=== PATIENT | male | born 1970 | race Caucasian/White ===

== ENCOUNTER 2020-02-25 09:41 | Outpatient (REF) | payer OTHER, SELFPAY | END 2020-02-25 09:42 | disposition home or self-care (01) | LOC: HO.LAB 09:41 | PROVIDERS: Visit Provider Internal Medicine | DX: Z20.828 Contact with and (suspected) exposure to other viral communicable diseases (principal) | CPT/HCPCS: C9803; U0003 ==

== ENCOUNTER 2020-07-02 06:25 | Outpatient (REF) | payer OTHER, SELFPAY ==
[2020-07-02 07:06] LABS: MANUAL DIFF FLAG NO
[2020-07-02 07:09] LABS: Basophils Percent Auto 0.3 % (0-2); Eosinophils Absolute Auto 0.1 X10*3/uL (0.0-0.4); Eosinophils Percent Auto 1.7 % (0-4); Hematocrit 46.7 % (42-52); Hemoglobin 15.7 g/dl (14.0-18.0); Imm Gran Abs Auto 0.01 X10*3/uL (0.00-0.03); Imm Gran Pct Auto 0.2 % (0.0-0.4); Lymphocytes Absolute Auto 2.6 X10*3/uL (1.2-4.9); Mean Corpuscular HGB Conc 33.6 g/dl (31.0-36.0); Mean Corpuscular Hemoglobin 29.8 pg (27.0-33.0); Mean Corpuscular Volume 88.8 fL (80-98); Mean Platelet Volume 9.8 fL (9.4-12.4); Monocytes Absolute Auto 0.6 X10*3/uL (0.1-1.2); Monocytes Percent Auto 8.9 % (2-11); Neutrophils Absolute Auto 3.1 X10*3/uL (2.0-8.3); Neutrophils Percent Auto 48.9 % (45-73); Platelet Count 209 X10*3/uL (160-400); Red Blood Count 5.26 X10*6/uL (4.60-5.80); Red Cell Distribution Width 11.9 % (11.0-16.0); White Blood Count 6.4 X10*3/uL (4.8-10.8)
[2020-07-02 07:29] LABS: Glucose Urine UA NEG (NEG); Leukocyte Esterase Urine NEG (NEG); Nitrite Urine NEG (NEG); PH 6.5 (5.0-8.0); Specific Gravity - Urine <= 1.005 (1.005-1.025); Urine Blood NEG (NEG); Urine Ketones NEG (NEG); Urine Protein NEG (NEG-TRACE)
[2020-07-02 07:32] LABS: Alanine Aminotransferase 15 U/L (0-40); Albumin Level 4.7 g/dL (3.5-5.0); Alkaline Phosphatase 35 U/L (39-117); Anion Gap 11 (12-20); Aspartate Amino Transferase 14 U/L (5-37); Bilirubin Total 0.6 mg/dL (0.0-1.0); Blood Urea Nitrogen 22 mg/dL (9-16); Calcium 9.3 mg/dL (8.4-10.2); Carbon Dioxide 30 mmol/L (22-29); Chloride 101 mmol/L (96-108); Cholesterol 213 mg/dL; Estimated Glomerular Filt Rate > 60; Glucose Random 96 mg/dL (60-115); HDL Cholesterol 44 mg/dL; LDL Cholesterol Calculated 133 mg/dl; Potassium 4.3 mmol/L (3.3-5.1); Sodium 138 mmol/L (135-145); Total Protein 7.3 g/dL (6.5-8.0); Triglycerides 183 mg/dL
[2020-07-02 07:35] LABS: Appearance Urine CLEAR; Color Urine STRAW
[2020-07-02 07:55] LABS: Free T4 (Free Thyroxine) 0.84 ng/dL (0.71-1.85); Thyroid Stimulating Hormone 1.91 uIU/mL (0.32-4.0)
[2020-07-02 08:15] LABS: Prostate Specific Antigen Scr 0.95 ng/mL (<0.05-4.0)
[2020-07-02 08:52] LABS: RBC Urine 0 /HPF (0); WBC Urine 0 /HPF (0-4)
[2020-07-02 08:56] LABS: Folate 10.6 ng/mL (> or = 4.0); Vitamin B12 322 pg/mL (200-900)
[2020-07-03 12:01] LABS: Lyme Abs Screen <0.90 index
== END 2020-07-02 06:26 | disposition home or self-care (01) ==
LOC: HO.LAB 06:25
PROVIDERS: PCP Internal Medicine; Visit Provider Internal Medicine
DX: E78.00 Pure hypercholesterolemia, unspecified (principal); R35.0 Frequency of micturition; Z12.5 Encounter for screening for malignant neoplasm of prostate; T14.8XXA Other injury of unspecified body region, initial encounter; W57.XXXA Bitten or stung by nonvenomous insect and other nonvenomous arthropods, initial encounter; Y93.9 Activity, unspecified; Y92.9 Unspecified place or not applicable; Y99.9 Unspecified external cause status
CPT/HCPCS: 36415; 80053; 80061; 81001; 82607; 82746; 84153; 84439; 84443; 85025; 86618

== ENCOUNTER 2020-07-07 15:00 | Outpatient (REF) | payer OTHER, SELFPAY ==
--- NOTE | ~2020-07-07 | XR_ITS ---
EXAMINATION: XR CHEST CLINICAL INFORMATION: Shortness of breath. COMPARISON: None TECHNIQUE: 2 views of the chest were obtained. FINDINGS: No significant abnormality is noted involving the heart, lungs, mediastinum, bony thorax or soft tissues. XR/XR chest 2V IMPRESSION: Unremarkable chest examination.
== END 2020-07-07 15:01 | disposition home or self-care (01) ==
LOC: HO.HMGCX 15:00
PROVIDERS: PCP Internal Medicine; Visit Provider Hospitalist
DX: R06.02 Shortness of breath (principal)
CPT/HCPCS: 71046

== ENCOUNTER 2020-08-12 08:36 | Outpatient (REF) | payer OTHER, SELFPAY ==
[2020-08-12 08:54] LABS: COVID-19 Test Negative (Negative)
== END 2020-08-12 08:37 | disposition home or self-care (01) ==
LOC: HO.LAB 08:36
PROVIDERS: Visit Provider Internal Medicine
DX: Z20.822 Contact with and (suspected) exposure to COVID-19 (principal)
CPT/HCPCS: 36415; 87635; C9803

== ENCOUNTER 2021-01-01 09:42 | Outpatient (REF) | payer OTHER, SELFPAY ==
--- NOTE | 2021-01-01 09:46 | EMG_ITS ---
Bilateral median and ulnar motor and sensory studies were performed. Bilateral radial sensory studies were performed and paraspinal muscles were tested. IMPRESSION: Mild to moderate left, and mild right, median neuropathy across carpal tunnel. MD TAY Canales/CARLINE / [id number]
== END 2021-01-01 09:43 | disposition home or self-care (01) ==
LOC: HO.NEURO 09:42
PROVIDERS: Visit Provider Internal Medicine
DX: R20.0 Anesthesia of skin (principal)
CPT/HCPCS: 95885; 95886; 95911

== ENCOUNTER 2021-01-30 10:51 | Outpatient (REF) | payer OTHER, SELFPAY ==
--- NOTE | 2021-01-30 | PFT_ITS ---
Forced vital capacity, FEV1, XRI80-33, and MVV are normal. Post bronchodilator therapy, there is no significant change. Total lung capacity normal. Residual volume slightly increased. Diffusion capacity normal. CONCLUSION: Normal pulmonary function test. No obstructive or restrictive pulmonary disorder. Bolivar Blum MD MSB/MODL / [id number]
== END 2021-01-30 10:52 | disposition home or self-care (01) ==
LOC: HO.RESP 10:51
PROVIDERS: PCP Internal Medicine; Visit Provider Internal Medicine
DX: R06.02 Shortness of breath (principal)
CPT/HCPCS: 94060; 94727; 94729

== ENCOUNTER 2021-02-09 15:23 | Outpatient (REF) | payer OTHER, SELFPAY ==
--- NOTE | ~2021-02-09 | US_ITS ---
EXAMINATION: US SCROTUM CLINICAL INFORMATION: Scrotal varices. COMPARISON: Ultrasound scrotum 10/27/2015. TECHNIQUE: A sonogram of the scrotum was performed assessing lyles-scale appearance and color Doppler flow. Spectral Doppler analysis of the arterial and venous flow were performed in the testes bilaterally. FINDINGS: RIGHT: Right testicle measures 5.37 x 2.3 x 3.46 cm, volume 22.4 mL. There is a solitary 2 x 3 mm calcification in the inferior right testicle. Spectral Doppler analysis of the arterial and venous flow is normal in the right testis. There is a 1.7 x 1.7 x 2.2 cm right epididymal head cyst. Right epididymal Doppler flow is normal. There is a small right hydrocele. There is a small right varicocele. LEFT: Left testicle measures 4.69 x 2.12 x 4.39 cm, volume 22.9 mL. There is a solitary 1 x 4 mm calcification in the superior left testicle. Spectral Doppler analysis of the arterial and venous flow is normal in the left testis. Left epididymal head is normal in size. Left epididymal Doppler flow is normal. There is a small to moderate left hydrocele. There is a small left varicocele. US/US scrotum IMPRESSION: Small bilateral hydroceles, left greater than right. Small bilateral varicoceles. 1.7 x 1.7 x 2.2 cm right epididymal head cyst. Solitary small bilateral testicular calcifications.
== END 2021-02-09 15:24 | disposition home or self-care (01) ==
LOC: HO.HMGCX 15:23
PROVIDERS: PCP Internal Medicine; Visit Provider Internal Medicine
DX: I86.1 Scrotal varices (principal)
CPT/HCPCS: 76870

== ENCOUNTER 2021-04-02 09:40 | Outpatient (REF) | payer OTHER, SELFPAY ==
--- NOTE | ~2021-04-02 | XR_ITS ---
EXAMINATION: XR FOOT, RIGHT CLINICAL INFORMATION: Unspecified injury of the foot COMPARISON: None TECHNIQUE: AP, lateral, and oblique views of the right foot. FINDINGS: No fracture or dislocation. Normal mineralization and alignment. Enthesopathy of the distal Achilles tendon attachment. XR/XR foot RT min 3V IMPRESSION: No acute osseous abnormality.
== END 2021-04-02 09:41 | disposition home or self-care (01) ==
LOC: HO.HMGCX 09:40
PROVIDERS: PCP Internal Medicine; Visit Provider Physician Assistant
DX: S99.921A Unspecified injury of right foot, initial encounter (principal)
CPT/HCPCS: 73630

== ENCOUNTER 2021-04-20 14:06 | Outpatient (REF) | payer OTHER, SELFPAY ==
[2021-04-20 14:58] LABS: Influenza A PCR NEGATIVE (Negative); Influenza B PCR NEGATIVE (Negative); Resp Syncy Virus RNA Qual PCR NEGATIVE (Negative); SARS COV2 PCR INHOUSE NEGATIVE (Negative)
== END 2021-04-20 14:07 | disposition home or self-care (01) ==
LOC: HO.LNP 14:06
PROVIDERS: Visit Provider Hospitalist
DX: J06.9 Acute upper respiratory infection, unspecified (principal); Z20.822 Contact with and (suspected) exposure to COVID-19
CPT/HCPCS: 0241U

== ENCOUNTER 2021-08-24 07:13 | Day surgery (SDC) | payer OTHER, SELFPAY ==
[2021-08-17 14:42] VITALS: BMI 29.2
[2021-08-24 07:42] VITALS: BMI 28.3
[2021-08-24 07:51] VITALS: BP 130/83; PULSE 68; RESP 16; TEMP 36.7; O2SAT 97
[2021-08-24] MEDS: Lactated Ringers 1,000 ML 50 ML IVCONT (08:03)
--- NOTE | 2021-08-24 08:03 | P.CONAN_ITS ---
HPI - Anesthesia Eval Consult details Narrative: screening colonoscopy [facility] Active Problems Active Problems: All Active Problems (Updated 08/17/21 @ 14:37 by Nathalie Chavis, RN) COVID-19 virus infection (Acute) Annual physical exam (Acute) Frequency of micturition (Acute) Tick bite (Acute) Acute epididymitis (Acute) SOB (shortness of breath) (Acute) PTSD (post-traumatic stress disorder) (Acute) Bilateral hand numbness (Acute) Colon cancer screening (Acute) Varicocele (Acute) REJI (generalized anxiety disorder) (Acute) Traumatic injury of heel (Acute) Exposure to the flu (Acute) URI (upper respiratory infection) (Acute) Annual physical exam (Acute) Shoulder pain, right (Acute) Overweight (BMI 25.0-29.9) (Acute) Hypercholesterolemia (Acute) Anxiety and depression (Acute) Past Medical History Medical History (Updated 08/17/21 @ 14:37 by Nathalie Chavis RN) Anxiety and depression Cervical spinal stenosis COVID-19 vaccine series completed Degenerative disc disease, cervical History of COVID-19 Hypercholesterolemia Insomnia Overweight (BMI 25.0-29.9) Family History Family History Father CHF (congestive heart failure) Prostate cancer Mother No problems noted. Brother In good health Sister In good health Son In good health Daughter In good health Family history of problems with anesthesia: No Surgical History Surgical History History of surgery History of tonsillectomy History of tooth extraction History of Problems with Anesthesia: No Social History Social History (Updated 05/07/21 @ 15:21 by Rex Montesinos MD) Housing: House Alcohol intake: current Alcohol intake frequency: a few times a week Patient Tobacco Use Status: Former Tobacco user Tobacco use type: Cigarette Years Smoked: 2 Smoked in Last 30 Days: No e-Cigarette/Vaping Use: Never Used Second Hand Smoke Exposure: No Use of substances other than those prescribed or required for medical reasons: No Are you DNR?: No Advance Directives: No Advance Directives Information Provided: Yes service: No Current occupational status: employed Meds Allergies Allergy/AdvReac Type Severity Reaction Status Date / Time No Known Allergies Allergy Verified 05/07/21 14:52 Active Medications: Current Medications Lactated Ringer's (Lr) 1,000 mls @ 50 mls/hr IVCONT .Q20H ELIZABETH Sodium Biphosphate/Sodium Phosphate (Sodium Phosphate,[place]-Dibasic 133 Ml Enema) 133 ml IA ONCE PRN PRN Reason: Poor Colonoscopy Prep Results Home Medications Medication Instructions Recorded Confirmed Last Taken Type fluoxetine 20 mg capsule (Prozac) 20 mg PO DAILY 01/13/21 08/17/21 Unknown History Exam Exam Date and Time: August 24, 2021 0803 Height,Weight and Vital Signs: Height 6 ft 1 in Weight 97.522 kg Last Vital Signs Temp 98.1 F 08/24/21 07:51 Pulse 68 08/24/21 07:51 Resp 16 08/24/21 07:51 BP 130/83 08/24/21 07:51 Pulse Ox 97 08/24/21 07:51 Airway Mallampati Class: II TM Dist: >3cm Neck ROM: Full Loose/Missing/Broken Teeth: No Heart: rrr+[id number] Lungs: cta b/l Assessment and Plan Assessment Anesthesia Assessment: Anesthesia Plan Discussed and Chart Reviewed Final Anesthetic Review Family History of Problems with Anesthesia: No History of Problems with Anesthesia: No NPO: Yes ASA Class: II Final Preanesthetic Review: No Changes in Pt Med Stat, Meds/Allgs Chart Revie tue, Consent Obtained/Reviewed and Anes Risks/Benef Reviewed Patient Risk: Intermediate Procedure Risk: Low Assessment/Block/Sedation in SS: Assess/Block/Sedation-SS Anesthetic Plan Anesthetic Plan: MAC: and Agree w/ Assess. and Plan Disposition: Standard PACU
[2021-08-24 09:20] VITALS: BP 105/71; PULSE 61; RESP 16; TEMP 36.3; O2SAT 97
--- NOTE | 2021-08-24 09:21 | P.BOP_ITS ---
Brief Operative Note Date of Service: 08/24/21 Pre-op diagnosis: Screening Post-op diagnosis: other (Colon polyp) Procedure: Colonoscopy to the cecum with bx/removal of polyp Surgeon: Dejon Nowak Anesthesia: MAC Was an Dental Director used for this Procedure?: No Estimated blood loss (mL): 2.0 Pathology: other (A. Polyp at 50cm) Condition: stable Disposition: PACU
[2021-08-24 09:35] VITALS: BP 99/63; PULSE 69; RESP 18; O2SAT 98
[2021-08-24 09:50] VITALS: BP 106/69; PULSE 58; RESP 18; TEMP 36.6; O2SAT 97
--- NOTE | 2021-08-24 14:59 | OP_ITS ---
SURGEON: Dejon Nowak MD INDICATIONS: The patient presents for evaluation of colorectal cancer screening. Full consent was obtained from him for this, including risks of bleeding and perforation. PREOPERATIVE DIAGNOSIS: Colorectal cancer screening. POSTOPERATIVE DIAGNOSIS: PROCEDURE PERFORMED: Colonoscopy to the cecum with biopsy and removal of polyp. ESTIMATED BLOOD LOSS: COMPLICATIONS: ANESTHESIA: Monitored anesthesia care. ASSISTANTS: SPECIMENS: POSTOPERATIVE DIAGNOSES: Colorectal cancer screening, small colon polyp, sigmoid diverticulosis, and internal hemorrhoids. DESCRIPTION OF PROCEDURE: The patient was placed in the left lateral decubitus position. The digital rectal exam revealed no abnormalities. The Olympus video pediatric colonoscope was entered into the rectum and advanced easily to the cecum. Once in the cecum I did identify normal-appearing cecal pouch with appendiceal orifice and a normal-appearing ileocecal valve. The entire cecum and ileocecal valve appeared normal. The scope was slowly withdrawn assessing all mucosal surfaces carefully. Preparation was excellent. At 50 cm was a flat approximately 4 mm polyp, which was biopsied and completely removed with cold biopsy forceps. I did not visualize any other polyps, colitis, nor angiodysplasia. There was a mild amount of sigmoid diverticulosis. In the rectum, scope was retroflexed visualizing internal hemorrhoids, but no other pathology. The rectal mucosa appeared normal. The scope was straightened and withdrawn from the patient. He tolerated the procedure well and was returned to recovery area in stable condition. IMPRESSION: 1. Colon polyp, status post biopsy removal. 2. Diverticulosis. 3. Internal hemorrhoids. PLAN: The results of the biopsy will be checked. If this is a tubular adenoma, I would recommend a followup coloscopy in 5 years. If it is only hyperplastic, I would recommend a followup colonoscopy in 10 years. He will otherwise see me on a p.r.n. basis. MD ERIC Arcos/CARLINE / [id number]
== END 2021-08-24 10:18 | disposition home or self-care (01) ==
PROVIDERS: PCP Internal Medicine; Visit Provider Internal Medicine
PROC: 0DJD8ZZ Inspection of Lower Intestinal Tract, Via Natural or Artificial Opening Endoscopic (ICD-10-PCS; CPT 45378; principal; 2021-08-24 08:20)
DX: Z12.11 Encounter for screening for malignant neoplasm of colon (principal); K63.5 Polyp of colon; K57.30 Diverticulosis of large intestine without perforation or abscess without bleeding; K64.8 Other hemorrhoids; E78.00 Pure hypercholesterolemia, unspecified; F41.1 Generalized anxiety disorder; F43.10 Post-traumatic stress disorder, unspecified; Z91.09 Other allergy status, other than to drugs and biological substances; Z79.899 Other long term (current) drug therapy; Z86.16 Personal history of COVID-19; Z87.891 Personal history of nicotine dependence
CPT/HCPCS: 45380; 88305; J2250

== ENCOUNTER 2022-05-20 06:48 | Outpatient (REF) | payer OTHER, SELFPAY ==
[2022-05-20 06:57] LABS: MANUAL DIFF FLAG NO
[2022-05-20 07:46] LABS: Basophils Percent Auto 0.4 % (0-2); Eosinophils Absolute Auto 0.1 X10*3/uL (0.0-0.4); Eosinophils Percent Auto 1.8 % (0-4); Hematocrit 45.4 % (42.0-52.0); Hemoglobin 15.2 g/dl (14.0-18.0); Imm Gran Abs Auto 0.01 X10*3/uL (0.00-0.03); Imm Gran Pct Auto 0.2 % (0.0-0.4); Lymphocytes Absolute Auto 2.3 X10*3/uL (1.2-4.9); Lymphocytes Percent Auto 40.6 % (20-40); Mean Corpuscular HGB Conc 33.5 g/dl (31.0-36.0); Mean Corpuscular Hemoglobin 30.5 pg (27.0-33.0); Mean Corpuscular Volume 91.2 fL (80.0-98.0); Monocytes Absolute Auto 0.6 X10*3/uL (0.1-1.2); Monocytes Percent Auto 9.6 % (2-11); Neutrophils Absolute Auto 2.7 x10*3/uL (2.0-8.3); Neutrophils Percent Auto 47.4 % (45-73); Platelet Count 203 X10*3/uL (160-400); Red Blood Count 4.98 X10*6/uL (4.60-5.80); Red Cell Distribution Width 11.8 % (11.0-16.0); White Blood Count 5.7 X10*3/uL (4.8-10.8)
[2022-05-20 08:26] LABS: Alanine Aminotransferase 23 U/L (0-40); Albumin Level 4.4 g/dL (3.5-5.0); Alkaline Phosphatase 37 U/L (39-117); Anion Gap 11 (12-20); Aspartate Amino Transferase 13 U/L (5-37); Bilirubin Total 0.4 mg/dL (0.0-1.0); Blood Urea Nitrogen 22 mg/dL (9-16); Calcium 9.4 mg/dL (8.4-10.2); Carbon Dioxide 30 mmol/L (22-29); Chloride 104 mmol/L (96-108); Cholesterol 270 mg/dL; Estimated Glomerular Filt Rate > 60; Glucose Random 100 mg/dL (60-115); HDL Cholesterol 39 mg/dL; LDL Cholesterol Calculated 197 mg/dl; Potassium 4.8 mmol/L (3.3-5.1); Sodium 140 mmol/L (135-145); Total Protein 6.6 g/dL (6.5-8.0); Triglycerides 170 mg/dL
[2022-05-20 08:44] LABS: Folate 7.6 ng/mL (> or = 4.0); Free T4 (Free Thyroxine) 0.79 ng/dL (0.71-1.85); Prostate Specific Antigen Scr 1.27 ng/mL (<0.05-4.0); Thyroid Stimulating Hormone 1.83 uIU/mL (0.32-4.0); Vitamin B12 312 pg/mL (200-900)
== END 2022-05-20 06:49 | disposition home or self-care (01) ==
LOC: HO.LAB 06:48
PROVIDERS: PCP Internal Medicine; Visit Provider Internal Medicine
DX: Z12.5 Encounter for screening for malignant neoplasm of prostate (principal); E78.00 Pure hypercholesterolemia, unspecified
CPT/HCPCS: 36415; 80053; 80061; 82607; 82746; 84153; 84439; 84443; 85025

== ENCOUNTER 2022-10-13 10:25 | Outpatient (REF) | payer OTHER, SELFPAY ==
--- NOTE | ~2022-10-13 | FL_ITS ---
EXAMINATION: Upper GI and barium swallow CLINICAL INFORMATION: Pain with swallowing in the left neck radiating to the left ear. Dysphagia. COMPARISON: None. TECHNIQUE: Barium swallow and upper GI were performed using thin and thick barium and effervescent granules. Barium tablet was administered. Fluoroscopy time 0.9 minutes. DAP 9 lyles per centimeter squared. Total dose 37 mg. 63 saved fluoroscopic images. FINDINGS: The swallowing mechanism is normal. No aspiration or penetration is seen. There is mild mucosal irregularity of the mid and distal thoracic esophagus questionable for mild esophagitis. No mass or stricture is seen. Barium tablet passed freely into the stomach. No hernia or reflux is seen. Esophageal motility is normal. The stomach and duodenum are normal. No fold thickening, mass, ulcer or stricture is seen. FL/FL upper GI w air w Ba Swallow IMPRESSION: Question mild esophagitis of the mid and distal thoracic esophagus. Otherwise unremarkable exam.
== END 2022-10-13 10:26 | disposition home or self-care (01) ==
LOC: HO.XRAY 10:25
PROVIDERS: Visit Provider Internal Medicine
DX: R13.10 Dysphagia, unspecified (principal)
CPT/HCPCS: 74246

== ENCOUNTER 2022-11-24 07:00 | Outpatient (RCR) | payer OTHER, SELFPAY ==
--- NOTE | 2022-10-11 14:12 | MHC.PT.EP ---
[facility] [place] Office [place] Office [place] [facility] [address] Kay Escoto [address] [phone] F: [phone] F: [phone] F: [phone] F: [phone] Physical Therapy Plan of Care Date of Evaluation: Date of Surgery: Diagnosis: PT eval and treat, M54.9 Dorsalgia, unspecified Upper back pain on R side signed by Dr. 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 Montesinos for treatment of M54.9 Dorsalgia, unspecified, upper back pain on R side date of script 09/06/22. Pt expressing surge of R UE sx radiating down R UE to height of the wrist which are constant in nature when standing/sitting (does express sx relieve when lying down however work is upright and expresses decreased tolerance for hygiene/daily tasks due to severity. Pt expressing history of ongoing sx since June 2022, with prior history of similar sx in ~2017 with positive response to PT. [place] [facility] refer to [place] R shoulder and MRI C/S (+) R sided HNP C6/C7 level. 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 Pt exhibits (+) quadrant testing on the R, expressing near constant R UE parathesias R UE. He reports he has run out of muscle relaxant prescription which he was given and it currently has no refills (Pt encouraged to reach out to PCP office and place inquiry in portal for potential refill). Pt may benefit from a trial of steroid taper to address severity of his inflammation..? Patient states in 2018 he believes he was prescribed one which helped ease lee sx. Pt verbalizes his awareness of increased alcohol consumption due to the pain in his arm and verbalizes he is aware that this is a known concern/problem. Therapist feels it is important for Dr. Montesinos to be aware of the patient's intensity of sx description (patient also opened up regarding his history of current stressors in his personal life). Pt expresses a strong desire to speak with Dr. Montesinos directly. Pt verbalizes awareness of increased anxiety surrounding onset of another sx (L sided esophageal/anterior neck pain) which he reports has been going on for about six weeks. He expresses intolerance for swallowing food due to the pain. While in the office for his PT appt, pt was noted to take a call from Dr. Montesinos's office regarding scheduling some testing for this issue. He was noted to verbalize strong desire to speak with Dr. Montesinos directly. Pt was encouraged to sign up to the portal in order to send messages directly to his PCP. Pt verbalized frustration with the initial timing of obtaining this screening appt for this issue (states was originally set for December but after speaking to a medical superintendent he was given an appt for Tuesday10/13/22). He then received a second call indicating that he will be having a Barium swallow on 10/13/22. Pt was trialed with a pec minor stretch for his R UE sx post evaluation with a positive response. Pt to be seen in PT 2x-3x/week x 4-6 weeks to address impairment: R radicular sx, impaired postural strength, decreased flexibility of upper back, and impaired strength of periscap musculature. On another note, pt reports history of chronic R shoulder pain, states he is tentatively scheduled for a R shoulder surgery with Dr. Howard in late November 2022. When therapist inquired about what type of surgery (ie: RTC repair or other) pt was unsure what is he booked for. MRI of R shoulder was completed in 1999 (see [employer] above). Pt also expresses history of ongoing R radicular sx which radiates down the posterior thigh (expresses) this issue has also flared in recent months which a secondary concern for him. Pt would benefit from attending skilled PT services at a frequency of 2-3x/week x 4-6 weeks to address impairments of radiating R UE sx, implement HEP, and restore functional mobility tolerance for resume PLOF. Pt appears to be an excellent candidate for PT and is very motivated to participate. Thank you for this referral. Frequency and Duration: The patient will be seen 2-3x/week x 4 weeks Short Term Goals: 1. Centralize R UE sx to the height of the R C/S. 2. Initiate self care/HEP program for home. 3. Review ergonomic/set-up for home self care (lumbar roll, standing desk). 4. Implement flexibility program to decompensate R UT musculature. 5. Strength middle and lower trap 5/5. Intermediate Goals: 1. I HEP. 2. Resume ADLS/IADLS no pain R UE. 3. Proper body mechanics, I self care. 4. Shave, dress MOD I with use of R UE with no radiating R UE sx. 5. Strength R triceps 5/5. (IR: 4-/5 compared to L 5/5). Treatment Plan: Modalities to reduce pain, spasms and effusion. Manual therapy to restore motion and function. Therapeutic exercise to improve strength and flexibility. Neuromuscular re-education for posture and balance. Therapeutic activities to return to functional activities of daily living. Electronically signed by: Macey Mathews, PT, DPT Please sign and return to therapist. Thank you for your referral.
--- NOTE | 2022-11-04 12:36 | MHC.PT.OD ---
[facility] [place] Office [place] [facility] [place] Office [address] Kay Escoto [address] [phone] F: [phone] F: [phone] F: [phone] F: [phone] Physical Therapy Daily Note Diagnosis: PT eval and treat, M54.9 Dorsalgia, unspecified Upper back pain on R side signed by Dr. Montesinos date of script 09/06/22 Date of Surgery: Date of Evaluation: 10/08/22 Date of Treatment: 11/02/22 Treatments to Date: Cancellations to Date: No Shows to Date: Authorized Visits: 6 Insurance End Date: Precautions/ Contraindications:hx anxiety, hx R shoulder injury (scheduled for surgery with Dr. Howard in November). Pt unclear as to whether it is for RTC repair or not Subjective: Its the best I have felt in the past five days. Its still in the arm but its better. Pain Score and Location: 09/25 Objective Flowsheet: Tests & Measures 10/26/22:Phone call placed Dr. Montesinos's office, spoke with Holly regarding inquiry for Dr. Montesinos to consider prescribing a steroid taper due to surge of sx in R upper shoulder intensity Exercises Seated MHP to C/S and upper back x 10 minutes in effort to increase tissue extensibility, pec minor stretch over foam roller x 10 minutes, scapular retraction, kneeling stretch mecca child pose x 20 sec hold x 4R, education/review of log roll/ towel roll for lumbar, standing trunk flexion stretch x 4R x 20 sec hold, kneeling trunk flexion stretch with use of foam roller x 4R x 20 sec hold, Pec minor stretch completed. AAROM flexion with aide of L UE for support x 2 sets 5R x 10 sec hold. Scapular retraction and chin tucks reviewed with education to refrain from sx which trigger any radiating periscp/R UE parathesias. Discussed change in position trial of L SB to ease sx of R UE. Discussed pillow support for trial of off-loading the arm. Change in position, goals of therapy, findings of evaluation, indications for treatment. Scapular protraction/retraction over foam roller x 2 sets 10R, figure 4 stretch, open books in SL x 5R each side x 20 sec hold. IASTM HG #9 with erythema response to the R UT>L UT region in effort to increase tissue extensibility. Greater tissue flushing was observed with R upper> L upper trap region. Modalities Cervical quadrant testing. Vertebral artery testing (-). Pt trialed with mechanical cervical traction to ease/centralize R UE with positive response x 20 minutes, followed by five minutes of rest afterwards. with hardness released in supine Pt expressed ease of sx post traction treatment. Pt to monitor response post. Assessment: 11/02/22: Positive centralization with traction today, complete resolution of sx. Reviewed open books and SL stretches for home program. 10/28/22: Pt demonstrating positive early response to cervical traction treatment. Pt encouraged/educated in stretching often during the day with use of foam roller fwd/laterally. 10/26/22 Pt was increased to 15 minutes on cervical traction treatment with positive response/treatment expressed. A phone call was placed to Dr. Montesinos's office and a verbal message was left with front office; Holly to inquire about potential of him prescribing a steroid taper to ease severity of R upper shoulder radiating R UE sx. While patient was still in the office Dr. Montesinos called patient back and educated patient on risk/benefit and stated he would be calling in the a prescription to the pharmacy. Pt was encouraged to increase his stretching frequency at home and initiate pec minor stretch in AM prior to work shift. 10/22/22: Pt was trialed with cervical mechanical traction. Pt NS for appt at 9am, called and confirmed with patient who thought his appt was for 11am. Pt was accommodated to be seen at 11am. Pt positive response for cervical traction treatment. 10/13/22: Positive response to trial of resisted band activity exercises for R UT, challenged with isolating scapular retraction (+) chest dominant, tight R UT region with need for decompression (+) relief post post pec minor stretch. Reviewed chin tuck, body mechanics, ergonomics, desk support, use of lumbar roll, wrist/ R UE support with work tasks. Pt was shown cervical mechanical traction and was educated re: potential trial of use next session to ease sx. 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 Montesinos for treatment of M54.9 Dorsalgia, unspecified, upper back pain on R side date of script 09/06/22. Pt expressing surge of R UE sx radiating down R UE to height of the wrist which are constant in nature when standing/sitting (does express sx relieve when lying down however work is upright and expresses decreased tolerance for hygiene/daily tasks due to severity. Pt expressing history of ongoing sx since June 2022, with prior history of similar sx in ~2018 with positive response to PT. Per medical records in the [facility] system please refer to MRI R shoulder and MRI C/S (+) R sided HNP C6/C7 level. 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 Pt exhibits (+) quadrant testing on the R, expressing near constant R UE parathesias R UE. He reports he has run out of muscle relaxant prescription which he was given and it currently has no refills (Pt encouraged to reach out to PCP office and place inquiry in portal for potential refill). Pt may benefit from a trial of steroid taper to address severity of his inflammation..? Patient states in 2018 he believes he was prescribed one which helped ease lee sx. Pt verbalizes his awareness of increased alcohol consumption due to the pain in his arm and verbalizes he is aware that this is a known concern/problem. Therapist feels it is important for Dr. Montesinos to be aware of the patient's intensity of sx description (patient also opened up regarding his history of current stressors in his personal life). Pt expresses a strong desire to speak with Dr. Montesinos directly. Pt verbalizes awareness of increased anxiety surrounding onset of another sx (L sided esophageal/anterior neck pain) which he reports has been going on for about six weeks. He expresses intolerance for swallowing food due to the pain. While in the office for his PT appt, pt was noted to take a call from Dr. Montesinos's office regarding scheduling some testing for this issue. He was noted to verbalize strong desire to speak with Dr. Po directly. Pt was encouraged to sign up to the portal in order to send messages directly to his PCP. Pt verbalized frustration with the initial timing of obtaining this screening appt for this issue (states was originally set for December but after speaking to a medical dir he was given an appt for Tuesday10/13/22). He then received a second call indicating that he will be having a Barium swallow on 10/13/22. Pt was trialed with a pec minor stretch for his R UE sx post evaluation with a positive response. Pt to be seen in PT 2x-3x/week x 4-6 weeks to address impairment: R radicular sx, impaired postural strength, decreased flexibility of upper back, and impaired strength of periscap musculature. On another note, pt reports history of chronic R shoulder pain, states he is tentatively scheduled for a R shoulder surgery with Dr. Howard in late November 2022. When therapist inquired about what type of surgery (ie: RTC repair or other) pt was unsure what is he booked for. MRI of R shoulder was completed in 1999 (see [employer] above). Pt also expresses history of ongoing R radicular sx which radiates down the posterior thigh (expresses) this issue has also flared in recent months which a secondary concern for him. Pt would benefit from attending skilled PT services at a frequency of 2-3x/week x 4-6 weeks to address impairments of radiating R UE sx, implement HEP, and restore functional mobility tolerance for resume PLOF. Pt appears to be an excellent candidate for PT and is very motivated to participate. Thank you for this referral. PT Plan: postural strength, thoracic extension stretching, manual therapy R UE, potential C/S traction treatment, AAROM R Shoulder, icing TENS trial potential Short Term Goals: 1. Centralize R UE sx to the height of the R C/S. 2. Initiate self care/HEP program for home. 3. Review ergonomic/set-up for home self care (lumbar roll, standing desk). 4. Implement flexibility program to decompensate R UT musculature. 5. Strength middle and lower trap 5/5. Mcfp Goals: 1. I HEP. 2. Resume ADLS/IADLS no pain R UE. 3. Proper body mechanics, I self care. 4. Shave, dress MOD I with use of R UE with no radiating R UE sx. 5. Strength R triceps 5/5. (IR: 4-/5 compared to L 5/5). Electronically signed by: Macey Mathews, PT, DPT
--- NOTE | 2022-12-03 12:47 | MHC.PT.OD ---
[facility] [place] Office [place] Office [place] Office [address] Kay Escoto [address] [phone] F: [phone] F: [phone] F: [phone] F: [phone] Physical Therapy Daily Note Diagnosis: PT eval and treat, M54.9 Dorsalgia, unspecified Upper back pain on R side signed by Dr. Jc date of script 09/06/22 Date of Surgery: Date of Evaluation: 10/08/22 Date of Treatment: 11/24/22 Treatments to Date: Cancellations to Date: No Shows to Date: Authorized Visits: 14 Insurance End Date: Precautions/ Contraindications:hx anxiety, hx R shoulder injury (scheduled for surgery with Dr. Howard in November). Pt unclear as to whether it is for RTC repair or not Subjective: Pt REPORTS YESTERDAY HE FELT THE BEST HE HAS SINCE JUNE. Pt TO PT WITH SEEMINGLY IMPROVED POSTURE WITH GT. Pt REPORTS FORGET ABOUT BACK PAIN..THAT'S CHRONIC . WAS SUPPOSED TO HAVE SURGERY FOR R RC IN NOVEMBER BUT IS ON HOLD. TO SEE DR JC TOMORROW (TO DISCUSS CONTINUED SXS AND BACK PAIN FOR POSSIBLE MRI/NEURO REFERRAL) Pain Score and Location: 09/25 Objective Flowsheet: Tests & Measures 11/23/[address] Jc office to add lumbar to treatment. Pt was shown some gentle extension/prone lying on mat and over pball to reduce/ease lumbar sx in the meantime. Presents flexed and unable to stand erect, expressing, I do this every now and again but its been awhile. 10/26/22:Phone call placed Dr. Jc's office, spoke with Holly regarding inquiry for Dr. Jc to consider prescribing a steroid taper due to surge of sx in R upper shoulder intensity Exercises Pt presents to office severely flexed over, trialed MHP to lumbar and C/S sitting to ease lumbar (did not do prone intially due to pt request to sit vs supine), shown gentle prone lying TAC and prone over pball to ease lumbar sx, review of pec minor stretch x 5 minutes for gentle position with respect to R UE radiating sx. Was able to trial standing shoulder ext to modified range but since throwing back out last week has had limited tolerance for therex), Shown gentle standing lumbar extension x 5 sec hold x 5R with respect to avoiding any LE sx (reports occasional shooting sx to the R calf but today presence of sx only in his back) IASTM R UE held this date due to surge of lumbar sx, poor tolerance for position), Has benefitted from tape in the past but also held this date. LENGTHY DISCUSSION WITH Pt RE SXS, IMPROVEMENTS, SET BACKS, MD FU ETC. ED RE RETURN TO GENTLE STRETCHING AND STRENGTHENING WHEN SXS SUBSIDE TO DECREASE CHANCE OF RECURRENCE Modalities SEATED FOR MH B LB/CERV MMS X 15 MIN F/B Nurse[employer] portable cervical traction unit (MACHINE ANGLE 10 DEGREES) 18#pull force x 20 minutes (NEED FOR 1 REP OF REPUMP TO MAINTAIN 18# PULL) in effort centralize/reduce R UE sx Assessment: ATTEMPT MADE TO SIMULATE LAST PT SESSION SINCE Pt REPORTS FEELING THE BEST HE HAS FELT PT Plan: ASSESS DR JC VISIT, postural strength, thoracic extension stretching, manual therapy R UE, potential C/S traction treatment, AAROM R Shoulder, icing TENS trial potential Short Term Goals: 1. Centralize R UE sx to the height of the R C/S. 2. Initiate self care/HEP program for home. 3. Review ergonomic/set-up for home self care (lumbar roll, standing desk). 4. Implement flexibility program to decompensate R UT musculature. 5. Strength middle and lower trap 5/5. Direct Service Provider Goals: 1. I HEP. 2. Resume ADLS/IADLS no pain R UE. 3. Proper body mechanics, I self care. 4. Shave, dress MOD I with use of R UE with no radiating R UE sx. 5. Strength R triceps 5/5. (IR: 4-/5 compared to L 5/5). Electronically signed by: ZULEMA GRANT PT
== END 2023-05-17 13:00 | disposition home or self-care (01) ==
LOC: HO.PTWFD 07:00
PROVIDERS: PCP Internal Medicine; Visit Provider Internal Medicine
DX: M54.9 Dorsalgia, unspecified (principal)
CPT/HCPCS: 97012; 97014; 97110; 97140; 97150; 97162; 97535

== ENCOUNTER 2023-01-04 07:51 | Outpatient (REF) | payer OTHER, SELFPAY ==
[2023-01-04 08:13] LABS: MANUAL DIFF FLAG NO
[2023-01-04 08:34] LABS: Basophils Percent Auto 0.4 % (0-2); Eosinophils Absolute Auto 0.1 X10*3/uL (0.0-0.4); Eosinophils Percent Auto 1.1 % (0-4); Hemoglobin 14.9 g/dl (14.0-18.0); Imm Gran Abs Auto 0.02 X10*3/uL (0.00-0.03); Imm Gran Pct Auto 0.4 % (0.0-0.4); Lymphocytes Absolute Auto 1.8 X10*3/uL (1.2-4.9); Lymphocytes Percent Auto 33.3 % (20-40); Mean Corpuscular HGB Conc 33.9 g/dl (31.0-36.0); Mean Corpuscular Volume 88.5 fL (80.0-98.0); Mean Platelet Volume 9.6 fL (9.4-12.4); Monocytes Absolute Auto 0.6 X10*3/uL (0.1-1.2); Monocytes Percent Auto 10.1 % (2-11); Neutrophils Percent Auto 54.7 % (45-73); Platelet Count 208 X10*3/uL (160-400); Red Blood Count 4.97 X10*6/uL (4.60-5.80); Red Cell Distribution Width 11.9 % (11.0-16.0); White Blood Count 5.5 X10*3/uL (4.8-10.8)
[2023-01-04 08:56] LABS: Estimated Average Glucose 100 mg/dL; Hemoglobin A1c % 5.1 % (<6.0)
[2023-01-04 09:12] LABS: Alanine Aminotransferase 17 U/L (0-40); Albumin Level 4.2 g/dL (3.5-5.0); Alkaline Phosphatase 34 U/L (39-117); Anion Gap 12 (12-20); Aspartate Amino Transferase 14 U/L (5-37); Bilirubin Total 0.6 mg/dL (0.0-1.0); Blood Urea Nitrogen 16 mg/dL (9-16); Carbon Dioxide 26 mmol/L (22-29); Chloride 105 mmol/L (96-108); Cholesterol 252 mg/dL (<200); Estimated Glomerular Filt Rate > 60; Glucose Random 106 mg/dL (60-115); HDL Cholesterol 42 mg/dL (>40); LDL Cholesterol Calculated 164 mg/dL (<100); Potassium 3.9 mmol/L (3.3-5.1); Sodium 139 mmol/L (135-145); Total Protein 6.9 g/dL (6.5-8.0); Triglycerides 230 mg/dL (<150)
[2023-01-04 09:31] LABS: Free T4 (Free Thyroxine) 0.77 ng/dL (0.71-1.85); Thyroid Stimulating Hormone 1.75 uIU/mL (0.32-4.0)
[2023-01-04 09:35] LABS: Folate 11.6 ng/mL (> or = 4.0); Prostate Specific Antigen Scr 1.36 ng/mL (<0.05-4.0); Vitamin B12 373 pg/mL (200-900)
== END 2023-01-04 07:52 | disposition home or self-care (01) ==
LOC: HO.LAB 07:51
PROVIDERS: PCP Internal Medicine; Visit Provider Internal Medicine
DX: E78.00 Pure hypercholesterolemia, unspecified (principal); R73.02 Impaired glucose tolerance (oral); Z12.5 Encounter for screening for malignant neoplasm of prostate
CPT/HCPCS: 36415; 80053; 80061; 82607; 82746; 83036; 84153; 84439; 84443; 85025

== ENCOUNTER 2023-01-06 10:51 | Outpatient (AMB) | payer OTHER, SELFPAY ==
[2023-01-06 10:53] VITALS: BP 122/80; PULSE 80; O2SAT 96; BMI 29.2
--- NOTE | 2023-01-06 10:53 | A.OFFPC_ITS ---
Vital Signs 01/06/23 10:53 Height 6 ft 1 in Weight 221 lb BMI 29.2 BP 122/80 Blood Pressure Location Lt brachial Position Sitting Pulse 80 Pulse Source Pulse Oximeter Temp Source Skin Pulse Oximetry (%) 96 Oxygen Delivery Method Room Air Intake Visit Reasons: Post tolerance, hypercholesterolemia Intake Note: Patient is here to follow up [employer] Professional Required: No Allergies No Known Allergies Allergy (Verified 01/06/23 11:15) Medication List - Last Reconciled 01/06/23 by RHIANNA Bronson fluoxetine (Prozac) 20 mg PO DAILY off loading boot (Aircast off loading boot) As directed Tobacco use date assessed: 01/06/23 Dental Screening Dental Screen Date: 01/06/23 Did you have a dental visit in the last 12 months?: Yes Did you have a dental problem in the last 6 months where you did not have access to dental care?: No Was dental information given to patient?: Patient has dentist HPI Post tolerance, hypercholesterolemia HPI Details Patient is a 52-year-old male who presents today for a routine follow- up. Patient of Dr. Montesinos. Medical history significant for anxiety, depression, hypercholesterolemia, PTSD, impaired glucose tolerance, upper back pain on right side-worker's comp case-[facility]-reports he is going to be referred to [facility] - interested in neurosurgery consultation - will notify office if he needs referral. In addition, patient reports that he started with body aches and chills 3 days ago, also he started with diarrhea this morning, reports COVID test negative, encouraged bland diet and notify office if no improvement in couple days. Denies sick contacts. Recent blood work results reviewed with the patient. In addition, patient reports drinking alcohol 5-6 drinks daily for the past 1 year, he declined referral to comprehensive care clinic, reports does not need help with alcohol cessation. No shortness of breath or chest pain. [facility] Medical History Overweight (BMI 25.0-29.9) COVID-19 vaccine series completed History of COVID-19 Colon cancer screening Overweight (BMI 25.0-29.9) Degenerative disc disease, cervical Cervical spinal stenosis Hypercholesterolemia Insomnia Anxiety and depression COVID-19 virus infection Surgical History History of surgery History of tonsillectomy History of tooth extraction Family History Father CHF (congestive heart failure) Prostate cancer Alcohol abuse Mother No problems noted. Brother In good health Sister In good health Son In good health Daughter In good health Other Mental health disorder Substance use disorder Social History Housing: House Alcohol intake: current Alcohol intake frequency: a few times a week Patient Tobacco Use Status: Former Tobacco user Tobacco use type: Cigarette Years Smoked: 2 e-Cigarette/Vaping Use: Never Used Second Hand Smoke Exposure: No service: No Current occupational status: employed Cognitive needs: No Hearing needs: No Vision needs: No Questionnaire Thrive Questionnaire Date Thrive assessed: 05/07/22 AUDIT C Alcohol Use Questionnaire (AUDIT-C) 1. How often do you have a drink containing alcohol?: 2-4 times a month 2. How many drinks containing alcohol do you have on a typical day when you are drinking?: 1 or 2 3. How often do you have six or more drinks on one occasion?: Never Total Score: 2 Score Reviewed/Action Taken: No REJI-7 AMB Questionnaire REJI-7 Date REJI - 7 assessed: 05/07/22 Source: Developed by Drs. Dejon Lamas, Shaylee Haro, Shant Beard and colleagues, with an educational edwar from [employer]. Review of Systems Const Reports body aches, Reports chills, Denies fever(s) and Denies headache(s) ENT Denies dizziness, Denies otalgia, Denies headache(s), Denies nasal discharge, Denies sinus pain and Denies sore throat Card Denies chest pain, Denies edema, Denies lightheadedness and Denies dyspnea Resp Denies cough, Denies dyspnea and Denies wheezing GI Denies constipation, Reports diarrhea, Denies nausea and Denies vomiting Denies dysuria Musc Reports back pain and Denies myalgias Skin/Breast Denies rash Neuro Denies dizziness and Denies headache(s) Aller/Immun Denies wheezing Physical exam (Primary Care) Vital Signs: Last Vital Signs Pulse 80 01/06/23 10:53 BP 122/80 01/06/23 10:53 Pulse Ox 96 01/06/23 10:53 Oxygen Delivery Method Room Air 01/06/23 10:53 BMI result Body Mass Index 29.2 Tobacco/Smoking Status: Tobacco use Status Tobacco use date assessed 01/06/23 01/06/23 10:54 Patient Tobacco Use Status Former Tobacco user 01/06/23 10:54 Tobacco use type Cigarette 01/06/23 10:54 e-Cigarette/Vaping Use Never Used 01/06/23 10:54 Thrive Assessment: Date of Thrive Assessment Date Thrive assessed 05/07/22 01/06/23 10:54 Const General: cooperative and no acute distress Orientation/consciousness: patient oriented x3 HENMT Head: Yes normocephalic and Yes atraumatic Mouth: oropharynx normal and moist mucous membranes Throat: Yes posterior oropharynx normal Eyes General: appearance normal, both eyes and all related structures Neck Neck: Yes normal visual inspection and Yes full ROM Resp Effort & Inspection: normal respiratory effort and able to speak in complete sentences Auscultation: clear to auscultation bilaterally, no crackles, no rales, no rhonchi and no wheezes Cardio Rate: regular rate Rhythm: regular rhythm Heart sounds: S1 normal heart sound present and S2 normal heart sound present GI Auscultation: normal bowel sounds Skin General skin exam: no rashes or lesions noted Neuro General: patient oriented x3 Gait exam (Neuro): Normal gait present Extrem General: Yes full ROM and No edema Assessment and Plan Assessment & Plan (1) Obesity (BMI 30.0-34.9): Code(s): E66.9 - Obesity, unspecified Plan: Healthy food choices and exercise as tolerated Patient congratulated on 9 lb weight loss (2) Hypercholesterolemia: Code(s): E78.00 - Pure hypercholesterolemia, unspecified Plan: LDL 164, goal less than 130, previous LDL 197 Patient would like to hold off on cholesterol medication at this time, he will continue with low-cholesterol diet until next cholesterol recheck. (3) Impaired glucose tolerance: Code(s): R73.02 - Impaired glucose tolerance (oral) Plan: A1c 5.1 12/2022 (4) Anxiety and depression: Code(s): F41.9 - Anxiety disorder, unspecified; F32.9 - Major depressive disorder, single episode, unspecified Plan: Continue Prozac daily (5) Alcohol use: Code(s): Z78.9 - Other specified health status Plan: Encouraged alcohol cessation Plan Keep appointment with PCP as scheduled or follow-up sooner as needed Orders: Orders Lipid Panel Today E78.00 - Pure hypercholesterolemia, unspecified Comprehensive [place]. Panel Fast Today R73.02 - Impaired glucose tolerance (oral) Hemoglobin A1c Today R73.02 - Impaired glucose tolerance (oral) Coding Level of Care Code Est Pt Level 4 (43028) Diagnoses Obesity (BMI 30.0-34.9) E66.9 Hypercholesterolemia E78.00 Impaired glucose tolerance R73.02 Anxiety and depression F41.9; F32.9 Alcohol use Z78.9
== END 2023-01-06 11:32 | disposition home or self-care (01) ==
PROVIDERS: PCP Internal Medicine; Visit Provider Nurse Practitioner Family
DX: E78.00 Pure hypercholesterolemia, unspecified (principal); E66.9 Obesity, unspecified; Z68.29 Body mass index [BMI] 29.0-29.9, adult; F41.9 Anxiety disorder, unspecified; F32.9 Major depressive disorder, single episode, unspecified; R73.02 Impaired glucose tolerance (oral); Z78.9 Other specified health status
CPT/HCPCS: 99214

== ENCOUNTER 2023-05-11 08:45 | Outpatient (REF) | payer OTHER, SELFPAY ==
[2023-05-11 09:30] LABS: Estimated Average Glucose 103 mg/dL; Hemoglobin A1c % 5.2 % (<6.0)
[2023-05-11 10:11] LABS: Alanine Aminotransferase 54 U/L (0-40); Alkaline Phosphatase 46 U/L (39-117); Anion Gap 10 (12-20); Aspartate Amino Transferase 38 U/L (5-37); Bilirubin Total 0.5 mg/dL (0.0-1.0); Blood Urea Nitrogen 15 mg/dL (9-16); Calcium 9.1 mg/dL (8.4-10.2); Carbon Dioxide 27 mmol/L (22-29); Chloride 103 mmol/L (96-108); Cholesterol 207 mg/dL (<200); Estimated Glomerular Filt Rate > 60; Glucose Fasting 90 mg/dL (60-99); HDL Cholesterol 34 mg/dL (>40); LDL Cholesterol Calculated 130 mg/dL (<100); Sodium 136 mmol/L (135-145); Total Protein 6.9 g/dL (6.5-8.0); Triglycerides 216 mg/dL (<150)
== END 2023-05-11 08:46 | disposition home or self-care (01) ==
LOC: HO.LAB 08:45
PROVIDERS: Nurse Practitioner Family; PCP Internal Medicine; Visit Provider Internal Medicine
DX: E78.00 Pure hypercholesterolemia, unspecified (principal); R73.02 Impaired glucose tolerance (oral)
CPT/HCPCS: 36415; 80053; 80061; 83036

== ENCOUNTER 2023-05-12 13:49 | Outpatient (AMB) | payer OTHER, SELFPAY ==
[2023-05-12 13:49] VITALS: BP 122/84; PULSE 78; O2SAT 99; BMI 29.2
--- NOTE | 2023-05-12 13:49 | A.OFFPC_ITS ---
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: Patient has dentist HPI PE HPI Details 53-year-old overweight male with a histo ry of impaired glucose tolerance hypercholesterolemia generalized anxiety disorder bilateral rotator cuff dysfunction coming in for physical exam. Last seen in August 2022. Colonoscopy done August 2021. [facility] right paracentral disc extrusion extending both superiorly and inferiorly causing mild canal stenosis narrowing right neural foramen due to bone spurs concern about co mpression of the exiting right C7 nerve root thoracic spine showing T6-7 left paracentral protrusion causing mild left-sided canal stenosis and slight indentation of the ventral cord though no myelopathic signal abnormality noted advised to follow-up with [facility] patient was seen by the nurse practitioner upper back pain right side worker's comp case seen by [place] interested in seeing a neurosurgeon. Patient had an upper GI series in September showing mild esophagitis otherwise unremarkable. did see PSS- has had injection 01/2023 no relief- went back 03/2023- chronic referred to Dr. Han Martinez - surgery June 22, 2023 For the R shoulder DUYEN . sick last march. [facility] Medical History (Updated 05/12/23 @ 14:02 by Rex Montesinos MD) Dysphagia Upper back pain on right side Obesity (BMI 30.0-34.9) Overweight (BMI 25.0-29.9) COVID-19 vaccine series completed History of COVID-19 Colon cancer screening Overweight (BMI 25.0-29.9) Degenerative disc disease, cervical Cervical spinal stenosis Hypercholesterolemia Insomnia Anxiety and depression COVID-19 virus infection Surgical History History of surgery History of tonsillectomy History of tooth extraction Family History (Updated 05/12/23 @ 14:11 by Rex Montesinos MD) Father CHF (congestive heart failure) Prostate cancer Alcohol abuse Mother No problems noted. Brother In good health Coronary artery disease Sister In good health Son In good health Daughter In good health Other Mental health disorder Substance use disorder Social History (Updated 05/12/23 @ 14:12 by Rex Montesinos MD) Housing: House Alcohol intake: current Alcohol intake frequency: a few times a week Comment: 2 drinks a day Patient Tobacco Use Status: Former Tobacco user Tobacco use type: Cigarette Years Smoked: stopped 22 years old e-Cigarette/Vaping Use: Never Used Second Hand Smoke Exposure: No service: No Current occupational status: employed Cognitive needs: No Hearing needs: No Vision needs: No Questionnaire PHQ-9 Over the last 2 weeks, how often have you been bothered by any of the following problems? 1. Little interest or pleasure in doing things: several days 2. Feeling down, depressed, or hopeless: several days 3. Trouble falling or staying asleep, or sleeping too much: several days (staying asleep ) 4. Feeling tired or having little energy: not at all 5. Poor appetite or overeating: not at all 6. Feeling bad about yourself - or that you are a failure or have let yourself or your family down: not at all 7. Trouble concentrating on things, such as reading the newspaper or watching television: several days 8. Moving or speaking so slowly that other people could have noticed. Or the opposite - being so fidgety or restless that you have been moving around a lot more than usual: not at all 9. Thoughts that you would be better off or of hurting yourself in some way: not at all Total score: 4 Depression Screening Interpretation: Positive Depression Screening Follow-up: Existing condition and In treatment Depression Screening Done: Yes Source: Developed by Drs. Dejon Lamas, ShayleeShant Tanner and colleagues, with an educational edwar from [employer]. Thrive Questionnaire Date Thrive assessed: 05/12/23 I am a: Patient What is your living situation today?: I have a steady place to live Within the past 12 months, did the food you bought not last and you didn't have the money to get more?: Never true Within the past 12 months, did you worry whether your food would run out before you got money to buy more?: Never true Do you have trouble paying for medicines?: No Do you have trouble getting transportation to medical appointments?: No Do you have trouble paying your heating and electricity bill?: No Do you have trouble taking care of your child, family member or friend?: No Do you have trouble with day-to-day activities such as bathing, preparing meals, shopping, managing finances, etc.?: No Are you currently unemployed and looking for a job?: No Are you interested in more education?: No Please select the resources that you would like help with: None THRIVE Score: 0 AUDIT C Alcohol Use Questionnaire (AUDIT-C) 1. How often do you have a drink containing alcohol?: 2-4 times a month 2. How many drinks containing alcohol do you have on a typical day when you are drinking?: 1 or 2 3. How often do you have six or more drinks on one occasion?: Never Total Score: 2 Score Reviewed/Action Taken: No REJI-7 AMB Questionnaire REJI-7 Date REJI - 7 assessed: 05/12/23 Feeling nervous, anxious, or on edge: 3 = Nearly every day Not being able to stop or control worryin = Nearly every day Worrying too much about different things: 0 = Not at all Trouble relaxin = Not at all Being so restless that it is hard to sit still: 0 = Not at all Becoming easily annoyed or irritable: 0 = Not at all Feeling afraid as if something awful might happen: 0 = Not at all Total REJI-7 score (0-4 normal; 5-9 mild; 10-14 moderate; 15-21 severe): 6 Source: Developed by Shaylee Leblanc Kurt Kroenke and colleagues, with an educational edwar from [employer]. Review of Systems Const Denies poor appetite and Denies weakness Eyes Denies no additional complaints ENT Reports Normal hearing present, Denies dizziness, Denies nasal congestion, Denies tinnitus and Denies sore throat Card Denies chest pain, Denies syncope, Denies rapid heart rate and Denies dyspnea Resp Denies cough and Denies dyspnea GI Denies change in stool character, Reports constipation, Denies diarrhea, Denies nausea and Denies vomiting Denies dysuria and Denies urinary frequency Neuro Reports Normal hearing present, Denies confusion, Denies dizziness, Denies syncope and Denies weakness Psych Denies confusion Physical exam (Primary Care) Vital Signs: Last Vital Signs Pulse 78 05/12/23 13:49 BP 122/84 05/12/23 13:49 Pulse Ox 99 05/12/23 13:49 Oxygen Delivery Method Room Air 05/12/23 13:49 BMI result Body Mass Index 29.2 Tobacco/Smoking Status: Tobacco use Status Tobacco use date assessed 05/12/23 05/12/23 13:51 Patient Tobacco Use Status Former Tobacco user 05/12/23 13:51 Tobacco use type Cigarette 05/12/23 13:51 e-Cigarette/Vaping Use Never Used 05/12/23 13:51 PHQ-9: PHQ-9 Score PHQ-9: Total score 4 05/12/23 13:57 Depression Screening Interpretation: Positive Depression Screening Follow-up: Existing condition and In treatment Thrive Assessment: Date of Thrive Assessment Date Thrive assessed 05/12/23 05/12/23 13:51 Const General: No confusion Orientation/consciousness: No confusion HENMT Head: Yes normocephalic Ears: external ears normal and TM's normal bilaterally Face and sinus: Yes normal facial exam Mouth: moist mucous membranes Throat: Yes tonsils normal Eyes Conjunctivae: conjunctivae normal Pupils: Equal, round and reactive pupils present and Pupil accommodation reflex normal Direct Ophthalmoscopy: normal light reflex Neck Neck: No lymphadenopathy Thyroid: Thyroid normal Chest Chest palpation & inspection: normal inspection of the chest Resp Effort & Inspection: normal respiratory effort and no audible wheezes Auscultation: clear to auscultation bilaterally, no crackles, no wheezes and lung sounds not diminished Cardio Rate: regular rate Rhythm: regular rhythm Peripheral pulses: radial pulses present and dorsalis pedis present GI Palpation (GI): no masses Auscultation: normal bowel sounds and normoactive bowel sounds Rectal Exam - Male: Yes deferred Skin General skin exam: no rashes or lesions noted Rashes: no rashes Neuro General: No confusion Cranial nerves: Yes Equal, round and reactive pupils present and Yes Normal hearing present Cognition (Neuro): normal cognition Gait exam (Neuro): Normal gait present Motor exam (neuro): 5/5 motor strength present throughout Deep tendon reflexes (DTR's): Right brachioradialis reflex intensity grade: 2+, Left brachioradialis reflex intensity grade: 2+, Right patellar reflex intensity grade: 2+ and Left patellar reflex intensity grade: 2+ Extrem General: No edema Assessment and Plan Assessment & Plan (1) Annual physical exam: Code(s): Z00.00 - Encounter for general adult medical examination without abnormal findings (2) Hypercholesterolemia: Code(s): E78.00 - Pure hypercholesterolemia, unspecified Plan: Avoid fried foods, chicken skin, eggs, butter margarine, pastries and meat. Be it pork or beef they have a lot of cholesterol LDL goal of less than 130 and triglyceride of less than 150 (3) REJI (generalized anxiety disorder): Code(s): F41.1 - Generalized anxiety disorder Plan: Continue with counseling and therapy (4) Overweight (BMI 25.0-29.9): Code(s): E66.3 - Overweight Plan: Diet and exercise (5) Thoracic spinal stenosis: Code(s): M48.04 - Spinal stenosis, thoracic region Plan: Patient has been referred to [facility] (6) Cervical spinal stenosis: Code(s): M48.02 - Spinal stenosis, cervical region Plan: Patient has been referred to [facility] (7) LFT elevation: Code(s): R79.89 - Other specified abnormal findings of blood chemistry Plan: Advised to work this up. Orders: Orders Comprehensive Met. Panel Today R79.89 - Other specified abnormal findings of blood chemistry US abdomen complete Today R7.89 - Other specified abnormal findings of blood chemistry Hepatitis B,C Profile Today R7.89 - Other specified abnormal findings of blood chemistry Coding Level of Care Code Est Pt Prev Care 40-64y(01205) Diagnoses Annual physical exam Z00.00 Hypercholesterolemia E78.00 REJI (generalized anxiety disorder) F41.1 Overweight (BMI 25.0-29.9) E66.3 Thoracic spinal stenosis M48.04 Cervical spinal stenosis M48.02 LFT elevation R79.89
== END 2023-05-12 15:30 | disposition home or self-care (01) ==
PROVIDERS: Visit Provider Internal Medicine
DX: Z00.00 Encounter for general adult medical examination without abnormal findings (principal); E78.00 Pure hypercholesterolemia, unspecified; F41.1 Generalized anxiety disorder; E66.3 Overweight; M48.04 Spinal stenosis, thoracic region; M48.02 Spinal stenosis, cervical region; R79.89 Other specified abnormal findings of blood chemistry
CPT/HCPCS: 99396

== ENCOUNTER 2023-05-19 09:55 | Outpatient (REF) | payer OTHER, SELFPAY ==
--- NOTE | ~2023-05-19 | US_ITS ---
EXAMINATION: US ABDOMEN COMPLETE CLINICAL INFORMATION: Other specified abnormal findings of blood chemistry. Elevated LFTs. COMPARISON: None available. TECHNIQUE: Real-time imaging of the abdominal viscera. FINDINGS: PANCREAS: Normal. ABDOMINAL AORTA: The proximal, mid, and distal segments are normal in caliber. INFERIOR VENA CAVA: Visualized portions are normal. LIVER: Normal. The liver is normal in size. The liver contour is normal. Parenchymal echogenicity is normal. No focal hepatic lesion. There is no intrahepatic biliary duct dilatation seen. GALLBLADDER: Normal. The gallbladder is physiologically distended without evidence of stones, sludge, polyps, wall thickening or pericholecystic fluid. COMMON BILE DUCT: Normal in caliber measuring 0.4 cm in diameter. RIGHT KIDNEY: Normal. No hydronephrosis. No renal calculi or focal parenchymal lesions. The kidney measures 11.5 cm in maximum dimension. LEFT KIDNEY: Normal. No hydronephrosis. No renal calculi or focal parenchymal lesions. The kidney measures 12.3 cm in maximum dimension. SPLEEN: No focal finding. The spleen measures 14.1 cm in maximum dimension. FREE FLUID: None. US/US abdomen complete IMPRESSION: There is mild splenomegaly. The examination is otherwise unremarkable. In particular, hepatic echotexture is normal, and there is no focal hepatic finding or biliary ductal dilatation.
== END 2023-05-19 09:56 | disposition home or self-care (01) ==
LOC: HO.HMGCX 09:55
PROVIDERS: PCP Internal Medicine; Visit Provider Internal Medicine
DX: R79.89 Other specified abnormal findings of blood chemistry (principal)
CPT/HCPCS: 76700

== ENCOUNTER 2024-03-17 16:38 | Emergency (ER) | payer OTHER, SELFPAY ==
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
[2024-03-17 17:01] VITALS: BP 135/86; PULSE 57; RESP 16; TEMP 36.6; O2SAT 97; BMI 27.8
[2024-03-17 17:02] VITALS: BP 152/90; PULSE 55; O2SAT 94
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
[2024-03-17] MEDS: Cyclobenzaprine HCl 5 MG TABLET PO (18:11)
[2024-03-17] MEDS: Ketorolac Tromethamine 30 MG/ML VIAL IM (18:12)
[2024-03-17] MEDS: Lidocaine 4 % Patch ADH..PATCH 1 PATCH TRANSDERMA (18:12)
[2024-03-17 18:56] VITALS: BP 132/92; PULSE 68; RESP 16; TEMP 36.1; O2SAT 97
[2024-03-17 19:05] VITALS: BP 132/92; PULSE 68; RESP 16; TEMP 36.1; O2SAT 97
== END 2024-03-17 19:07 | disposition home or self-care (01) ==
PROVIDERS: Emergency Provider Emergency Medicine Emergency Medical Services
DX: Z04.1 Encounter for examination and observation following transport accident (principal); M54.2 Cervicalgia; M54.50 Low back pain, unspecified; M54.6 Pain in thoracic spine
CPT/HCPCS: 72072; 72100; 96372; 99283; 99284; J1885

== ENCOUNTER 2024-03-28 11:32 | Outpatient (AMB) | payer OTHER, SELFPAY ==
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
[2024-03-28 11:36] VITALS: BP 118/78; PULSE 86; O2SAT 93; BMI 29.7
--- OUTSIDE RECORDS SUMMARY | 2024-03-29 01:41 | XMS_ITS ---
Author Name [facility] [place] [facility] [place] Address [address] [place] [address] Care Team Providers Care Conservation Engineer Name Role Phone LENIN BENSON Primary Care Provider Unavailabl e Insurance Providers: All historical and current Section Date Range: From patient's date of to the date document was created. This section includes the names of all active insurance providers for the patient. Insurance Provider Type of Coverage Plan Name Start of Policy Coverage End of Policy Coverage Group Number Member ID Insurance Provider's Telephone Number Policy Batista's Name Patient's Relationship to Policy Batista [employer] PRESCRIPT ION SYSCO Apr 18, 2010 [id number] MITCHELL RAE PATIENT IAIN-ASA HANKINS PREFERRED PROVIDER ORGANIZAT ION (PPO) ADVAN LILLIAN DRAIN AGE Sep 17, 2002 [id number] MITCHELL RAE PATIENT Selected Encounter This section includes the information on record at [place] for the Encounter. Date/Time Encounter Type Encounter Description Reason Pro vider Source Mar 31, 2023 01:31 PM Outpatient Encounter ADMIN PAT ACTIVTIES (MASNONCT) I[facility] Encounter Template Text not used by [facility] Plan of Treatment: Future Appointments (+ 6 months) and Future Tests (+/- 45 days) The Plan of Treatment section includes future care activities for the patient from all [place] treatmentfacilities. This section includes future appointments and future orders which are active, pending or scheduled. Future Appointments This section includes appointments that were scheduled to occur 6 months from the date of the Encounter, up to a maximum of 20 appointments. The data comes from all [place] treatment facilities. Appointment Date/Time Appointment Type Appointme nt Facility Name Apr 14, 2023 02:00 PM AM[place]UL[place]ORY [place] [facility] [place] [facility] Jun 16, 2023 03:30 PM [place] [facility] [place] [facility] Jun 23, 2023 09:00 AM [place] [facility] [place] [facility] August 22, 2023 11:30 AM [place] [facility] [place] [facility] August 31, 2023 11:00 AM [place] [facility] [place] [facility] Sep 27, 2023 09:30 AM [place] [facility] Lab Results: +/- 30 days of the encounter This section includes the Chemistry and Hematology Lab Results on record with [place] for the patient. Radiology Reports and Pathology Reports are provided separately, in subsequent sections. Lab Results This section contains the Chemistry/Hematology Results that were resulted 30 days before or 30 daysafter the date of the Encounter. Date/Time Source Result Type Result - Unit Interpretation Reference Range Comment Mar 28, 2023 09:25 [facility] HEPATITIS B SURFACE ANTIBODY (HBsAb)-WH Specimen Type: SERUM Comment: A 'Reactive' result indicates HBsAb results >/= 12.0 mIU/mL and immunity to HBV infection. Ordering Provider: YUSRA RUDOLPH ED JAWMERYL Report Released Date/Time: Mar 22, 2023 11:09 AM Reporting Lab: [facility] [address] [facility] [phone] Performing Lab: [facility] [address] [address] HBsAb REACTIVE Non Reactive Mar 28, 2023 09:25 AM [facility] PSA Specimen Type: SERUM No comment entered. Ordering Provider: YUSRA RUDOLPH ED JAWMERYL Report Released Date/Time: Mar 22, 2023 11:09 AM Reporting Lab: [facility] [address] [facility] [address] Performing Lab: [facility]ITALRUNITED [facility]PITALTRN [facility] [address] [facility] [address] PSA 1.30 ng/mL 0.00-4.00 Mar 28, 2023 09:25 AM [facility] BASIC METABOLIC PANEL (fasting) Specimen Type: SERUM No comment entered. Ordering Provider: YUSRA RUDOLPH ED JAWED Report Released Date/Time: Mar 22, 2023 11:09 AM Reporting Lab: [facility] [address] [facility] [address] Performing Lab: [facility]ERN [facility]ITALUSE[facility] [address] [facility] [address] UREA NITROGEN 18 mg/dL 7-25 GLUCOSE 95 mg/dL 65-100 SODIUM 139 mmol/L 135-145 POTASSIUM 4.7 mmol/L 3.5-5.0 CHLORIDE 103 mmol/L 100-110 CO2 27 meq/L 20-30 CREATININE, Serum 0.92 mg/dL 0.50-1.40 eGFR(CKD-EPI 2020) >90 mL/min >60 Mar 28, 2023 09:25 AM [facility] LIPID PANEL FASTING Specimen Type: SERUM No comment entered. Ordering Provider: YUSRA RUDOLPH ED JAWED Report Released Date/Time: Mar 22, 2023 11:09 AM Reporting Lab: [facility]ERN [facility]ITALUS[facility] [address] [facility] [address] Performing Lab: [facility]ERN [facility]ITALUSETS [facility] [address] [facility] [address] CHOLESTEROL 258 mg/dL H TRIGLYCERIDE 158 mg/dL H 0-150 LDL calculated 175 mg/dL H 0-129 CHOL/HDL 5.1 HDL CHOLESTEROL 51 mg/dL 40-60 Mar 28, 2023 09:25 AM [facility] LIVER FUNCTION Specimen Type: SERUM No comment entered. Ordering Provider: YUSRA RUDOLPH ED JAWED Report Released Date/Time: Mar 22, 2023 11:09 AM Reporting Lab: [facility]N [facility] [address] [facility] [phone] Performing Lab: [facility]ITALR[facility]ERN [facility]ITALUSETS [facility] [address] [facility] [phone] PROTEIN,TOTAL 6.8 g/dL 6.0-8.3 ALBUMIN 4.1 g/dL 3.5-5.0 ALKALINE PHOSPHATASE 35 U/L L 40-150 AST 13 U/L 5-34 ALT 18 U/L BILIRUBIN, TOTAL 0.6 mg/dL 0.2-1.2 Mar 28, 2023 09:25 AM [facility] HEPATITIS C ANTIBODY (HCV)-ARC Specimen Type: SERUM Comment: Hep C Ab: No HCV antibody detected. If recent infection is suspected or other evidence suggests HCV infection, consider HCV nucleic acid testing Ordering Provider: YUSRA RUDOLPH ED Report Released Date/Time: Mar 22, 2023 11:09 AM Reporting Lab: [facility]ITALR[facility]ERN [facility]ITALUSETS [facility] [address] [facility] [address] Performing Lab: [facility]RWO[facility]ERN [facility]ITALUSETS [address] [address] HEPATITIS C ANTIBODY NON-REACTIVE NON-REACTIVE Mar 28, 2023 09:25 AM [facility]USE[facility] HIV 1&2 Ag/Ab SCREEN Specimen Type: SERUM No comment entered. Ordering Provider: YUSRA RUDOLPH ED Report Released Date/Time: Mar 22, 2023 11:09 AM Reporting Lab: [facility]RWO[facility]ERN [facility]ITALUSETS [facility] [address] [facility] [address] Performing Lab: [facility]ITALRWO[facility]ERN [facility]ITALUSETS [facility] [address] [facility] [address] HIV 1&2 Ag/Ab SCREEN NON-REACTIVE Nonreactive Mar 28, 2023 09:25 AM [facility] CBC AND DIFF (AUTO) Specimen Type: BLOOD No comment entered. Ordering Provider: YUSRA RUDOLPH ED Report Released Date/Time: Mar 22, 2023 11:09 AM Reporting Lab: [facility]RWO[facility]ERN [facility]ITALUSETS [facility] [address] [facility] [address] Performing Lab: [facility]ITALRWO[facility]ERN [facility]ITALUSETS [address] [address] WBC 4.75 10*3/uL 4.50-11.00 RBC 4.87 10*6/uL 4.23-5.66 HGB 14.9 g/dL 12.8-17 HCT 44.6 39.2-50.4 MCV 91.6 fL 82-99 MCHC 33.4 g/dL 30.8-35.1 PLT 202 10*3/uL 140-360 RDW-CV 11.6 L 12.0-16.0 Roosevelt, Abs 0.45 10*3/uL 0.30-1.10 MCH 30.6 pg 26.2-32.6 Neut % 48.5 43.7-75.8 Lymph % 38.7 14.0-42.3 Roosevelt % 9.5 5.1-13.7 Eos % 2.5 0.4-6.8 Baso % 0.6 0.1-2.0 Neut, Abs 2.30 10*3/uL 2.20-7.60 Lymph, Abs 1.84 10*3/uL 1.00-3.20 Eos, Abs 0.12 10*3/uL 0.03-0.44 Baso, Abs 0.03 10*3/uL 0.01-0.13 Immature Gran % 0.2 0.0-0.7 Immature Gran, Abs 0.01 10*3/uL 0.00-0.06 Mar 28, 2023 09:25 AM [facility] URINALYSIS Specimen Type: URINE Comment: If Glucose = >500 and Ketones are positive, please alert the Physician. Ordering Provider: YUSRA RUDOLPH ED Report Released Date/Time: Mar 22, 2023 11:09 AM Reporting Lab: [facility] [address] [facility] [phone] Performing Lab: [facility] [address] [facility] [phone] UA COLOR Colorless Yellow UA APPEARANCE Clear Clear UA GLUCOSE NEGATIVE mg/dL Negative UA KETONES NEGATIVE mg/dL Negative UA BLOOD NEGATIVE mg/dL Negative UA PROTEIN NEGATIVE mg/dL Negative UA NITRITE NEGATIVE mg/dL Negative UA BILIRUBIN NEGATIVE mg/dL Negative UA SPECIFIC GRAVITY 1.005 L 1.016-1.022 UA pH 7.0 5.0-9.0 UA UROBILINOGEN <2.0 mg/dL <2.0 UA LEUKOCYTE NEGATIVE Negative Social History: Smoking Status (Most current) and Tobacco Use (All prior to encounter date) This section includes the most current, and the historical, smoking and tobacco- related health factors from the [place] facility where the Encounter took place. Current Smoking Status This section includes the most current smoking, or tobacco-related health factor, from the [place] facility where the Encounter took place. Date/Time Current Smoking Status Comment Facil it Dec 01, 2022 03:30 PM VA-TOBACCO FORMER USER [place] [facility] [place] [facility] Tobacco Use History This section includes a history of the smoking, or tobacco-related health factors, that were collected on or before the date of the Encounter. The data comes from the [place] facility where the Encounter took place. Date/Time Smoking Status/Tobac co Use Comment Facility Dec 01, 2022 03:30 PM VA-TOBACCO QUIT 15 YRS OR MORE [place] [facility] [place] [facility] Nov 21, 2020 09:30 AM VA-TOBACCO FORMER USER [place] [facility] [place] [facility] Nov 21, 2020 09:30 AM VA-TOBACCO QUIT 15 YRS OR MORE [place] [facility] [place] [facility] Sep 21, 2019 10:24 AM VA-TOBACCO FORMER USER [place] [facility] [place] [facility] Sep 21, 2019 10:24 AM VA-TOBACCO QUIT 15 YRS OR MORE [place] [facility] [place] [facility] August 31, 2018 09:07 AM VA-TOBACCO NEVER USED [place] [facility] [place] [facility] Jul 21, 2017 09:00 AM QUIT TOBACCO USE > 7 YEARS AGO He quit 20 years ago [place] [facility] [place] [facility] Jun 17, 2016 02:37 PM LIFETIME NON-TOBACCO USER [place] [facility] [place] [facility] May 19, 2015 04:56 PM LIFETIME NON-TOBACCO USER [place] [facility] [place] [facility] August 24, 2012 03:06 PM LIFETIME NON-TOBACCO USER [place] [facility] [place] [facility] Encounter Notes: All associated encounter notes This section contains the clinical notes associated to the Encounter. Date/Time Encounter Note(s) Provider Source Mar 31, 2023 01:31 PM ADMINISTRATIVE NOTE: LOCAL TITLE: CCC: SCHEDULING ADMINISTRATION STANDARD TITLE: ADMINISTRATIVE NOTE DATE OF NOTE: MAR 31, 2023@13:31:07 ENTRY DATE: MAR 31, 2023@13:31:07 AUTHOR: ORLANDO MCWILLIAMS EXP COSIGNER: URGENCY: STATUS: COMPLETED CCC: SCHEDULING ADMINISTRATION Has ADDENDA Patient Demographics Patient Name: MITCHELL RAE Patient Primary Phone: [phone] Patient Primary Address: [address] [place] [id number] Patient : 1970 Patient Age: 53 Caller/Recipient Relation to Patient: Self Administrative Administrative Note Reason: Lab / Imaging Results Administrative Note Comments: [facility] called requesting to speak to pact team in regard to discussing recent lab results. [facility] would also like to discuss [facility] recommending nerve conduction test for . is scheduled for the nerve conduction appointment on 04/06/23 . [facility] is requesting a call back in regard to if a referral is needed. Please advise /toshia/ ORLANDO SEBASTIAN [facility] Signed: 03/31/2023 13:31 Receipt Acknowledged By: 04/01/2023 09:09 /toshia/ HUSSEIN AMAYA Registered Nurse 04/01/2023 09:07 /toshia/ ZULEMA DARNELL REGISTERED NURSE 04/01/2023 ADDENDUM STATUS: COMPLETED TELEPHONE CALL Called at PATIENT PHONE - PHONE NUMBER [CELLULAR] - Regarding call back request updated about CC Consult, upcoming appointment PCP appointment /toshia/ ZULEMA DARNELL REGISTERED NURSE Signed: 04/01/2023 09:22 [place] MC[facility]ILLIAMS [place] [facility]
--- OUTSIDE RECORDS SUMMARY | 2024-03-29 01:41 | XMS_ITS ---
Author Name [facility] [place] [facility] [place] [facility] [place] [facility] [place] Address [address] [place] [address] Care Team Providers Care Clinical Reviewer Name Role Phone LENIN BENSON Primary Care [...] Batista's Name Patient's Relationship to Policy [facility]ista [facility] PRESCRIPT ION [facility] Apr 18, 2010 [id number] [phone] MITCHELL RAE PATIENT IAIN-ASA HANKINS PREFERRED PROVIDER ORGANIZAT ION (PPO) ADVAN LILLIAN DRAIN AGE Sep 17, 2002 [id number] MITCHELL RAE PATIENT Selected Encounter This section includes the information on record at [place] for the Encounter. Date/Time Encounter Type Encounter Description Reason Pro vider Source May 25, 2023 02:07 PM Outpatient Encounter PRIMARY CARE/MEDICINE IHE Encounter Template Text not used by [facility] Plan of Treatment: Future Appointments (+ 6 months) and Future Tests (+/- 45 days) The Plan of Treatment section includes future care activities for the patient from all [facility] treatmentfacilities. This section includes future appointments and future orders which are active, pending or scheduled. Future Appointments This section includes appointments that were scheduled to occur 6 months from the date of the Encounter, up to a maximum of 20 appointments. The data comes from all [place] treatment facilities. Appointment Date/Time Appointment Type Appointme nt Facility Name Jun 16, 2023 03:30 PM AMBULATORY - MEDICINE [place] [facility] [place] [facility] Jun 23, 2023 09:00 AM AMBULATORY - MEDICINE PA [facility] [place] [facility] August 22, 2023 11:30 AM AMBULATORY - MEDICINE PA [facility] [place] [facility] August 31, 2023 11:00 AM AMBULATORY MEDICINE PA [facility] [place] [facility] Sep 27, 2023 09:30 AM AMBULATORY MEDICINE PA [facility] [place] [facility] Oct 03, 2023 10:00 AM AMBULATORY - MEDICINE PA [facility] [place] [facility] Oct 04, 2023 11:00 AM AMBULATORY MEDICINE PA [facility] [place] [facility] Oct 04, 2023 01:00 PM AMBULATORY - MEDICINE PA [facility] [place] [facility] Lab Results: +/- 30 days of the encounter This section includes the Chemistry and Hematology Lab Results on record with [place] for the patient. Radiology Reports and Pathology Reports are provided separately, in subsequent sections. Lab Results This section contains the Chemistry/Hematology Results that were resulted 30 days before or 30 daysafter the date of the Encounter. Date/Time Source Result Type Result - Unit Interpretation Reference Range Comment Jun 16, 2023 08:15 AM [facility] LIPID PANEL FASTING Specimen Type: SERUM No comment entered. Ordering Provider: SONA RUDOLPH Report Released Date/Time: Jun 16, 2023 08:14 AM Reporting Lab: [facility] [address] [id number] Performing Lab: [facility] [address] [address] CHOLESTEROL 231 mg/dL H TRIGLYCERIDE 164 mg/dL H 0-150 LDL calculated 157 mg/dL H 0-129 CHOL/HDL 5.6 HDL CHOLESTEROL 41 mg/dL 40-60 Jun 16, 2023 08:15 AM [facility] BASIC METABOLIC PANEL (fasting) Specimen Type: SERUM No comment entered. Ordering Provider: SONA RUDOLPH Report Released Date/Time: Jun 16, 2023 08:14 AM Reporting Lab: [facility] [address] [address] Performing Lab: [facility] [address] [address] UREA NITROGEN 22 mg/dL 7-25 GLUCOSE 96 mg/dL 65-100 SODIUM 137 mmol/L 135-145 POTASSIUM 4.3 mmol/L 3.5-5.0 CHLORIDE 104 mmol/L 100-110 CO2 24 meq/L 20-30 CREATININE, Serum 0.88 mg/dL 0.50-1.40 eGFR(CKD-EPI 2020) >90 mL/min >60 Social History: Smoking Status (Most current) and Tobacco Use (All prior to encounter date) This section includes the most current, and the historical, smoking and tobacco- related health factors from the [place] facility where the Encounter took place. Current Smoking Status This section includes the most current smoking, or tobacco-related health factor, from the [place] facility where the Encounter took place. Date/Time Current Smoking Status Comment [facility] Dec 01, 2022 03:30 PM PA-TOBACCO QUIT 15 YRS OR MORE [facility] Tobacco Use History This section includes a history of the smoking, or tobacco-related health factors, that were collected on or before the date of the Encounter. The data comes from the [place] facility where the Encounter took place. Date/Time Smoking Status/Tobac co Use Comment Facility Dec 01, 2022 03:30 PM VA-TOBACCO QUIT 15 YRS OR MORE [facility] [place] [facility] Nov 21, 2020 09:30 AM VA-TOBACCO FORMER USER [place] [facility] [place] [facility] Nov 21, 2020 09:30 AM VA-TOBACCO QUIT 15 YRS OR MORE [facility] [place] [facility] Sep 21, 2019 10:24 AM VA-TOBACCO FORMER USER [place] [facility] [place] [facility] Sep 21, 2019 10:24 AM VA-TOBACCO QUIT 15 YRS OR MORE [facility] [place] [facility] August 31, 2018 09:07 AM VA-TOBACCO NEVER USED PA [facility] [place] [facility] Jul 21, 2017 09:00 AM QUIT TOBACCO USE > 7 YEARS AGO He quit 20 years ago [facility] [place] [facility] Jun 17, 2016 02:37 PM LIFETIME NON-TOBACCO USER [place] [facility] [place] [facility] May 19, 2015 04:56 PM LIFETIME NON-TOBACCO USER [place] [facility] [place] [facility] August 24, 2012 03:06 PM LIFETIME NON-TOBACCO USER [place] [facility] [place] [facility] Encounter Notes: All associated encounter notes This section contains the clinical notes associated to the Encounter. Date/Time Encounter Note(s) Provider Source May 25, 2023 02:07 PM ADMINISTRATIVE NOT E: LOCAL TITLE: ADMINISTRATIVE NOTE STANDARD TITLE: ADMINISTRATIVE NOTE DATE OF NOTE: MAY 25, 2023@14:07 ENTRY DATE: MAY 25, 2023@14:07:26 AUTHOR: RYAN SEE EXP COSIGNER: URGENCY: STATUS: COMPLETED Reminder call for your upcoming Primary Care Appointment and the need for preparations prior to your upcoming appt. 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
--- OUTSIDE RECORDS SUMMARY | 2024-03-29 01:41 | XMS_ITS ---
Author Name [facility] [place] Organization [facility] [place] [place] Address [address] [place] [address] Care Team Providers Care Bpo Specialist Name Role Phone LENIN BENSON Primary Care [...] PHARMACY PRESCRIPT ION [facility] Apr 18, 2010 [id number] MITCHELL RAE PATIENT CIGBENIGNO-ASA HANKINS PREFERRED PROVIDER ORGANIZAT ION (PPO) ADVAN LILLIAN DRAIN AGE Sep 17, 2002 [id number] MITCHELL RAE PATIENT Selected Encounter This section includes the information on record at [place] for the Encounter. Date/Time Encounter Type Encounter Description Reason Pro vider Source Jun 07, 2023 08:52 AM Outpatient Encounter ADMIN PAT ACTIVTIES (MASNONCT) IHE Encounter Template Text not used by VA Plan of Treatment: Future Appointments (+ 6 months) and Future Tests (+/- 45 days) The Plan of Treatment section includes [facility] the [facility] [place] [facility] This section includes future appointments and future orders which are active, pending or scheduled. Future Appointments This section includes appointments that were scheduled to occur 6 months from the date of the Encounter, up to a maximum of 20 appointments. The data comes from all [place] treatment facilities. Appointment Date/Time Appointment Type Appointme nt Facility Name Jun 16, 2023 03:30 PM AMBULATORY - MEDICINE [place] [facility] [place] [facility] Jun 23, 2023 09:00 AM AMBULATORY - MEDICINE [place] [facility] [place] [facility] August 22, 2023 11:30 AM AMBULATORY MEDICINE [place] [facility] [place] [facility] August 31, 2023 11:00 AM AMBULATORY MEDICINE [place] [facility] [place] [facility] Sep 27, 2023 09:30 AM AMBULATORY MEDICINE [place] [facility] [place] [facility] Oct 03, 2023 10:00 AM AMBULATORY MEDICINE [place] [facility] [place] [facility] Oct 04, 2023 11:00 AM AMBULATORY MEDICINE [place] [facility] [place] [facility] Oct 04, 2023 01:00 PM AMBULATORY - MEDICINE [place] [facility] [place] [facility] Lab Results: +/- 30 days of the encounter This section includes the Chemistry and Hematology Lab Results on record with [place] for the patient. Radiology Reports and Pathology Reports are provided separately, in subsequent sections. Lab Results This section contains the Chemistry/Hematology Results that were resulted 30 days before or 30 daysafter the date of the Encounter. Date/Time Source Result Type Result - Unit Interpretation Reference Range Comment Jun 16, 2023 08:15 AM [facility] LIPID PANEL FASTING Specimen Type: SERUM No comment entered. Ordering Provider: SONA RUDOLPH Report Released Date/Time: Jun 16, 2023 08:14 AM Reporting Lab: [facility] [address] [address] Performing Lab: [address] [address] CHOLESTEROL 231 mg/dL H TRIGLYCERIDE 164 mg/dL H 0-150 LDL calculated 157 mg/dL H 0-129 CHOL/HDL 5.6 HDL CHOLESTEROL 41 mg/dL 40-60 Jun 16, 2023 08:15 AM [facility] BASIC METABOLIC PANEL (fasting) Specimen Type: SERUM No comment entered. Ordering Provider: SONA RUDOLPH Report Released Date/Time: Jun 16, 2023 08:14 AM Reporting Lab: [facility] [address] [facility] [address] Performing Lab: [facility] [address] [facility] [address] UREA NITROGEN 22 mg/dL 7-25 GLUCOSE 96 [...] and tobacco- related health factors from the [place] facility where the Encounter took place. Current Smoking Status This section includes the most current smoking, or tobacco-related health factor, from the [place] facility where the Encounter took place. Date/Time Current Smoking Status Comment [facility] Dec 01, 2022 03:30 PM VA-TOBACCO FORMER USER [facility] Tobacco Use History This section includes a history of the smoking, or tobacco-related health factors, that were collected on or before the date of the Encounter. The data comes from the [place] facility where the Encounter took place. Date/Time Smoking Status/Tobac co Use Comment Facility Dec 01, 2022 03:30 PM VA-TOBACCO QUIT 15 YRS OR MORE [place] [facility] [place] [facility] Nov 21, 2020 09:30 AM VA-TOBACCO FORMER USER [place] [facility] [place] [facility] Nov 21, 2020 09:30 AM VA-TOBACCO QUIT 15 YRS OR MORE [place] [facility] [place] [facility] Sep 21, 2019 10:24 AM [facility]ACCO [facility] Sep 21, 2019 10:24 AM VA-TOBACCO QUIT 15 YRS OR MORE [place] [facility] [place] [facility] August 31, 2018 09:07 AM VA-TOBACCO NEVER USED [place] [facility] [place] [facility] Jul 21, 2017 09:00 AM QUIT TOBACCO USE > 7 YEARS AGO He quit 20 years ago [place] [facility] [place] [facility] Jun 17, 2016 02:37 PM LIFETIME NON-TOBACCO USER [place] [facility] [place] [facility] May 19, 2015 04:56 PM LIFETIME NON-TOBACCO USER [place] [facility] [place] [facility] August 24, 2012 03:06 PM LIFETIME NON-TOBACCO USER [place] [facility] [place] [facility] Encounter Notes: All associated encounter notes This section contains the clinical notes associated to the Encounter. Date/Time Encounter Note(s) Provider Source Jun 07, 2023 08:52 AM ADMINISTRATIVE NOT E: LOCAL TITLE: CCC: SCHEDULING ADMINISTRATION STANDARD TITLE: ADMINISTRATIVE NOTE DATE OF NOTE: JUN 07, 2023@08:52:24 ENTRY DATE: JUN 07, 2023@08:52:24 AUTHOR: DENIS FELIZ EXP COSIGNER: URGENCY: STATUS: COMPLETED CCC: SCHEDULING ADMINISTRATION Has ADDENDA Patient Demographics Patient Name: MITCHELL RAE Patient Primary Phone: [phone] Patient Primary [address]: [address] [place] [id number] Patient : 1970 Patient Age: 53 Caller/Recipient Relation to Patient: Self Scheduling Cannot Complete Scheduling Action Reason: Restricted / Unavailable Clinic Requested Service(s): Primary Care Patient Expects Callback: Yes Scheduling Note Reason: Cannot Complete Appointment Request Open Request: RTC (Return to Clinic Order) Scheduling Note Comments: CX appt for today ( 06/07/23) at 3PM and would like to R/S . Unable to schedule due to restrictions. please call Pt to R/S /toshia/ DENIS SEBASTIAN 1 CARMEN AMSA Signed: 06/07/2023 08:52 Receipt Acknowledged By: 06/07/2023 14:25 /es/ HUSSEIN AMAYA Registered Nurse 06/07/2023 09:43 /es/ RYAN SEE ADVANCED PRINCIPAL NETWORK ENGINEER 06/07/2023 ADDENDUM STATUS: COMPLETED MANAGER DIGITAL AD OPERATIONS SPOKE TO MELISA APT JUN 16, 2023. /toshia/ RYAN SEE ADVANCED PRINCIPAL NETWORK ENGINEER Signed: 06/07/2023 09:44 DENIS FELIZ [facility]
--- OUTSIDE RECORDS SUMMARY | 2024-03-29 01:41 | XMS_ITS | Encounter Summary ---
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 Date/Time Encounter Type Encounter Description Reason Provider Source Apr 05, 2023 09:53 AM Outpatient Encounter TELEPHONE TRIAGE TERRA SERVIN Encounter Template Text not used by [place] Plan of Treatment: Future Appointments (+ 6 [...] 20 appointments. The data comes from all [place] treatment facilities. Appointment Date/Time Appointment Type Appointme nt Facility Name Apr 14, 2023 02:00 PM AMBULATORY - [place]ATRY [place] [facility] [place] [facility] Jun 16, 2023 03:30 PM AMBULATORY - MEDICINE [place] [facility] [place] [facility] Jun 23, 2023 09:00 AM AMBULATORY [place] MEDICINE [place] [facility] [place] [facility] August 22, 2023 11:30 AM AMBULATORY - MEDICINE [place] [facility] [place] [facility] August 31, 2023 11:00 AM AMBULATORY - MEDICINE [place] [facility] [place] [facility] Sep 27, 2023 09:30 AM AMBULATORY - MEDICINE [place] [facility] [place] [facility] Oct 03, 2023 10:00 AM AMBULATORY - MEDICINE [place] [facility] [place] [facility] Oct 04, 2023 11:00 AM AMBULATORY - MEDICINE [place] [facility] [place] [facility] Oct 04, 2023 01:00 PM AMBULATORY - MEDICINE [place] [facility] [place] [facility] Lab Results: +/- 30 days of the encounter This section includes the Chemistry and Hematology Lab Results on record with [place] for the patient. Radiology Reports and Pathology Reports are provided separately, in subsequent sections. Lab Results This section contains the Chemistry/Hematology Results that were resulted 30 days before or 30 daysafter the date of the Encounter. Date/Time Source Result Type Result - Unit Interpretation Reference Range Comment Mar 28, 2023 09:25 [facility] [place] [facility] HEPATITIS B SURFACE ANTIBODY (HBsAb)-WH Specimen Type: SERUM Comment: A 'Reactive' result indicates HBsAb results >/= 12.0 mIU/mL and immunity to HBV infection. Ordering Provider: YUSRA RUDOLPH ED Report Released Date/Time: Mar 22, 2023 11:09 AM Reporting [facility] [address] [address] Performing Lab: [facility] [address] [address] HBsAb REACTIVE Non Reactive Mar 28, 2023 09:25 AM [facility] PSA Specimen Type: SERUM No comment entered. Ordering Provider: YUSRA RUDOLPH ED Report Released Date/Time: Mar 22, 2023 11:09 AM Reporting [facility] [place] [facility] [address] [facility] [address] Performing [facility]: [facility] [address] [facility] [address] PSA 1.30 ng/mL 0.00-4.00 Mar 28, 2023 09:25 AM [facility] BASIC METABOLIC PANEL (fasting) Specimen Type: SERUM No comment entered. Ordering Provider: YUSRA RUDOLPH ED Report Released Date/Time: Mar 22, 2023 11:09 AM Reporting Lab: [facility] [address] [facility] [address] Performing Lab: [facility] [address] [facility] [address] UREA NITROGEN 18 mg/dL 7-25 GLUCOSE 95 mg/dL 65-100 SODIUM 139 mmol/L 135-145 POTASSIUM 4.7 mmol/L 3.5-5.0 CHLORIDE 103 mmol/L 100-110 CO2 27 meq/L 20-30 CREATININE, Serum 0.92 mg/dL 0.50-1.40 eGFR(CKD-EPI 2020) >90 mL/min >60 Mar 28, 2023 09:25 AM [facility] LIPID PANEL FASTING Specimen Type: SERUM No comment entered. Ordering Provider: YUSRA RUDOLPH ED Report Released Date/Time: Mar 22, 2023 11:09 AM Reporting Lab: [facility] [place] [facility] [address] [facility] [address] Performing Lab: [facility] [address] [address] CHOLESTEROL 258 mg/dL H TRIGLYCERIDE 158 mg/dL H 0-150 LDL calculated 175 mg/dL H 0-129 CHOL/HDL 5.1 HDL CHOLESTEROL 51 mg/dL 40-60 Mar 28, 2023 09:25 AM [facility] LIVER FUNCTION Specimen Type: SERUM No comment entered. Ordering Provider: YUSRA RUDOLPH ED Report Released Date/Time: Mar 22, 2023 11:09 AM Reporting Lab: [facility] [place] [facility] [address] [facility] [address] Performing Lab: [facility] [address] [facility] [address] PROTEIN,TOTAL 6.8 g/dL 6.0-8.3 ALBUMIN 4.1 g/dL 3.5-5.0 ALKALINE PHOSPHATASE 35 U/L L 40-150 AST 13 U/L 5-34 ALT 18 U/L BILIRUBIN, TOTAL 0.6 mg/dL 0.2-1.2 Mar 28, 2023 09:25 AM [facility] HEPATITIS C ANTIBODY (HCV)-ARC Specimen Type: SERUM Comment: Hep C Ab: No HCV antibody detected. If recent infection is suspected or other evidence suggests HCV infection, consider HCV nucleic acid testing Ordering Provider: YUSRA RUDOLPH ED Report Released Date/Time: Mar 22, 2023 11:09 AM Reporting Lab: [facility] [address] [facility] [address] Performing Lab: [facility] [address] [facility] [address] HEPATITIS C ANTIBODY NON-REACTIVE NON-REACTIVE Mar 28, 2023 09:25 AM [facility] HIV 1&2 Ag/Ab SCREEN Specimen Type: SERUM No comment entered. Ordering Provider: YUSRA RUDOLPH ED Report Released Date/Time: Mar 22, 2023 11:09 AM Reporting Lab: [facility] [address] [facility] [address] Performing Lab: [facility] [address] [facility] [address] HIV 1&2 Ag/Ab SCREEN NON-REACTIVE Nonreactive Mar 28, 2023 09:25 AM [facility] URINALYSIS Specimen Type: URINE Comment: If Glucose = >500 and Ketones are positive, please alert the Physician. Ordering Provider: YUSRA RUDOLPH ED JAWED Report Released Date/Time: Mar 22, 2023 11:09 AM Reporting Lab: [address] [address] Performing Lab: [address] [address] UA COLOR Colorless Yellow UA APPEARANCE Clear Clear UA GLUCOSE NEGATIVE mg/dL Negative UA KETONES NEGATIVE mg/dL Negative UA BLOOD NEGATIVE mg/dL Negative UA PROTEIN NEGATIVE mg/dL Negative UA NITRITE NEGATIVE mg/dL Negative UA BILIRUBIN NEGATIVE mg/dL Negative UA SPECIFIC GRAVITY 1.005 L 1.016-1.022 UA pH 7.0 5.0-9.0 UA UROBILINOGEN <2.0 mg/dL <2.0 UA LEUKOCYTE NEGATIVE Negative Mar 28, 2023 09:25 AM [facility] CBC AND DIFF (AUTO) Specimen Type: BLOOD No comment entered. Ordering Provider: YUSRA RUDOLPH ED JAWED Report Released Date/Time: Mar 22, 2023 11:09 AM Reporting Lab: [address] [address] Performing Lab: [address] [address] WBC 4.75 10*3/uL 4.50-11.00 RBC 4.87 10*6/uL 4.23-5.66 HGB 14.9 g/dL 12.8-17 HCT 44.6 39.2-50.4 MCV 91.6 fL 82-99 MCHC 33.4 g/dL 30.8-35.1 PLT 202 10*3/uL 140-360 RDW-CV 11.6 L 12.0-16.0 [place], Abs 0.45 10*3/uL 0.30-1.10 MCH 30.6 pg 26.2-32.6 Neut % 48.5 43.7-75.8 Lymph % 38.7 14.0-42.3 [place] % 9.5 5.1-13.7 Eos % 2.5 0.4-6.8 Baso % 0.6 0.1-2.0 Neut, Abs 2.30 10*3/uL 2.20-7.60 Lymph, Abs 1.84 10*3/uL 1.00-3.20 Eos, Abs 0.12 10*3/uL 0.03-0.44 Baso, Abs 0.03 10*3/uL 0.01-0.13 Immature Gran % 0.2 0.0-0.7 Immature Gran, Abs 0.01 10*3/uL 0.00-0.06 Social History: Smoking Status (Most current) and Tobacco Use (All prior to encounter date) This section includes the most current, and the historical, smoking and tobacco- related health factors from the [place] facility where the Encounter took place. Current Smoking Status This section includes the most current smoking, or tobacco-related health factor, from the [place] facility where the Encounter took place. Date/Time Current Smoking Status Comment [facility] Dec 01, 2022 03:30 PM VA-TOBACCO FORMER USER [place] [facility] [place] [facility] Tobacco Use History This section includes a history of the smoking, or tobacco-related health factors, that were collected on or before the date of the Encounter. The data comes from the [place] facility where the Encounter took place. Date/Time Smoking Status/Tobac co Use Comment Facility Dec 01, 2022 03:30 PM VA-TOBACCO QUIT 15 YRS OR MORE [place] [facility] [place] [facility] Nov 21, 2020 09:30 AM VA-TOBACCO FORMER USER [place] [facility] [place] [facility] Nov 21, 2020 09:30 AM VA-TOBACCO QUIT 15 YRS OR MORE [place] [facility] [place] [facility] Sep 21, 2019 10:24 AM VA-TOBACCO FORMER USER [place] [facility] [facility] Sep 21, 2019 10:24 AM VA-TOBACCO QUIT 15 YRS OR MORE [facility] [place] [facility] August 31, 2018 09:07 AM VA-TOBACCO NEVER USED [place] [facility] [place] [facility] Jul 21, 2017 09:00 AM QUIT TOBACCO USE > 7 YEARS AGO He quit 20 years ago [facility] [place] [facility] Jun 17, 2016 02:37 PM LIFETIME NON-TOBACCO USER [facility] [place] [facility] May 19, 2015 04:56 PM LIFETIME NON-TOBACCO USER [place] [facility] [place] [facility] August 24, 2012 03:06 PM LIFETIME NON-TOBACCO USER [place] [facility] Encounter Notes: All associated encounter notes This section contains the clinical notes associated to the Encounter. Date/Time Encounter Note(s) Provider Source Apr 05, 2023 09:53 AM RN PROGRESS NOTE: LOCAL TITLE: CCC: CLINICAL TRIAGE STANDARD TITLE: RN PROGRESS NOTE DATE OF NOTE: APR 05, 2023@09:53:13 ENTRY DATE: APR 05, 2023@09:53:13 AUTHOR: TERRA SERVIN COSIGNER: URGENCY: STATUS: COMPLETED Patient Demographics Patient Name: MITCHELL RAE Patient Primary Address: [address] [place] [id number] Patient Primary Phone: [phone] Patient : 1970 Patient Age: 53 Current Location: [place] Call Back Number: Caller/Recipient Relation to Patient: Self Emergency Contact: DENISRYANN VUONGE Triage Summary Chief Complaint: Dizziness System WHEN: Within 3 Days Nurse's Recommendation / WHEN: Within 3 Days System WHERE: Clinic Nurse's Recommendation / WHERE: Clinic/[facility] Nursing Plan and Disposition Referred patient to higher level of care Other course(s) of action Instructed to go to Emergency Room (ER) Advised of Financial Disclaimer: Patient advised that recommendation for care provided during the call does not constitute an approval or authorization for payment by the [place] or its staff. Patient advised to report a community ED visit to the [facility] Office of Community Care at within 72 hours. Generated msg to PACT/Provider Provided guidance for worsening symptoms: *Caller/Patient* advised to call facilities [place] Clinical Contact Center or seek immediate medical attention for new or worsening symptoms Nurse Summary Nurse Summary: . [facility] calls reporting chest pressure, vomiting at times, dizziness, and increased anxiety x 6 weeks. Advised ER NOW. Provided nearest ER option and ER notification #. verbalizes understanding and agrees to go to [facility]. . . Clinical Contact Center Codes Clinic/Location: V1 CWM PHONE CCC RN TXCC Triage Complete Triage Note: Phone Triage 05 Apr 2023 14:38:24 +0000 [facility] Demographics 53 y/o Male Results CC: Dizziness Software suggested: Within 3 Days Software suggested follow-up location: Clinic, consider virtual care Values and Measures Duration of CC: 6 Weeks Positive Responses HPI: lightheadedness, with anxiety, episodic HPI: lightheadedness, with hunger, episodic MEDS: taking prescription medications daily VS: BP not taken VS: pulse not taken Negative Responses Denies: HPI: abdominal pain Denies: HPI: arm or jaw pain with episode of lightheadedness Denies: HPI: chest pain Denies: HPI: diaphoresis with presyncope, duration longer than 10 minutes Denies: HPI: diarrhea Denies: HPI: hematochezia Denies: HPI: lightheadedness and nausea, duration longer than 10 minutes Denies: HPI: lightheadedness, onset after change in medication dose Denies: HPI: lightheadedness, with palpitations, episodic Denies: HPI: melena Denies: HPI: syncope Denies: HPI: vertigo Denies: HPI: vomiting Denies: HPI: weakness, with lightheadedness, duration longer than 10 minutes Denies: PMH: diabetes Denies: PMH: heart disease Denies: PMH: hypertension Denies: PMH: hypoglycemia Denies: PMH: stroke or TIA /toshia/ TERRA SERVIN VISN1 CCC 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
--- OUTSIDE RECORDS SUMMARY | 2024-03-29 01:41 | XMS_ITS ---
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 Date/Time Encounter Type Encounter Description Reason Pro vider Source May 19, 2023 02:17 PM Outpatient Encounter ADMIN PAT ACTIVTIES (MASNONCT) IHE Encounter Template Text not used by [place] Plan of Treatment: Future Appointments (+ 6 months) and Future Tests (+/- 45 days) The Plan of Treatment section includes future care activities for the [facility] [place] [facility] This section includes future appointments and future orders which are active, pending or scheduled. Future Appointments This section includes appointments that were scheduled to occur 6 months from the date of the Encounter, up to a maximum of 20 appointments. The data comes from all [place] treatment facilities. Appointment Date/Time Appointment Type Appointme nt Facility Name Jun 16, 2023 03:30 PM AMBULATORY - MEDICINE [place] [facility] [place] [facility] Jun 23, 2023 09:00 AM AMBULATORY - MEDICINE [place] [facility] [place] [facility] August 22, 2023 11:30 AM AMBULATORY MEDICINE [place] [facility] [place] [facility] August 31, 2023 11:00 AM AMBULATORY MEDICINE [place] [facility] [place] [facility] Sep 27, 2023 09:30 AM AMBULATORY MEDICINE [place] [facility] [place] [facility] Oct 03, 2023 10:00 AM AMBULATORY MEDICINE [place] [facility] [place] [facility] Oct 04, 2023 11:00 AM AMBULATORY MEDICINE [place] [facility] [place] [facility] Oct 04, 2023 01:00 PM AMBULATORY - MEDICINE [place] [facility] [place] [facility] Lab Results: +/- 30 days of the encounter This section includes the Chemistry and Hematology Lab Results on record with [place] for the patient. Radiology Reports and Pathology Reports are provided separately, in subsequent sections. Lab Results This section contains the Chemistry/Hematology Results that were resulted 30 days before or 30 daysafter the date of the Encounter. Date/Time Source Result Type Result - Unit Interpretation Reference Range Comment Jun 16, 2023 08:15 AM [facility] LIPID PANEL FASTING Specimen Type: SERUM No comment entered. Ordering Provider: SONA RUDOLPH Report Released Date/Time: Jun 16, 2023 08:14 AM Reporting Lab: [facility] [address] [address] Performing Lab: [address] [address] CHOLESTEROL 231 mg/dL H TRIGLYCERIDE 164 mg/dL H 0-150 LDL calculated 157 mg/dL H 0-129 CHOL/HDL 5.6 HDL CHOLESTEROL 41 mg/dL 40-60 Jun 16, 2023 08:15 AM [facility] BASIC METABOLIC PANEL (fasting) Specimen Type: SERUM No comment entered. Ordering Provider: SONA RUDOLPH Report Released Date/Time: Jun 16, 2023 08:14 AM Reporting Lab: [facility] [address] [facility] [address] Performing Lab: [facility] [address] [facility] [address] UREA NITROGEN 22 mg/dL 7-25 GLUCOSE 96 [...] and tobacco- related health factors from the [place] facility where the Encounter took place. Current Smoking Status This section includes the most current smoking, or tobacco-related health factor, from the [place] facility where the Encounter took place. Date/Time Current Smoking Status Comment [facility] Dec 01, 2022 03:30 PM VA-TOBACCO [facility]ER [facility] Tobacco Use History This section includes a history of the smoking, or tobacco-related health factors, that were collected on or before the date of the Encounter. The data comes from the [place] facility where the Encounter took place. Date/Time Smoking Status/Tobac co Use Comment Facility Dec 01, 2022 03:30 PM VA-TOBACCO QUIT 15 YRS OR MORE [place] [facility] [place] [facility] Nov 21, 2020 09:30 AM VA-TOBACCO FORMER USER [place] [facility] [place] [facility] Nov 21, 2020 09:30 AM VA-TOBACCO QUIT 15 YRS OR MORE [place] [facility] [place] [facility] Sep 21, 2019 10:24 AM [facility] Sep 21, 2019 10:24 AM VA-TOBACCO QUIT 15 YRS OR MORE [place] [facility] [place] [facility] August 31, 2018 09:07 AM VA-TOBACCO NEVER USED [place] [facility] [place] [facility] Jul 21, 2017 09:00 AM QUIT TOBACCO USE > 7 YEARS AGO He quit 20 years ago [place] [facility] [place] [facility] Jun 17, 2016 02:37 PM LIFETIME NON-TOBACCO USER [place] [facility] [place] [facility] May 19, 2015 04:56 PM LIFETIME NON-TOBACCO USER [place] [facility] [place] [facility] August 24, 2012 03:06 PM LIFETIME [facility]TOBACCO [facility] Encounter Notes: All associated encounter notes This section contains the clinical notes associated to the Encounter. Date/Time Encounter Note(s) Provider Source May 19, 2023 02:17 PM ADMINISTRATIVE NOTE: [facility] TITLE: CCC: SCHEDULING ADMINISTRATION STANDARD TITLE: ADMINISTRATIVE NOTE DATE OF NOTE: MAY 19, 2023@14:17:33 ENTRY DATE: MAY 19, 2023@14:17:33 AUTHOR: ARCHANA WILLS COSIGNER: URGENCY: STATUS: COMPLETED Patient Demographics Patient Name: MITCHELL RAE Patient Primary Phone: [phone] Patient Primary Address: [address] [place] [id number] Patient : 1970 Patient Age: 53 Caller/Recipient Relation to Patient: Self Administrative Administrative Note Reason: Medication Renewal Medications Refill/Renewal Request: Renew and mail FLUOXETINE HCL 20MG CAP /es/ ARCHANA WILLS VISN 1 [facility] A[facility] Signed: 05/19/2023 14:17 Receipt Acknowledged By: 05/19/2023 20:39 /es/ BERTHA RUDOLPH MD STAFF PHYSICIAN 05/19/2023 15:44 /es/ ZULEMA DARNELL REGISTERED NURSE [facility]CHANA WILLS [facility]
--- OUTSIDE RECORDS SUMMARY | 2024-03-29 01:41 | XMS_ITS | Continuity of Care Document ---
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 It does not include entries that were removed or entered in error. Problem Status Onset Date Problem Type Date of Resolution Comments Source visit for: administrative purpose Inactive 013 Condition visit for: administrative purpose: All concerns addressed in pt''s 4039. No immediate referrals necessary. - Pt to f/u with PCM [place] rede[place] home [place]. He verbalized understanding. [facility] Vision, Subnormal Active 013 Condition [facility] exposure to chemical fumes Inactive Condition exposed to chemical fumes: No adverse effects, pt returned to duty. [facility] Patient Education - Medication Inactive Condition Patient Education - Medication (MEDICATION EDUCATION) [facility] Anxiety Active Condition [facility] Carpal tunnel syndrome Active Condition [facility] Cervical radiculopathy Active Condition [facility] Irritability and anger Active Condition [facility] Low back pain Active Condition [facility] Posttraumatic stress disorder Active Condition [facility] Snoring Active Condition [facility] Tinnitus Active Condition [facility] Diagnosis: ICD-10-CM R07.9 Chest pain, unspecified Active Diagnosis [facility] Diagnosis: ICD-10-CM F43.12 Post-traumatic stress disorder, chronic Active Diagnosis [facility] Diagnosis: ICD-10-CM E78.5 Hyperlipidemia, unspecified Active Diagnosis [facility] Diagnosis: ICD-10-CM R45.4 Irritability and anger Active Diagnosis [facility] Diagnosis: ICD-10-CM F41.9 Anxiety disorder, unspecified Active Diagnosis [facility] Diagnosis: ICD-10-CM M54.12 Radiculopathy, cervical region Active Diagnosis [facility] Diagnosis: ICD-10-CM Z13.6 Encounter for screening for cardiovascular disorders Active Diagnosis [facility] Diagnosis: ICD-10-CM Z04.9 Encounter for examination and observation for unsp reason Active Diagnosis [facility] Diagnosis: ICD-10-CM M54.50 Low back pain, unspecified Active Diagnosis [facility] Diagnosis: ICD-10-CM R06.83 Snoring Active Diagnosis [facility] Diagnosis: ICD-10-CM G47.33 Obstructive sleep apnea (adult) (pediatric) Active Diagnosis [facility] Diagnosis: ICD-10-CM Z46.0 Encounter for fit/adjst of spectacles and contact lenses Active Diagnosis [facility] Diagnosis: ICD-10-CM H25.13 Age-related nuclear cataract, bilateral Active Diagnosis [facility] Diagnosis: ICD-10-CM G47.30 Sleep apnea, unspecified Active Diagnosis [facility] Diagnosis: ICD-10-CM G56.00 Carpal tunnel syndrome, unspecified upper limb Active Diagnosis [facility] Medications Combined list of outpatient medications from Department of Defense and Veterans Affairs facilities.Medications provided include 1) outpatient medications from the last 15 months, and 2) patient-reported medications. Medication Details Route Status Patient Instructions Prescription Expires Prescription Number Last Dispense Date Ordering Provider Order Date Order Qty Source ALBUTEROL SULFATE HFA (albuterol sulfate), 90 MCG, HFA AER AD, INHALATION, [facility], 8.5 g C ALBUTERO L SULFATE HFA (albuter ol sulfate) , 90 MCG, HFA AER AD, INHALATI ON, LUPIN PHARMACE U, 8.5 g C Start Date: 02/20/21 Status: Ordered Ordered No Facilit y Access ALBUTEROL SULFATE HFA (albuterol sulfate), 90 MCG, HFA AER AD, INHALATION, [place]A [place], 8.5 g CANISTER ALBUTERO L SULFATE HFA (albuter ol sulfate) , 90 MCG, HFA AER AD, INHALATI ON, TEVA [place], 8.5 g CANISTER Start Date: 07/09/20 Status: Ordered Ordered No Facilit y Access CYCLOBENZAP RINE HCL 10MG TAB TAKE ONE TABLET BY MOUTH TWICE DAILY FOR MUSCLE SPASM DO NOT DRIVE 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 WHILE TAKING THIS MEDICATI ON ORAL 11/03/2023 [id number] BENIGNO LIN 2023 20 [facility] FLUOXETINE HCL 10MG CAP TAKE THREE CAPSULES BY MOUTH ONCE DAILY FOR DEPRESSI ON AND ANXIETY DOSE INCREASE ORAL ACTIVE 12/23/2024 [id number] KELLEYT KWESI 2023 270 [facility] FLUOXETINE HCL 20MG CAP TAKE ONE CAPSULE BY MOUTH ONCE DAILY FOR DEPRESSI ON AND ANXIETY ORAL DISCONT INUED (EDIT) 05/19/2024 [id number] TRACEY RUDOLPH JAWED 2023 90 [facility] FLUOXETINE HCL 20MG CAP TAKE ONE CAPSULE BY MOUTH ONCE DAILY FOR DEPRESSI ON AND ANXIETY ORAL DISCONT INUED 08/12/2023 [id number] TRACEY RUDOLPH JAWED 2022 90 [facility] GABAPENTIN 300MG CAP TAKE ONE CAPSULE BY MOUTH AT BEDTIME FOR 5 DAYS, THEN TAKE ONE CAPSULE TWICE DAILY FOR 5 DAYS, THEN TAKE ONE CAPSULE THREE TIMES A DAY FOR NERVE PAIN ORAL 04/26/2023 [id number] TRACEY RUDOLPH JAWED 2022 255 [facility] HYDROXYZINE HCL 10MG TAB TAKE ONE TABLET BY MOUTH THREE TIMES DAILY NEEDED FOR ADDITION AL MEDICATI ON FOR CALMING ORAL ACTIVE 12/23/2024 [id number] 4 KELLEYT KWESI 2023 90 [facility] IBUPROFEN 800MG TAB TAKE ONE TABLET BY MOUTH THREE TIMES DAILY WITH MEALS FOR PAIN - TAKE WITH FOOD ORAL 11/03/2023 [id number] BENIGNO LIN M 2023 90 [facility] IPRATROPIUM BROMIDE (IPRATROPIU M BROMIDE), 42MCG, SPRAY, NASAL, CECY LABS., 15 ml CANISTER Active [id number] 04/07/20 2 3 2022 30 Pharmac y Data Transac tion Service Facilit y PARoxetine 10 mg oral tablet PARoxeti ne 10 mg oral tablet Start Date: 07/09/20 Status: Ordered Ordered No Facilit y Access PRAZOSIN HCL 1MG CAP TAKE ONE CAPSULE BY MOUTH AT BEDTIME FOR HIGH BLOOD PRESSURE ORAL ACTIVE 05/01/2024 [id number] Camille BENSON KWESI 2023 90 [facility] ROSUVASTATI N CA 10MG TAB TAKE ONE TABLET BY MOUTH ONCE DAILY FOR CHOLESTE ROL ORAL DISCONT INUED BY PROVIDE R 03/28/2024 [id number] TRACEY RUDOLPH AMMED JAWED 2022 90 [facility] Immunizations Combined list of available immunizations from the Department of Defense and Veterans Affairs facilities. Immunization Series Date Given Administered By Site Reaction Lot Number CVX Code Drug Security Rover Status Comments Source influenza virus vaccine, inactivated 2023 JOSÉ LUIS Ling kyara, left (delt oid) [id number] [employer] complet ed influenza virus vaccine, inactivat ed 02/14/24 Given [id number] MDG ZOSTER RECOMBINANT 1 2023 VAISHNAVI VELÁSQUEZ M LEFT DELTO ID [id number] complet ed [facility] [place] [facility] INFLUENZA, UNSPECIFIED FORMULATION 2022 88 complet ed [facility] [place] [facility] INFLUENZA, UNSPECIFIED FORMULATION 2021 88 complet ed [facility] [place] [facility] tetanus toxoid, reduced diphtheria toxoid, and acellular pertu is vaccine, adsorbed 2 2021 [id number] Sanofi Pasteur ([facility]) complet ed tetanus toxoid, reduced diphtheri a toxoid, and acellular pertussis vaccine, adsorbed DoD COVID Vaccine Pfizer 2020 [id number] PFIZER complet ed COVID Vaccine Pfizer 02/01/21 Given Ambulat ory Pharmac y SARS-COV-2 (COVID-19) vaccine, mRNA, spike protein, LNP, preservative free, 30 mcg/0.3mL dose 2 2020 [id number] 208 Pfizer, Inc (PFR) complet ed SARS-COV- 2 (COVID-19 ) vaccine, mRNA, spike protein, LNP, preservat monica free, 30 mcg/0.3mL dose DoD influenza, injectable, quadrivalent 2020 [id number] [facility] influenza , injectabl e, quadrival ent 01/31/21 Given Ambulat ory Pharmac y influenza, injectable, quadrivalent, contains preservative 10 2020 [id number] 158 [facility] ([facility]) complet ed influenza , injectabl e, quadrival ent, contains preservat monica DoD COVID Vaccine Pfizer 2020 [id number] 208 PFI[employer]ER complet ed COVID Vaccine Pfizer 12/31/20 Given Ambulat ory Pharmac y SARS-COV-2 (COVID-19) vaccine, mRNA, spike protein, LNP, preservative free, 30 mcg/0.3mL dose 1 2020 [id number] 208 Pfizer, Inc (PFR) complet ed SARS-COV- 2 (COVID-19 ) vaccine, mRNA, spike protein, LNP, preservat monica free, 30 mcg/0.3mL dose DoD influenza virus vaccine, unspecified 2019 [id number] 88 sanofi pasteur complet ed influenza virus vaccine, unspecifi ed 02/21/20 Given Ambulat ory Pharmac y influenza virus vaccine, unspecified formulation 1 2019 [id number] 88 Sanofi Pasteur ([facility]) complet ed influenza virus vaccine, unspecifi ed formulati on DoD INFLUENZA, UNSPECIFIED FORMULATION 2019 88 complet ed [facility] influenza, injectable, quadrivalent- pf 2018 [id number] 150 Seq[employer] complet ed influenza , injectabl e, quadrival ent-pf 01/20/19 Given Ambulat ory Pharmac y Influenza, injectable, quadrivalent, preservative free 15 2018 [id number] 150 Seq[employer] (SEQ) complet ed Influenza , injectabl e, quadrival ent, preservat monica free DoD influenza, injectable, quadrivalent 2017 [id number] 158 [employer] complet ed influenza , injectabl e, quadrival ent 02/16/18 Given Ambulat ory Pharmac y influenza, injectable, quadrivalent, contains preservative 14 2017 [id number] 158 Se[employer] (SEQ) comple t ed influenza , injectabl e, quadrival ent, contains preservat monica DoD INFLUENZA, SEASONAL, INJECTABLE 2017 141 complet ed [facility] Influenza, inj, MDCK, quadrivalent- pf 2016 [id number] 171 [employer] complet ed Influenza , inj, MDCK, quadrival ent-pf 02/19/17 Given Ambulat ory Pharmac y Influenza, injectable, Madin Jackie Canine Kidney, preservative free, quadrivalent 13 2016 [id number] 171 Se[employer]irus (SEQ) comple t ed Influenza , injectabl e, Madin [place] Canine Kidney, preservat monica free, quadrival ent DoD INFLUENZA, SEASONAL, INJECTABLE 2016 141 complet ed [facility] TDAP 2016 115 complet ed Site: Right Deltoid [facility] [place] [facility] FLU,3 YRS (HISTORICAL) 2015 88 complet ed [facility] [place] [facility] influenza, seasonal, injectable-pf 2015 [id number] 140 Se[employer] complet ed influenza , seasonal, injectabl e-pf 01/31/16 Given Ambulat ory Pharmac y Influenza, seasonal, injectable, preservative free 12 2015 [id number] 140 Se[employer]irus (SEQ) comple t ed Influenza , seasonal, injectabl e, preservat monica free DoD influenza, seasonal, injectable 2014 [id number] [id number] 141 CSL [employer]ring complet ed influenza , seasonal, injectabl e 01/19/15 Given Ambulat ory Pharmac y Influenza, seasonal, injectable 11 2014 [id number] 1A 141 [facility] [employer]otherap[employer] Inc. (CSL) complet ed Influenza , seasonal, injectabl e DoD FLU,3 YRS (HISTORICAL) 2014 88 complet ed [facility] Influenza, injectable, MDCK-pf 2013 [id number] 153 Novartis Pharmaceutica ls complet ed Influenza , injectabl e, MDCK-pf 01/19/14 Given Ambulat ory Pharmac y Influenza, injectable, Madin Jackie Canine Kidney, preservative free 10 2013 [id number] 153 Novartis Pharmaceutica l Roe. (NOV) complet ed Influenza , injectabl e, Madin [place] Canine Kidney, preservat monica free DoD tuberculin purified protein derivative 2012 [id number] 96 [facility] complet ed tuberculi n purified protein derivativ e 03/24/13 Given Ambulat ory Pharmac y influenza, seasonal, injectable 2012 [id number] 1A 141 CSL Behring complet ed influenza , seasonal, injectabl e 02/17/13 Given Ambulat ory Pharmac y Influenza, seasonal, injectable 9 2012 [id number] 1A 141 [facility] [employer] Inc. (CS) complet ed Influenza , seasonal, injectabl e DoD hepatitis B adult vaccine 2012 [id number] 4AA 43 GlaxoSmithKli ne complet ed hepatitis B adult vaccine 11/18/12 Given Ambulat ory Pharmac y hepatitis B vaccine, adult dosage 3 2012 [id number] 4AA 43 Smithine (SKB) complet ed hepatitis B vaccine, adult dosage DoD anthrax vaccine 2012 [id number] Emergent Biosolutions complet ed anthrax vaccine 05/18/12 Given Ambulat ory Pharmac y anthrax vaccine 3 2012 [id number] 24 [employer] [place] ([facility]) complet ed anthrax vaccine DoD hepatitis B adult vaccine 2011 [id number] 6AA 43 GlaxoSmithKli ne complet ed hepatitis B adult vaccine 01/31/12 Given Ambulat ory Pharmac y hepatitis B vaccine, adult dosage 2 2011 [id number] 6AA 43 Smithine (SKB) complet ed hepatitis B vaccine, adult dosage DoD influenza, seasonal, injectable 2011 [id number] 1A 141 C[employer]ring complet ed influenza , seasonal, injectabl e 01/27/12 Given Ambulat ory Pharmac y Influenza, seasonal, injectable 8 2011 [id number] 1A 141 [facility] BiotherapSensr.net, Inc. (CSL) complet ed Influenza , seasonal, injectabl e DoD FLU,3 YRS (HISTORICAL) 2011 88 complet ed [facility] vaccinia (smallpox) vaccine 2011 [id number] 75 [employer] complet ed vaccinia (smallpox ) vaccine 12/01/11 Given Ambulat ory Pharmac y vaccinia (smallpox) vaccine 1 2011 [id number] 75 [facility] ([facility]) complet ed vaccinia (smallpox ) vaccine DoD hepatitis B adult vaccine 2011 [id number] 43 Merck & Company Inc complet ed hepatitis B adult vaccine 11/30/11 Given Ambulat ory Pharmac y anthrax vaccine 2011 [id number] 24 [employer] complet ed anthrax vaccine 11/30/11 Given Ambulat ory Pharmac y tetanus, diphtheria, acellular pertu is 2011 [id number] 115 sanofi pasteur complet ed tetanus, diphtheri a, acellular pertussis 11/30/11 Given Ambulat ory Pharmac y typhoid Vi capsular polysaccharid e vac 2011 G1541 1 101 sanofi pasteur complet ed typhoid Vi capsular polysacch aride vac 11/30/11 Given Ambulat ory Pharmac y anthrax vaccine 2 2011 [id number] 24 [employer] [place] ([facility]) complet ed anthrax vaccine DoD hepatitis B vaccine, adult dosage 1 2011 [id number] 43 Merck (MSD) complet ed hepatitis B vaccine, adult dosage DoD typhoid Vi capsular polysaccharid e vaccine 2 2011 [id number] 1 101 Sanofi Pasteur ([facility]) complet ed typhoid Vi capsular polysacch aride vaccine DoD tetanus toxoid, reduced diphtheria toxoid, and acellular pertu is vaccine, adsorbed 1 2011 [id number] 115 Sanofi Pasteur ([facility]) complet ed tetanus toxoid, reduced diphtheri a toxoid, and acellular pertussis vaccine, adsorbed DoD anthrax vaccine 2011 [id number] 24 [employer] complet ed anthrax vaccine 09/18/11 Given Ambulat ory Pharmac y anthrax vaccine 1 2011 [id number] 24 [employer] [place] ([facility]) complet ed anthrax vaccine DoD influenza, seasonal, injectable-pf 2011 [id number] 1A 140 C[employer]ring complet ed influenza , seasonal, injectabl e-pf 05/09/11 Given Ambulat ory Pharmac y Influenza, seasonal, injectable, preservative free 7 2011 [id number] 1A 140 CS [employer] Inc. (CSL) complet ed Influenza , seasonal, injectabl e, preservat monica free DoD influenza virus vaccine,split 2009 [id number] 1A 15 C[employer]ring complet ed influenza virus vaccine,s plit 03/08/10 Given Ambulat ory Pharmac y influenza virus vaccine, split virus (incl. purified surface antigen)-reti red CODE 1 2009 [id number] 1A 15 CS Modernizing [employer] Inc. (CSL) complet ed influenza virus vaccine, split virus (incl. purified surface antigen)- retired CODE DoD Novel influenza-H1N 1-09, injectable 2009 [id number] 1 127 Novartis Pharmaceutica ls complet ed Novel influenza -[id number], injectabl e 05/10/09 Given Ambulat ory Pharmac y Novel influenza-H1N 1-09, injectable 1 2009 [id number] 1 127 Novartis Pharmaceutica l Roe. (NOV) complet ed Novel influenza -[id number], injectabl e DoD influenza virus vaccine, live 2008 [id number] 111 Innovus Pharma Inc comple t ed influenza virus vaccine, live 03/09/09 Given Ambulat ory Pharmac y influenza virus vaccine, live, attenuated, for intranasal use 1 2008 [id number] 111 Elixr, Inc. (MED) complet ed influenza virus vaccine, live, attenuate d, for intranasa l use DoD tuberculin purified protein derivative 2007 [id number] 96 sanofi pasteur complet ed tuberculi n purified protein derivativ e 03/23/08 Given Ambulat ory Pharmac y influenza virus vaccine,split 2007 [id number] 2AA 15 GlaxoSmithKli hi complet ed influenza virus vaccine,s plit 03/02/08 Given Ambulat ory Pharmac y influenza virus vaccine, split virus (incl. purified surface antigen)-reti red CODE 1 2007 [id number] 2AA 15 [employer] (SKB) complet ed influenza virus vaccine, split virus (incl. purified surface antigen)- retired CODE DoD influenza virus vaccine,split 2006 [id number] 3AA 15 GlaxoSmithKli ne complet ed influenza virus vaccine,s plit 03/04/07 Given Ambulat ory Pharmac y influenza virus vaccine, split virus (incl. purified surface antigen)-reti red CODE 1 2006 [id number] 3AA 15 Yodle (SKB) complet ed influenza virus vaccine, split virus (incl. purified surface antigen)- retired CODE DoD hepatitis A adult vaccine 2006 [id number] Merck & Company Inc complet ed hepatitis A adult vaccine 12/25/06 Given Ambulat ory Pharmac y tetanus-dipht h toxoids (Td) adult/adol 2006 [id number] 09 sanofi pasteur complet ed tetanus-d iphth toxoids (Td) adult/ado l 12/25/06 Given Ambulat ory Pharmac y measles/mumps /rubella virus vaccine 2006 03 complet ed measles/m umps/rube lla virus vaccine 12/25/06 Given Ambulat ory Pharmac y measles, mumps and rubella virus vaccine 0 2006 03 () complet ed measles, mumps and rubella virus vaccine DoD tetanus and diphtheria toxoids, adsorbed, preservative free, for adult use (2 Lf of tetanus toxoid and 2 Lf of diphtheria toxoid) 1 2006 [id number] 09 Sanofi Pasteur ([facility]) complet ed tetanus and diphtheri a toxoids, adsorbed, preservat monica free, for adult use (2 Lf of tetanus toxoid and 2 Lf of diphtheri a toxoid) DoD varicella virus vaccine 0 2006 21 () Not Given varicella virus vaccine DoD hepatitis A vaccine, adult dosage 2 2006 [id number] Merck (MSD) complet ed hepatitis A vaccine, adult dosage DoD influenza virus vaccine, whole virus [id number] 16 sanofi pasteur complet ed influenza virus vaccine, whole virus 01/18/98 Given Ambulat ory Pharmac y influenza virus vaccine, whole virus 0 [id number] 16 Sanofi Pasteur ([facility]) complet ed influenza virus vaccine, whole virus DoD influenza virus vaccine, whole virus 1996 16 complet ed influenza virus vaccine, whole virus 02/16/97 Given Ambulat ory Pharmac y influenza virus vaccine, whole virus 0 1996 16 () complet ed influenza virus vaccine, whole virus DoD typhoid, parenteral, AKD 1996 53 complet ed typhoid, parentera l, AKD 09/16/96 Given Ambulat ory Pharmac y typhoid vaccine, parenteral, acetone-kille d, dried (U.S. ) 2 1996 53 () complet ed typhoid vaccine, parentera l, acetone-k illed, dried ([place].S. ) DoD hepatitis A adult vaccine 1996 52 complet ed hepatitis A adult vaccine 08/19/96 Given Ambulat ory Pharmac y hepatitis A vaccine, adult dosage 1 1996 52 () complet ed hepatitis A vaccine, adult dosage DoD yellow fever vaccine 1993 37 complet ed yellow fever vaccine 07/17/93 Given Ambulat ory Pharmac y yellow fever vaccine 0 1993 37 () complet ed yellow fever vaccine DoD meningococcal polysaccharid e (MPSV4) 1992 32 complet ed meningoco ccal polysacch aride (MPSV4) 12/30/92 Given Ambulat ory Pharmac y meningococcal polysaccharid e vaccine (MPSV4) 1 1992 32 Transcribed (TRS) complet ed meningoco ccal polysacch aride vaccine (MPSV4) DoD tetanus-dipht h toxoids (Td) adult/adol 1992 09 complet ed tetanus-d iphth toxoids (Td) adult/ado l 12/17/92 Given Ambulat ory Pharmac y poliovirus vaccine, live, oral 1992 02 complet ed polioviru s vaccine, live, oral 12/17/92 Given Ambulat ory Pharmac y trivalent poliovirus vaccine, live, oral 0 1992 02 () complet ed trivalent polioviru s vaccine, live, oral [facility] tetanus and diphtheria toxoids, adsorbed, preservative free, for adult use (2 Lf of tetanus toxoid and 2 Lf of diphtheria toxoid) 0 1992 09 () complet ed tetanus and diphtheri a toxoids, adsorbed, preservat monica free, for adult use (2 Lf of tetanus toxoid and 2 Lf of diphtheri a toxoid) DoD Results Combined list of recent chemistry, hematology and other laboratory results from Department of Defense and Veterans Affairs, ranging from 15 months to all on record, depending upon the facility. Order Name Results Value Reference Range Date Interpretation Specimen Comments Source LIPID PANEL FASTING CHOLESTERO L [MASS/VOLU ME] IN SERUM OR PLASMA 224 mg/dL 09/26 H Specimen Type: SERUM No comment entered. Ordering Provider: NIA BENSON Report Released Date/Time: September 06, 2023 02:23 PM [facility] [address] [address] Performing Lab: [facility] [address] [facility] LIPID PANEL FASTING TRIGLYCERI DE [MASS/VOLU ME] IN SERUM OR PLASMA 150 mg/dL 0 - 150 09/26 Specimen Type: SERUM No comment entered. Ordering Provider: NIA BENSON Report Released Date/Time: September 06, 2023 02:23 PM Reporting Lab[facility] [address] Performing [facility]: [facility] [address] [facility] LIPID PANEL FASTING CHOLESTERO L IN LDL [MASS/VOLU ME] IN SERUM OR PLASMA BY STEFF N 151 mg/dL 0 - 129 09/26 H Specimen Type: SERUM No comment entered. Ordering Provider: NIA BENSON Report Released Date/Time: September 06, 2023 02:23 PM Reporting Lab[facility] [address] Performing Lab: [facility] [address] [facility] LIPID PANEL FASTING CHOLESTERO L.TOTAL/CH OLESTEROL IN HDL [MASS RATIO] IN SERUM OR PLASMA 5.2 09/26 Specimen Type: SERUM No comment entered. Ordering Provider: NIA BENSON Report Released Date/Time: September 06, 2023 02:23 PM Reporting Lab: [facility] [place] [facility] [address] [facility] [address] Performing Lab: [facility] [address] [facility] [address] [facility] [place] [facility] LIPID PANEL FASTING CHOLESTERO L IN HDL [MASS/VOLU ME] IN SERUM OR PLASMA 43 mg/dL 40 - 60 09/26 Specimen Type: SERUM No comment entered. Ordering Provider: NIA BENSON Report Released Date/Time: September 06, 2023 02:23 PM Reporting Lab: [facility] [address] [facility] [address] Performing Lab: [facility] [address] [facility] BASIC METABOLI C PANEL (fasting ) UREA NITROGEN [MASS/VOLU ME] IN SERUM OR PLASMA 22 mg/dL 7 - 25 Specimen Type: SERUM No comment entered. Ordering Provider: SCOTT RUDOLPH Report Released Date/Time: Jun 16, 2023 08:14 AM Reporting Lab: [facility] [address] [address] Performing Lab: [facility] [facility] [address] [facility] [address] [facility] BASIC METABOLI C PANEL (fasting ) GLUCOSE [MASS/VOLU ME] IN SERUM OR PLASMA 96 mg/dL 65 - 100 Specimen Type: SERUM No comment entered. Ordering Provider: SCOTT RUDOLPH Report Released Date/Time: Jun 16, 2023 08:14 AM Reporting Lab: [facility] [place] [facility] [address] [facility] [address] Performing Lab: [facility] [address] [address] [facility] [place] [facility] BASIC METABOLI C PANEL (fasting ) SODIUM [MOLES/VOL UME] IN SERUM OR PLASMA 137 mmol/L 135 - 145 Specimen Type: SERUM No comment entered. Ordering Provider: SCOTT RUDOLPH Report Released Date/Time: Jun 16, 2023 08:14 AM Reporting Lab: [facility] [place] [address] [address] Performing Lab: [facility] [place] [facility] [address] [facility] [address] [facility] [place] [facility] BASIC METABOLI C PANEL (fasting ) POTASSIUM [MOLES/VOL UME] IN SERUM OR PLASMA 4.3 mmol/L 3.5 - 5.0 Specimen Type: SERUM No comment entered. Ordering Provider: SCOTT RUDOLPH Report Released Date/Time: Jun 16, 2023 08:14 AM Reporting Lab: [facility] [place] [address] [address] Performing Lab: [facility] [place] [address] [address] [facility] [place] [facility] BASIC METABOLI C PANEL (fasting ) CHLORIDE [MOLES/VOL UME] IN SERUM OR PLASMA 104 mmol/L 100 - 110 Specimen Type: SERUM No comment entered. Ordering Provider: SCOTT RUDOLPH Report Released Date/Time: Jun 16, 2023 08:14 AM Reporting Lab: [facility] [place] [facility] [address] [facility] [address] Performing Lab: [facility] [place] [address] [address] [facility] [place] [facility] BASIC METABOLI C PANEL (fasting ) CARBON DIOXIDE, TOTAL [MOLES/VOL UME] IN SERUM OR PLASMA 24 meq/L 20 - 30 Specimen Type: SERUM No comment entered. Ordering Provider: SCOTT RUDOLPH Report Released Date/Time: Jun 16, 2023 08:14 AM Reporting Lab: [facility] [place] [facility] [address] [facility] [address] Performing Lab: [facility] [place] [facility] [address] [facility] [address] [facility] [place] [facility] BASIC METABOLI C PANEL (fasting ) CREATININE [MASS/VOLU ME] IN SERUM OR PLASMA 0.88 mg/dL 0.50 - 1.40 Specimen Type: SERUM No comment entered. Ordering Provider: SCOTT RUDOLPH Report Released Date/Time: Jun 16, 2023 08:14 AM Reporting Lab: [facility] [place] [facility] [address] [facility] [address] Performing Lab: [facility] [place] [facility] [address] [facility] [address] [facility] [place] [facility] BASIC METABOLI C PANEL (fasting ) GLOMERULAR FILTRATION RATE/1.73 SQ M.PREDICTE D [VOLUME RATE/AREA] IN SERUM, PLASMA OR BLOOD BY CREATININE -BASED FORMULA (CKD-EPI 2020) >90mL/mi n 60 Specimen Type: SERUM No comment entered. Ordering Provider: SCOTT RUDOLPH Report Released Date/Time: Jun 16, 2023 08:14 AM Reporting Lab: [facility] [place] [facility] [address] [facility] [address] Performing Lab: [facility] [place] [facility] [address] [facility] [address] [facility] [place] [facility] LIPID PANEL FASTING CHOLESTERO L [MASS/VOLU ME] IN SERUM OR PLASMA 231 mg/dL H Specimen Type: SERUM No comment entered. Ordering Provider: SCOTT RUDOLPH Report Released Date/Time: Jun 16, 2023 08:14 AM Reporting Lab: [facility] [place] [facility] [address] [facility] [address] Performing Lab: [facility] [place] [address] [address] [facility] [place] [facility] LIPID PANEL FASTING TRIGLYCERI DE [MASS/VOLU ME] IN SERUM OR PLASMA 164 mg/dL 0 - 150 H Specimen Type: SERUM No comment entered. Ordering Provider: SCOTT RUDOLPH Report Released Date/Time: Jun 16, 2023 08:14 AM Reporting Lab: [facility] [place] [facility] [address] [facility] [address] Performing Lab: [facility] [place] [facility] [address] [facility] [address] [facility] [place] [facility] LIPID PANEL FASTING CHOLESTERO L IN LDL [MASS/VOLU ME] IN SERUM OR PLASMA BY CALCULASHAHIDO N 157 mg/dL 0 - 129 H Specimen Type: SERUM No comment entered. Ordering Provider: SCOTT RUDOLPH Report Released Date/Time: Jun 16, 2023 08:14 AM Reporting Lab: [facility] [place] [address] [address] Performing Lab: [facility] [place] [address] [address] [facility] [place] [facility] [place] LIPID PANEL FASTING CHOLESTERO L.TOTAL/CH OLESTEROL IN HDL [MASS RATIO] IN SERUM OR PLASMA 5.6 Specimen Type: SERUM No comment entered. Ordering Provider: SCOTT RUDOLPH Report Released Date/Time: Jun 16, 2023 08:14 AM Reporting Lab: [facility] [place] [address] [address] Performing Lab: [facility] [place] [address] [address] [facility] [place] [facility] LIPID PANEL FASTING CHOLESTERO L IN HDL [MASS/VOLU ME] IN SERUM OR PLASMA 41 mg/dL 40 - 60 Specimen Type: SERUM No comment entered. Ordering Provider: SCOTT RUDOLPH Report Released Date/Time: Jun 16, 2023 08:14 AM Reporting Lab: [facility] [place] [address] [address] Performing Lab: [facility] [place] [facility] [address] [facility] [address] [facility] [place] [facility] BASIC METABOLI C PANEL (fasting ) UREA NITROGEN [MASS/VOLU ME] IN SERUM OR PLASMA 18 mg/dL 7 - 25 03/28 Specimen Type: SERUM No comment entered. Ordering Provider: SCOTT RUDOLPH Report Released Date/Time: Mar 22, 2023 11:09 AM Reporting Lab: [facility] [place] [facility] [address] [facility] [address] Performing Lab: [facility] [place] [facility] [address] [facility] [address] [facility] [place] [facility] BASIC METABOLI C PANEL (fasting ) GLUCOSE [MASS/VOLU ME] IN SERUM OR PLASMA 95 mg/dL 65 - 100 03/28 Specimen Type: SERUM No comment entered. Ordering Provider: SCOTT RUDOLPH Report Released Date/Time: Mar 22, 2023 11:09 AM Reporting Lab: [facility] [place] [facility] [address] [facility] [address] Performing Lab: [facility] [place] [facility] [address] [facility] [address] [facility] [place] [facility] BASIC METABOLI C PANEL (fasting ) SODIUM [MOLES/VOL UME] IN SERUM OR PLASMA 139 mmol/L 135 - 145 03/28 Specimen Type: SERUM No comment entered. Ordering Provider: SCOTT RUDOLPH Report Released Date/Time: Mar 22, 2023 11:09 AM Reporting Lab: [facility] [place] [facility] [address] [facility] [address] Performing Lab: [facility] [place] [facility] [address] [facility] [address] [facility] [place] [facility] BASIC METABOLI C PANEL (fasting ) POTASSIUM [MOLES/VOL UME] IN SERUM OR PLASMA 4.7 mmol/L 3.5 - 5.0 03/28 Specimen Type: SERUM No comment entered. Ordering Provider: SCOTT RUDOLPH Report Released Date/Time: Mar 22, 2023 11:09 AM Reporting Lab: [facility] [place] [facility] [address] [facility] [address] Performing Lab: [facility] [place] [facility] [address] [facility] [address] [facility] [place] [facility] BASIC METABOLI C PANEL (fasting ) CHLORIDE [MOLES/VOL UME] IN SERUM OR PLASMA 103 mmol/L 100 - 110 03/28 Specimen Type: SERUM No comment entered. Ordering Provider: SCOTT RUDOLPH Report Released Date/Time: Mar 22, 2023 11:09 AM Reporting Lab: [facility] [place] [facility] [address] [facility] [address] Performing Lab: [facility] [place] [facility] [address] [facility] [address] [facility] [place] [facility] BASIC METABOLI C PANEL (fasting ) CARBON DIOXIDE, TOTAL [MOLES/VOL UME] IN SERUM OR PLASMA 27 meq/L 20 - 30 03/28 Specimen Type: SERUM No comment entered. Ordering Provider: SCOTT RUDOLHP Report Released Date/Time: Mar 22, 2023 11:09 AM Reporting Lab: [facility] [place] [facility] [address] [facility] [address] Performing Lab: [facility] [place] [facility] [address] [facility] [address] [facility] [place] [facility] BASIC METABOLI C PANEL (fasting ) CREATININE [MASS/VOLU ME] IN SERUM OR PLASMA 0.92 mg/dL 0.50 - 1.40 03/28 Specimen Type: SERUM No comment entered. Ordering Provider: SCOTT RUDOLPH Report Released Date/Time: Mar 22, 2023 11:09 AM Reporting Lab: [facility] [place] [facility] [address] [facility] [address] Performing Lab: [facility] [place] [facility] [address] [facility] [address] [facility] [place] [facility] BASIC METABOLI C PANEL (fasting ) GLOMERULAR FILTRATION RATE/1.73 SQ M.PREDICTE D [VOLUME RATE/AREA] IN SERUM, PLASMA OR BLOOD BY CREATININE -BASED FORMULA (CKD-EPI 2020) >90mL/mi n 60 03/28 Specimen Type: SERUM No comment entered. Ordering Provider: SCOTT RUDOLPH Report Released Date/Time: Mar 22, 2023 11:09 AM Reporting Lab: [facility] [address] [facility] [address] Performing Lab: [facility] [address] [facility] [address] [facility] HEPATITI S B SURFACE ANTIBODY (HBsAb)- WH HEPATITIS B VIRUS SURFACE AB [PRESENCE] IN SERUM BY IMMUNOASSA Y REACTIVE 03/28 Specimen Type: SERUM Comment: A 'Reactive' result indicates HBsAb results >/= 12.0 mIU/mL and immunity to HBV infection. Ordering Provider: SCOTT RUDOLPH Report Released Date/Time: Mar 22, 2023 11:09 AM Reporting Lab: [facility] [address] [facility] [address] Performing Lab: [facility] [address] [address] [facility] HEPATITI S C ANTIBODY (HCV)-AR C HEPATITIS C VIRUS AB [PRESENCE] IN SERUM NON-REAC TIVE 03/28 Specimen Type: SERUM Comment: Hep C Ab: No HCV antibody detected. If recent infection is suspected or other evidence suggests HCV infection, consider HCV nucleic acid testing Ordering Provider: SCOTT RUDOLPH Report Released Date/Time: Mar 22, 2023 11:09 AM Reporting Lab: [facility] [address] [facility] [address] Performing Lab: [facility] [address] [facility] [address] [facility] HIV 1&2 Ag/Ab SCREEN HIV 1+2 AB+HIV1 P24 AG [PRESENCE] IN SERUM OR PLASMA BY IMMUNOASSA Y NON-REAC TIVE 03/28 Specimen Type: SERUM No comment entered. Ordering Provider: SCOTT RUDOLPH Report Released Date/Time: Mar 22, 2023 11:09 AM Reporting Lab: [facility] [place] [facility] [address] [facility] [address] Performing Lab: [facility] [place] [facility] [address] [facility] [address] [facility] [place] [facility] LIPID PANEL FASTING CHOLESTERO L [MASS/VOLU ME] IN SERUM OR PLASMA 258 mg/dL 03/28 H Specimen Type: SERUM No comment entered. Ordering Provider: SCOTT RUDOLPH Report Released Date/Time: Mar 22, 2023 11:09 AM Reporting Lab: [facility] [place] [facility] [address] [facility] [address] Performing Lab: [facility] [place] [facility] [address] [facility] [address] [facility] [place] [facility] LIPID PANEL FASTING TRIGLYCERI DE [MASS/VOLU ME] IN SERUM OR PLASMA 158 mg/dL 0 - 150 03/28 H Specimen Type: SERUM No comment entered. Ordering Provider: SCOTT RUDOLPH Report Released Date/Time: Mar 22, 2023 11:09 AM Reporting Lab: [facility] [place] [facility] [address] [facility] [address] Performing Lab: [facility] [place] [facility] [address] [facility] [address] [facility] [place] [facility] LIPID PANEL FASTING CHOLESTERO L IN LDL [MASS/VOLU ME] IN SERUM OR PLASMA BY CALCULATIO N 175 mg/dL 0 - 129 03/28 H Specimen Type: SERUM No comment entered. Ordering Provider: SCOTT RUDOLPH Report Released Date/Time: Mar 22, 2023 11:09 AM Reporting Lab: [facility] [place] [facility] [address] [facility] [address] Performing Lab: [facility] [place] [facility] [address] [facility] [address] [facility] [place] [facility] LIPID PANEL FASTING CHOLESTERO L.TOTAL/CH OLESTEROL IN HDL [MASS RATIO] IN SERUM OR PLASMA 5.1 03/28 Specimen Type: SERUM No comment entered. Ordering Provider: SCOTT RUDOLPH Report Released Date/Time: Mar 22, 2023 11:09 AM Reporting Lab: [facility] [place] [facility] [address] [facility] [address] Performing Lab: [facility] [address] [facility] [address] [facility] [place] LIPID PANEL FASTING CHOLESTERO L IN HDL [MASS/VOLU ME] IN SERUM OR PLASMA 51 mg/dL 40 - 60 03/28 Specimen Type: SERUM No comment entered. Ordering Provider: SCOTT RUDOLPH Report Released Date/Time: Mar 22, 2023 11:09 AM Reporting Lab: [facility] [address] [address] Performing Lab: [facility] [address] [facility] [address] [facility] [place] LIVER FUNCTION PROTEIN [MASS/VOLU ME] IN SERUM OR PLASMA 6.8 g/dL 6.0 - 8.3 03/28 Specimen Type: SERUM No comment entered. Ordering Provider: SCOTT RUDOLPH Report Released Date/Time: Mar 22, 2023 11:09 AM Reporting Lab: [facility] [place] [place] [facility] [address] [facility] [address] Performing Lab: [facility] [place] [facility] [address] [facility] [address] [facility] [place] [facility] [place] LIVER FUNCTION ALBUMIN [MASS/VOLU ME] IN SERUM OR PLASMA 4.1 g/dL 3.5 - 5.0 03/28 Specimen Type: SERUM No comment entered. Ordering Provider: SCOTT RUDOLPH Report Released Date/Time: Mar 22, 2023 11:09 AM Reporting Lab: [facility] [place] [facility] [address] [facility] [address] Performing Lab: [facility] [address] [address] [facility] [place] [facility] LIVER FUNCTION ALKALINE PHOSPHATAS E [ENZYMATIC ACTIVITY/V OLUME] IN SERUM OR PLASMA 35 U/L 40 - 150 03/28 L Specimen Type: SERUM No comment entered. Ordering Provider: SCOTT RUDOLPH Report Released Date/Time: Mar 22, 2023 11:09 AM Reporting Lab: [facility] [place] [facility] [address] [facility] [address] Performing Lab: [facility] [place] [facility] [address] [facility] [address] [facility] [place] [facility] LIVER FUNCTION ASPARTATE AMINOTRANS FERASE [ENZYMATIC ACTIVITY/V OLUME] IN SERUM OR PLASMA 13 U/L 5 - 34 03/28 Specimen Type: SERUM No comment entered. Ordering Provider: SCOTT RUDOLPH Report Released Date/Time: Mar 22, 2023 11:09 AM Reporting Lab: [facility] [place] [facility] [address] [facility] [address] Performing Lab: [facility] [place] [address] [address] [facility] [place] [facility] LIVER FUNCTION ALANINE AMINOTRANS FERASE [ENZYMATIC ACTIVITY/V OLUME] IN SERUM OR PLASMA 18 U/L 03/28 Specimen Type: SERUM No comment entered. Ordering Provider: SCOTT RUDOLPH Report Released Date/Time: Mar 22, 2023 11:09 AM Reporting Lab: [facility] [place] [facility] [address] [facility] [address] Performing Lab: [facility] [place] [facility] [address] [facility] [address] [facility] [place] [facility] LIVER FUNCTION BILIRUBIN. TOTAL [MASS/VOLU ME] IN SERUM OR PLASMA 0.6 mg/dL 0.2 - 1.2 03/28 Specimen Type: SERUM No comment entered. Ordering Provider: SCOTT RUDOLPH Report Released Date/Time: Mar 22, 2023 11:09 AM Reporting Lab: [facility] [place] [facility] [address] [facility] [address] Performing Lab[facility] [address] [facility] [address] [facility] PSA PROSTATE SPECIFIC AG [MASS/VOLU ME] IN SERUM OR PLASMA 1.30 ng/mL 0.00 - 4.00 03/28 Specimen Type: SERUM No comment entered. Ordering Provider: SCOTT RUDOLPH Report Released Date/Time: Mar 22, 2023 11:09 AM Reporting Lab: [facility] [address] [facility] [address] Performing Lab: [address] [address] [facility] Infectio us Disease HIV-1/O/2 Non-Reac tive 1 (11/03/22 2:32 PM) 11/03 N Interpretiv e Data: INTERPRETAT ION: This method is a screening procedure for the detection of HIV p24 Antigen and Antibodies to HIV-1, including Group O, and/or HIV-2. NON-REACTIV E: HIV-1 antigen and HIV-1 / HIV-2 antibodies were not detected. No laboratory evidence of HIV infection. A negative test result does not exclude the possibility of exposure to or infection with HIV. HIV antibodies and/or p24 antigen may be undetectabl e in some stages of the infection and in some clinical conditions. If acute HIV infection is suspected, consider submitting another specimen to a reference laboratory for HIV-1 RNA. SCREEN REACTIVE - CONFIRMATIO N TO FOLLOW: Possible presence of HIV-1antibo dies, HIV-2 antibodies and/or HIV-1 p24 antigen. Specimen will reflex to the confirmatio n testing that fulfills the Center for Disease Control and Prevention' s HIV diagnostic algorithm. Refer to [facility] Lab Guide for additional information : [email or web address] x Testing performed by Viky mills. [facility] Susana saunders [facility] Repository Sample Received (11/03/22 2:32 PM) 07/19 /2023 N [facility] Vital Signs Combined list of inpatient and outpatient Vital Signs from Department of Defense and Veterans Affairs, ranging from 12 months to all on record, depending upon the facility. Vital Sign Value Date Comments Source SYSTOLIC BLOOD PRESSURE 127 01/03/20 24 12:58:51 [facility] DIASTOLIC BLOOD PRESSURE 82 024 12:58:51 [facility] PULSE OXIMETRY 96 01/03/2024 12:58:51 [facility] WEIGHT 220 01/03/2024 12:58:51 [facility] BMI 29kg/m2 01/03/2024 12:58:51 [facility] PAIN 2 01/03/2024 12:58:51 [facility] HEIGHT 73 01/03/2024 12:58:51 [facility] TEMPERATURE 97.1 01/03/2024 12:58:51 [facility] PULSE 64 01/03/2024 12:58:51 [facility] RESPIRATION 20 01/03/2024 12:58:51 [facility] SYSTOLIC BLOOD PRESSURE 136 09/27/19 24 09:32:06 [facility] DIASTOLIC BLOOD PRESSURE 80 024 09:32:06 [facility] PULSE OXIMETRY 96 09/27/2023 09:32:06 [facility] WEIGHT 219 09/27/2023 09:32:06 [facility] BMI 29kg/m2 09/27/2023 09:32:06 [facility] PAIN 6 09/27/2023 09:32:06 [facility] TEMPERATURE 96.6 09/27/2023 09:32:06 [facility] PULSE 59 09/27/2023 09[facility]32:06 [facility] RESPIRATION 16 09/27/2023 09:32:06 [facility] PULSE OXIMETRY 96 06/16/2023 15:34:25 [facility] WEIGHT 220 06/16/2023 15:34:25 [facility] BMI 29kg/m2 06/16/2023 15:34:25 [facility] PAIN 4 06/16/2023 15:34:25 [facility] HEIGHT 73 06/16/2023 15:34:25 [facility] TEMPERATURE 97.3 06/16/2023 15:34:25 [facility] PULSE 70 06/16/2023 15:34:25 [facility] RESPIRATION 16 06/16/2023 15:34:25 [facility] No data available for this section Ambulatory Pharm acy Encounters Combined list of: 1) Encounters from [facility] facilities going back up to thelast 18 months. 2) Encounters from the Department of Defense facilities going back up to 280 months. Location Location Details Encounter Type Encounter Number Reason For Visit Attending Provider ADM Date DC Date Status Disposition Source [facility] Facility OUTPATIENT [id number] Theater Provider 02/18 Released w[facility] Limitations [facility] OUTPATIENT [id number] Theater Provider 03/09 Released w/o Limitations [facility] OUTPATIENT [id number] Theater Provider 05/25 Released w/o Limitations [facility] [place] [address](AFN G 104 Med Sq-FM) OUTPATIENT [id number] Notes Entered by: MELANIE METZGER 21 Dec 2017 1427 ------- ------- ------- ------- -- MELANIE FLORES 12/21 Released w/o Limitations [facility] [place] [address](A FNG 104 Med Sq-FM) [facility] [place] [address](AFN G 104 Med Sq-FM) OUTPATIENT [id number] Notes Entered by: VIKTORIA GODINEZ 28 May 2018 1506 ------- ------- ------- ------- -- VIKTORIA WALTON 05/28 [facility]ased w/[facility] Limitations [facility] [place] [address](A FNG 104 Med Sq-FM) [facility] [place] [address](AFN G 104 Med Sq-FM) OUTPATIENT [id number] Notes Entered by: MELANIE METZGER 23 May 2019 1410 ------- ------- ------- ------- -- MELANIE FLORES 05/23 [facility]ased w/[facility] Limitations [facility] [place] [address](A FNG 104 Med Sq-FM) [facility] [place] [address](AFN G 104 Med Sq-FM) OUTPATIENT [id number] Notes Entered by: HAYDEN LEWIS R 25 Oct 2019 1137 ------- ------- ------- ------- -- 469 SADE LEWIS 10/24 Released w/o Limitations [facility] [place] [address](A FNG 104 Med Sq-FM) [facility] [place] [address](AFN G 104 Med Sq-FM) OUTPATIENT [id number] 8 Notes Entered by: MORALES PALUMBO 01 Feb 2021 0930 ------- ------- ------- ------- -- New prescri ptPHILIP Hewitt 02/01 Released w/o Limitations [facility] [place] [facility] [address](A FNG 104 Med Sq-FM) [facility] [place] [facility] [place] [address](AFN G 104 Med Sq-FM) OUTPATIENT [id number] 6 Notes Entered by: MELANIE METZGER 01 Feb 2021 1635 ------- ------- ------- ------- -- MELANIE FLROES 02/01 Released w/o Limitations [facility] [place] [address](A FNG 104 Med Sq-FM) [place] [address](AFN G 104 Med Sq-FM) OUTPATIENT [id number] 5 Notes Entered by: MELANIE METZGER 25 Jun 2021 0701 ------- ------- ------- ------- -- MELANIE FLORES 06/25 Released w/o Limitations [facility] [place] [address](A FNG 104 Med Sq-FM) [place] [address](AFN G 104 Med Sq-FM) OUTPATIENT [id number] 6 Notes Entered by: CHARLOTTE SIMONS 27 Jun 2021 0832 ------- ------- ------- ------- -- MELANIE MAGAÑA 06/27 Released w/o Limitations [facility] [place] [address](A FNG 104 Med Sq-FM) [place] [address](AFN G 104 Med Sq-FM) OUTPATIENT [id number] 4 Notes Entered by: MELANIE METZGER 07 Jan 2022 0936 ------- ------- ------- ------- -- MARTY/MELANIE Trent 01/07 Released w/o Limitations [facility] [address](A FNG 104 Med Sq-FM) [facility] En[facility] [id number] 10/01 [facility] En[facility] [id number] 11/17 [facility] Encounter [id number] 11/29 [facility] OFFICE O/P NEW HI 60-74 MIN [id number] Diagnos is: ICD-10- CM G56.00 Carpal tunnel syndrom e, unspeci fied upper limb
PEG COLMENARES TULIO THI 11/29 [facility] En[facility] [id number] 11/30 [facility] Encounter [id number] 12/01 [facility] OFFICE O/P EST MOD 30-39 MIN [id number] Diagnos is: ICD-10- CM F43.12 Post-tr aumatic stress disorde r, chronic
RASHIDA RUDOLPH MMED JAWED 12/01 [facility] En[facility] [id number] 12/24 [facility] En[facility] [id number] 12/24 [facility] Encounter [id number] 12/27 [facility] Encounter [id number] 12/30 [facility] Encounter [id number] 01/04 [facility] Encounter [id number] KAVIN RIVAS SA, RN 01/10 [facility] Encounter [id number] 01/11 [facility] Encounter [id number] 01/14 [facility] Encounter [id number] 01/14 [facility] Encounter [id number] 01/19 [facility] Out[facility] Encounter [id number] 01/20 [facility] Encounter [id number] 01/25 [facility] Encounter [id number] 01/26 [facility] Out[facility] Encounter [id number] 01/31 [facility] Encounter [id number] 03/17 [facility] Out[facility] Encounter [id number] 03/22 [facility] Encounter [id number] 03/28 [facility] Encounter [id number] 03/31 [facility] Out[facility] Encounter [id number] LATHA SERVIN 04/05 [facility] Out[facility] Encounter [id number] 04/14 [facility] Encounter [id number] 05/19 [facility] Encounter [id number] 05/25 [facility] Out[facility] Encounter [id number] 06/07 [facility] OFFICE O/P EST MOD 30 MIN [id number] Diagnos is: ICD-10- CM F43.12 Post-tr aumatic stress disorde r, chronic
TRACEY RUDOLPHA MMED JAWED [facility] 8203R-104 MDG Care Not Rendered [id number] 06/16 Discharge Disposition: Home or Self Care 8203R-1 04 MDG [facility] Outpatient Encounter [id number] 06/21 [facility] Outpatient Encounter [id number] 06/22 [facility] 8203R-104 MDG Care Not Rendered [id number] 07/02 Discharge Disposition: Home or Self Care 8203R-1 04 MDG [facility] SELF-MGMT EDUC & TRAIN 1 [place] [id number] Diagnos is: ICD-10- CM G47.33 Obstruc tive sleep apnea (adult) ([facility] john)
ANNA,FRENY JOHN 08/21 [facility] HC PRO PHONE CALL 5-10 MIN [id number] Diagnos is: ICD-10- CM G47.30 Sleep apnea, unspeci fied
ANNA,FRENY JOHN 08/24 [facility] FIT SPECTACLES MONOFOCAL [id number] Diagnos is: ICD-10- CM Z46.0 Encount er for fit/adj st of spectac les and contact lenses< br/> SHAYY LE Y Donya 08/30 [facility] [id number] Diagnos is: ICD-10- CM H25.13 Age-rel ated nuclear catarac t, bilater al
SHAYY LE 08/30 [facility] SLEEP STUDY UNATT&RESP EFFT [id number] Diagnos is: ICD-10- CM G47.33 Obstruc tive sleep apnea (adult) ([facility] john)
ANNA,NATALY JOHN 09/06 [facility] SLEEP STUDY UNATT&RESP EFFT [id number] Diagnos is: ICD-10- CM R06.83 Snoring
KINGTYRELL 09/07 [facility] Outpatient Encounter [id number] 09/18 [facility] OFFICE O/P EST HI 40 MIN [id number] Diagnos is: ICD-10- CM M54.12 Radicul opathy, cervica l region< br/> FURCOLO,TI NA 09/26 [facility] Outpatient Encounter [id number] 10/02 [facility] Outpatient Encounter [id number] 10/03 [facility] Outpatient Encounter [id number] Diagnos is: ICD-10- CM M54.50 Low back pain, unspeci fied
DELIA,JUAN CARLOS SHAREE M 10/03 [facility] Outpatient Encounter [id number] 10[facility]03 [facility] OFF/OP EST MAY X REQ PHY/QHP [id number] Diagnos is: ICD-10- CM Z04.9 Encount er for examina tion and observa tion for unsp reason< br/> Art DARNELL H 10/03 [facility] ELECTROCAR DIOGRAM REPORT [id number] Diagnos is: ICD-10- CM Z13.6 Encount er for screeni ng for cardiov ascular disorde rs
ALMA VILLALPANDO 10/03 [place] [facility] En[facility] [id number] 10/17 [facility] Outpatient Encounter [id number] ALEJANDRA MONTEIRO V 11/17 [place] [facility] Out[facility] Encounter [id number] 12/07 [facility] Outpatient Encounter [id number] 12/22 [facility] Outpatient Encounter [id number] 12/24 [facility] Outpatient Encounter [id number] Diagnos is: ICD-10- CM F41.9 Anxiety disorde r, unspeci fied
LENIN FERRERA R 12/24 [facility] Out[facility] Encounter [id number] 01/01 [facility] OFFICE O/P EST MOD 30 MIN [id number] Diagnos is: ICD-10- CM M54.12 Radicul opathy, cervica l region< br/> FURCOLO,TI NA 01/02 [facility] HC PRO PHONE CALL 21-30 MIN [id number] Diagnos is: ICD-10- CM E78.5 Hyperli pidemia , unspeci fied
CORNELIA,JING BERNABE 01/03 [facility] Outpatient Encounter [id number] 01/23 [facility] [place] PRO PHONE CALL 21-30 MIN [id number] Diagnos is: ICD-10- CM F41.9 Anxiety disorde r, unspeci fied
MECHE PARRA MANUELA 01/23 [facility] PRO PHONE CALL 5-10 MIN [id number] Diagnos is: ICD-10- CM R45.4 Irritab ility and anger<b r/> MECHE PARRA MANUELA 01/31 [facility] 8203R-104 MDG Care Not Rendered [id number] 01/31 Discharge Disposition: Home or Self Care 8203R-1 04 MDG [facility] Outpatient Encounter [id number] Diagnos is: ICD-10- CM E78.5 Hyperli pidemia , unspeci fied
ALEJANDRA MONTEIRO V 02[facility]13 [facility] Vaccine [id number] 02/13 8203R-1 04 MDG 8203R-104 MDG Care Not Rendered [id number] 02/13 Discharge Disposition: Home or Self Care 8203R-1 04 MDG [facility] PRO PHONE CALL 5-10 MIN [id number] Diagnos is: ICD-10- CM F43.12 Post-tr aumatic stress disorde r, chronic
MECHE PARRA MANUELA 02/15 [facility] Outpatient Encounter [id number] ALEJANDRA MONTEIRO MANUELA V 02/20 [facility] [facility] Outpatient Encounter [id number] 03/20 [facility] [place] Outpatient Encounter [id number] 03/20 [facility] OFF/OP CONSLTJ NEW/EST SF 20 [id number] Diagnos is: ICD-10- CM R07.9 Chest pain, unspeci fied
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 Procedure Procedure Type Code Date Perfomer Comments Sourc e No data available for this section Ambulatory P harmacy Social History Combined list of available smoking, tobacco, and other social history from Department of Defense and Veterans Affairs facilities. Social History Type Response Date Comment Source Tobacco smoking status [place] VA-TOBACCO FORMER USER 01/03/2024 [facility] [place] [facility] History of tobacco use VA-TOBACCO QUIT 15 YRS OR MORE 01/03/2024 [facility] [place] [facility] History of tobacco use VA-TOBACCO QUIT 15 YRS OR MORE 12/01/2022 [facility] [place] [facility] of [facility] OR [facility] 09[facility]21[facility] [place] [facility] History of tobacco [facility] History of tobacco use QUIT TOBACCO USE > 7 YEARS AGO 07/21/2017 He quit 20 years [facility] History of tobacco use LIFETIME NON-TOBACCO USER 06/17/2016 [facility] History of tobacco use LIFETIME NON-TOBACCO USER 05/19/2015 [facility] History of tobacco use LIFETIME NON-TOBACCO USER 08/24/2012 [facility] This section is an empty social history section. [facility] Assessment and Plan Combined list of future care activities from Department of Defense and Veterans Affairs facilities (e.g., assessment and plan notes, appointments, orders, and referrals). Additional future care activities may be listed in the Plan of Care section. Result Assessment and Plan Date Source Assessment and Plan No data available for this section 03/29/2024 Ambulatory Pharmacy Plan of Care List of future care activities from Department of Veterans Affairs facilities. Additional future care activities may be listed in the Assessment and Plan section. Date/Time Care Activity Care Activity Detail Facili ty 04/05/2024 AMBULATORY - MEDICINE [facility] 04/09/2024 [facility] 09/12/2024 [facility]BULAT[facility] - [facility] 03/28/2024 Laboratory - Theatrical Scenic Designer ry Order LIVER FUNCTION BLOOD (SST-SERUM) [facility] [place] [facility] 03/28/2024 Laboratory - Theatrical Scenic Designer ry Order BASIC METABOLIC PANEL (fasting) BLOOD (SST-SERUM) SP [facility] [place] [facility] 03/28/2024 Laboratory - Theatrical Scenic Designer ry Order LIPID PANEL FASTING BLOOD (SST[facility]SERUM) [facility] [place] [facility] 03/28/2024 Laboratory - Theatrical Scenic Designer ry Order VITAMIN D (25-OH) BLOOD (SST-SERUM) [facility] 03/28/2024 Laboratory - Theatrical Scenic Designer ry Order TSH BLOOD (SST-SERUM) [facility] 03/28/2024 Laboratory - Theatrical Scenic Designer ry Order HEMOGLOBIN A1C PANEL BLOOD (LAV-BLOOD) [facility] 03/28/2024 Laboratory - Theatrical Scenic Designer ry Order CBC BLOOD (LAV-BLOOD) [facility] 03/28/2024 Laboratory - Theatrical Scenic Designer ry Order LIPOPROTEIN (a) BLOOD (SST-SERUM) [facility] Functional Status Combined list of recent functional and cognitive assessments recorded at Department of Defense and Veterans Affairs (VA).PA Functional Bandera Measurement (FIM) Scale: 1 = Total Assistance (Subject = 0% +), 2 = Maximal Assistance (Subject = 25% +), 3 = Moderate Assistance (Subject = 50% +), 4 = Minimal Assistance (Subject = 75% +), 5 = Supervision, 6 = Modified Bandera (Device), 7 = Complete Bandera (Timely, Safely). Assessment Date/Time Source Assessment Type Assessment Skill Assessment Score Assessment Details No data available for this section
--- OUTSIDE RECORDS SUMMARY | 2024-03-29 01:42 | XMS_ITS | Encounter Summary ---
Author Name [facility] [place] Organization [facility] [place] Address [address] [place] [address] Care Team Providers Care Glue Plant Operator Name Role Phone LENIN BENSON Primary [...] PHARMACY PRESCRIPT ION [facility] Apr 18, 2010 [id number] [phone] MITCHELL BRADEN PATIENT IAIN-ASA HANKINS PREFERRED PROVIDER ORGANIZAT ION (PPO) ADVAN LILLIAN DRAIN AGE Sep 17, 2002 [id number] MITCHELL BRADEN PATIENT Selected Encounter This section includes the information on record at [place] for the Encounter. Date/Time Encounter Type Encounter Description Reason Pro vider Source Jun 23, 2023 11:03 AM Outpatient Encounter ADMIN PAT ACTIVTIES (MASNONCT) IHE Encounter Template Text not used by VA Plan of Treatment: Future Appointments (+ 6 months) and Future Tests (+/- 45 days) The Plan of Treatment section includes future care activities for the patient from all [place] [facility]. This section includes future appointments and future orders which are active, pending or scheduled. Future Appointments This section includes appointments that were scheduled to occur 6 months from the date of the Encounter, up to a maximum of 20 appointments. The data comes from all [place] treatment facilities. Appointment Date/Time Appointment Type Appointme nt Facility Name August 22, 2023 11:30 AM AMBULATORY - MEDICINE [place] [facility] August 31, 2023 11:00 AM AMBULATORY MEDICINE [place] [facility] [place] [place] [facility] Sep 27, 2023 09:30 AM AMBULATORY MEDICINE [place] [facility] Oct 03, 2023 10:00 AM AMBULATORY MEDICINE [place] [facility] Oct 04, 2023 11:00 AM AMBULATORY MEDICINE DE [place] [facility] Oct 04, 2023 01:00 PM AMBULATORY MEDICINE [facility] Lab Results: +/- 30 days of the encounter This section includes the Chemistry and Hematology Lab Results on record with [place] for the patient. Radiology Reports and Pathology Reports are provided separately, in subsequent sections. Lab Results This section contains the Chemistry/Hematology Results that were resulted 30 days before or 30 daysafter the date of the Encounter. Date/Time Source Result Type Result - Unit Interpretation Reference Range Comment Jun 16, 2023 08:15 AM [facility] LIPID PANEL FASTING Specimen Type: SERUM No comment entered. Ordering Provider: SONA RUDOLPH Report Released Date/Time: Jun 16, 2023 08:14 AM Reporting Lab: [facility] [address] [address] Performing Lab: [facility] [address] [address] CHOLESTEROL 231 mg/dL H TRIGLYCERIDE 164 mg/dL H 0-150 LDL calculated 157 mg/dL H 0-129 CHOL/HDL 5.6 HDL CHOLESTEROL 41 mg/dL 40-60 Jun 16, 2023 08:15 AM [facility] BASIC METABOLIC PANEL (fasting) Specimen Type: SERUM No comment entered. Ordering Provider: SONA RUDOLPH Report Released Date/Time: Jun 16, 2023 08:14 AM Reporting Lab: [place] [facility] [facility] [address] [facility] [address] Performing Lab: [place] [facility] [place] [facility] [address] [facility] [address] UREA NITROGEN 22 mg/dL 7-25 GLUCOSE 96 [...] and tobacco- related health factors from the [place] facility where the Encounter took place. Current Smoking Status This section includes the most current smoking, or tobacco-related health factor, from the [place] facility where the Encounter took place. Date/Time Current Smoking Status Comment Facil it Dec 01, 2022 03:30 PM VA-TOBACCO QUIT 15 [facility]RS OR [facility] Tobacco Use History This section includes a history of the smoking, or tobacco-related health factors, that were collected on or before the date of the Encounter. The data comes from the [place] facility where the Encounter took place. Date/Time Smoking Status/Tobac co Use Comment Facility Dec 01, 2022 03:30 PM VA-TOBACCO QUIT 15 YRS OR MORE [place] [facility] [place] [facility] Nov 21, 2020 09:30 AM VA-TOBACCO FORMER USER [facility] [facility] Nov 21, 2020 09:30 AM VA-TOBACCO QUIT 15 YRS OR MORE [facility] [place] [facility] Sep 21, 2019 10:24 AM VA-TOBACCO FORMER USER [facility] [place] [facility] Sep 21, 2019 10:24 AM VA-TOBACCO QUIT 15 YRS OR MORE [facility] [place] [facility] August 31, 2018 09:07 AM VA-TOBACCO NEVER USED [place] [facility] [facility] Jul 21, 2017 09:00 AM QUIT TOBACCO USE > 7 YEARS AGO He quit 20 years ago [facility] [place] [facility] Jun 17, 2016 02:37 PM LIFETIME NON-TOBACCO USER [facility] [place] [facility] May 19, 2015 04:56 PM LIFETIME NON-TOBACCO USER [facility] [place] [facility] August 24, 2012 03:06 PM LIFETIME NON-TOBACCO USER [facility] [place] [facility] Encounter Notes: All associated encounter notes This section contains the clinical notes associated to the Encounter. Date/Time Encounter Note(s) Provider Source Jun 28, 2023 12:46 PM ADDENDUM: LOCAL TITLE: Addendum STANDARD TITLE: ADDENDUM DATE OF NOTE: JUN 28, 2023@12:46 ENTRY DATE: JUN 28, 2023@12:46 AUTHOR: BERTHA RUDOLPH EXP COSIGNER: URGENCY: STATUS: COMPLETED To whom it may concern Mitchell Braden date of 1970 has been under my care patient has been taking fluoxetine and has no adverse effect he is fit and is stable for his duty [employer]. From Darleen Rudolph MD /toshia/ BERTHA RUDOLPH MD STAFF PHYSICIAN Signed: 06/28/2023 12:46 Receipt Acknowledged By: 06/28/2023 13:25 /toshia/ RYAN SEE ADVANCED CHEMIC MANGLER === --- Original Document --- 06/23/23 CCC: SCHEDULING ADMINISTRATION: PT NEEDS LETTER FROM PCP STATING HE IS FIT FOR DUTY AND STABLE FOR DUTY WHILE BEING ON FLUOXETINE HCL 20 MG CAP , THIS IS FOR [employer]ATIONAL GU[employer]DS. PT,S # /toshia/ ELAINA GARCIA Signed: 06/23/2023 11:07 Receipt Acknowledged By: 06/27/2023 11:27 /toshia/ ZULEMA DARNELL REGISTERED NURSE for HUSSEIN AMAYA 06/27/2023 11:27 /toshia/ ZULEMA DARNELL REGISTERED NURSE 06/27/2023 ADDENDUM STATUS: COMPLETED TELEPHONE CALL Called at PATIENT PHONE - Regarding Requesting letter- Annual [employer] -Requirement -Letter of Stability [place] requesting letter mailed stating that he is fit for duty and stable for dury while being on Fluoxetine. Defer to PCP /toshia/ ZULEMA DARNELL REGISTERED NURSE Signed: 06/27/2023 11:26 Receipt Acknowledged By: 06/28/2023 12:45 /rhianna RUDOLPH MD STAFF PHYSICIAN BERTHA RUDOLPH [place] [facility] [place] [facility] Jun 27, 2023 11:15 AM ADDENDUM: LOCAL TITLE: Addendum STANDARD TITLE: ADDENDUM DATE OF NOTE: JUN 27, 2023@11:15:05 ENTRY DATE: JUN 27, 2023@11:15:06 AUTHOR: ZULEMA DARNELL EXP COSIGNER: URGENCY: STATUS: COMPLETED TELEPHONE CALL Called at PATIENT PHONE - Regarding Requesting letter- Annual [employer] -Requirement -Letter of Stability [place] requesting letter mailed stating that he is fit for duty and stable for dury while being on Fluoxetine. 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 PT,S # /es/ ELAINA GARCIA Signed: 06/23/2023 11:07 Receipt Acknowledged By: 06/27/2023 11:27 /es/ ZULEMA DARNELL REGISTERED NURSE for HUSSEIN AMAYA 06/27/2023 11:27 /toshia/ ZULEMA DARNELL REGISTERED NURSE 06/28/2023 ADDENDUM STATUS: UNSIGNED You may not VIEW this UNSIGNED Addendum. ZULEMA DARNELL [facility] Jun 23, 2023 11:03 AM ADMINISTRATIVE NOTE: LOCAL TITLE: CCC: SCHEDULING ADMINISTRATION STANDARD TITLE: ADMINISTRATIVE NOTE DATE OF NOTE: JUN 23, 2023@11:03 ENTRY DATE: JUN 23, 2023@11:03:42 AUTHOR: ELAINA VALENTINE EXP COSIGNER: URGENCY: STATUS: COMPLETED CCC: SCHEDULING ADMINISTRATION Has ADDENDA PT NEEDS LETTER FROM PCP STATING HE IS FIT FOR DUTY AND STABLE FOR DUTY WHILE BEING ON FLUOXETINE HCL 20 MG CAP , THIS IS FOR NATIONAL GU[employer]DS. PT,S # [phone] /toshia/ ELAINA GARCIA Signed: 06/23/2023 11:07 Receipt Acknowledged By: 06/27/2023 11:27 /toshia/ ZULEMA DARNELL REGISTERED NURSE for HUSSEIN AMAYA 06/27/2023 11:27 /toshia/ ZULEMA DARNELL REGISTERED NURSE 06/27/2023 ADDENDUM STATUS: COMPLETED TELEPHONE CALL Called at PATIENT PHONE - Regarding Requesting letter- Annual [employer] -Requirement -Letter of Stability requesting letter mailed stating that he is fit for duty and stable for dury while being on Fluoxetine. Defer to PCP /toshia/ ZULEMA DARNELL REGISTERED NURSE Signed: 06/27/2023 11:26 Receipt Acknowledged By: 06/28/2023 12:45 /toshia/ BERTHA RUDOLPH MD STAFF PHYSICIAN 06/28/2023 ADDENDUM STATUS: COMPLETED To whom it may concern Mitchell Braden date of 1970 has been under my care patient has been taking fluoxetine and has no adverse effect he is fit and is stable for his duty [employer]. From Darleen Rudolph MD /toshia/ BERTHA RUDOLPH MD STAFF PHYSICIAN Signed: 06/28/2023 12:46 Receipt Acknowledged By: * AWAITING SIGNATURE * RYAN SEE DIANE M [facility]
--- OUTSIDE RECORDS SUMMARY | 2024-03-29 01:42 | XMS_ITS | Encounter Summary ---
Author Name [facility] [place] [facility] [place] Address [address] [place] [address] Care Team Providers Care Monomer Recovery Supervisor Name Role Phone LENIN BENSON Primary Care [...] PHARMACY PRESCRIPT ION [facility] Apr 18, 2010 [id number] MITCHELL RAE PATIENT IAIN-ASA HANKINS PREFERRED PROVIDER ORGANIZAT ION (PPO) ADVAN LILLIAN DRAIN AGE Sep 17, 2002 [id number] MITCHELL RAE PATIENT Selected Encounter This section includes the information on record at [place] for the Encounter. Date/Time Encounter Type Encounter Description Reason Pro vider Source Jun 22, 2023 12:00 PM Outpatient Encounter COMMUNITY CARE CONSULT IHE Encounter Template Text not used by [...] 20 appointments. The data comes from all [place] treatment facilities. Appointment Date/Time Appointment Type Appointme nt Facility Name Jun 23, 2023 09:00 AM AMBULATORY - MEDICINE [place] [facility] August 22, 2023 11:30 AM AMBULATORY MEDICINE [place] [facility] August 31, 2023 11:00 AM AMBULATORY MEDICINE [place] [facility] Sep 27, 2023 09:30 AM AMBULATORY MEDICINE [place] [facility] Oct 03, 2023 10:00 AM AMBULATORY MEDICINE [place] [facility] Oct 04, 2023 11:00 AM AMBULATORY MEDICINE [place] [facility] Oct 04, 2023 01:00 PM AMBULATORY MEDICINE [facility] Lab Results: +/- 30 days of the encounter This section includes the Chemistry and Hematology Lab Results on record with [place] for the patient. Radiology Reports and Pathology Reports are provided separately, in subsequent sections. Lab Results This section contains the Chemistry/Hematology Results that were resulted 30 days before or 30 daysafter the date of the Encounter. Date/Time Source Result Type Result - Unit Interpretation Reference Range Comment Jun 16, 2023 08:15 AM [facility] BASIC METABOLIC PANEL (fasting) Specimen Type: SERUM No comment entered. Ordering Provider: SONA RUDOLPH Report Released Date/Time: Jun 16, 2023 08:14 AM Reporting Lab: [facility] [address] [facility] [address] Performing Lab: [facility] [address] [facility] [address] UREA NITROGEN 22 mg/dL 7-25 GLUCOSE 96 mg/dL 65-100 SODIUM 137 mmol/L 135-145 POTASSIUM 4.3 mmol/L 3.5-5.0 CHLORIDE 104 mmol/L 100-110 CO2 24 meq/L 20-30 CREATININE, Serum 0.88 mg/dL 0.50-1.40 eGFR(CKD-EPI 2020) >90 mL/min >60 Jun 16, 2023 08:15 AM [place] [facility] [place] [facility] LIPID PANEL FASTING Specimen Type: SERUM No comment entered. Ordering Provider: SONA RUDOLPH Report Released Date/Time: Jun 16, 2023 08:14 AM Reporting Lab: [facility] [address] [facility] [address] Performing Lab: [place] [facility] [address] [facility] [address] CHOLESTEROL 231 mg/dL H TRIGLYCERIDE 164 mg/dL H 0-150 LDL calculated 157 mg/dL H 0-129 CHOL/HDL 5.6 HDL CHOLESTEROL 41 mg/dL 40-60 Social History: Smoking Status (Most current) and Tobacco Use (All prior to encounter date) This section includes the most current, and the historical, smoking and tobacco- related health factors from the [place] facility where the Encounter took place. Current Smoking Status This section includes the most current smoking, or tobacco-related health factor, from the [place] facility where the Encounter took place. Date/Time Current Smoking Status Comment [facility] Dec 01, 2022 03:30 PM VA-TOBACCO FORMER USER [place] [facility] [place] [facility] Tobacco Use History This section includes a history of the smoking, or tobacco-related health factors, that were collected on or before the date of the Encounter. The data comes from the [place] facility where the Encounter took place. Date/Time Smoking Status/Tobac co Use Comment Facility Dec 01, 2022 03:30 PM VA-TOBACCO QUIT 15 YRS OR MORE [facility] [place] [facility] Nov 21, 2020 09:30 AM VA-TOBACCO FORMER USER [facility] [place] [facility] Nov 21, 2020 09:30 AM VA-TOBACCO QUIT 15 YRS OR MORE [facility] [place] [facility] Sep 21, 2019 10:24 AM VA-TOBACCO FORMER USER [facility] [place] [facility] Sep 21, 2019 10:24 AM VA-TOBACCO QUIT 15 YRS OR MORE [place] [facility] [place] [facility] August 31, 2018 09:07 AM VA-TOBACCO NEVER USED [place] [facility] [place] [facility] Jul 21, 2017 09:00 AM QUIT TOBACCO USE > 7 YEARS AGO He quit 20 years ago [place] [facility] [place] [facility] Jun 17, 2016 02:37 PM LIFETIME NON-TOBACCO USER [facility] [place] [facility] May 19, 2015 04:56 PM LIFETIME NON-TOBACCO USER [facility] [place] [facility] August 24, 2012 03:06 PM LIFETIME NON-TOBACCO USER [place] [facility] [place] [facility] Encounter Notes: All associated encounter notes This section contains the clinical notes associated to the Encounter. Date/Time Encounter Note(s) Provider Source Jun 22, 2023 12:00 PM NONVA CONSULT: LOCAL TITLE: COMMUNITY CARE-CONSULT RESULT NOTE STANDARD TITLE: NONVA CONSULT DATE OF NOTE: JUN 22, 2023@12:00 ENTRY DATE: JUL 13, 2023@09:52:01 AUTHOR: CHARLOTTE RAUSCH COSIGNER: URGENCY: STATUS: COMPLETED VistA Imaging - Scanned Document SCANNED DOCUMENT SIGNATURE NOT REQUIRED Electronically Filed: 07/13/2023 by: CHARLOTTE RAUSCH MASTER RIGGER CHARLOTTE RAUSCH [facility]
--- OUTSIDE RECORDS SUMMARY | 2024-03-29 01:42 | XMS_ITS ---
Author Name [facility] [place] Address [address] [place] [address] Care Team Providers Care Manager Fleet Name Role Phone ARUNALENIN AVILA Primary Care Provider Unavailabl e Insurance Providers: [...] PHARMACY PRESCRIPT ION [facility] Apr 18, 2010 [id number] [phone] MITCHELL RAE PATIENT IAIN-ASA HANKINS PREFERRED PROVIDER ORGANIZAT ION (PPO) ADVAN LILLIAN DRAIN AGE Sep 17, 2002 [id number] MITCHELL RAE PATIENT Selected Encounter This section includes the information on record at [place] for the Encounter. Date/Time Encounter Type Encounter Description Reason Provider Source August 31, 2023 11:00 AM FIT SPECTACLES MONOFOCAL OPTOMETRY ICD-10-CM Z46.0 Encounter for fit/adjst of spectacles and contact lenses ANA LE Encounter Template Text not used by VA Assessments - Encounter Diagnoses This section includes the primary and secondary diagnoses documented for the Encounter. Date/Time Primary/Secondary Diagnosis Diagnosis Name Provider Source August 31, 2023 11:00 AM PRIMARY Encounter for fit/adjst of spectacles and contact lenses JOHN GARG [facility] [place] [facility] Plan of Treatment: Future Appointments (+ 6 months) and Future Tests (+/- 45 days) The Plan of Treatment section includes future care activities for the patient from all [place] treatmentfaatrium healthities. This section includes future appointments and future orders which are active, pending or scheduled. Future Appointments This section includes appointments that were scheduled to occur 6 months from the date of the Encounter, up to a maximum of 20 appointments. The data comes from all [place] treatment facilities. Appointment Date/Time Appointment Type Appointme nt Facility Name Sep 27, 2023 09:30 AM AMBULATORY - MEDICINE [place] C [place] [facility] Oct 03, 2023 10:00 AM AMBULATORY MEDICINE [place] C [place] [facility] Oct 04, 2023 11:00 AM AMBULATORY - MEDICINE [place] C [place] [facility] Oct 04, 2023 01:00 PM AMBULATORY - MEDICINE [place] C [facility] [facility] Dec 25, 2023 08:30 AM AMBULATORY - MEDICINE [place] C [facility] [facility] Jan 03, 2024 01:00 PM AMBULATORY MEDICINE [place] C [place] [facility] Jan 04, 2024 10:00 AM AMBULATORY - MEDICINE [place] [facility] Jan 24, 2024 12:15 PM AMBULATORY - PSYCHIATRY [place] [facility] [place] [facility] Feb 01, 2024 12:00 PM AMBULATORY PSYCHIATRY [place] [facility] [place] [facility] Feb 14, 2024 09:00 AM AMBULATORY - MEDICINE [place] [facility] Feb 16, 2024 11:30 AM AMBULATORY - PSYCHIATRY [place] [facility] [place] [facility] Feb 21, 2024 02:00 PM AMBULATORY - MEDICINE [facility] [place] [facility] Lab Results: +/- 30 days of the encounter This section includes the Chemistry and Hematology Lab Results on record with [place] for the patient. Radiology Reports and Pathology Reports are provided separately, in subsequent sections. Lab Results This section contains the Chemistry/Hematology Results that were resulted 30 days before or 30 daysafter the date of the Encounter. Date/Time Source Result Type Result - Unit Interpretation Reference Range Comment Sep 27, 2023 08:50 AM [place] [facility] [place] [facility] LIPID PANEL FASTING Specimen Type: SERUM No comment entered. Ordering Provider: LENIN BENSON Report Released Date/Time: September 06, 2023 02:23 PM Reporting Lab: [facility] [address] [facility] [address] Performing Lab: [facility] [address] [facility] [facility] [address] CHOLESTEROL 224 mg/dL H TRIGLYCERIDE 150 mg/dL 0-150 LDL calculated 151 mg/dL H 0-129 CHOL/HDL 5.2 HDL CHOLESTEROL 43 mg/dL 40-60 Social History: Smoking Status (Most current) and Tobacco Use (All prior to encounter date) This section includes the most current, and the historical, smoking and tobacco- related health factors from the [place] facility where the Encounter took place. Current Smoking Status This section includes the most current smoking, or tobacco-related health factor, from the [place] facility where the Encounter took place. Date/Time Current Smoking Status Comment [facility] Dec 01, 2022 03:30 PM [facility]ACCO [facility] Tobacco Use History This section includes a history of the smoking, or tobacco-related health factors, that were collected on or before the date of the Encounter. The data comes from the [place] facility where the Encounter took place. Date/Time Smoking Status/Tobac co Use Comment Facility Dec 01, 2022 03:30 PM VA-TOBACCO QUIT 15 YRS OR MORE [place] [facility] [place] [facility] Nov 21, 2020 09:30 AM VA-TOBACCO FORMER USER [place] [facility] [place] [facility] Nov 21, 2020 09:30 AM VA-TOBACCO QUIT 15 YRS OR MORE [place] [facility] [place] [facility] Sep 21, 2019 10:24 AM VA-TOBACCO FORMER USER [place] [facility] [place] [facility] Sep 21, 2019 10:24 AM VA-TOBACCO QUIT 15 YRS OR MORE [place] [facility] [place] [facility] August 31, 2018 09:07 AM VA-TOBACCO NEVER USED [place] [facility] [place] [facility] Jul 21, 2017 09:00 AM QUIT TOBACCO USE > 7 YEARS AGO He quit 20 years ago [place] [facility] [place] [facility] Jun 17, 2016 02:37 PM LIFETIME NON-TOBACCO USER [facility] [place] [facility] May 19, 2015 04:56 PM LIFETIME NON-TOBACCO USER [facility] [place] [facility] August 24, 2012 03:06 PM LIFETIME NON-TOBACCO USER [facility] [place] [facility] Encounter Notes: All associated encounter notes This section contains the clinical notes associated to the Encounter. Date/Time Encounter Note(s) Provider Source August 31, 2023 01:03 PM OPTOMETRY NOTE: LOCAL TITLE: OPTOMETRY NOTE STANDARD TITLE: OPTOMETRY NOTE DATE OF NOTE: AUGUST 31, 2023@13:03 ENTRY DATE: AUGUST 31, 2023@13:04:01 AUTHOR: NIKO TY EXP COSIGNER: URGENCY: STATUS: COMPLETED OPTOMETRY NOTE Has ADDENDA The quote provided below is for informational purposes only. Please verify prior to the creation of a purchase order. MITCHELL RAE [id number] RX INFORMATION OD +1.75 -0.50 X165 Add:0.00 Pzm:0.00 Dir: Prz2:0.00 Dir2: OS +2.00 0.00 X Add:0.00 Pzm:0.00 Dir: Prz2:0.00 Dir2: FITTING INFORMATION FPD: NPD: [place]:R:30 L:29.5 SEG HT:R: L: Tint:None Shade:None VA Billable Items FRAME: FX8 LONG POND [id number] Right Lens: POLY SINGLE VISION 1.586 POLY Left Lens: POLY SINGLE VISION 1.586 POLY KLEAR ANTI-REFLECTIVE COATING /toshia/ NIKO TY PARAMEDIC RN Signed: 08/31/2023 13:04 Receipt Acknowledged By: 09/02/2023 13:57 /toshia/ JOHN GARG OPTOMETRY TECH 09/02/2023 ADDENDUM STATUS: COMPLETED PDS Manager Transport fit patient with 1 pair(s) of sv eyeglasses on 09/02/2023. OPT HT entered consult(s) as requested for provider signature. /toshia/ JOHN GARG OPTOMETRY TECH Signed: 09/02/2023 13:59 NIKO TY [facility]
--- OUTSIDE RECORDS SUMMARY | 2024-03-29 01:42 | XMS_ITS ---
Author Name [facility] [place] [facility] [place] [facility] [place] Address [address] [place] [address] Care Team Providers Care News Clipping Cutter Name Role Phone ARUNAJOSEGEORGINALENIN Primary Care Provider Unavailabl e Insurance Providers: [...] PHARMACY PRESCRIPT ION [facility] Apr 18, 2010 [id number] MITCHELL RAE PATIENT IAIN-ASA HANKINS PREFERRED PROVIDER ORGANIZAT ION (PPO) ADVAN LILLIAN DRAIN AGE Sep 17, 2002 [id number] MITCHELL RAE PATIENT Selected Encounter This section includes the information on record at [place] for the Encounter. Date/Time Encounter Type Encounter Description Reason Provider Source August 25, 2023 09:49 AM HC PRO PHONE CALL 5-10 MIN TELEPHONE/MEDICIN E ICD-10-CM G47.30 Sleep apnea, unspecified ANNA,DILEEP IHE Encounter Template Text not used by [place] Assessments - Encounter Diagnoses This section includes the primary and secondary diagnoses documented for the Encounter. Date/Time Primary/Secondary Diagnosis Diagnosis Name Provider Source August 25, 2023 09:49 AM PRIMARY Sleep apnea, unspecified ANNA,DILEEP [place] [facility] [place] [facility] Plan of Treatment: Future Appointments (+ 6 months) and Future Tests (+/- 45 days) The Plan of Treatment section includes future care activities for the patient from all [place] treatmentfacilities. This section includes future appointments and future orders which are active, pending or scheduled. Future Appointments This section includes appointments that were scheduled to occur 6 months from the date of the Encounter, up to a maximum of 20 appointments. The data comes from all [place] treatment facilities. Appointment Date/Time Appointment Type Appointme nt Facility Name August 31, 2023 11:00 AM AMBULATORY - MEDICINE [place] [facility] [place] [facility] Sep 27, 2023 09:30 AM AMBULATORY - MEDICINE [place] [facility] [place] [facility] Oct 03, 2023 10:00 AM AMBULATORY - MEDICINE [place] [facility] [place] [facility] Oct 04, 2023 11:00 AM AMBULATORY - MEDICINE [place] [facility] [place] [facility] Oct 04, 2023 01:00 PM AMBULATORY - MEDICINE [place] [facility] [place] [facility] Dec 25, 2023 08:30 AM AMBULATORY - MEDICINE [place] [facility] [place] [facility] Jan 03, 2024 01:00 PM AMBULATORY - MEDICINE [place] [facility] [place] [facility] Jan 04, 2024 10:00 AM [place] [facility] Jan 24, 2024 12:15 PM AMBULATORY - PSYCHIATRY [place] [facility] [place] [facility] Feb 01, 2024 12:00 PM AMBULATORY - PSYCHIATRY [place] [facility] [place] [facility] Feb 14, 2024 09:00 AM AM[place]ULATORY - [place]IC[place] [facility] Feb 16, 2024 11:30 AM AMBULATORY - PSYCHIATRY [place] [facility] [place] [facility] Feb 21, 2024 02:00 PM AMBULATORY - MEDICINE [place] [facility] [place] [facility] Social History: Smoking Status (Most current) and Tobacco Use (All prior to encounter date) This section includes the most current, and the historical, smoking and tobacco- related health factors from the [place] facility where the Encounter took place. Current Smoking Status This section includes the most current smoking, or tobacco-related health factor, from the [place] facility where the Encounter took place. Date/Time Current Smoking Status Comment [facility] Dec 01, 2022 03:30 PM VA-TOBACCO QUIT 15 YRS OR MORE [place] [facility] [place] [facility] Tobacco Use History This section includes a history of the smoking, or tobacco-related health factors, that were collected on or before the date of the Encounter. The data comes from the [place] facility where the Encounter took place. Date/Time Smoking Status/Tobac co Use Comment Facility Dec 01, 2022 03:30 PM VA-TOBACCO QUIT 15 YRS OR MORE [place] [facility] [place] [facility] Nov 21, 2020 09:30 AM VA-TOBACCO FORMER USER [place] [facility] [place] [facility] Nov 21, 2020 09:30 AM VA-TOBACCO QUIT 15 YRS OR MORE [place] [facility] [place] [facility] Sep 21, 2019 10:24 AM VA-TOBACCO FORMER USER [place] [facility] [place] [facility] Sep 21, 2019 10:24 AM VA-TOBACCO QUIT 15 YRS OR MORE [place] [facility] [place] [facility] August 31, 2018 09:07 AM VA-TOBACCO NEVER USED [place] [facility] [place] [facility] Jul 21, 2017 09:00 AM QUIT TOBACCO USE > 7 YEARS AGO He quit 20 years ago [place] [facility] [place] [facility] Jun 17, 2016 02:37 PM LIFETIME NON-TOBACCO USER [place] [facility] [place] [facility] May 19, 2015 04:56 PM LIFETIME NON-TOBACCO USER [place] [facility] [place] [facility] August 24, 2012 03:06 PM LIFETIME NON-TOBACCO USER [place] [facility] [place] [facility] Encounter Notes: All associated encounter notes This section contains the clinical notes associated to the Encounter. Date/Time Encounter Note(s) Provider Source August 25, 2023 09:49 AM PRIMARY CARE TELEP IMANI ENCOUNTER NOTE: LOCAL TITLE: TELEPHONE NOTE/PRIMARY CARE STANDARD TITLE: PRIMARY CARE TELEPHONE ENCOUNTER NOTE DATE OF NOTE: AUGUST 25, 2023@09:49 ENTRY DATE: AUGUST 25, 2023@09:50 AUTHOR: DILEEP CASTILLO EXP COSIGNER: URGENCY: STATUS: COMPLETED Patient called to say that he completed the home sleep study last night and asked a few general questions regarding the testing procedure. vehicle glass technician confirmed that he likely performed the test properly. He will be bringing kit to [employer] today. /toshia/ JESSICA WOOD TRANSIT COACH OPERATOR Signed: 08/25/2023 09:52 DILEEP CASTILLO [facility]
--- OUTSIDE RECORDS SUMMARY | 2024-03-29 01:42 | XMS_ITS ---
Author Name [facility] [place] [facility] [place] [facility] [place] Address [address] [place] [address] Care Team Providers Care Aerospace Products Sales Engineer Name Role Phone LENIN BENSON Primary [...] PHARMACY PRESCRIPT ION [facility] Apr 18, 2010 [id number] MITCHELL RAE PATIENT IAIN-ASA HANKINS PREFERRED PROVIDER ORGANIZAT ION (PPO) ADVAN LILLIAN DRAIN AGE Sep 17, 2002 [id number] MITCHELL RAE PATIENT Selected Encounter This section includes the information on record at [place] for the Encounter. Date/Time Encounter Type Encounter Description Reason Provider Source August 31, 2023 11:00 AM COMPRE OPH EXAM EST PT 1/> OPTOMETRY ICD-10-CM H25.13 Age-related nuclear cataract, bilateral LE,ANA J IHE Encounter Template Text not used by [place] Assessments - Encounter Diagnoses This section includes the primary and secondary diagnoses documented for the Encounter. Date/Time Primary/Secondary Diagnosis Diagnosis Name Provider Source September 01, 2023 08:16 AM PRIMARY Age-related nuclear cataract, bilateral ANA LE [place] [facility] [place] [facility] September 01, 2023 08:16 AM SECONDARY Presbyopia ANA LE [place] [facility] [place] [facility] Plan of Treatment: Future Appointments (+ 6 months) and Future Tests (+/- 45 days) The Plan of Treatment section includes future care activities for the patient from all [place] treatmentfacarteret health careities. This section includes future appointments and future orders which are active, pending or scheduled. Future Appointments This section includes appointments that were scheduled to occur 6 months from the date of the Encounter, up to a maximum of 20 appointments. The data comes from all [place] treatment facilities. Appointment Date/Time Appointment Type Appointme nt Facility Name Sep 27, 2023 09:30 AM AMBULATORY - MEDICINE [place] [facility] [place] [facility] Oct 03, 2023 10:00 AM AMBULATORY - MEDICINE [place] [facility] [place] [facility] Oct 04, 2023 11:00 AM AMBULATORY - MEDICINE [place] [facility] [facility] Oct 04, 2023 01:00 PM AMBULATORY - MEDICINE [place] [facility] [facility] Dec 25, 2023 08:30 AM AMBULATORY - MEDICINE [place] [facility] [facility] Jan 03, 2024 01:00 PM AMBULATORY - MEDICINE [place] [facility] [facility] Jan 04, 2024 10:00 AM [place]ATORY [place]IC[place] [facility] Jan 24, 2024 12:15 PM AMBULATORY - PSYCHIATRY [place] [facility] [place] [facility] Feb 01, 2024 12:00 PM AMBULATORY - PSYCHIATRY [place] [facility] [place] [facility] Feb 14, 2024 09:00 AM AMBULATORY - [place]ICINE [place] [facility] Feb 16, 2024 11:30 AM AMBULATORY - PSYCHIATRY [place] [facility] [place] [facility] Feb 21, 2024 02:00 PM AMBULATORY - MEDICINE [place] [facility] [place] [facility] Lab Results: +/- 30 days of the encounter This section includes the Chemistry and Hematology Lab Results on record with VA for the patient. Radiology Reports and Pathology Reports are provided separately, in subsequent sections. Lab Results This section contains the Chemistry/Hematology Results that were resulted 30 days before or 30 daysafter the date of the Encounter. Date/Time Source Result Type Result - Unit Interpretation Reference Range Comment Sep 27, 2023 08:50 [facility] LIPID PANEL FASTING Specimen Type: SERUM No comment entered. Ordering Provider: LENIN BENSON Report Released Date/Time: September 06, 2023 02:23 PM Reporting Lab: [facility] [address] [facility] [id number] Performing Lab: [address] [id number] CHOLESTEROL 224 mg/dL H TRIGLYCERIDE 150 mg/dL 0-150 LDL calculated 151 mg/dL H 0-129 CHOL/HDL 5.2 HDL CHOLESTEROL 43 mg/dL 40-60 Social History: Smoking Status (Most current) and Tobacco Use (All prior to encounter date) This section includes the most current, and the historical, smoking and tobacco- related health factors from the [place] facility where the Encounter took place. Current Smoking Status This section includes the most current smoking, or tobacco-related health factor, from the [place] facility where the Encounter took place. Date/Time Current Smoking Status Comment [facility] Dec 01, 2022 03:30 PM VA-TOBACCO QUIT 15 YRS OR MORE [facility] Tobacco Use History This section includes a history of the smoking, or tobacco-related health factors, that were collected on or before the date of the Encounter. The data comes from the [place] facility where the Encounter took place. Date/Time Smoking Status/Tobac co Use Comment Facility Dec 01, 2022 03:30 PM VA-TOBACCO QUIT 15 YRS OR MORE [place] [facility] [place] [facility] Nov 21, 2020 09:30 AM VA-TOBACCO FORMER USER [place] [facility] [place] [facility] Nov 21, 2020 09:30 AM VA-TOBACCO QUIT 15 YRS OR MORE [place] [facility] [facility] Sep 21, 2019 10:24 AM [facility] Sep 21, 2019 10:24 AM VA-TOBACCO [facility] [place] [facility] August 31, 2018 09:07 AM VA-TOBACCO [facility]ED [facility] [place] [facility] Jul 21, 2017 09:00 AM QUIT TOBACCO USE > 7 YEARS AGO He quit 20 years ago [place] [facility] [place] [facility] Jun 17, 2016 02:37 PM LIFETIME NON-TOBACCO USER [place] [facility] [place] [facility] May 19, 2015 04:56 PM LIFETIME [facility]ACCO [facility] August 24, 2012 03:06 PM LIFETIME [facility]ACCO [facility] Encounter Notes: All associated encounter notes This section contains the clinical notes associated to the Encounter. Date/Time Encounter Note(s) Provider Source August 31, 2023 11:02 AM OPTOMETRY NOTE: LOCAL TITLE: OPTOMETRY NOTE STANDARD TITLE: OPTOMETRY NOTE DATE OF NOTE: AUGUST 31, 2023@11:02 ENTRY DATE: AUGUST 31, 2023@11:02:27 AUTHOR: SHANTAL STACY EXP COSIGNER: ANA LE URGENCY: STATUS: COMPLETED OPTOMETRY NOTE Has ADDENDA Active problems - Computerized Problem List is the source for the followin. Snoring 2. Cervical radiculopathy 3. Carpal tunnel syndrome 4. Low back pain 5. Anxiety 6. Irritability and anger 7. Tinnitus 8. Posttraumatic stress disorder 9. Vision, Subnormal Active Outpatient Medications (including Supplies): Active Outpatient Medications Status 1) FLUOXETINE HCL 20MG CAP TAKE ONE CAPSULE BY MOUTH ACTIVE ONCE DAILY FOR DEPRESSION AND ANXIETY 2) ROSUVASTATIN CA 10MG TAB TAKE ONE TABLET BY MOUTH ACTIVE ONCE DAILY FOR CHOLESTEROL Allergies: Patient has answered NKA All medications including those prescribed by outside VA's, community providers, and all OTC meds were reviewed and reconciled with patient to the best of their abilities. This 53 year old MALE is seen today for CEE Chief Complaint: C/O blur at near sc. Pt using +1.75 cheaters for reading that are working well. Pt reports intermittent bouts of dizziness for 10 seconds for past 6 months. Pt reports dizziness was previously occurring 2x per week but now it only happens 1x per month, last instance was 1 month ago. Pt dicussed with PCP, reports no tx prescribed. OHx: -refractive error OU (-) Pain: (-) ELDRIDGE: (+) Diplopia: assoc. with intermittent dizziness for past 6 months, PCP aware, further description in cc (-) Flashes: (+) Floaters: rare and longstanding (-) Amaurosis Fugax/Tia's: (-) Eye Injury: (-) Eye Surgery: (-) TBI FOHx: (-) Glaucoma/ARMD/Blindness (-) Smoker/Length of Time/PPD: Current Rx with last BCVA: OD: +0.50 20/15 OS: +0.50 20/15 Add: +0.75 DVA ( )sc ( x )cc phoropter OD: 20/20-1 OS: 20/20-2 Pupils: PERRL (-)APD EOMs: SAFE OU, (-)Pain/Diplopia CVF (facial, peripheral): FTFC OU Subjective Refraction: OD: +0.25 -0.50 x 165 20/20 OS: +0.50 sph 20/20-1 Add: +1.50 20/20 All the above performed by student, reviewed by attending Anterior segment: Performed by student, repeated by attending * Lids: clear OU Conj: temp pinguecula OD, clear OS Cornea: clear OU AC: open, quiet OU Iris: flat and clear OU Lens: early nuclear lens changes OU Tonometry: Performed by student, reviewed by attending * OD 12 mmHg OS 12 mmHg Time: 11:30am Fundus exam: Dilated: @ 11:35am Non dilated: Dilating Drops: 1GTT 1 % Tropicamide OU & 1GTT 2.5% Phenylephrine OU (Pt. ed. on side effects, dilation warning given and verbal consent obtained) Patient advised not to drive if they feel they have any symptoms which could affect their ability to drive safely. Patient advised not to engage in any activities which could put themselves or others at risk if they feel they have any symptoms which could affect their ability to perform those activities safely. Performed by student, repeated by attending * Vit: clear OU C/D: 0.40/0.x40 OD, 0.45/0.45 OS Macula: flat and clear OU PPole: OD sup arcade small choroidal nevus no SFS/orange pigment, OS clear A/V: 2/3 Vessels: normal caliber OU Periph: flat and intact (-)holes, tears, detachments 360 OU Assessment/Plan: 1. Hyperopia with astigmatism -Spec Rx updated -discussed option of NVO/DVO specs, bifocals, or progressives -pt interested in NVO specs today 2. Nuclear Sclerotic Cataracts OU - not visually significant at present -Pt ed re today's findings and the importance of UV protection -Pt ed cataracts may cause reduction of BCVA and symptoms of glare -RTC sooner if vision declines or interferes with ADLs - repeated back the plan and education. -Monitor Return to Clinic 1 year or earlier PRN Medication Reconciliation: Outpatient: Has the patient been taking medications as documented in the EMLR? YES: The patient has been taking medications as documented in the EMLR. Essential Medication List for Review used to complete this medication reconciliation. INCLUDED IN THIS LIST: Alphabetical list of active outpatient prescriptions dispensed from this VA (local) and dispensed from another VA or DoD facility (remote) as well as inpatient orders (local, pending and active), local clinic medications, locally documented non-VA medications, and local prescriptions that have or been discontinued in the past 90 days. - All changes in medications, including all non-VA/Herbal/OTC medications were entered into CPRS. - If there were any medications the patient should no longer take, they were discontinued. - The patient/caregiver was instructed to update this list, discard old lists, and take this list to the next appointment, whether with a VA or non-VA provider. Medication List: JLV Link Data on this list may not be complete. Please check JLV. Allergies/ADRs (Tool #5) FACILITY ALLERGY/ADR -------- No Remote Allergy/ADR Data available for this patient [place] [facility] [place] [facility] No Known Allergies Med. Reconciliation (Tool #1) INCLUDED IN THIS LIST: Alphabetical list of active outpatient prescriptions dispensed from this VA (local) and dispensed from another VA or DoD facility (remote) as well as inpatient orders (local pending and active), local clinic medications, locally documented non-VA medications, and local prescriptions that have or been discontinued in the past 90 days. Non-VA Meds Last Documented On: Data not found NOTE The display of VA prescriptions dispensed from another VA or DoD facility (remote) is limited to active outpatient prescription entries matched to National Drug File at the originating site and may not include some items such as investigational drugs, compounds, etc. NOT INCLUDED IN THIS LIST: Medications self-entered by the patient into personal health records (i.e. [employer]) are NOT included in this list. Non-VA medications documented outside this [place], remote inpatient orders (regardless of status) and remote clinic medications are NOT included in this list. The patient and provider must always discuss medications the patient is taking, regardless of where the medication was dispensed or obtained. OUTPT FLUOXETINE HCL 20MG CAP (Status = Active) TAKE ONE CAPSULE BY MOUTH ONCE DAILY FOR DEPRESSION AND ANXIETY Rx# [id number] Last Released: 08/01/23 Qty/Days Supply: Rx Expiration Date: 05/19/24 Refills Remainin Indication: FOR MAJOR DEPRESSIVE DISORDER OUTPT ROSUVASTATIN CA 10MG TAB (Status = Active) TAKE ONE TABLET BY MOUTH ONCE DAILY FOR CHOLESTEROL Rx# [id number] Last Released: 04/01/23 Qty/Days Supply: Rx Expiration Date: 03/28/24 Refills Remainin Indication: FOR HIGH CHOLESTEROL SUPPLIES PHARMACY TERMS AND POSSIBLE PATIENT ACTIONS INPT = [place] inpatient order IV = [place] intravenous medication OUTPT = [place] outpatient prescription PHARMACY POSSIBLE PATIENT TERMS EXPLANATION ACTIONS -------- ------ ACTIVE A prescription that can be If you have refills, filled at the local VA pharmacy. you may request a refill of this prescription from your VA pharmacy. CLINIC A medication you received during If you have questions a visit to a VA clinic or about this medication emergency department. contact your VA healthcare team. DISCONTINUED A prescription your provider has Contact your VA stopped. It is no longer healthcare team if you available to be sent to you or need more of this picked up at the [place] pharmacy medication. window. A prescription which is too old Contact your VA to fill. This does not refer to healthcare team if you the expiration date of the need more of this medication in the container. medication. NON-VA A medication that came from If this medication someplace other than a VA information is pharmacy. This may be a incorrect or out of prescription from either the VA date, please tell your or non VA providers that was VA healthcare team. filled outside the VA. Or, it may be an [id number] (OTC), herbal, dietary supplements or sample medication. ON HOLD An active prescription that will Contact your VA not be filled until pharmacy pharmacy when you need resolves the issue. more of this medication. PARKED An active prescription that will Contact your VA not be filled until the patient pharmacy when you need requests it. this medication. PENDING This prescription order has been If you have been sent to the pharmacy for review instructed to start and is not ready yet. this medication now, contact your VA pharmacy. SUSPENDED An active prescription that is Contact your [place] not scheduled to be filled yet. pharmacy if you need You should receive it before this medication now. you run out. (x) Printed Medication Reconciliation List Offered and Declined by [facility] () Medication Reconciliation List Printed for at Exam () Optometry HT Please Print and Mail Copy of Medication Reconciliation List () AMSA Please Print and Mail Copy of Medication Reconciliation List /toshia/ SHANTAL STACY OPTOMETRY STUDENT Signed: 09/01/2023 08:27 /es/ ANA LE OD DIRECTOR OF CARDIOLOGY SERVICE LINE Cosigned: 09/01/2023 12:53 09/01/2023 ADDENDUM STATUS: COMPLETED The optometry campus interviews intern participated in this exam, I saw this [facility] in conjunction with the optometry student. The entrance tests and refraction were performed by the student and reviewed by me. I personally met with the patient, confirmed the hisory, complaints and the student's findings, and performed slit lamp and fundus evaluation as indicated. I reviewed and agree with the stated findings, assessment and plan. I have added/edited the documentation to reflect my exam findings and changes to the assessment and plan. Ed re today's findings. [facility] repeated back the plan and education. All reminders completed by attending and documented in student note. /toshia/ ANA EL OD DIRECTOR OF CARDIOLOGY SERVICE LINE Signed: 09/01/2023 12:53 SHANTAL STACY [facility]
--- OUTSIDE RECORDS SUMMARY | 2024-03-29 01:42 | XMS_ITS | Encounter Summary ---
Author Name [facility] [place] [facility] [place] Address [address] [place] [address] Care Team Providers Care Fresh Food Manager Name Role Phone LENIN BENSON Primary Care [...] PHARMACY PRESCRIPT ION [facility] Apr 18, 2010 [id number] [phone] MITCHELL RAE PATIENT IAIN-ASA HANKINS PREFERRED PROVIDER ORGANIZAT ION (PPO) ADVAN LILLIAN DRAIN AGE Sep 17, 2002 [id number] MITCHELL RAE PATIENT Selected Encounter This section includes the information on record at [place] for the Encounter. Date/Time Encounter Type Encounter Description Reason Pro vider Source Apr 14, 2023 12:00 PM Outpatient Encounter COMMUNITY CARE [...] 20 appointments. The data comes from all [place] treatment facilities. Appointment Date/Time Appointment Type Appointme nt Facility Name Jun 16, 2023 03:30 PM AMBULATORY [place]ICINE [place] [facility] [place] [facility] Jun 23, 2023 09:00 AM AMBULATORY - MEDICINE [place] [facility] [place] [facility] August 22, 2023 11:30 AM AMBULATORY - MEDICINE [place] [facility] [place] [facility] August 31, 2023 11:00 AM AMBULATORY - MEDICINE [place] [facility] [place] [facility] Sep 27, 2023 09:30 AM AMBULATORY - MEDICINE [place] [facility] [facility] Oct 03, 2023 10:00 AM AMBULATORY - MEDICINE [place] [facility] [place] [facility] Oct 04, 2023 11:00 AM AMBULATORY - MEDICINE [place] [facility] [place] [facility] Oct 04, 2023 01:00 PM AMBULATORY - MEDICINE [place] [facility] [place] [place] [facility] Lab Results: +/- 30 days of the encounter This section includes the Chemistry and Hematology Lab Results on record with [place] for the patient. Radiology Reports and Pathology Reports are provided separately, in subsequent sections. Lab Results This section contains the Chemistry/Hematology Results that were resulted 30 days before or 30 daysafter the date of the Encounter. Date/Time Source Result Type Result - Unit Interpretation Reference Range Comment Mar 28, 2023 09:25 AM [facility] HEPATITIS B SURFACE ANTIBODY (HBsAb)-WH Specimen Type: SERUM Comment: A 'Reactive' result indicates HBsAb results >/= 12.0 mIU/mL and immunity to HBV infection. Ordering Provider: YUSRA RUDOLPH ED Report Released Date/Time: Mar 22, 2023 11:09 AM Reporting Lab: [facility] [address] [facility] [address] Performing Lab[facility] [address] [address] HBsAb REACTIVE Non Reactive Mar 28, 2023 09:25 AM [facility] PSA Specimen Type: SERUM No comment entered. Ordering Provider: YUSRA RUDOLPH ED Report Released Date/Time: Mar 22, 2023 11:09 AM Reporting Lab: [facility] [address] [facility] [address] Performing Lab: [facility] [address] [address] PSA 1.30 ng/mL 0.00-4.00 Mar 28, 2023 09:25 AM [facility] LIPID PANEL FASTING Specimen Type: SERUM No comment entered. Ordering Provider: YUSRA RUDOLPH ED Report Released Date/Time: Mar 22, 2023 11:09 AM Reporting Lab: [facility] [address] [facility] [address] Performing Lab: [address] [address] CHOLESTEROL 258 mg/dL H TRIGLYCERIDE 158 mg/dL H 0-150 LDL calculated 175 mg/dL H 0-129 CHOL/HDL 5.1 HDL CHOLESTEROL 51 mg/dL 40-60 Mar 28, 2023 09:25 AM [facility] BASIC METABOLIC PANEL (fasting) Specimen Type: SERUM No comment entered. Ordering Provider: YUSRA RUDOLPH ED Report Released Date/Time: Mar 22, 2023 11:09 AM Reporting Lab: [facility] [address] [address] Performing Lab: [facility] [address] [address] UREA NITROGEN 18 mg/dL 7-25 GLUCOSE 95 mg/dL 65-100 SODIUM 139 mmol/L 135-145 POTASSIUM 4.7 mmol/L 3.5-5.0 CHLORIDE 103 mmol/L 100-110 CO2 27 meq/L 20-30 CREATININE, Serum 0.92 mg/dL 0.50-1.40 eGFR(CKD-EPI 2020) >90 mL/min >60 Mar 28, 2023 09:25 AM [facility] LIVER FUNCTION Specimen Type: SERUM No comment entered. Ordering Provider: YUSRA RUDOLPH ED JAWED Report Released Date/Time: Mar 22, 2023 11:09 AM Reporting Lab: [facility] [address] [facility] [address] Performing Lab: [facility] [address] [facility] [address] PROTEIN,TOTAL 6.8 g/dL 6.0-8.3 ALBUMIN 4.1 g/dL 3.5-5.0 ALKALINE PHOSPHATASE 35 U/L L 40-150 AST 13 U/L 5-34 ALT 18 U/L BILIRUBIN, TOTAL 0.6 mg/dL 0.2-1.2 Mar 28, 2023 09:25 AM [facility] HEPATITIS C ANTIBODY (HCV)-ARC Specimen Type: SERUM Comment: Hep C Ab: No HCV antibody detected. If recent infection is suspected or other evidence suggests HCV infection, consider HCV nucleic acid testing Ordering Provider: YUSRA RUDOLPH ED JAWED Report Released Date/Time: Mar 22, 2023 11:09 AM Reporting Lab: [facility] [address] [facility] [address] Performing Lab: [facility] [address] HEPATITIS C ANTIBODY NON-REACTIVE NON-REACTIVE Mar 28, 2023 09:25 AM [facility] HIV 1&2 Ag/Ab SCREEN Specimen Type: SERUM No comment entered. Ordering Provider: YUSRA RUDOLPH ED JAWED Report Released Date/Time: Mar 22, 2023 11:09 AM Reporting Lab: [facility] [address] [facility] [address] Performing Lab: [facility]USE[address] [address] HIV 1&2 Ag/Ab SCREEN NON-REACTIVE Nonreactive Mar 28, 2023 09:25 AM [facility] CBC AND DIFF (AUTO) Specimen Type: BLOOD No comment entered. Ordering Provider: YUSRA RUDOLPH ED JAWED Report Released Date/Time: Mar 22, 2023 11:09 AM Reporting Lab: [facility]ERN [address] [place] [address] Performing Lab: [facility] [address] [address] WBC 4.75 10*3/uL 4.50-11.00 RBC 4.87 10*6/uL 4.23-5.66 HGB 14.9 g/dL 12.8-17 HCT 44.6 39.2-50.4 MCV 91.6 fL 82-99 MCHC 33.4 g/dL 30.8-35.1 PLT 202 10*3/uL 140-360 RDW-CV 11.6 L 12.0-16.0 Larimer, Abs 0.45 10*3/uL 0.30-1.10 MCH 30.6 pg 26.2-32.6 Neut % 48.5 43.7-75.8 Lymph % 38.7 14.0-42.3 [place] % 9.5 5.1-13.7 Eos % 2.5 0.4-6.8 Baso % 0.6 0.1-2.0 Neut, Abs 2.30 10*3/uL 2.20-7.60 Lymph, Abs 1.84 10*3/uL 1.00-3.20 Eos, Abs 0.12 10*3/uL 0.03-0.44 Baso, Abs 0.03 10*3/uL 0.01-0.13 Immature Gran % 0.2 0.0-0.7 Immature Gran, Abs 0.01 10*3/uL 0.00-0.06 Mar 28, 2023 09:25 AM [facility] URINALYSIS Specimen Type: URINE Comment: If Glucose = >500 and Ketones are positive, please alert the Physician. Ordering Provider: YUSRA RUDOLPH ED Report Released Date/Time: Mar 22, 2023 11:09 AM Reporting Lab: [facility] [address] [facility] [address] Performing Lab: [address] [address] UA COLOR Colorless Yellow UA APPEARANCE Clear [...] and tobacco- related health factors from the [place] facility where the Encounter took place. Current Smoking Status This section includes the most current smoking, or tobacco-related health factor, from the [place] facility where the Encounter took place. Date/Time Current Smoking Status Comment [facility] Dec 01, 2022 03:30 PM VA-TOBACCO QUIT 15 YRS OR MORE [place] [facility] [facility] Tobacco Use History This section includes a history of the smoking, or tobacco-related health factors, that were collected on or before the date of the Encounter. The data comes from the [place] facility where the Encounter took place. Date/Time Smoking Status/Tobac co Use Comment Facility Dec 01, 2022 03:30 PM VA-TOBACCO QUIT 15 YRS OR MORE [place] [facility] [place] [facility] Nov 21, 2020 09:30 AM VA-TOBACCO FORMER USER [place] [facility] [place] [facility] Nov 21, 2020 09:30 AM VA-TOBACCO QUIT 15 YRS OR MORE [place] [facility] [place] [facility] Sep 21, 2019 10:24 AM VA-TOBACCO FORMER USER [place] [facility] [place] [facility] Sep 21, 2019 10:24 AM VA-TOBACCO QUIT 15 YRS OR MORE [place] [facility] [place] [facility] August 31, 2018 09:07 AM VA-TOBACCO NEVER USED [place] [facility] [place] [facility] Jul 21, 2017 09:00 AM QUIT TOBACCO USE > 7 YEARS AGO He quit 20 years ago [place] [facility] [facility] Jun 17, 2016 02:37 PM LIFETIME NON-TOBACCO USER [place] [facility] [place] [facility] May 19, 2015 04:56 PM LIFETIME NON-TOBACCO USER [place] [facility] [place] [facility] August 24, 2012 03:06 PM LIFETIME NON-TOBACCO USER [place] [facility] [place] [facility] Encounter Notes: All associated encounter notes This section contains the clinical notes associated to the Encounter. Date/Time Encounter Note(s) Provider Source Apr 14, 2023 12:00 PM NONVA CONSULT: LOCAL TITLE: COMMUNITY CARE-CONSULT RESULT NOTE STANDARD TITLE: NONVA CONSULT DATE OF NOTE: APR 14, 2023@12:00 ENTRY DATE: AUG 12, 2023@12:57:32 AUTHOR: NINI DENNIS EXP COSIGNER: URGENCY: STATUS: COMPLETED VistA Imaging - Scanned Document SCANNED DOCUMENT SIGNATURE NOT REQUIRED Electronically Filed: 08/12/2023 by: NINI ALVAREZ [facility]
--- OUTSIDE RECORDS SUMMARY | 2024-03-29 01:42 | XMS_ITS ---
Author Name [facility] [place] Address [address] [place] [address] Care Team Providers Care Turkish Rubber Name Role Phone NIA BENSONA Primary Care Provider Unavailabl e Insurance Providers: [...] PHARMACY PRESCRIPT ION [facility] Apr 18, 2010 [id number] MITCHELL RAE PATIENT IAIN-ASA HANKINS PREFERRED PROVIDER ORGANIZAT ION (PPO) ADVAN LILLIAN DRAIN AGE Sep 17, 2002 [id number] MITCHELL RAE PATIENT Selected Encounter This section includes the information on record at [place] for the Encounter. Date/Time Encounter Type Encounter Description Reason Provider Source August 22, 2023 11:30 AM SELF-MGMT EDUC & TRAIN 1 PT SLEEP MEDICINE ICD-10-CM G47.33 Obstructive sleep apnea (adult) (pediatric) ANNA,DILEEP IHE Encounter Template Text not used by [place] Assessments - Encounter Diagnoses This section includes the primary and secondary diagnoses documented for the Encounter. Date/Time Primary/Secondary Diagnosis Diagnosis Name Provider Source August 22, 2023 01:58 PM PRIMARY Obstructive sleep apnea (adult) (pediatric) ZAKIA CASTILLOIC [place] [facility] [place] [facility] Plan of Treatment: Future Appointments (+ 6 months) and Future Tests (+/- 45 days) The Plan of Treatment section includes future care activities for the patient from all [place] treatmentfacilities. This section includes future appointments and future orders which are active, pending or scheduled. Future Appointments This section includes appointments that were scheduled to occur 6 months from the date of the Encounter, up to a maximum of 20 appointments. The data comes from all [place] treatment facilities. Appointment Date/Time Appointment Type Appointme nt Facility Name August 31, 2023 11:00 AM AMBULATORY [place]ICINE [place] [facility] [place] [facility] Sep 27, 2023 09:30 AM AMBULATORY - MEDICINE [place] [facility] [place] [facility] Oct 03, 2023 10:00 AM AMBULATORY - MEDICINE [place] [facility] [place] [facility] Oct 04, 2023 11:00 AM AMBULATORY - MEDICINE [place] [facility] [facility] Oct 04, 2023 01:00 PM AMBULATORY - MEDICINE [place] [facility] [facility] Dec 25, 2023 08:30 AM AMBULATORY - MEDICINE [place] [facility] [place] [facility] Jan 03, 2024 01:00 PM AMBULATORY - MEDICINE [place] [facility] [facility] Jan 04, 2024 10:00 AM AMBUL[place]ORY - [place]ICINE [place] [facility] Jan 24, 2024 12:15 PM AMBULATORY - PSYCHIATRY [place] [facility] [place] [facility] Feb 01, 2024 12:00 PM AMBULATORY - PS[place]CHIATRY [place] [facility] [place] [facility] Feb 14, 2024 09:00 AM AMBULATORY - [place]ICINE [place] [facility] Feb 16, 2024 11:30 AM AMBULATORY - PS[place]CHIATRY [place] [facility] [place] [facility] Feb 21, 2024 02:00 PM AMBULATORY - MEDICINE [place] [facility] [facility] Social History: Smoking Status (Most current) and Tobacco Use (All prior to encounter date) This section includes the most current, and the historical, smoking and tobacco- related health factors from the [place] facility where the Encounter took place. Current Smoking Status This section includes the most current smoking, or tobacco-related health factor, from the [place] facility where the Encounter took place. Date/Time Current Smoking Status Comment [facility] it Dec 01, 2022 03:30 PM VA-TOBACCO FORMER USER [place] [facility] [facility] [place] [facility] Tobacco Use History This section includes a history of the smoking, or tobacco-related health factors, that were collected on or before the date of the Encounter. The data comes from the [place] facility where the Encounter took place. Date/Time Smoking Status/Tobac co Use Comment Facility Dec 01, 2022 03:30 PM VA-TOBACCO QUIT 15 YRS OR MORE [place] [facility] [place] [facility] Nov 21, 2020 09:30 AM VA-TOBACCO FORMER USER [place] [facility] [place] [facility] Nov 21, 2020 09:30 AM VA-TOBACCO QUIT 15 YRS OR MORE [place] [facility] [place] [facility] Sep 21, 2019 10:24 AM VA-TOBACCO FORMER USER [place] [facility] [place] [facility] Sep 21, 2019 10:24 AM VA-TOBACCO QUIT 15 YRS OR MORE [place] [facility] [place] [facility] August 31, 2018 09:07 AM VA-TOBACCO NEVER USED [place] [facility] [place] [facility] Jul 21, 2017 09:00 AM QUIT TOBACCO USE > 7 YEARS AGO He quit 20 years ago [place] [facility] [facility] Jun 17, 2016 02:37 PM LIFETIME NON-TOBACCO USER [place] [facility] [place] [facility] May 19, 2015 04:56 PM LIFETIME NON-TOBACCO USER [place] [facility] [place] [facility] August 24, 2012 03:06 PM LIFETIME NON-TOBACCO USER [place] [facility] [place] [facility] Encounter Notes: All associated encounter notes This section contains the clinical notes associated to the Encounter. Date/Time Encounter Note(s) Provider Source August 22, 2023 11:30 AM SLEEP MEDICINE CON SULT: JESSICA TITLE: SLEEP STUDY/CONSULT REPORT STANDARD TITLE: SLEEP MEDICINE CONSULT DATE OF NOTE: AUGUST 22, 2023@11:30 ENTRY DATE: AUGUST 22, 2023@13:58:42 AUTHOR: DILEEP CASTILLO EXP COSIGNER: URGENCY: STATUS: COMPLETED Service Location [facility] [facility] Device Information DeviceName: [id number] DeviceSerialNumber: [id number] Education was provided about what sleep apnea is, how home sleep apnea testing is used to diagnose sleep apnea, and what treatment options are most commonly used to treat it. Patient attended an individual appointment for instruction on use of home sleep testing equipment. Device was given to patient with written instructions and contact information included. All questions were answered and the patient expressed understanding of the provided instructions and care plan. Other notes diagnosis- snoring witn snoring, to BR 2-3 /pm, racing thoughts. back surgery C6-7 2 mos ago, PTSD, dry mouth in a.m. pm sweating , a.m. HAs, wakes jolting Minutes professional time spent providing care.: 30 min /toshia/ JESSICA WOOD PORTER MARINA Signed: 08/22/2023 13:58 [facility]O [place] [facility]
--- OUTSIDE RECORDS SUMMARY | 2024-03-29 01:42 | XMS_ITS ---
Author Name [facility] Organization [facility] Address [address] [place] [address] Care Team Providers Care Senior Back End Java Developer Name Role Phone LENIN BENSON Primary Care [...] PHARMACY PRESCRIPT ION [facility] Apr 18, 2010 [id number] MITCHELL BRADEN PATIENT CIGBENIGNO-ASA HANKINS PREFERRED PROVIDER ORGANIZAT ION (PPO) ADVAN LILLIAN DRAIN AGE Sep 17, 2003 [id number] MITCHELL BRADEN PATIENT Selected Encounter This section includes the information on record at [place] for the Encounter. Date/Time Encounter Type Encounter Description Reason Provider Source Sep 27, 2023 09:30 AM OFFICE O/P EST HI 40 MIN PRIMARY CARE/MEDICINE ICD-10-CM M54.12 Radiculopathy, cervical region LENIN BENSON IHGarcía Encounter Template Text not used by [place] Assessments - Encounter Diagnoses This section includes the primary and secondary diagnoses documented for the Encounter. Date/Time Primary/Secondary Diagnosis Diagnosis Name Provider Source Sep 27, 2023 12:47 PM PRIMARY Radiculopathy, cervical region LENIN BENSON [facility] Sep 27, 2023 12:47 PM SECONDARY Family hx of ischem heart dis and oth dis of the circ sys LENIN BENSON [facility] Sep 27, 2023 12:47 PM SECONDARY Mixed hyperlipidemia LENIN BENSON [facility] Plan of Treatment: Future Appointments (+ 6 months) and Future Tests (+/- 45 days) The Plan of Treatment section includes future care activities for the patient from all [place] treatmentfacilities. This section includes future appointments and future orders which are active, pending or scheduled. Future Appointments This section includes appointments that were scheduled to occur 6 months from the date of the Encounter, up to a maximum of 20 appointments. The data comes from all [place] treatment facilities. Appointment Date/Time Appointment Type Appointme nt Facility Name Oct 03, 2023 10:00 AM [facility]ULATORY [facility] MEDICINE [facility] Oct 04, 2023 11:00 AM AM[facility]UL[facility]ORY [facility] MEDIC[facility] [place] Oct 04, 2023 01:00 PM AMBULATORY - MEDICINE [facility] [place] Dec 25, 2023 08:30 AM AM[facility]UL[facility]ORY [facility] MEDIC[facility] [place] Jan 03, 2024 01:00 PM AMBULATORY - MEDICINE [facility] [place] [facility] Jan 04, 2024 10:00 AM [facility] [place] [facility] Jan 24, 2024 12:15 PM AMBULATORY - PSYCHIATRY [facility] [place] Feb 01, 2024 12:00 PM AMBULATORY - PSYCHIATRY [facility] [place] Feb 14, 2024 09:00 AM [facility]IC[facility] [place] [facility] Feb 16, 2024 11:30 AM AMBULATORY - PSYCHIATRY [facility] [place] [facility] Feb 21, 2024 02:00 PM AMBULATORY - MEDICINE [facility] [place] [facility] Mar 20, 2024 11:30 AM [facility] Mar 21, 2024 12:45 PM AMBULATORY - NONE [facility] N Mar 21, 2024 01:00 PM AMBULATORY - MEDICINE [facility] Lab Results: +/- 30 days of the encounter This section includes the Chemistry and Hematology Lab Results on record with [place] for the patient. Radiology Reports and Pathology Reports are provided separately, in subsequent sections. Lab Results This section contains the Chemistry/Hematology Results that were resulted 30 days before or 30 daysafter the date of the Encounter. Date/Time Source Result Type Result - Unit Interpretation Reference Range Comment Sep 27, 2023 08:50 AM [facility] LIPID PANEL FASTING Specimen Type: SERUM No comment entered. Ordering Provider: LENIN BENSON Report Released Date/Time: September 06, 2023 02:23 PM Reporting Lab: [address] [id number] Performing Lab: [address] [id number] CHOLESTEROL 224 mg/dL H TRIGLYCERIDE 150 mg/dL 0-150 LDL calculated 151 mg/dL H 0-129 CHOL/HDL 5.2 HDL CHOLESTEROL 43 mg/dL 40-60 Vital Signs: All taken on the encounter date This section contains inpatient and outpatient Vital Signs collected on the date of the Encounter. Date/Time Temperature Pulse Blood Pressure Respiratory Rate SP02 Pain Height Weight Body Mass Index Source Sep 27, 2023 09:32 AM 96.6 59 136/80 16 96 6 219 29 [facility] Social History: Smoking Status (Most current) and Tobacco Use (All prior to encounter date) This section includes the most current, and the historical, smoking and tobacco- related health factors from the [place] facility where the Encounter took place. Current Smoking Status This section includes the most current smoking, or tobacco-related health factor, from the [place] facility where the Encounter took place. Date/Time Current Smoking Status Comment Maria D trujillo Dec 01, 2022 03:30 PM VA-TOBACCO FORMER USER [facility] Tobacco Use History This section includes a history of the smoking, or tobacco-related health factors, that were collected on or before the date of the Encounter. The data comes from the [place] facility where the Encounter took place. Date/Time Smoking Status/Tobac co Use Comment Facility Dec 01, 2022 03:30 PM VA-TOBACCO QUIT 15 YRS OR MORE [facility] [place] Nov 21, 2020 09:30 AM VA-TOBACCO FORMER USER [facility] [place] [facility] Nov 21, 2020 09:30 AM VA-TOBACCO QUIT 15 YRS OR MORE [facility] [place] Sep 21, 2019 10:24 AM VA-TOBACCO FORMER USER [facility] [place] [facility] Sep 21, 2019 10:24 AM VA-TOBACCO QUIT 15 YRS OR MORE [facility] [place] [facility] August 31, 2018 09:07 AM VA-TOBACCO NEVER USED [facility] [place] Jul 21, 2017 09:00 AM QUIT TOBACCO USE > 7 YEARS AGO He quit 20 years ago [facility] [place] Jun 17, 2016 02:37 PM LIFETIME NON-TOBACCO USER [facility] [place] May 19, 2015 04:56 PM LIFETIME NON-TOBACCO USER [facility] [place] August 24, 2012 03:06 PM LIFETIME NON-TOBACCO USER [place] [facility] [place] [facility] Encounter Notes: All associated encounter notes This section contains the clinical notes associated to the Encounter. Date/Time Encounter Note(s) Provider Source Feb 15, 2024 09:47 AM ADDENDUM: LOCAL TITLE: Addendum STANDARD TITLE: ADDENDUM DATE OF NOTE: FEB 15, 2024@09:47:15 ENTRY DATE: FEB 15, 2024@09:47:16 AUTHOR: KACI DAVIS EXP COSIGNER: URGENCY: STATUS: COMPLETED PCP, please note to order Calcium score it will just require another Cardiology One Consult and I will d/w the [place] where he would like to have the CT done. Thank you! /toshia/ KACI DAVIS RN Referral Coordination Initiative Nurse Signed: 02/15/2024 09:49 Receipt Acknowledged By: 02/15/2024 10:55 /toshia/ LENIN BENSON D.O. PHYSICIAN --- Original Document --- 09/27/23 NOTE: MITCHELL BRADEN JR is a 53 year old WHITE MALE who is being seen today in primary care for routine follow up. ==== CARE TEAM ==== Community Primary Care Provider: Dr. Ashley Montesinos [place] Specialists: optometry Community Specialists: neurosurgery- Dr. Han Martinez ==== HISTORY ==== PERIOD OF SERVICE - [employer] CONNECTED % - 40 SC Percent: 40% Rated Disabilities: TINNITUS (10%-SC) POST-TRAUMATIC STRESS DISORDER (30%-SC) ==== HISTORY OF PRESENT ILLNESS ==== Patient presents today for follow-up - brought back gabapentin- didn't want to use - concerned about heart disease- dad had CO later in life- but brother who si early 60s just had bipass- was healthy non-smoker- just felt tired - worried about his cholesterol- Dr. Ruelas recommended rosuvastatin- never started. - not very phsycially active- recent neck surgery- walks mainly- works on his car. denies CP or sob, but does feel tired all the time ==== RELEVANT PAST MEDICAL HISTORY ==== Active problems - Computerized Problem List is the source for the followin. Snoring 2. Cervical radiculopathy 3. Carpal tunnel syndrome 4. Low back pain 5. Anxiety 6. Irritability and anger 7. Tinnitus 8. Posttraumatic stress disorder 9. Vision, Subnormal ==== PAST SURGICAL HISTORY ==== cervical surgery ==== FAMILY HISTORY ==== Mother: Father: CAD Siblings: brother - DEAN at 62 ==== ALLERGIES ==== Patient has answered NKA ==== MEDICATIONS ==== VA and Non VA meds were reconciled with the patient who left with a corrected copy. Active and Recently Outpatient Medications (excluding Supplies): Active Outpatient Medications Status 1) FLUOXETINE HCL 20MG CAP TAKE ONE CAPSULE BY MOUTH ACTIVE ONCE DAILY FOR DEPRESSION AND ANXIETY 2) ROSUVASTATIN CA 10MG TAB TAKE ONE TABLET BY MOUTH ACTIVE ONCE DAILY FOR CHOLESTEROL ==== REVIEW OF SYMPTOMS ==== POSITIVE FOR: fatigue NEGATIVE FOR: CONSTITUTION: no weight loss/gain, fevers, night sweats HEENT: no vision problems, hearing loss,swallowing difficulties, sinus pain CV: no chest pain, palpitations, dyspnea on exertion, orthopnea RESP: no cough, shortness of breath, wheezing GI: no abdominal pain, N/V/D, constipation, blood in stool, normal appetite : no urinary frequency, nocturia, hematuria MUSC: no joint pain, joint swelling, muscle aches NEURO: no headaches, dizziness, memory loss, tremor, weakness PSYCH: no depression, anxiety, suicidal or homicidal thoughts SKIN: no rash, new skin lesions ==== PHYSICAL EXAM ==== Vitals: - - - - - - - B/P: 136/80 (09/27/2023 09:32) pulse: 59 (09/27/2023 09:32) resp: 16 (09/27/2023 09:32) temp: 96.6 F [35.9 C] (09/27/2023 09:32) Ht: 73 in [185.4 cm] (06/16/2023 15:34) Wgt: 219 lb [99.34 kg] (09/27/2023 09:32) BMI: BMI: 29.0 Exam: - - - - - - - nromal carotids RRR S1 S2 LCTA bilat normal thyroid no LE edema ==== RECENT LABS ==== BMP (FASTING) Collection DT Specimen Test Name Result Units Ref Range 06/16/2023 08:15 SERUM UREA NITROGEN 22 mg/dL 7 - 25 06/16/2023 08:15 SERUM GLUCOSE 96 mg/dL 65 - 100 06/16/2023 08:15 SERUM SODIUM 137 mmol/L 135 - 145 06/16/2023 08:15 SERUM POTASSIUM 4.3 mmol/L 3.5 - 5.0 06/16/2023 08:15 SERUM CHLORIDE 104 mmol/L 100 - 110 06/16/2023 08:15 SERUM CO2 24 mEq/L 20 - 06/16/2023 08:15 SERUM CREATININE, Serum 0.88 mg/dL 0.50 - 1.40 05/10/2017 16:16 SERUM eGFR (IDMS) >60 Ref: >=60 LIVER PANEL TREND Collection DT Spec AST ALT T BILI ALK JOSEP T. PROT ALBUMIN 03/28/2023 09:25 SERUM 13 18 0.6 35 L 6.8 4.1 05/10/2017 16:16 SERUM 12 14 < 0.3 36 L 7.2 4.3 LIPID PANEL TREND Collection DT Spec CHOL HDL CHO/HDL LDL-c TRIG 06/16/2023 08:15 SERUM 231 H 41 5.6 157 H 164 H 03/28/2023 09:25 SERUM 258 H 51 5.1 175 H 158 H CBC TREND Collection DT Spec WBC RBC HGB HCT MCV MCH PLT 03/28/2023 09:25 BLOOD 4.75 4.87 14.9 44.6 91.6 30.6 202 05/10/2017 16:16 BLOOD 6.26 5.09 15.1 44.1 86.6 29.7 220 PSA TREND Collection DT Spec PSA SR- 03/28/2023 09:25 SERUM 1.30 HEMOGLOBIN A1C TREND Collection DT Spec HGBA1c 05/10/2017 16:16 BLOOD 5.5 ==== ASSESSMENT AND PLAN ==== 1. hyperlipidemia- just id labs this am- not resulted yet. LDL last was <160. disucssed with no risk factors- nonsmoker, no HTM, no DM, low risk for CAD- I did not recommend statin. he is concerned about family h/o CAD. encouraged more plant based diet. 2. family h/o CAD. recommend increasing his exercise. wants to see cardiology- prefers [facility]. discussed [facility] [place] [facility] [place]- he would rather local. only symtpom is +fatigue ==== HEALTH MAINTENANCE ==== Colonoscopy (due at age 46) - Abdominal Aortic Aneurysm Screening (due at age 66 if smoker/prev smoker) - Prostate screening - Tetanus: due every 10 years Pneumonia Vacccine: Flu Vaccine: due yearly Covid Vaccine: due yearly ==== FOLLOW UP ==== f/u in 6 mo with full physical. VISIT TYPE: a HIGH complexity visit where 60 minutes was spent in direct patient care, review of records and documentation. Upcoming Appointments: 09/12/2024 08:00 NHM/OPTOMETRY/LE/ /es/ LENIN BENSON D.O. PHYSICIAN Signed: 09/27/2023 12:47 02/14/2024 ADDENDUM STATUS: COMPLETED Cardiology Consult was placed 09/26 - [place] agreed with cardiology prevention program to discuss cardiac risks further due to family history of cardiac disease. He was seen today by the [facility]. Lathe Set Up Operator rec'd a teams message from the provider stating: I just finished a visit with Mr. Braden [id number] and just want to give you a heads up of what he is going to need so you can let his PCP know. He is going to need the following: a CAC score to assess need for statin and risk stratification. Exercise treadmill test d/t c/o CERDA and fatigue. Nutrition consult to learn about ways to decrease his cholesterol with nutrition and will need labs before our next visit in March. The labs I am requesting are Lp (a) level, Vit D, TSH, HA1C, chem7, liver func, and lipid panel The note is not complete yet. Alerting PACT for f/u and review of recommendations. Thank you. /rhianna DAVIS RN Referral Coordination Initiative Nurse Signed: 02/14/2024 12:00 Receipt Acknowledged By: 02/15/2024 09:21 /rhianna BENSON D.O. PHYSICIAN 02/14/2024 13:08 /toshia/ VIKY AGUIRRE RN REGISTERED NURSE 02/15/2024 ADDENDUM STATUS: COMPLETED i ordered labs to be done prior to mar. ordered ETT- under cardiology one consult-can do within [facility] where most convenient. not sure how to order CAC- will leave that up to cardiology /toshia/ LENIN BENSON D.O. PHYSICIAN Signed: 02/15/2024 09:26 KACI DAVIS [facility] [place] [facility] Feb 14, 2024 11:54 AM ADDENDUM: LOCAL TITLE: Addendum STANDARD TITLE: ADDENDUM DATE OF NOTE: FEB 14, 2024@11:54:13 ENTRY DATE: FEB 14, 2024@11:54:14 AUTHOR: KACI DAVIS EXP COSIGNER: URGENCY: STATUS: COMPLETED Cardiology Consult was placed 09/26 - agreed with cardiology prevention program to discuss cardiac risks further due to family history of cardiac disease. He was seen today by the [facility] [place]. Lathe Set Up Operator rec'd a teams message from the provider stating: I just finished a visit with Mr. Braden [id number] and just want to give you a heads up of what he is going to need so you can let his PCP know. He is going to need the following: a CAC score to assess need for statin and risk stratification. Exercise treadmill test d/t c/o CERDA and fatigue. Nutrition consult to learn about ways to decrease his cholesterol with nutrition and will need labs before our next visit in March. The labs I am requesting are Lp (a) level, Vit D, TSH, HA1C, chem7, liver func, and lipid panel The note is not complete yet. Alerting PACT for f/u and review of recommendations. Thank you. /rhianna DAVIS RN Referral Coordination Initiative Nurse Signed: 02/14/2024 12:00 Receipt Acknowledged By: 02/15/2024 09:21 /rhianna BENSON D.O. PHYSICIAN 02/14/2024 13:08 /toshia/ VIKY AGUIRRE RN REGISTERED NURSE --- Original Document --- 09/27/23 NOTE: ASIYAMITCHELL LLOYD JR is a 53 year old WHITE MALE who is being seen today in primary care for routine follow up. ==== CARE TEAM ==== Community Primary Care Provider: Dr. Ashley Montesinos [place] Specialists: optometry Community Specialists: neurosurgery- Dr. Short Oh ==== HISTORY ==== PERIOD OF SERVICE - [employer] CONNECTED % - 40 SC Percent: 40% Rated Disabilities: TINNITUS (10%-SC) POST-TRAUMATIC STRESS DISORDER (30%-SC) ==== HISTORY OF PRESENT ILLNESS ==== Patient presents today for follow-up - brought back gabapentin- didn't want to use - concerned about heart disease- dad had CO later in life- but brother who si early 60s just had bipass- was healthy non-smoker- just felt tired - worried about his cholesterol- Dr. Ruelas recommended rosuvastatin- never started. - not very phsycially active- recent neck surgery- walks mainly- works on his car. denies CP or sob, but does feel tired all the time ==== RELEVANT PAST MEDICAL HISTORY ==== Active problems - Computerized Problem List is the source for the followin. Snoring 2. Cervical radiculopathy 3. Carpal tunnel syndrome 4. Low back pain 5. Anxiety 6. Irritability and anger 7. Tinnitus 8. Posttraumatic stress disorder 9. Vision, Subnormal ==== PAST SURGICAL HISTORY ==== cervical surgery ==== FAMILY HISTORY ==== Mother: Father: CAD Siblings: brother Joey MORAN at 62 ==== ALLERGIES ==== Patient has answered NKA ==== MEDICATIONS ==== VA and Non VA meds were reconciled with the patient who left with a corrected copy. Active and Recently Outpatient Medications (excluding Supplies): Active Outpatient Medications Status 1) FLUOXETINE HCL 20MG CAP TAKE ONE CAPSULE BY MOUTH ACTIVE ONCE DAILY FOR DEPRESSION AND ANXIETY 2) ROSUVASTATIN CA 10MG TAB TAKE ONE TABLET BY MOUTH ACTIVE ONCE DAILY FOR CHOLESTEROL ==== REVIEW OF SYMPTOMS ==== POSITIVE FOR: fatigue NEGATIVE FOR: CONSTITUTION: no weight loss/gain, fevers, night sweats HEENT: no vision problems, hearing loss,swallowing difficulties, sinus pain CV: no chest pain, palpitations, dyspnea on exertion, orthopnea RESP: no cough, shortness of breath, wheezing GI: no abdominal pain, N/V/D, constipation, blood in stool, normal appetite : no urinary frequency, nocturia, hematuria MUSC: no joint pain, joint swelling, muscle aches NEURO: no headaches, dizziness, memory loss, tremor, weakness PSYCH: no depression, anxiety, suicidal or homicidal thoughts SKIN: no rash, new skin lesions ==== PHYSICAL EXAM ==== Vitals: - - - - - - - B/P: 136/80 (09/27/2023 09:32) pulse: 59 (09/27/2023 09:32) resp: 16 (09/27/2023 09:32) temp: 96.6 F [35.9 C] (09/27/2023 09:32) Ht: 73 in [185.4 cm] (06/16/2023 15:34) Wgt: 219 lb [99.34 kg] (09/27/2023 09:32) BMI: BMI: 29.0 Exam: - - - - - - - nromal carotids RRR S1 S2 LCTA bilat normal thyroid no LE edema ==== RECENT LABS ==== BMP (FASTING) Collection DT Specimen Test Name Result Units Ref Range 06/16/2023 08:15 SERUM UREA NITROGEN 22 mg/dL 7 - 25 06/16/2023 08:15 SERUM GLUCOSE 96 mg/dL 65 - 100 06/16/2023 08:15 SERUM SODIUM 137 mmol/L 135 - 145 06/16/2023 08:15 SERUM POTASSIUM 4.3 mmol/L 3.5 - 5.0 06/16/2023 08:15 SERUM CHLORIDE 104 mmol/L 100 - 110 06/16/2023 08:15 SERUM CO2 24 mEq/L 20 - 06/16/2023 08:15 SERUM CREATININE, Serum 0.88 mg/dL 0.50 - 1.40 05/10/2017 16:16 SERUM eGFR (IDMS) >60 Ref: >=60 LIVER PANEL TREND Collection DT Spec AST ALT T BILI ALK JOSEP T. PROT ALBUMIN 03/28/2023 09:25 SERUM 13 18 0.6 35 L 6.8 4.1 05/10/2017 16:16 SERUM 12 14 < 0.3 36 L 7.2 4.3 LIPID PANEL TREND Collection DT Spec CHOL HDL CHO/HDL LDL-c TRIG 06/16/2023 08:15 SERUM 231 H 41 5.6 157 H 164 H 03/28/2023 09:25 SERUM 258 H 51 5.1 175 H 158 H CBC TREND Collection DT Spec WBC RBC HGB HCT MCV MCH PLT 03/28/2023 09:25 BLOOD 4.75 4.87 14.9 44.6 91.6 30.6 202 05/10/2017 16:16 BLOOD 6.26 5.09 15.1 44.1 86.6 29.7 220 PSA TREND Collection DT Spec PSA SR- 03/28/2023 09:25 SERUM 1.30 HEMOGLOBIN A1C TREND Collection DT Spec HGBA1c 05/10/2017 16:16 BLOOD 5.5 ==== ASSESSMENT AND PLAN ==== 1. hyperlipidemia- just id labs this am- not resulted yet. LDL last was <160. disucssed with no risk factors- nonsmoker, no HTM, no DM, low risk for CAD- I did not recommend statin. he is concerned about family h/o CAD. encouraged more plant based diet. 2. family h/o CAD. recommend increasing his exercise. wants to see cardiology- prefers [facility]. discussed doing in [facility] [place] [facility] [place]- he would rather local. only symtpom is +fatigue ==== HEALTH MAINTENANCE ==== Colonoscopy (due at age 46) - Abdominal Aortic Aneurysm Screening (due at age 66 if smoker/prev smoker) - Prostate screening - Tetanus: due every 10 years Pneumonia Vacccine: Flu Vaccine: due yearly Covid Vaccine: due yearly ==== FOLLOW UP ==== f/u in 6 mo with full physical. VISIT TYPE: a HIGH complexity visit where 60 minutes was spent in direct patient care, review of records and documentation. Upcoming Appointments: 09/12/2024 08:00 NHM/OPTOMETRY/LE/ /es/ LENIN BENSON D.O. PHYSICIAN Signed: 09/27/2023 12:47 KACI DAVIS [facility] [place] [facility] Sep 27, 2023 09:54 AM PHYSICIAN NOTE: LOCAL TITLE: NOTE STANDARD TITLE: PHYSICIAN NOTE DATE OF NOTE: SEP 27, 2023@09:54 ENTRY DATE: SEP 27, 2023@09:54:13 AUTHOR: LENIN BENSON EXP COSIGNER: URGENCY: STATUS: COMPLETED NOTE Has ADDENDA MITCHELL BRADEN ERASMO is a 53 year old WHITE MALE who is being seen today in primary care for routine follow up. ==== CARE TEAM ==== Community Primary Care Provider: Dr. Ashley Montesinos [place] Specialists: optometry Community Specialists: neurosurgery- Dr. Short Oh ==== HISTORY ==== PERIOD OF SERVICE - [employer] CONNECTED % - 40 SC Percent: 40% Rated Disabilities: TINNITUS (10%-SC) POST-TRAUMATIC STRESS DISORDER (30%-SC) ==== HISTORY OF PRESENT ILLNESS ==== Patient presents today for follow-up - brought back gabapentin- didn't want to use - concerned about heart disease- dad had CO later in life- but brother who si early 60s just had bipass- was healthy non-smoker- just felt tired - worried about his cholesterol- Dr. Ruelas recommended rosuvastatin- never started. - not very phsycially active- recent neck surgery- walks mainly- works on his car. denies CP or sob, but does feel tired all the time ==== RELEVANT PAST MEDICAL HISTORY ==== Active problems - Computerized Problem List is the source for the followin. Snoring 2. Cervical radiculopathy 3. Carpal tunnel syndrome 4. Low back pain 5. Anxiety 6. Irritability and anger 7. Tinnitus 8. Posttraumatic stress disorder 9. Vision, Subnormal ==== PAST SURGICAL HISTORY ==== cervical surgery ==== FAMILY HISTORY ==== Mother: Father: LEONIE Siblings: brother - DEAN at 62 ==== ALLERGIES ==== Patient has answered NKA ==== MEDICATIONS ==== VA and Non VA meds were reconciled with the patient who left with a corrected copy. Active and Recently Outpatient Medications (excluding Supplies): Active Outpatient Medications Status 1) FLUOXETINE HCL 20MG CAP TAKE ONE CAPSULE BY MOUTH ACTIVE ONCE DAILY FOR DEPRESSION AND ANXIETY 2) ROSUVASTATIN CA 10MG TAB TAKE ONE TABLET BY MOUTH ACTIVE ONCE DAILY FOR CHOLESTEROL ==== REVIEW OF SYMPTOMS ==== POSITIVE FOR: fatigue NEGATIVE FOR: CONSTITUTION: no weight loss/gain, fevers, night sweats HEENT: no vision problems, hearing loss,swallowing difficulties, sinus pain CV: no chest pain, palpitations, dyspnea on exertion, orthopnea RESP: no cough, shortness of breath, wheezing GI: no abdominal pain, N/V/D, constipation, blood in stool, normal appetite : no urinary frequency, nocturia, hematuria MUSC: no joint pain, joint swelling, muscle aches NEURO: no headaches, dizziness, memory loss, tremor, weakness PSYCH: no depression, anxiety, suicidal or homicidal thoughts SKIN: no rash, new skin lesions ==== PHYSICAL EXAM ==== Vitals: - - - - - - - B/P: 136/80 (09/27/2023 09:32) pulse: 59 (09/27/2023 09:32) resp: 16 (09/27/2023 09:32) temp: 96.6 F [35.9 C] (09/27/2023 09:32) Ht: 73 in [185.4 cm] (06/16/2023 15:34) Wgt: 219 lb [99.34 kg] (09/27/2023 09:32) BMI: BMI: 29.0 Exam: - - - - - - - nromal carotids RRR S1 S2 LCTA bilat normal thyroid no LE edema ==== RECENT LABS ==== BMP (FASTING) Collection DT Specimen Test Name Result Units Ref Range 06/16/2023 08:15 SERUM UREA NITROGEN 22 mg/dL 7 - 25 06/16/2023 08:15 SERUM GLUCOSE 96 mg/dL 65 - 100 06/16/2023 08:15 SERUM SODIUM 137 mmol/L 135 - 145 06/16/2023 08:15 SERUM POTASSIUM 4.3 mmol/L 3.5 - 5.0 06/16/2023 08:15 SERUM CHLORIDE 104 mmol/L 100 - 110 06/16/2023 08:15 SERUM CO2 24 mEq/L 20 - 30 06/16/2023 08:15 SERUM CREATININE, Serum 0.88 mg/dL 0.50 - 1.40 05/10/2017 16:16 SERUM eGFR (IDMS) >60 Ref: >=60 LIVER PANEL TREND Collection DT Spec AST ALT T BILI ALK JOSEP T. PROT ALBUMIN 03/28/2023 09:25 SERUM 13 18 0.6 35 L 6.8 4.1 05/10/2017 16:16 SERUM 12 14 < 0.3 36 L 7.2 4.3 LIPID PANEL TREND Collection DT Spec CHOL HDL CHO/HDL LDL-c TRIG 06/16/2023 08:15 SERUM 231 H 41 5.6 157 H 164 H 03/28/2023 09:25 SERUM 258 H 51 5.1 175 H 158 H CBC TREND Collection DT Spec WBC RBC HGB HCT MCV MCH PLT 03/28/2023 09:25 BLOOD 4.75 4.87 14.9 44.6 91.6 30.6 202 05/10/2017 16:16 BLOOD 6.26 5.09 15.1 44.1 86.6 29.7 220 PSA TREND Collection DT Spec PSA SR- 03/28/2023 09:25 SERUM 1.30 HEMOGLOBIN A1C TREND Collection DT Spec HGBA1c 05/10/2017 16:16 BLOOD 5.5 ==== ASSESSMENT AND PLAN ==== 1. hyperlipidemia- just id labs this am- not resulted yet. LDL last was <160. disucssed with no risk factors- nonsmoker, no HTM, no DM, low risk for CAD- I did not recommend statin. he is concerned about family h/o CAD. encouraged more plant based diet. 2. family h/o CAD. recommend increasing his exercise. wants to see cardiology- prefers [facility]. discussed [facility] [place] [facility] [place]- he would rather local. only symtpom is +fatigue ==== HEALTH MAINTENANCE ==== Colonoscopy (due at age 46) - Abdominal Aortic Aneurysm Screening (due at age 66 if smoker/prev smoker) - Prostate screening - Tetanus: due every 10 years Pneumonia Vacccine: Flu Vaccine: due yearly Covid Vaccine: due yearly ==== FOLLOW UP ==== f/u in 6 mo with full physical. VISIT TYPE: a HIGH complexity visit where 60 minutes was spent in direct patient care, review of records and documentation. Upcoming Appointments: 09/12/2024 08:00 NHM/OPTOMETRY/LE/ /toshia/ LENIN BENSON D.O. PHYSICIAN Signed: 09/27/2023 12:47 02/14/2024 ADDENDUM STATUS: COMPLETED Cardiology Consult was placed 09/26 - agreed with cardiology prevention program to discuss cardiac risks further due to family history of cardiac disease. He was seen today by the [facility]. Lathe Set Up Operator rec'd a teams message from the provider stating: I just finished a visit with Mr. Asiya Boyer and just want to give you a heads up of what he is going to need so you can let his PCP know. He is going to need the following: a CAC score to assess need for statin and risk stratification. Exercise treadmill test d/t c/o CERDA and fatigue. Nutrition consult to learn about ways to decrease his cholesterol with nutrition and will need labs before our next visit in March. The labs I am requesting are Lp (a) level, Vit D, TSH, HA1C, chem7, liver func, and lipid panel The note is not complete yet. Alerting PACT for f/u and review of recommendations. Thank you. /toshia/ KACI DAVIS RN Referral Coordination Initiative Nurse Signed: 02/14/2024 12:00 Receipt Acknowledged By: 02/15/2024 09:21 /toshia/ LENIN BENSON D.O. PHYSICIAN 02/14/2024 13:08 /toshia/ VIKY AGUIRRE RN REGISTERED NURSE 02/15/2024 ADDENDUM STATUS: COMPLETED i ordered labs to be done prior to mar apt. ordered ETT- under cardiology one consult-can do within [place] where most convenient. not sure how to order CAC- will leave that up to cardiology /rhianna BENSON D.O. PHYSICIAN Signed: 02/15/2024 09:26 02/15/2024 ADDENDUM STATUS: COMPLETED PCP, please note to order Calcium score it will just require another Cardiology One Consult and I will d/w the where he would like to have the CT done. Thank you! /toshia/ KACI DAVIS RN Referral Coordination Initiative Nurse Signed: 02/15/2024 09:49 Receipt Acknowledged By: * AWAITING SIGNATURE * LENIN BENSON [facility]INA [facility]
--- OUTSIDE RECORDS SUMMARY | 2024-03-29 01:42 | XMS_ITS ---
Author Name [facility] [place] [facility] [place] Organization [facility] [place] [facility] [place] Address [address] [place] [address] Care Team Providers Care Safe Deposit Box Rental Clerk Name Role Phone KELLEYLENIN Primary Care Provider Unavailabl e Insurance Providers: [...] PHARMACY PRESCRIPT ION [facility] Apr 18, 2010 [id number] MITCHELL RAE PATIENT AMY HANKINS PREFERRED PROVIDER ORGANIZAT ION (PPO) ADVAN LILLIAN DRAIN AGE Sep 17, 2002 [id number] MITCHELL RAE PATIENT Selected Encounter This section includes the information on record at [place] for the Encounter. Date/Time Encounter Type Encounter Description Reason Provider Source September 07, 2023 03:04 PM SLEEP STUDY UNATT&RESP EFFT SLEEP STUDY ICD-10-CM G47.33 Obstructive sleep apnea (adult) (pediatric) ANNA,DILEEP IHE Encounter Template Text not used by ME Assessments - Encounter Diagnoses This section includes the primary and secondary diagnoses documented for the Encounter. Date/Time Primary/Secondary Diagnosis Diagnosis Name Provider Source September 07, 2023 03:04 PM PRIMARY Obstructive sleep apnea (adult) (pediatric) ZAKIA CASTILLOIC [facility] [place] [facility] Plan of Treatment: Future Appointments (+ 6 months) and Future Tests (+/- 45 days) The Plan of Treatment section includes future care activities for the patient from all [place] treatmentfacilities. This section includes future appointments and future orders which are active, pending or scheduled. Future Appointments This section includes appointments that were scheduled to occur 6 months from the date of the Encounter, up to a maximum of 20 appointments. The data comes from all [place] treatment facilities. Appointment Date/Time Appointment Type Appointme nt Facility Name Sep 27, 2023 09:30 AM AMBULATORY - MEDICINE [facility] [place] [facility] Oct 03, 2023 10:00 AM AMBULATORY - MEDICINE [facility] [place] [facility] Oct 04, 2023 11:00 AM AMBULATORY - MEDICINE [facility] [place] [facility] Oct 04, 2023 01:00 PM AMBULATORY - MEDICINE [facility] [place] [facility] Dec 25, 2023 08:30 AM AMBULATORY - MEDICINE [facility] [place] [facility] Jan 03, 2024 01:00 PM AMBULATORY - MEDICINE [facility] [place] [facility] Jan 04, 2024 10:00 AM [facility] - [place]IC[place] [facility] Jan 24, 2024 12:15 PM AMBULATORY - PSYCHIATRY [facility] [place] [facility] Feb 01, 2024 12:00 PM AMBULATORY - PSYCHIATRY [facility] [place] [facility] Feb 14, 2024 09:00 AM AM[facility]ULATORY - [place]ICINE [place] [facility] Feb 16, 2024 11:30 AM AMBULATORY - PSYCHIATRY [facility] [place] [facility] Feb 21, 2024 02:00 PM AMBULATORY - MEDICINE [facility] [place] [facility] Lab Results: +/- 30 days of the encounter This section includes the Chemistry and Hematology Lab Results on record with ME for the patient. Radiology Reports and Pathology Reports are provided separately, in subsequent sections. Lab Results This section contains the Chemistry/Hematology Results that were resulted 30 days before or 30 daysafter the date of the Encounter. Date/Time Source Result Type Result - Unit Interpretation Reference Range Comment Sep 27, 2023 08:50 [facility] LIPID PANEL FASTING Specimen Type: SERUM No comment entered. Ordering Provider: LENIN BENSON Report Released Date/Time: September 06, 2023 02:23 PM Reporting Lab: [facility] [address] [facility] [address] Performing Lab: [facility] [address] [facility] [id number] CHOLESTEROL 224 mg/dL H TRIGLYCERIDE 150 mg/dL 0-150 LDL calculated 151 mg/dL H 0-129 CHOL/HDL 5.2 HDL CHOLESTEROL 43 mg/dL 40-60 Social History: Smoking Status (Most current) and Tobacco Use (All prior to encounter date) This section includes the most current, and the historical, smoking and tobacco- related health factors from the [place] facility where the Encounter took place. Current Smoking Status This section includes the most current smoking, or tobacco-related health factor, from the [place] facility where the Encounter took place. Date/Time Current Smoking Status Comment [facility] Dec 01, 2022 03:30 PM VA-[facility]BACCO [facility] Tobacco Use History This section includes a history of the smoking, or tobacco-related health factors, that were collected on or before the date of the Encounter. The data comes from the [place] facility where the Encounter took place. Date/Time Smoking Status/Tobac co Use Comment Facility Dec 01, 2022 03:30 PM VA-TOBACCO QUIT 15 YRS OR MORE [facility] [place] [facility] Nov 21, 2020 09:30 AM VA-TOBACCO FORMER USER [facility] [place] [facility] Nov 21, 2020 09:30 AM VA-TOBACCO QUIT 15 YRS OR MORE [facility] [place] [facility] Sep 21, 2019 10:24 AM VA-TOBACCO FORMER USER [facility] [place] [facility] Sep 21, 2019 10:24 AM VA-TOBACCO QUIT 15 YRS OR MORE [facility] [place] [facility] August 31, 2018 09:07 AM VA-TOBACCO NEVER USED [facility] [place] [facility] Jul 21, 2017 09:00 AM QUIT TOBACCO USE > 7 YEARS AGO He quit 20 years ago [facility] [place] [facility] Jun 17, 2016 02:37 PM LIFETIME NON-TOBACCO USER [facility] [place] [facility] May 19, 2015 04:56 PM LIFETIME NON-TOBACCO USER [facility] [place] [facility] August 24, 2012 03:06 PM LIFETIME NON-TOBACCO USER [facility] Encounter Notes: All associated encounter notes This section contains the clinical notes associated to the Encounter. Date/Time Encounter Note(s) Provider Source September 07, 2023 03:04 PM SLEEP MEDICINE NOT E: LOCAL TITLE: SLEEP TEST SFT DATA UPLOAD STANDARD TITLE: SLEEP MEDICINE NOTE DATE OF NOTE: SEPTEMBER 07, 2023@15:04:55 ENTRY DATE: SEPTEMBER 07, 2023@15:04:56 AUTHOR: DILEEP CASTILLO EXP COSIGNER: URGENCY: STATUS: COMPLETED Home sleep testing was completed by the patient and the device was returned. The data has been uploaded and reviewed for quality.: Data quality is: Acceptable Study to be scored and reviewed for interpretation Time spent: 30 min /toshia/ JESSICA WOOD [address] PRODUCTION MANAGER Signed: 09/07/2023 15:04 DILEEP CASTILLO [facility]
--- OUTSIDE RECORDS SUMMARY | 2024-03-29 01:42 | XMS_ITS | Encounter Summary ---
Author Name [facility] [place] Address [address] [place] [address] Care Team Providers Care Lens Grinder Apprentice Name Role Phone LENIN BENSON Primary Care [...] PHARMACY PRESCRIPT ION [facility] Apr 18, 2010 [id number] [phone] MITCHELL RAE PATIENT IAIN-ASA HANKINS PREFERRED PROVIDER ORGANIZAT ION (PPO) ADVAN LILLIAN DRAIN AGE Sep 17, 2002 [id number] MITCHELL RAE PATIENT Selected Encounter This section includes the information on record at CT for the Encounter. Date/Time Encounter Type Encounter Description Reason Pro vider Source Sep 19, 2023 11:51 AM Outpatient Encounter ADMIN PAT ACTIVTIES (MASNONCT) IHE Encounter Template Text not used by VA Plan of Treatment: Future Appointments (+ 6 months) and Future Tests (+/- 45 days) The Plan of Treatment section includes future care activities for the [facility] This section includes future appointments and future orders which are active, pending or scheduled. Future Appointments This section includes appointments that were scheduled to occur 6 months from the date of the Encounter, up to a maximum of 20 appointments. The data comes from all CT treatment facilities. Appointment Date/Time Appointment Type Appointme nt Facility Name Sep 27, 2023 09:30 AM AMBULATORY - MEDICINE [facility] [place] [facility] Oct 03, 2023 10:00 AM AMBULATORY - MEDICINE [facility] [place] [facility] Oct 04, 2023 11:00 AM AMBULATORY - MEDICINE [facility] [place] [facility] Oct 04, 2023 01:00 PM AMBULATORY - MEDICINE CT [facility] [place] [facility] Dec 25, 2023 08:30 AM AMBULATORY - MEDICINE [facility] [place] [facility] Jan 03, 2024 01:00 PM AMBULATORY - MEDICINE [facility] [place] [facility] Jan 04, 2024 10:00 AM [facility] [place]IC[facility] [place] [facility] Jan 24, 2024 12:15 PM AMBULATORY - PSYCHIATRY CT [facility] [place] [facility] Feb 01, 2024 12:00 PM AMBULATORY - PSYCHIATRY [facility] [place] [facility] Feb 14, 2024 09:00 AM [facility]ULATORY - [facility]IC[facility] [place] [facility] Feb 16, 2024 11:30 AM AMBULATORY - PSYCHIATRY CT [facility] [place] [facility] Feb 21, 2024 02:00 PM AMBULATORY - MEDICINE CT [facility] [place] [facility] Mar 20, 2024 11:30 AM AMBULATORY - PSYCHIATRY CT [facility] [place] [facility] Lab Results: +/- 30 days of the encounter This section includes the Chemistry and Hematology Lab Results on record with CT for the patient. Radiology Reports and Pathology Reports are provided separately, in subsequent sections. Lab Results This section contains the Chemistry/Hematology Results that were resulted 30 days before or 30 daysafter the date of the Encounter. Date/Time Source Result Type Result - Unit Interpretation Reference Range Comment Sep 27, 2023 08:[address] [facility] [facility] LIPID PANEL FASTING Specimen Type: SERUM No comment entered. Ordering Provider: LENIN BENSON Report Released Date/Time: September 06, 2023 02:23 PM Reporting Lab: [place] [facility] [place] [facility] [address] [facility] [address] Performing Lab: [place] [facility] [place] [facility] [address] [facility] [address] CHOLESTEROL 224 mg/dL H TRIGLYCERIDE 150 mg/dL 0-150 LDL calculated 151 mg/dL H 0-129 CHOL/HDL 5.2 HDL CHOLESTEROL 43 mg/dL 40-60 Social History: Smoking Status (Most current) and Tobacco Use (All prior to encounter date) This section includes the most current, and the historical, smoking and tobacco- related health factors from the [place] facility where the Encounter took place. Current Smoking Status This section includes the most current smoking, or tobacco-related health factor, from the [place] facility where the Encounter took place. Date/Time Current Smoking Status Comment Facil it Dec 01, 2022 03:30 PM VA-TOBACCO QUIT [address] [facility] Tobacco Use History This section includes a history of the smoking, or tobacco-related health factors, that were collected on or before the date of the Encounter. The data comes from the CT facility where the Encounter took place. Date/Time Smoking Status/Tobac co Use Comment Facility Dec 01, 2022 03:30 PM VA-TOBACCO QUIT [address] [facility] [place] [facility] Nov 21, 2020 09:30 AM VA-TOBACCO FORMER USER CT [facility]L [facility] [place] [facility] Nov 21, 2020 09:30 AM VA-TOBACCO QUIT [address] [facility] [place] [facility] Sep 21, 2019 10:24 AM VA-TOBACCO FORMER USER [facility] [place] [facility] Sep 21, 2019 10:24 AM VA-TOBACCO QUIT [address] [facility] [place] [facility] August 31, 2018 09:07 AM VA-TOBACCO NEVER USED CT [facility]L [facility] [place] [facility] Jul 21, 2017 09:00 AM QUIT TOBACCO USE > 7 YEARS AGO He quit 20 years ago [facility] [place] [facility] Jun 17, 2016 02:37 PM LIFETIME NON-TOBACCO USER CT [facility] [place] [facility] May 19, 2015 04:56 PM LIFETIME NON-TOBACCO USER CT [facility] [place] [facility] August 24, 2012 03:06 PM LIFETIME NON-TOBACCO USER CT [facility] [place] [facility] Encounter Notes: All associated encounter notes This section contains the clinical notes associated to the Encounter. Date/Time Encounter Note(s) Provider Source Sep 19, 2023 11:51 AM ADMINISTRATIVE NOT E: LOCAL TITLE: CCC: SCHEDULING ADMINISTRATION STANDARD TITLE: ADMINISTRATIVE NOTE DATE OF NOTE: SEP 19, 2023@11:51:23 ENTRY DATE: SEP 19, 2023@11:51:24 AUTHOR: ISMAEL FOUNTAIN EXP COSIGNER: URGENCY: STATUS: COMPLETED CCC: SCHEDULING ADMINISTRATION Has ADDENDA Patient Demographics Patient Name: MITCHELL RAE Patient Primary Phone: [phone] Patient Primary Address: [address] [place] [id number] Patient : 1970 Patient Age: 53 Caller/Recipient Relation to Patient: Self Administrative Administrative Note Reason: Other Administrative Note Comments: called to cancel the following appointment: 09/19/2023 14:30 CWM/NO/PACT EIGHT He forgot to fast and did not get his labs done. 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 Please call the back as soon as possible to reschedule. He can be reached at . /toshia/ ISMAEL SEBASTIAN [facility] Signed: 09/19/2023 11:51 Receipt Acknowledged By: 09/20/2023 08:28 /es/ HARPREET JAMES LPN License Practical Nurse 09/19/2023 12:46 /toshia/ ANDRES GARCIA 09/19/2023 ADDENDUM STATUS: COMPLETED [facility] CALLED ON THE TELEPHONE AND RESCHEDULED AN APPT SET FOR SEPTEMBER 26 AT 9:30. /toshia/ ANDRES VELEZ A[facility] Signed: 09/19/2023 12:50 ISMAEL [facility]AIN [facility]
--- OUTSIDE RECORDS SUMMARY | 2024-03-29 01:42 | XMS_ITS ---
Author Name [facility] [place] Organization [facility] [place] Address [address] [place] [address] Care Team Providers Care Neck Skewer Name Role Phone KELLEYLENIN Primary Care Provider [...] PHARMACY PRESCRIPT ION [facility] Apr 18, 2010 [id number] MITCHELL RAE PATIENT CIGBENIGNO-ASA HANKINS PREFERRED PROVIDER ORGANIZAT ION (PPO) ADVAN LILLIAN DRAIN AGE Sep 17, 2002 [id number] MITCHELL RAE PATIENT Selected Encounter This section includes the information on record at OR for the Encounter. Date/Time Encounter Type Encounter Description Reason Provider Source Jun 16, 2023 03:30 PM OFFICE O/P EST MOD 30 MIN PRIMARY CARE/MEDICINE ICD-10-CM F43.12 Post-traumatic stress disorder, chronic AHMED,MOHAMMED JAWED IHE Encounter Template Text not used by OR Assessments - Encounter Diagnoses This section includes the primary and secondary diagnoses documented for the Encounter. Date/Time Primary/Secondary Diagnosis Diagnosis Name Provider Source Jun 16, 2023 04:36 PM PRIMARY Post-traumatic stress disorder, chronic AHMED,MOHAMME D JAWED [facility] [facility] Jun 16, 2023 04:36 PM SECONDARY Anxiety disorder, unspecified AHMED,MOHAMME D JAWED [facility] [place] [facility] Jun 16, 2023 04:36 PM SECONDARY Encounter for immunization VAISHNAVI PEREIRA [facility] [place] [facility] Jun 16, 2023 04:36 PM SECONDARY Pulsatile tinnitus, bilateral AHMED,MOHAMME D JAWED [facility] [place] [facility] Jun 16, 2023 04:36 PM SECONDARY Radiculopathy, cervical region AHMED,MOHAMME D JAWED [facility] [place] [facility] Jun 16, 2023 04:36 PM SECONDARY Snoring REGINALDMED,MOHAMME D JAWED [facility] [place] [facility] Plan of Treatment: Future Appointments (+ 6 months) and Future Tests (+/- 45 days) The Plan of Treatment section includes future care activities for the [facility] This section includes future appointments [...] - MEDICINE [place] [facility] [place] [facility] August 22, 2023 11:30 AM AMBULATORY - MEDICINE OR [facility] [place] [facility] August 31, 2023 11:00 AM AMBULATORY - MEDICINE [place] [facility] [place] [facility] Sep 27, 2023 09:30 AM AMBULATORY - MEDICINE [place] [facility] [place] [facility] Oct 03, 2023 10:00 AM AMBULATORY - MEDICINE [place] [facility] [place] [facility] Oct 04, 2023 11:00 AM AMBULATORY - MEDICINE [place] [facility] [place] [facility] Oct 04, 2023 01:00 PM AMBULATORY - MEDICINE [facility] Lab Results: +/- 30 days of [...] Range Comment Jun 16, 2023 08:15 AM [facility] LIPID PANEL FASTING Specimen Type: SERUM No comment entered. Ordering Provider: SONA RUDOLPH Report Released Date/Time: Jun 16, 2023 08:14 AM Reporting Lab: [address] [address] Performing Lab: [address] [address] CHOLESTEROL 231 mg/dL H TRIGLYCERIDE 164 mg/dL H 0-150 LDL calculated 157 mg/dL H 0-129 CHOL/HDL 5.6 HDL CHOLESTEROL 41 mg/dL 40-60 Jun 16, 2023 08:15 AM [facility] BASIC METABOLIC PANEL (fasting) Specimen Type: SERUM No comment entered. Ordering Provider: SONA RUDOLPH Report Released Date/Time: Jun 16, 2023 08:14 AM Reporting Lab: [address] [address] Performing Lab: [address] [address] UREA NITROGEN 22 mg/dL 7-25 GLUCOSE 96 mg/dL 65-100 SODIUM 137 mmol/L 135-145 POTASSIUM 4.3 mmol/L 3.5-5.0 CHLORIDE 104 mmol/L 100-110 CO2 24 meq/L 20-30 CREATININE, Serum 0.88 mg/dL 0.50-1.40 eGFR(CKD-EPI 2020) >90 mL/min >60 Vital Signs: All taken on the encounter date This section contains inpatient and outpatient Vital Signs collected on the date of the Encounter. Date/Time Temperature Pulse Blood Pressure Respiratory Rate SP02 Pain Height Weight Body Mass Index Source Jun 16, 2023 03:37 PM 126/77 [place] [facility] [place] [facility] Jun 16, 2023 03:34 PM 97.3 70 16 96 4 73 220 29 [place] [facility] [place] [facility] Immunizations: All administered on the encounter date This section contains immunizations associated to the Encounter. Immunization Series Date Issued Reaction Comments ZOSTER RECOMBINANT 1 Jun 16, 2023 Social History: Smoking Status (Most current) and [...] took place. Date/Time Current Smoking Status Comment [facility] Dec 01, 2022 03:30 PM VA-TOBACCO QUIT 15 YRS OR MORE [place] [facility] [place] [facility] Tobacco Use History This section includes a history of the smoking, or tobacco-related health factors, that were collected on or before the date of the Encounter. The data comes from the [place] facility where the Encounter took place. Date/Time Smoking Status/Tobac co Use Comment Facility Dec 01, 2022 03:30 PM VA-TOBACCO QUIT 15 YRS OR MORE [facility] [place] [facility] Nov 21, 2020 09:30 AM VA-TOBACCO FORMER USER [facility] [place] [facility] Nov 21, 2020 09:30 AM VA-TOBACCO QUIT 15 YRS OR MORE [facility] [place] [facility] Sep 21, 2019 10:24 AM VA-TOBACCO FORMER USER [facility] [place] [facility] Sep 21, 2019 10:24 AM VA-TOBACCO QUIT 15 YRS OR MORE [facility] [place] [facility] August 31, 2018 09:07 AM VA-TOBACCO NEVER USED [facility] [place] [facility] Jul 21, 2017 09:00 AM QUIT TOBACCO USE > 7 YEARS AGO He quit 20 years ago [facility] [place] [facility] Jun 17, 2016 02:37 PM LIFETIME NON-TOBACCO USER [facility] [place] [facility] May 19, 2015 04:56 PM LIFETIME NON-TOBACCO USER [facility] [place] [facility] August 24, 2012 03:06 PM [facility] Encounter Notes: All associated encounter notes This section contains the clinical notes associated to the Encounter. Date/Time Encounter Note(s) Provider Source Jun 16, 2023 04:24 PM PHYSICIAN NOTE: LOCAL TITLE: MD NOTE STANDARD TITLE: PHYSICIAN NOTE DATE OF NOTE: JUN 16, 2023@16:24 ENTRY DATE: JUN 16, 2023@16:24:27 AUTHOR: JESS RUDOLPH EXP COSIGNER: URGENCY: STATUS: COMPLETED Patient Name: MITCHELL RAE JR VITALS: Patient temperature: 97.3 F [36.3 C] (06/16/2023 15:34) Blood pressure: 126/77 (06/16/2023 15:37) Patient height: 73 in [185.4 cm] (06/16/2023 15:34) Patient weight: 220 lb [99.79 kg] (06/16/2023 15:34) Patient BMI: BMI: 29.1 Patient pulse: 70 (06/16/2023 15:34) Patient respiration: 16 (06/16/2023 15:34) Patient Pulse Oximetry: 96% (06/16/2023 15:34) Pain Ratin (06/16/2023 15:34) Active [facility] Medications: Active Outpatient Medications (including Supplies): Active Outpatient Medications Status 1) FLUOXETINE HCL 20MG CAP TAKE ONE CAPSULE BY MOUTH ACTIVE (S) ONCE DAILY FOR DEPRESSION AND ANXIETY 2) ROSUVASTATIN CA 10MG TAB TAKE ONE TABLET BY MOUTH ACTIVE ONCE DAILY FOR CHOLESTEROL Remote Medications: No Active Remote Medications for this patient HPI: Going for cervical 7 surgery he has symptoms of cervical radiculopathy and also pain in the neck and numbness in his right upper extremity. His surgery scheduled on June 22. Patient complaining having very disturbed sleep he also snores patient said when he goes to sleep he could sleep a lot worse than once he gets up he is awake for an hour also and after that is intermittent sleep. History of hypercholesterolemia--- patient admits that he has not started rosuvastatin he is trying to eat better. His brother who is in 60s also have very high cholesterol and recently was diagnosed coronary artery disease and going through angioplasty History of pain in the past was given gabapentin patient never started that. On examination: patient is alert and oriented X3 vitals are stable, He is in no apparent distress. CVS: regular rate and rhythm Lungs: clear to auscultation ABD: Benign EXT: no edema. Reviewed lab work normal basic metabolic normal serum creatinine EGFR is more than 90 normal electrolytes cholesterol is elevated at 231 triglyceride 164 LDL 157 and HDL 41 in March his urinalysis was negative hepatitis C negative HIV negative CBC within normal range PSA was 1.30 his liver function were normal assessment/plan:. Assessment/plan: 1. PTSD and anxiety patient has been on Prozac doing okay 2. Cervical stenosis and radiculopathy going for C7 surgery on June 22--I have suggested him to try gabapentin 3. Snoring/disturbed sleep-suspicion of sleep apnea disturbing his sleep requested home sleep study 4. Hypercholesterolemia patient is going to try eating better I tried to convince him to take rosuvastatin. He is going to repeat his blood work in the next 4 months. 5. Service-connected tinnitus disturb his sleep. 6. Alcohol drinking patient has been trying to cut down his alcohol intake Patient is medically cleared for surgery Follow-up in September Medication Reconciliation: Outpatient: Has the patient been [...] to the next appointment, whether with a OR or non-OR provider. /toshia/ JESS RUDOLPH MD STAFF PHYSICIAN Signed: 06/16/2023 16:36 JESS RUDOLPH [facility] Jun 16, 2023 04:19 PM PREVENTIVE MEDICINE NURSING NOTE: LOCAL TITLE: CLINICAL REMINDERS/NURSING STANDARD TITLE: PREVENTIVE MEDICINE NURSING NOTE DATE OF NOTE: JUN 16, 2023@16:19 ENTRY DATE: JUN 16, 2023@16:19:18 AUTHOR: JOSE LUIS PEREIRA EXP COSIGNER: URGENCY: STATUS: COMPLETED Herpes Zoster (Shingles) Vaccine: Administered: ZOSTER RECOMBINANT Date Administered: Jun 16, 2023 15:30 Series: Series 1 Home Health Lvn: [employer] Lot: [id number] Exp Date: Jan 24, 2024 NDC: [id number] Admin Route/Site: INTRAMUSCULAR/LEFT DELTOID Dosage: 0.5mL Vaccine Information Statement(s): RECOMBINANT ZOSTER VACCINE VIS May 22, 2021 (UPPER SORBIAN) Order By: Jess Rudolph Administered By: Jose Luis Pereira Vaccine Information Sheet (VIS) was given to the patient/caregiver, education regarding adverse reactions was discussed, as well as barriers to learning, if any, were acknowledged. /rhianna PEREIRA RN REGISTERED NURSE Signed: 06/16/2023 16:20 JOSE LUIS PEREIRA [facility] Jun 16, 2023 03:42 PM PREVENTIVE MEDICINE NURSING NOTE: LOCAL TITLE: CLINICAL REMINDERS/NURSING STANDARD TITLE: PREVENTIVE MEDICINE NURSING NOTE DATE OF NOTE: JUN 16, 2023@15:42 ENTRY DATE: JUN 16, 2023@15:42:19 AUTHOR: HARPREET JAMES EXP COSIGNER: URGENCY: STATUS: COMPLETED Influenza Immunization: The patient has received the seasonal influenza vaccine for the current season at another location. Documented: INFLUENZA, UNSPECIFIED FORMULATION Historical Date Administered: Jan 25, 2023 Series: Complete Outside Location: Outside Healthcare Provider Information Source: FROM PATIENT'S RECALL COVID-19 Immunization: Refused Moderna Monovalent COVID-19 vaccine Immunization: COVID-19 (MODERNA), MRNA, LNP-S, PF, 50 MCG/0.5 ML (AGES 12+ YEARS) Refusal Reason: PATIENT DECISION Patient refuses all immunization(s) in the COVID-19 group Date Documented: 06/16/23 15:42 /toshia/ HARPREET JAMES LPN License Practical Nurse Signed: 06/16/2023 15:43 HARPREET JAMES [facility]
--- OUTSIDE RECORDS SUMMARY | 2024-03-29 01:42 | XMS_ITS | Encounter Summary ---
Author Name [facility] [place] [facility] [place] [facility] [place] Address [address] [place] [address] Care Team Providers Care Major Account Manager Name Role Phone LENIN BENSON Primary [...] PHARMACY PRESCRIPT ION [facility] Apr 18, 2010 [id number] MITCHELL RAE PATIENT IANI-ASA HANKINS PREFERRED PROVIDER ORGANIZAT ION (PPO) ADVAN LILLIAN DRAIN AGE Sep 17, 2002 [id number] 20 MITCHELL RAE PATIENT Selected Encounter This section includes the information on record at [place] for the Encounter. Date/Time Encounter Type Encounter Description Reason Pro vider Source Oct 03, 2023 11:21 AM Outpatient Encounter TELEPHONE TRIAGE IHE Encounter Template Text not used by [...] 20 appointments. The data comes from all [place] treatment facilities. Appointment Date/Time Appointment Type Appointme nt Facility Name Oct 04, 2023 11:00 AM AMBULATORY - MEDICINE [place] [facility] [place] [facility] Oct 04, 2023 01:00 PM AMBULATORY - MEDICINE IN [facility] [place] [facility] Dec 25, 2023 08:30 AM AMBULATORY - MEDICINE IN [facility] [place] [facility] Jan 03, 2024 01:00 PM AMBULATORY - MEDICINE [place] [facility] [place] [facility] Jan 04, 2024 10:00 AM AMBULATORY - MEDICINE [place] [facility] Jan 24, 2024 12:15 PM AMBULATORY - PSYCHIATRY [place] [facility] [place] [facility] Feb 01, 2024 12:00 PM AMBULATORY - PSYCHIATRY [place] [facility] [place] [facility] Feb 14, 2024 09:00 AM AMBULATORY - MEDICINE [place] [facility] Feb 16, 2024 11:30 AM AMBULATORY - PSYCHIATRY [place] [facility] [place] [facility] Feb 21, 2024 02:00 PM AMBULATORY - MEDICINE [place] [facility] [place] [place] [facility] Mar 20, 2024 11:30 AM AMBULATORY - PSYCHIATRY [place] [facility] [place] [facility] Mar 21, 2024 12:45 PM AMBULATORY - NONE [facility] Mar 21, 2024 01:00 PM AMBULATORY - MEDICINE [facility] Lab Results: +/- 30 days of the encounter This section includes the Chemistry and Hematology Lab Results on record with [place] for the patient. Radiology Reports and Pathology Reports are provided separately, in subsequent sections. Lab Results This section contains the Chemistry/Hematology Results that were resulted 30 days before or 30 daysafter the date of the Encounter. Date/Time Source Result Type Result - Unit Interpretation Reference Range Comment Sep 27, 2023 08:50 [facility] LIPID PANEL FASTING Specimen Type: SERUM No comment entered. Ordering Provider: LENIN BENSON Report Released Date/Time: September 06, 2023 02:23 PM Reporting [facility] [address] [address] Performing Lab: [facility] [place] [facility] [address] [facility] [address] CHOLESTEROL 224 mg/dL H TRIGLYCERIDE 150 mg/dL 0-150 LDL calculated 151 mg/dL H 0-129 CHOL/HDL 5.2 HDL CHOLESTEROL 43 mg/dL 40-60 Social History: Smoking Status (Most current) and Tobacco Use (All prior to encounter date) This section includes the most current, and the historical, smoking and tobacco- related health factors from the [place] facility where the Encounter took place. Current Smoking Status This section includes the most current smoking, or tobacco-related health factor, from the [place] facility where the Encounter took place. Date/Time Current Smoking Status Comment [facility] Dec 01, 2022 03:30 PM VA-TOBACCO FORMER USER IN [facility] [place] [facility] Tobacco Use History This section includes a history of the smoking, or tobacco-related health factors, that were collected on or before the date of the Encounter. The data comes from the [place] facility where the Encounter took place. Date/Time Smoking Status/Tobac co Use Comment Facility Dec 01, 2022 03:30 PM VA-TOBACCO QUIT 15 YRS OR MORE IN [facility] [place] [facility] Nov 21, 2020 09:30 AM VA-TOBACCO FORMER USER [facility] [place] [facility] Nov 21, 2020 09:30 AM VA-TOBACCO QUIT 15 YRS OR MORE [place] [facility] [place] [facility] Sep 21, 2019 10:24 AM VA-TOBACCO FORMER USER [facility] [place] [facility] Sep 21, 2019 10:24 AM VA-TOBACCO QUIT 15 YRS OR MORE [facility] [place] [facility] August 31, 2018 09:07 AM VA-TOBACCO NEVER USED [facility] [place] [facility] Jul 21, 2017 09:00 AM QUIT TOBACCO USE > 7 YEARS AGO He quit 20 years ago [facility] [place] [facility] Jun 17, 2016 02:37 PM LIFETIME NON-TOBACCO USER [facility] [place] [facility] May 19, 2015 04:56 PM LIFETIME NON-TOBACCO USER [facility] [place] [facility] August 24, 2012 03:06 PM LIFETIME NON-TOBACCO USER [facility] [place] [facility] Encounter Notes: All associated encounter notes This section contains the clinical notes associated to the Encounter. Date/Time Encounter Note(s) Provider Source Oct 03, 2023 11:21 AM RN PROGRESS NOTE: LOCAL TITLE: CCC: CLINICAL TRIAGE STANDARD TITLE: RN PROGRESS NOTE DATE OF NOTE: OCT 03, 2023@11:21:33 ENTRY DATE: OCT 03, 2023@11:21:33 AUTHOR: YOUSIF RATLIFF COSIGNER: URGENCY: STATUS: COMPLETED CCC: CLINICAL TRIAGE Has ADDENDA Patient Demographics Patient Name: MITCHELL RAE Patient Primary Address: [address] [place] [id number] Patient Primary Phone: [phone] Patient : 1970 Patient Age: 53 Caller/Recipient Relation to Patient: Self Emergency Contact: DENIS RAE Triage Summary Conducted triage/discussed symptoms Pain Score: 10 (Severe Pain) Utilized the Triage Tool: Yes Chief Complaint: Back Pain After Lifting System WHEN: Within 8 Hours Nurse's Recommendation / WHEN: Within 8 Hours System WHERE: Urgent care center Nurse's Recommendation / WHERE: Urgent [place] Patient Disposition Patient/Caregiver agrees to plan of care: Yes Patient is Urgent or Emergent Nursing Plan and Disposition Referred for [facility] Virtual Clinic Visit Transferred patient to Sched & Admin-VCV No appt avail Advised Emergency Care Referred Patient for In-Person Appt Transferred patient to Sched & Admin-Apt Transferred patient to facility [facility] Other course(s) of action Provided guidance for worsening symptoms: *Caller/Patient* advised to call facilities [place] Clinical Contact Center or seek immediate medical attention for new or worsening symptoms Nurse Summary Nurse Summary: SITUATION: C/O FLARE UP OF LOW BACK PAIN WITH RADIATION OF PAIN DOWN BOTH LEGS INTO THIGHS. STATES SYMPTOMS BEGAN AFTER LITING A 40 POUND GOLF CART BATTERY 2 DAYS AGO AND ALSO REPEATEDLY SQUATTING UP/DOWN IN THE PROCESS OF MARKING GROUND FOR FENCE PLACEMENT. STATES IT WAS WHILE STANDING UP FROM A SQUATTING POSITION THAT THE SEVERE PAIN BEGAN. PAIN IS ACROSS THE LOW BACK AND BOTH BOTH LEGS INTO THE THIGHS. WALKING IS PAINFUL. HE IS TAKING ADVIL WITH LITTLE RELIEF. *See [facility] details below for additional +/- signs & symptoms. RN RECOMMENDATION: F2F PCP APPOINTMENT OR CCC VVC FLEET TECHNICIAN APPOINTMENT W/IN 8 HOURS WITH LOCAL ER BACK UP IF UNABLE TO SECURE APPOINTMENTS. Warm transfer to [facility] scheduling queue to assist with setting up the appointment. This note was created by a [facility] hot knife cutter. Please do not alert this nurse by adding as a signer for future communications. Alerts are not monitored by this user, please reach out to [facility] Leadership instead, if indicated. Clinical Contact Center Codes Clinic/Location: V1 CWM PHONE CCC RN [facility] Triage Complete Triage Date: 10/03/2023, 11:10 AM Triage Note: Phone Triage 03 Oct 2023 15:05:46 +0000 [facility] Demographics 53 y/o Male Results CC: Back Pain After Lifting Software suggested: Within 8 Hours Software suggested follow-up location: Urgent care center Values and Measures Duration of CC: 2 Days Positive Responses HPI: back pain, radiation down leg HPI: back pain, severe, duration longer than 2 hours HPI: leg weakness, unilateral, since the injury Negative Responses Denies: HPI: leg numbness, since the injury Denies: HPI: urinary incontinence, since the injury /toshia/ YOUSIF RATLIFF [id number] Signed: 10/03/2023 11:21 Receipt Acknowledged By: 10/03/2023 19:55 /toshia/ HARPREET JAMES LPN License Practical Nurse 10/03/2023 13:51 /toshia/ ZULEMA DARNELL REGISTERED NURSE for VIKY AGUIRRE 10/03/2023 ADDENDUM STATUS: COMPLETED VVC appointment with IT BUSINESS ANALYST /toshia/ ZULEMA DARNELL REGISTERED NURSE Signed: 10/03/2023 13:49 YOUSIF RATLIFF IN [facility]
--- OUTSIDE RECORDS SUMMARY | 2024-03-29 01:43 | XMS_ITS | Encounter Summary ---
Author Name [facility] Address [address] [place] [address] Care Team Providers Care Sports Administrator Name Role Phone LENIN BENSON Primary Care [...] PHARMACY PRESCRIPT ION [facility] Apr 18, 2010 [id number] [phone] MITCHELL RAE PATIENT IAIN-ASA HANKINS PREFERRED PROVIDER ORGANIZAT ION (PPO) ADVAN LILLIAN DRAIN AGE Sep 17, 2003 [id number] MITCHELL RAE PATIENT Selected Encounter This section includes the information on record at NH for the Encounter. Date/Time Encounter Type Encounter Description Reason Pro vider Source Oct 04, 2023 08:42 AM Outpatient Encounter TELEPHONE TRIAGE IHE Encounter [...] 20 appointments. The data comes from all [place] treatment facilities. Appointment Date/Time Appointment Type Appointme nt Facility Name Dec 25, 2023 08:30 AM AMBULATORY - MEDICINE [facility] [place] [facility] Jan 03, 2024 01:00 PM AM[facility]ULATORY [facility]ICINE [facility] [place] [facility] Jan 04, 2024 10:00 AM [place] [facility] Jan 24, 2024 12:15 PM AMBULATORY - PSYCHIATRY [facility] [place] [facility] Feb 01, 2024 12:00 PM AMBULATORY - PS[facility]CHIATRY [facility] [place] [facility] Feb 14, 2024 09:00 AM [facility] [place] [facility] Feb 16, 2024 11:30 AM AMBULATORY - PSYCHIATRY [facility] [place] [facility] Feb 21, 2024 02:00 PM AMBULATORY - MEDICINE [facility] [place] [facility] Mar 20, 2024 11:30 AM AMBULATORY - PSYCHIATRY [facility] [place] [facility] Mar 21, 2024 12:45 PM AMBULATORY - NONE [place] Mar 21, 2024 01:00 PM AMBULATORY - MEDICINE [facility] Lab Results: +/- 30 days of the encounter This section includes the Chemistry and Hematology Lab Results on record with NH for the patient. Radiology Reports and Pathology Reports are provided separately, in subsequent sections. Lab Results This section contains the Chemistry/Hematology Results that were resulted 30 days before or 30 daysafter the date of the Encounter. Date/Time Source Result Type Result - Unit Interpretation Reference Range Comment Sep 27, 2023 08:50 [facility] LIPID PANEL FASTING Specimen Type: SERUM No comment entered. Ordering Provider: LENIN BENSON Report Released Date/Time: September 06, 2023 02:23 PM Reporting Lab: [address] [id number] Performing Lab: [address] [id number] CHOLESTEROL 224 mg/dL H TRIGLYCERIDE 150 mg/dL 0-150 LDL calculated 151 mg/dL H 0-129 CHOL/HDL 5.2 HDL CHOLESTEROL 43 mg/dL 40-60 Social History: Smoking Status (Most current) and Tobacco Use (All prior to encounter date) This section includes the most current, and the historical, smoking and tobacco- related health factors from the [facility] facility where the Encounter took place. Current Smoking Status This section includes the most current smoking, or tobacco-related health factor, from the [facility] facility where the Encounter took place. Date/Time Current Smoking Status Comment Facil it Dec 01, 2022 03:30 PM VA-TOBACCO FORMER USER [facility] [place] [facility] Tobacco Use History This section includes a history of the smoking, or tobacco-related health factors, that were collected on or before the date of the Encounter. The data comes from the [place] facility where the Encounter took place. Date/Time Smoking Status/Tobac co Use Comment Facility Dec 01, 2022 03:30 PM VA-TOBACCO QUIT 15 YRS OR MORE [facility] [place] [facility] Nov 21, 2020 09:30 AM VA-TOBACCO FORMER USER [facility] [place] [facility] Nov 21, 2020 09:30 AM VA-TOBACCO QUIT 15 YRS OR MORE [facility] [place] [facility] Sep 21, 2019 10:24 AM VA-TOBACCO FORMER USER [facility] [place] [facility] Sep 21, 2019 10:24 AM VA-TOBACCO QUIT 15 YRS OR MORE [facility] [place] [facility] August 31, 2018 09:07 AM VA-TOBACCO NEVER USED [facility] [place] [facility] Jul 21, 2017 09:00 AM QUIT TOBACCO USE > 7 YEARS AGO He quit 20 years ago [facility] [place] [facility] Jun 17, 2016 02:37 PM LIFETIME NON-TOBACCO USER [facility] [place] [facility] May 19, 2015 04:56 PM LIFETIME NON-TOBACCO USER [facility] [place] [facility] August 24, 2012 03:06 PM LIFETIME NON-TOBACCO USER [facility] [place] [facility] Encounter Notes: All associated encounter notes This section contains the clinical notes associated to the Encounter. Date/Time Encounter Note(s) Provider Source Oct 04, 2023 08:42 AM RN PROGRESS NOTE: LOCAL TITLE: CCC: CLINICAL TRIAGE STANDARD TITLE: RN PROGRESS NOTE DATE OF NOTE: OCT 04, 2023@08:42:32 ENTRY DATE: OCT 04, 2023@08:42:33 AUTHOR: MEGAN LOVELACE COSIGNER: URGENCY: STATUS: COMPLETED CCC: CLINICAL TRIAGE Has ADDENDA Patient Demographics Patient Name: MITCHELL RAE Patient Primary Address: [address] [place] [id number] Patient Primary Phone: [phone] Patient : 1970 Patient Age: 53 Caller/Recipient Relation to Patient: Self Emergency Contact: DENIS RAE Triage Summary Conducted triage/discussed symptoms Patient Disposition Patient/Caregiver agrees to plan of care: Yes Nursing Plan and Disposition Other course(s) of action Generated msg to PACT/Provider Nurse Summary Nurse Summary: Patient calls to inquire if there is an opening earlier today with [facility]. Patient has appt for back pain. He explains he had to reschedule nurse EKG appt from yesterday to this am, was to be 10am appt. No sooner tele [facility] appts available per [facility]. Upon reviewing appts, nurse ekg appt is not showing rebooked for today. Reached PACT [facility] and inquired if EKG can be delayed to later today as patient has tele appt at 11am and likely will need to go to campus after for meds/exams/etc and hoping to coordinate all if possible. Reached out to [facility] and they will contact patient. _ Clinical Contact Center Codes Clinic/Location: V1 [facility] RN /toshia/ MEGAN LOVELACE BSN,RN CLINICAL CONTACT [facility]ENTER RN Signed: 10/04/2023 08:42 Receipt Acknowledged By: 10/04/2023 11:45 /es/ HARPREET JAMES LPN License Practical Nurse 10/04/2023 08:56 /es/ ANDRES GARCIA 10/04/2023 09:19 /es/ ZULEMA DARNELL REGISTERED NURSE for VIKY AGUIRRE 10/04/2023 ADDENDUM STATUS: COMPLETED RN visit scheduled for October 11 2023 /toshia/ ZULEMA DARNELL REGISTERED NURSE Signed: 10/04/2023 08:44 10/04/2023 ADDENDUM STATUS: COMPLETED [facility]MSA REACHED OUT TO EARLIER AND WILL BE AWAITING HIS CALL TO SCHEDULE. /toshia/ ANDRES GARCIA Signed: 10/04/2023 08:57 MEGAN LOVELACE [facility]
--- OUTSIDE RECORDS SUMMARY | 2024-03-29 01:43 | XMS_ITS | Encounter Summary ---
Author Name [facility] [facility] [place] [facility] [facility] [place] Address [address] [place] [address] Care Team Providers Care Buckle Stapler Name Role Phone LENIN BENSON Primary Care [...] PHARMACY PRESCRIPT ION [facility] Apr 18, 2010 [id number] MITCHELL BRADEN PATIENT IAIN-SAA HANKINS PREFERRED PROVIDER ORGANIZAT ION (PPO) ADVAN LILLIAN DRAIN AGE Sep 17[birth year] 2003 [id number] MITCHELL BRADEN PATIENT Selected Encounter This section includes the information on record at [place] for the Encounter. Date/Time Encounter Type Encounter Description Reason Provider Source Dec 25, 2023 08:30 AM Outpatient Encounter TELEPHONE TRIAGE ICD-10-CM F41.9 Anxiety disorder, unspecified JANESSA FERRERA R IHGarcía Encounter Template Text not used by [facility] Assessments - Encounter Diagnoses This section includes the primary and secondary diagnoses documented for the Encounter. Date/Time Primary/Secondary Diagnosis Diagnosis Name Provider Source Dec 25, 2023 08:30 AM PRIMARY Anxiety disorder, unspecified [facility]ESSA [facility]ERR[facility]A [facility] Plan of Treatment: Future Appointments (+ 6 months) and Future Tests (+/- 45 days) The Plan of Treatment section includes future care activities for the [facility] from [facility] [place] [facility] This section includes future appointments and future orders which are active, pending or scheduled. Future Appointments This section includes appointments that were scheduled to occur 6 months from the date of the Encounter, up to a maximum of 20 appointments. The data comes from all [place] treatment facilities. Appointment Date/Time Appointment Type Appointme nt Facility Name Jan 03, 2024 01:00 PM AM[place]ULATORY [place]ICINE [place] [facility] [place] [facility] Jan 04, 2024 10:00 AM AM[place]ORY - [place]ICINE [place] [facility] Jan 24, 2024 12:15 PM [facility] [place] [facility] Feb 01, 2024 12:00 PM AMBULATORY PS[place]CHIATRY [place] [facility] [place] [facility] Feb 14, 2024 09:00 AM AMBULATORY - MEDICINE [facility] [place] [facility] Feb 16, 2024 11:30 AM AMBULATORY - PS[place]CHIATRY [place] [facility] [place] [facility] Feb 21, 2024 02:00 PM AMBULATORY [place]ICINE [place] [facility] [place] [facility] Mar 20, 2024 11:30 AM AMBULATORY - PS[place]CHIATRY [place] [facility] [place] [facility] Mar 21, 2024 12:45 PM [facility] Mar 21, 2024 01:00 [facility] Apr 05, 2024 09:00 AM AMBULATORY - MEDICINE [place] [facility] Apr 09, 2024 08:00 AM [facility] Active, Pending, and Scheduled Orders This section includes a listing of several types of active, pending, and scheduled orders, including clinic medications orders, diagnostic test orders, procedure orders and consult orders; where the start date of the order is 45 days before the date of the Encounter or 45 days after the date of theEncounter. The data comes from all [facility]. Test Date/Time Test Type Test Details Facility Name Jan 03, 2024 01:45 PM Consult Order REHAB MEDI CINE/[facility] OUTPT Cons [employer] [place] [facility] [place] [facility] Social History: Smoking Status (Most current) and Tobacco Use (All prior to encounter date) This section includes the most current, and the historical, smoking and tobacco- related health factors from the [place] facility where the Encounter took place. Current Smoking Status This section includes the most current smoking, or tobacco-related health factor, from the [place] facility where the Encounter took place. Date/Time Current Smoking Status Comment Facil it Dec 01, 2022 03:30 PM VA-TOBACCO FORMER USER [place] [facility] [place] [facility] Tobacco Use History This section includes a history of the smoking, or tobacco-related health factors, that were collected on or before the date of the Encounter. The data comes from the [place] facility where the Encounter took place. Date/Time Smoking Status/Tobac co Use Comment Facility Dec 01, 2022 03:30 PM VA-TOBACCO QUIT 15 YRS OR MORE [place] [facility] [place] [facility] Nov 21, 2020 09:30 AM VA-TOBACCO FORMER USER [place] [facility] [place] [facility] Nov 21, 2020 09:30 AM VA-TOBACCO QUIT 15 YRS OR MORE [place] [facility] [place] [facility] Sep 21, 2019 10:24 AM VA-TOBACCO FORMER USER [place] [facility] [place] [facility] Sep 21, 2019 10:24 AM VA-TOBACCO QUIT 15 YRS OR MORE [place] [facility] [place] [facility] August 31, 2018 09:07 AM VA-TOBACCO NEVER USED [place] [facility] [place] [facility] Jul 21, 2017 09:00 AM QUIT TOBACCO USE > 7 YEARS AGO He quit 20 years ago [place] [facility] [place] [facility] Jun 17, 2016 02:37 PM LIFETIME NON-TOBACCO USER [place] [facility] [place] [facility] May 19, 2015 04:56 PM LIFETIME NON-TOBACCO USER [place] [facility] [place] [facility] August 24, 2012 03:06 PM LIFETIME NON-TOBACCO USER [place] [facility] [place] [facility] Encounter Notes: All associated encounter notes This section contains the clinical notes associated to the Encounter. Date/Time Encounter Note(s) Provider Source Dec 26, 2023 08:05 AM ADDENDUM: LOCAL TITLE: Addendum STANDARD TITLE: ADDENDUM DATE OF NOTE: DEC 26, 2023@08:05:16 ENTRY DATE: DEC 26, 2023@08:05:16 AUTHOR: LENIN BENSON COSIGNER: URGENCY: STATUS: COMPLETED Andres- please outreach and see if there is an opening in upcoming weeks to be seen /toshia/ LENIN BENSON D.O. PHYSICIAN Signed: 12/26/2023 08:05 Receipt Acknowledged By: 12/26/2023 09:12 /es/ ANDRES VELEZ AMSA --- Original Document --- 12/25/23 TELE EMERGENCY CARE NOTE: This is a tele-emergency care visit to address acute/urgent issues. Definitive care on chronic medical issues will be deferred to routine Primary Care appointment/provider. Consult Origin: Referral from the Clinical Contact Center/Call Center Type of Visit: Phone Visit: Visit conducted by telephone. Location/emergency number confirmed. Emergency contact information was obtained as follows: Patient's current address [address] [place] [id number] Patient's Phone Number:PATIENT PHONE - PHONE NUMBER [CELLULAR] - Primary NOK: DENIS BRADEN Relation: EXTENDED FAMILY M [address] [facility] [address] [place], [place] [address] Subjective: Patient not available for scheduled call this am. Called patient this afternoon to get patient seen today due to triage states patient call back and was very irritated. Mr. Braden is a 53 year old male presenting for anxiety. PHM: PTD. States he saw his therapist this week and she recommended something for his anxiety. States he is currently taking Fluoxetine and it seems to help but he does have periods when he becomes very anxious, can't sleep at night, then is fatigued all day. Denies any thoughts of harming himself or others. Discussed there are options for treating episodic anxiety but really should be followed by PCP. States the problem is his PCP is months out for getting him an appt. ACTIVE PROBLEMS: Code Description R06.83 Snoring ([facility] [id number]) M54.12 Cervical radiculopathy ([facility] [id number]) G56.00 Carpal tunnel syndrome ([facility] [id number]) M54.5 Low back pain ([facility] [id number]) F41.9 Anxiety ([facility] [id number]) R45.4 Irritability and anger ([facility] [id number]) H93.A3 Tinnitus ([facility] [id number]) F43.12 Posttraumatic stress disorder ([facility] [id number]) 369.9 Vision, Subnormal (ICD-9-CM 369.9) ALLERGIES/ADR: Patient has answered NKA Active Outpatient Medications (including Supplies): FLUOXETINE HCL 10MG CAP TAKE THREE CAPSULES BY MOUTH ONCE PENDING DAILY FOR DEPRESSION AND ANXIETY HYDROXYZINE HCL 10MG TAB TAKE ONE TABLET BY MOUTH THREE PENDING TIMES DAILY NEEDED ROSUVASTATIN CA 10MG TAB TAKE ONE TABLET BY MOUTH ONCE ACTIVE DAILY FOR CHOLESTEROL Current medications reviewed with patient/caregiver and reconciliation of medications related to today's visit completed, including non-VA medications and discrepancies, if identified, were addressed. Medication changes and the importance of medication management were reviewed with the patient/caregiver today based on individual needs. Patient/caregiver acknowledged understanding of instructions as stated. Objective: See note above. Reason for Referral: Other: psych Assessment/Impression: Anxiety Plan: Recommend continue couseling. Patient informed PACT Team will be notified to get him in to be seen this week if possible. Instructed if PCP cannot see him this week, call CCC and I will prescribe something temporary for him. Discussed with patient this is a chronic problem which needs to be followed by PCP but if unable to get in with PCP, will prescribe med. Instructed if any worsening or severe sx, go to ED for tx. PACT Team notified to follow up with patient kate. Issue resolved with Tele Urgent Care appointment Patient verbalizes understanding of the care plan Time spent in telephone/video visit: /rhianna DE LA [email or web address] Signed: 12/25/2023 13:42 12/25/2023 ADDENDUM STATUS: COMPLETED Time spent in telephone/video visit: 21 min /rhianna DE LA [email or web address] Signed: 12/25/2023 13:42 Receipt Acknowledged By: 12/26/2023 08:04 /toshia/ LENIN BENSON D.O. PHYSICIAN * AWAITING SIGNATURE * VIKY AGUIRRE 12/26/2023 ADDENDUM STATUS: UNSIGNED You may not VIEW this UNSIGNED Addendum. LENIN BENSON [facility] [place] [facility] Dec 25, 2023 01:42 PM ADDENDUM: LOCAL TITLE: Addendum STANDARD TITLE: ADDENDUM DATE OF NOTE: DEC 25, 2023@13:42:43 ENTRY DATE: DEC 25, 2023@13:42:44 AUTHOR: JANESSA FERRERA EXP COSIGNER: URGENCY: STATUS: COMPLETED Time spent in telephone/video visit: 21 min /rhianna DE LA [email or web address] Signed: 12/25/2023 13:42 Receipt Acknowledged By: 12/26/2023 08:04 /rhianna BENSON D.O. PHYSICIAN 12/26/2023 10:35 /toshia/ VIKY AGUIRRE RN REGISTERED NURSE --- Original Document --- 12/25/23 TELE EMERGENCY CARE NOTE: This is a tele-emergency care visit to address acute/urgent issues. Definitive care on chronic medical issues will be deferred to routine Primary Care appointment/provider. Consult Origin: Referral from the Clinical Contact Center/Call Center Type of Visit: Phone Visit: Visit conducted by telephone. Location/emergency number confirmed. Emergency contact information was obtained as follows: Patient's current address [address] [place] [phone] Patient's Phone Number:PATIENT PHONE - PHONE NUMBER [CELLULAR] - Primary NOK: DENIS BRADEN Relation: EXTENDED FAMILY M [address] [facility] [address] [place], [place] [address] Subjective: Patient not available for scheduled call this am. Called patient this afternoon to get patient seen today due to triage states patient call back and was very irritated. Mr. Braden is a 53 year old male presenting for anxiety. PHM: PTD. States he saw his therapist this week and she recommended something for his anxiety. States he is currently taking Fluoxetine and it seems to help but he does have periods when he becomes very anxious, can't sleep at night, then is fatigued all day. Denies any thoughts of harming himself or others. Discussed there are options for treating episodic anxiety but really should be followed by PCP. States the problem is his PCP is months out for getting him an appt. ACTIVE PROBLEMS: Code Description R06.83 Snoring ([facility] [id number]) M54.12 Cervical radiculopathy ([facility] [id number]) G56.00 Carpal tunnel syndrome ([facility] [id number]) M54.5 Low back pain ([facility] [id number]) F41.9 Anxiety ([facility] 89567570) R45.4 Irritability and anger ([facility] [id number]) H93.A3 Tinnitus ([facility] [id number]) F43.12 Posttraumatic stress disorder ([facility] 30740319) 369.9 Vision, Subnormal (ICD-9-CM 369.9) ALLERGIES/ADR: Patient has answered NKA Active Outpatient Medications (including Supplies): FLUOXETINE HCL 10MG CAP TAKE THREE CAPSULES BY MOUTH ONCE PENDING DAILY FOR DEPRESSION AND ANXIETY HYDROXYZINE HCL 10MG TAB TAKE ONE TABLET BY MOUTH THREE PENDING TIMES DAILY NEEDED ROSUVASTATIN CA 10MG TAB TAKE ONE TABLET BY MOUTH ONCE ACTIVE DAILY FOR CHOLESTEROL Current medications reviewed with patient/caregiver and reconciliation of medications related to today's visit completed, including non-VA medications and discrepancies, if identified, were addressed. Medication changes and the importance of medication management were reviewed with the patient/caregiver today based on individual needs. Patient/caregiver acknowledged understanding of instructions as stated. Objective: See note above. Reason for Referral: Other: psych Assessment/Impression: Anxiety Plan: Recommend continue couseling. Patient informed PACT Team will be notified to get him in to be seen this week if possible. Instructed if PCP cannot see him this week, call [facility] and I will prescribe something temporary for him. Discussed with patient this is a chronic problem which needs to be followed by PCP but if unable to get in with PCP, will prescribe med. Instructed if any worsening or severe sx, go to ED for tx. PACT Team notified to follow up with patient kate. Issue resolved with Tele Urgent Care appointment Patient verbalizes understanding of the care plan Time spent in telephone/video visit: /toshia/ JANESSA FERRERA [id number] Signed: 12/25/2023 13:42 12/26/2023 ADDENDUM STATUS: COMPLETED Andres- please outreach and see if there is an opening in upcoming weeks to be seen /toshia/ LENIN BENSON D.O. PHYSICIAN Signed: 12/26/2023 08:05 Receipt Acknowledged By: 12/26/2023 09:12 /toshia/ ANDRES GARCIA 12/26/2023 ADDENDUM STATUS: COMPLETED JOSE CALLED ON TELEPHONE AND SCHEDULED AN APPT SET FOR @ 1PM. /toshia/ ANDRES GARCIA Signed: 12/26/2023 09:13 JANESSA FERRERA [place] [facility] [place] [facility] Dec 25, 2023 01:26 PM TELEHEALTH NOTE: LOCAL TITLE: TELE EMERGENCY CARE NOTE STANDARD TITLE: TELEHEALTH NOTE DATE OF NOTE: DEC 25, 2023@13:26 ENTRY DATE: DEC 25, 2023@13:26:58 AUTHOR: JANESSA FERRERA EXP COSIGNER: URGENCY: STATUS: COMPLETED TELE EMERGENCY CARE NOTE Has ADDENDA This is a tele-emergency care visit to address acute/urgent issues. Definitive care on chronic medical issues will be deferred to routine Primary Care appointment/provider. Consult Origin: Referral from the Clinical Contact Center/Call Center Type of Visit: Phone Visit: Visit conducted by telephone. Location/emergency number confirmed. Emergency contact information was obtained as follows: Patient's current address [address] [place] [address] Patient's Phone Number:PATIENT PHONE - PHONE NUMBER [CELLULAR] - Primary NOK: DENIS BRADEN Relation: EXTENDED FAMILY M [address] [facility] [address] [place], [place] [address] Subjective: Patient not available for scheduled call this am. Called patient this afternoon to get patient seen today due to triage states patient call back and was very irritated. Mr. Braden is a 53 year old male presenting for anxiety. PHM: PTD. States he saw his therapist this week and she recommended something for his anxiety. States he is currently taking Fluoxetine and it seems to help but he does have periods when he becomes very anxious, can't sleep at night, then is fatigued all day. Denies any thoughts of harming himself or others. Discussed there are options for treating episodic anxiety but really should be followed by PCP. States the problem is his PCP is months out for getting him an appt. ACTIVE PROBLEMS: Code Description R06.83 Snoring ([facility] [id number]) M54.12 Cervical radiculopathy ([facility] [id number]) G56.00 Carpal tunnel syndrome ([facility] [id number]) M54.5 Low back pain ([facility] [id number]) F41.9 Anxiety ([facility] 63282709) R45.4 Irritability and anger ([facility] [id number]) H93.A3 Tinnitus ([facility] 40045583) F43.12 Posttraumatic stress disorder ([facility] 20320286) 369.9 Vision, Subnormal (ICD-9-CM 369.9) ALLERGIES/ADR: Patient has answered NKA Active Outpatient Medications (including Supplies): FLUOXETINE HCL 10MG CAP TAKE THREE CAPSULES BY MOUTH ONCE PENDING DAILY FOR DEPRESSION AND ANXIETY HYDROXYZINE HCL 10MG TAB TAKE ONE TABLET BY MOUTH THREE PENDING TIMES DAILY NEEDED ROSUVASTATIN CA 10MG TAB TAKE ONE TABLET BY MOUTH ONCE ACTIVE DAILY FOR CHOLESTEROL Current medications reviewed with patient/caregiver and reconciliation of medications related to today's visit completed, including non-VA medications and discrepancies, if identified, were addressed. Medication changes and the importance of medication management were reviewed with the patient/caregiver today based on individual needs. Patient/caregiver acknowledged understanding of instructions as stated. Objective: See note above. Reason for Referral: Other: psych Assessment/Impression: Anxiety Plan: Recommend continue couseling. Patient informed PACT Team will be notified to get him in to be seen this week if possible. Instructed if PCP cannot see him this week, call [facility] and I will prescribe something temporary for him. Discussed with patient this is a chronic problem which needs to be followed by PCP but if unable to get in with PCP, will prescribe med. Instructed if any worsening or severe sx, go to ED for tx. PACT Team notified to follow up with patient kate. Issue resolved with Tele Urgent Care appointment Patient verbalizes understanding of the care plan Time spent in telephone/video visit: /toshia/ JANESSA MOODYCCCNP Signed: 12/25/2023 13:42 12/25/2023 ADDENDUM STATUS: COMPLETED Time spent in telephone/video visit: 21 min /rhianna DE LA [email or web address] Signed: 12/25/2023 13:42 Receipt Acknowledged By: 12/26/2023 08:04 /toshia/ LENIN BENSON D.O. PHYSICIAN * AWAITING SIGNATURE * VIKY AGUIRRE 12/26/2023 ADDENDUM STATUS: COMPLETED Andres- please outreach and see if there is an opening in upcoming weeks to be seen /rhianna BENSON D.O. PHYSICIAN Signed: 12/26/2023 08:05 Receipt Acknowledged By: 12/26/2023 09:12 /toshia/ ANDRES GARCIA 12/26/2023 ADDENDUM STATUS: COMPLETED [facility] CALLED ON TELEPHONE AND SCHEDULED AN APPT SET FOR @ 1PM. /toshia/ ANDRES GARCIA Signed: 12/26/2023 09:13 J[facility]SA FERR[facility]A [facility]
--- OUTSIDE RECORDS SUMMARY | 2024-03-29 01:43 | XMS_ITS ---
Author Name [facility] [place] [facility] [facility] [place] Address [address] [place] [address] Care Team Providers Care Echocardiographer Name Role Phone LENIN BENSON Primary Care [...] PHARMACY PRESCRIPT ION [facility] Apr 18, 2010 [id number] [phone] MITCHELL RAE PATIENT CIGBENIGNO-ASA HANKINS PREFERRED PROVIDER ORGANIZAT ION (PPO) ADVAN LILLIAN DRAIN AGE Sep 17, 2002 [id number] MITCHELL RAE PATIENT Selected Encounter This section includes the information on record at [place] for the Encounter. Date/Time Encounter Type Encounter Description Reason Provider Source Oct 04, 2023 01:00 PM OFF/OP EST AUGUST X REQ PHY/QHP PRIMARY CARE/MEDICINE ICD-10-CM Z04.9 Encounter for examination and observation for unsp reason LIZY DARNELL SA H IHE Encounter Template Text not used by [place] Assessments - Encounter Diagnoses This section includes the primary and secondary diagnoses documented for the Encounter. Date/Time Primary/Secondary Diagnosis Diagnosis Name Provider Source Oct 04, 2023 02:14 PM PRIMARY Encounter for examination and observation for unsp reason [facility] Plan of Treatment: Future Appointments (+ 6 months) and Future Tests (+/- 45 days) The Plan of Treatment section includes future care activities for the patient from all [place] treatmentfacilities. This section includes future appointments and [...] 25, 2023 08:30 AM AMBULATORY - MEDICINE [facility] [place] [place] [facility] Jan 03, 2024 01:00 PM AMBULATORY - MEDICINE [facility] [place] [facility] Jan 04, 2024 10:00 AM AM[place]ORY [place]ICINE [place] [facility] Jan 24, 2024 12:15 PM [facility] [place] [facility] Feb 01, 2024 12:00 PM [facility] [place] [facility] Feb 14, 2024 09:00 AM [place] [place]IC[place] [facility] Feb 16, 2024 11:30 AM [facility] [place] [facility] Feb 21, 2024 02:00 PM AMBULATORY - MEDICINE [facility] [place] [facility] Mar 20, 2024 11:30 AM AMBULATORY - PSYCHIATRY [place] [facility] [place] [facility] Mar 21, 2024 12:45 PM AMBULATORY - NONE [facility] Mar 21, 2024 01:00 PM AMBULATORY - [...] Range Comment Sep 27, 2023 08:50 AM [facility] LIPID PANEL FASTING Specimen Type: SERUM No comment entered. Ordering Provider: LENIN BENSON Report Released Date/Time: September 06, 2023 02:23 PM Reporting Lab: [facility] [address] [facility] [address] Performing Lab: [facility] [address] [facility] [address] CHOLESTEROL 224 mg/dL H TRIGLYCERIDE 150 mg/dL [...] took place. Date/Time Current Smoking Status Comment [facility] Dec 01, 2022 03:30 PM VA-TOBACCO QUIT 15 YRS OR MORE [facility] Tobacco Use History This section includes a history of the smoking, or tobacco-related health factors, that were collected on or before the date of the Encounter. The data comes from the [place] facility where the Encounter took place. Date/Time Smoking Status/Tobac co Use Comment Facility Dec 01, 2022 03:30 PM VA-TOBACCO QUIT 15 YRS OR MORE [place] [facility] [place] [facility] Nov 21, 2020 09:30 AM VA-TOBACCO FORMER USER [place] [facility] [place] [facility] Nov 21, 2020 09:30 AM VA-TOBACCO QUIT 15 YRS OR MORE [place] [facility] [place] [facility] Sep 21, 2019 10:24 AM VA-TOBACCO FORMER USER [place] [facility] [place] [facility] Sep 21, 2019 10:24 AM VA-TOBACCO QUIT 15 YRS OR MORE [place] [facility] [facility] August 31, 2018 09:07 AM VA-TOBACCO NEVER USED [place] [facility] [place] [facility] Jul 21, 2017 09:00 AM QUIT TOBACCO USE > 7 YEARS AGO He quit 20 years ago [place] [facility] [place] [facility] Jun 17, 2016 02:37 PM LIFETIME NON-TOBACCO USER [facility] [place] [facility] May 19, 2015 04:56 PM LIFETIME NON-TOBACCO USER [facility] [place] [facility] August 24, 2012 03:06 PM LIFETIME NON-TOBACCO USER [facility] [place] [facility] Encounter Notes: All associated encounter notes This section contains the clinical notes associated to the Encounter. Date/Time Encounter Note(s) Provider Source Oct 04, 2023 01:15 PM CARDIOLOGY DIAGNOS TIC STUDY CONSULT: LOCAL TITLE: CONSULT REPORT/EKG STANDARD TITLE: CARDIOLOGY DIAGNOSTIC STUDY CONSULT DATE OF NOTE: OCT 04, 2023@13:15 ENTRY DATE: OCT 04, 2023@14:11:29 AUTHOR: ZULEMA DARNELL EXP COSIGNER: URGENCY: STATUS: COMPLETED EKG tracing was performed for diagnosis of pre request ordered by LENIN BENSON. /toshia/ ZULEMA DARNELL REGISTERED NURSE Signed: 10/04/2023 14:13 ZULEMA DARNELL [place] [facility] [place] [facility]
--- OUTSIDE RECORDS SUMMARY | 2024-03-29 01:43 | XMS_ITS | Encounter Summary ---
Author Name [facility] [place] [facility] [place] [facility] [place] Address [address] [place] [address] Care Team Providers Care Loom Operator Name Role Phone LENIN BENSON Primary [...] PHARMACY PRESCRIPT ION [facility] Apr 18, [id number] MITCHELL BRADEN PATIENT IAIN-ASA HANKINS PREFERRED PROVIDER ORGANIZAT ION (PPO) ADVAN LILLIAN DRAIN AGE Sep 17, 2002 [id number] MITCHELL BRADEN PATIENT Selected Encounter This section includes the information on record at [place] for the Encounter. Date/Time Encounter Type Encounter Description Reason Provider Source September 08, 2023 11:56 AM SLEEP STUDY UNATT&RESP EFFT SLEEP STUDY ICD-10-CM R06.83 Snoring FERNANDOTYRELL IHE Encounter Template Text not used by [facility] Assessments - Encounter Diagnoses This section includes the primary and secondary diagnoses documented for the Encounter. Date/Time Primary/Secondary Diagnosis Diagnosis Name Provider Source September 08, 2023 11:56 AM PRIMARY Snoring TYRELL KING [facility] Plan of Treatment: Future Appointments (+ 6 months) and Future Tests (+/- 45 days) The Plan of Treatment section includes future care activities for the patient from all [place] treatmentfacilities. This section includes future appointments and future orders which are active, pending or scheduled. Future Appointments This section includes appointments that were scheduled to occur 6 months from the date of the Encounter, up to a maximum of 20 appointments. The data comes from all [place] treatment facilities. Appointment Date/Time Appointment Type Appointme nt Facility Name Sep 27, 2023 09:30 AM AM[place]ULATORY [place]ICINE [place] [facility] Oct 03, 2023 10:00 AM AMBULATORY [place] MEDICINE [place] [facility] Oct 04, 2023 11:00 AM AMBULATORY - MEDICINE [place] [facility] Oct 04, 2023 01:00 PM AMBULATORY - MEDICINE [place] [facility] Dec 25, 2023 08:30 AM AMBULATORY [place] MEDICINE [place] [facility] Jan 03, 2024 01:00 PM AM[place]ULATORY [place]ICINE [place] [facility] Jan 04, 2024 10:00 AM [place] [facility] Jan 24, 2024 12:15 PM AMBULATORY - PS[place]CHIATRY [place] [facility] Feb 01, 2024 12:00 PM AMBULATORY - PS[place]CHIATRY [place] [facility] Feb 14, 2024 09:00 AM AM[place]ORY - [place]ICINE [place] [facility] Feb 16, 2024 11:30 AM AMBULATORY - PS[place]CHIATRY [place] [facility] Feb 21, 2024 02:00 PM AMBULATORY - MEDICINE [place] [facility] Lab Results: +/- 30 days of the encounter This section includes the Chemistry and Hematology Lab Results on record with [place] for the patient. Radiology Reports and Pathology Reports are provided separately, in subsequent sections. Lab Results This section contains the Chemistry/Hematology Results that were resulted 30 days before or 30 daysafter the date of the Encounter. Date/Time Source Result Type Result - Unit Interpretation Reference Range Comment Sep 27, 2023 08:50 AM [facility] LIPID PANEL FASTING Specimen Type: SERUM No comment entered. Ordering Provider: LENIN BENSON Report Released Date/Time: September 06, 2023 02:23 PM Reporting Lab: [facility] [address] [facility] [address] Performing Lab: [facility] [address] [facility] [address] CHOLESTEROL 224 mg/dL H TRIGLYCERIDE 150 mg/dL 0-150 LDL calculated 151 mg/dL H 0-129 CHOL/HDL 5.2 HDL CHOLESTEROL 43 mg/dL 40-60 Encounter Notes: All associated encounter notes This section contains the clinical notes associated to the Encounter. Date/Time Encounter Note(s) Provider Source September 08, 2023 11:57 AM SLEEP MEDICINE SILVANA GNOSTIC STUDY REPORT: LOCAL TITLE: SLEEP STUDY RESULTS LETTER (GT) STANDARD TITLE: SLEEP MEDICINE DIAGNOSTIC STUDY REPORT DATE OF NOTE: SEPTEMBER 08, 2023@11:57 ENTRY DATE: SEPTEMBER 08, 2023@11:57:08 AUTHOR: TYRELL KING EXP COSIGNER: URGENCY: STATUS: COMPLETED MITCHELL BRADEN [address] [place] [id number] Date:SEPTEMBER 08, 2023 Dear Mitchell Braden Jr, You recently had a sleep test that did not confirm sleep apnea. We will have you follow up with your referring provider Dr. Benson to further discuss the sleep study results. Thank you, Dr. Tyrell King Sleep Medicine Physician [address] [address] TYRELL KING [facility] September 08, 2023 11:56 AM SLEEP MEDICINE CON SULT: LOCAL TITLE: AMBULATORY SLEEP STUDY CONSULT STANDARD TITLE: SLEEP MEDICINE CONSULT DATE OF NOTE: SEPTEMBER 08, 2023@11:56:49 ENTRY DATE: SEPTEMBER 08, 2023@11:56:50 AUTHOR: TYRELL KING EXP COSIGNER: URGENCY: STATUS: COMPLETED [facility] [address] [facility] HOME SLEEP APNEA TEST - NOXT3 Study date: 08/24/2023 Name (Last, First): MITCHELL BRADEN SSN: [id number] : 1970 Requesting Provider: LENIN BENSON IMPRESSION - There is no evidence of sleep disordered breathing on this home sleep apnea test (HSAT). - Borderline low baseline SpO2 with periods of desaturation in the absence of respiratory events.The oxygen saturation abel was 86% and mean was 91.4%. The time spent below 90% was 29.8 minutes or 7.0% of the validated monitoring time. RECOMMENDATIONS - Home sleep apnea tests often underestimate sleep-disordered breathing and a negative HSAT does not rule out sleep apnea.Please consider ordering in-laboratory polysomnography in light of the patient's symptoms, comorbidities, and SpO2 findings on HSAT. - A copy of this report will be forwarded to the referring provider. - The will receive a letter with the summary of sleep study results. STUDY TECHNIQUE AND DEFINITIONS This home sleep apnea test was performed using an unattended type 3 portable monitor with at least 4 recorded channels including airflow, dual thoracoabdominal respiratory effort belts (with RIP), oximetry, pulse rate, actigraphy, body position, and snore sensor. Study was scored and interpreted based on AASM guidelines. PATIENT HISTORY Indication for study: Evaluate for sleep apnea 53 year old Male with BMI of 29 (weight 220 lbs, height 73 inches) ESS: 5 Sleep Symptoms: snoring, nocturia Active Problem List: - Vision, Subnormal (ICD-9-CM 369.9) - Anxiety (SCT 73061497) - Posttraumatic stress disorder (SCT 91736289) - Carpal tunnel syndrome (SCT 49927836) - Tinnitus (SCT 31772698) - Cervical radiculopathy (SCT 91142736) - Low back pain (SCT 385888914) - Snoring (SCT 82727589) - Irritability and anger (SCT 844129677) - AFib Medication(s): FLUOXETINE HCL 20MG CAP, ROSUVASTATIN CA 10MG TAB Night 1 (2023-08-24): Total monitoring time (MT)*: 438.1 minutes Recording start time: 11:34 PM Recording stop time: 9:34 AM Total recording Time (TRT)*: 600.0 minutes STUDY DETAILS Signal Quality: Oximeter: 99.9%, Nasal cannula: 100.0%, Thorax: 100.0%, Abdomen: 100.0% RESPIRATORY PARAMETERS ELA-3% was 4.4 /hr ELA-4% was 2.7 /hr Hypopnea index was 4.2 /hr* Obstructive Apnea Index was 0.0 /hr* Central Apnea Index was 0.1 /hr* Mixed Apnea Index was 0.0 /hr* *For percentage of total, see scored report in [facility]. Breakdown of total respiratory events: 30 hypopneas (3% rule), 0 obstructive apneas, 0 mixed apneas, and 1 central apneas. Supine ELA-3% was 5.9 /hr (in 173.1 minutes) Non-supine ELA-3% was 3.3 /hr (in 251.6 minutes) Patient snored for 55.9 minutes during the study. BODY POSITION Supine sleep was 173.1 minutes (39.5% of MT) Non-supine sleep was 251.6 minutes (57.4% of MT) *For breakdown of non-supine data see scored report in [facility]. OXIMETRY CICI-3% was 5.8 /hr CICI-4% was 3.1 /hr Mean oxygen saturation was 91.4% Lowest oxygen saturation was 86.0% Average desaturation drop was 4.0% Average low desaturation was 90.4% Saturations < 90%: 29.8 minutes (7.0% of MT) Saturations <= 88%: 1.4 minutes (0.3% of MT) Saturations < 85%: 0 minutes (0.0% of MT) Saturations <80%: 0 minutes (0.0% of MT) HEART RATE STATISTICS (BPM) Mean: 70.0; Min: 56.0; Max: 100.0 Data Definitions *Monitoring time (MT): Estimated total sleep time calculated as total recording time minus periods of artifact and time the patient was determined to be awake as determined by actigraphy, body position sensor, and/or respiratory pattern by injection molding technician or interpreting provider. Movement time greater than 15 seconds and upright time are automatically excluded from monitoring time. Upright angle is >53.13 degrees, unless manually adjusted based on history of patient (recliner, head of bed elevation, etc). All respiratory parameters are calculated using MT. *Total Recording Time (TRT): Total time from when the recorder was turned on to when the recorder was turned off, in minutes. * Excluded Data: Epochs marked as Invalid Data will be excluded from the report calculations. * Movement Time: Epochs determined to be Movement Time (greater than 15 seconds) are estimated as wake and are excluded from the ELA calculation * Respiratory Event Index (ELA): Total number of respiratory events x60 divided by monitoring time. ELA is a surrogate for Apnea Hypopnea Index (AHI). *Oxygen Desaturation Index (CICI): Total number of desaturation events x60 divided by monitoring time Position changes when at least 5 seconds of continuous position is found. The minimum upright position is at 53.13 angle. Movement is detected when the activity signal exceeds a threshold of 0.2 for a minimum of 1 second(s). Apneas are scored where there is a 90% drop in the Flow signal between 10 and 120 seconds. Hypopneas are scored where there is a 30% drop in the Flow signal between 10 and 120 seconds followed by either a drop in saturation of at least 3%, or an arousal. A tachycardia is added when the heart rate exceeds 90bpm for at least 30 seconds. Bradycardia is scored when the heart rate falls below 40bpm for at least 30 seconds. Limb movements are detected when EMG amplitude is above 5 times background activity for at least 0.5 seconds, but no more than 10 seconds. PLMs are detected when at least 4 limb movements occur within a minimum interval of 5 seconds and a maximum interval 90 seconds. An ECG artifact filter is applied to the leg EMG signals. LMs from all channels are combined into one PLM score. LMs are not scored if they start 0.5 seconds before an apnea, hypopnea or a RERA, or 0.5 seconds following the event. LMs are not scored if they start during movement. LMs are not scored if they start during periods of wake. Desaturations are marked when the SpO2 values drop by at least 3% for a minimum duration of 3 seconds with a plateau of no more than 45 seconds. /toshia/ TYRELL KING MD ATTENDING Signed: 09/08/2023 11:56 TYRELL KING [facility]
--- OUTSIDE RECORDS SUMMARY | 2024-03-29 01:43 | XMS_ITS | Encounter Summary ---
Author Name [facility] [place] [facility] [place] Address [address] [place] [id number] Care Team Providers Care Tombstone Setter Name Role Phone LENIN BENSON Primary Care Provider Unavaildante e Insurance Providers: All historical and current [...] PHARMACY PRESCRIPT ION [facility] Apr 18, 2010 [id number] RAFA BRADEN PATIENT IAIN-ASA HANKINS PREFERRED PROVIDER ORGANIZAT ION (PPO) ADVAN LILLIAN DRAIN AGE Sep 17, 2002 [id number] RAFA BRADEN PATIENT Selected Encounter This section includes the information on record at [place] for the Encounter. Date/Time Encounter Type Encounter Description Reason Provider Source Nov 18, 2023 02:39 PM Outpatient Encounter CARDIOLOGY MARLINE MONTEIRO Encounter Template Text not used by [place] Plan of Treatment: Future Appointments (+ 6 [...] 20 appointments. The data comes from all [place] treatment facilities. Appointment Date/Time Appointment Type Appointme nt Facility Name Dec 25, 2023 08:30 AM AM[place]ULATORY [place] [facility] Jan 03, 2024 01:00 PM AMBULATORY - MEDICINE [place] [facility] [place] [facility] Jan 04, 2024 10:00 AM [place] [facility] Jan 24, 2024 12:15 PM AMBULATORY - PSYCHIATRY [place] [facility] [place] [facility] Feb 01, 2024 12:00 PM AMBULATORY - PSYCHIATRY [place] [facility] [place] [facility] Feb 14, 2024 09:00 AM [place]ORY [place]IC[place] [facility] Feb 16, 2024 11:30 AM AMBULATORY - PSYCHIATRY [place] [facility] [place] [facility] Feb 21, 2024 02:00 PM AMBULATORY - MEDICINE [place] [facility] [place] [facility] Mar 20, 2024 11:30 AM AMBULATORY - PS[place]CHIATRY [place] [facility] [place] [facility] Mar 21, 2024 12:45 PM AMBULATORY - NONE [place] Mar 21, 2024 01:00 PM AMBULATORY - MEDICINE [facility] Apr 05, 2024 09:00 AM AMBULATORY - [place]ICINE [place] [facility] Apr 09, 2024 08:00 AM AM[place]ORY - [place]INE [place] [facility] Encounter Notes: All associated encounter notes This section contains the clinical notes associated to the Encounter. Date/Time Encounter Note(s) Provider Source Nov 18, 2023 02:39 PM LETTERS: LOCAL TITLE: SCHEDULING ATTEMPT [facility] TITLE: LETTERS DATE OF NOTE: NOV 18, 2023@14:39 ENTRY DATE: NOV 18, 2023@14:39:59 AUTHOR: ERIKA MEZA COSIGNER: URGENCY: STATUS: COMPLETED RAFA BRADEN [address] [place] [id number] Nov Dear Rafa Braden Jr, We are trying to reach you to schedule an appointment located at the [facility]. Scheduling Attempt for: Cardiology General Please call us back at [phone] Ext. [phone] between the hours of 8am and 4:30pm to schedule your appointment. Reason for letter: Consult request Please contact us no later than 14 calendar days from date this letter is sent and we will be happy to make this appointment. If this appointment has already been scheduled, please disregard this letter. ERIKA MEZA [facility]
--- OUTSIDE RECORDS SUMMARY | 2024-03-29 01:43 | XMS_ITS | Encounter Summary ---
Author Name [facility] [place] [facility] [place] [facility] [place] Address [address] [place] [address] Care Team Providers Care Pmp Certified Project Manager Name Role Phone LENIN BENSON Primary [...] PHARMACY PRESCRIPT ION [facility] Apr 18, 2010 [id number] MITCHELL RAE PATIENT IAIN-ASA HANKINS PREFERRED PROVIDER ORGANIZAT ION (PPO) ADVAN LILLIAN DRAIN AGE Sep 17, 2002 [id number] MITCHELL RAE PATIENT Selected Encounter This section includes the information on record at [place] for the Encounter. Date/Time Encounter Type Encounter Description Reason Provider Source Oct 04, 2023 01:34 PM ELECTROCARDIOGRAM REPORT EKG ICD-10-CM Z13.6 Encounter for screening for cardiovascular disorders ALMA VILLALPANDO [facility] Encounter Template Text not used by [facility] Assessments - Encounter Diagnoses This section includes the primary and secondary diagnoses documented for the Encounter. Date/Time Primary/Secondary Diagnosis Diagnosis Name Provider Source Oct 06, 2023 08:44 AM PRIMARY Encounter for screening for cardiovascular disorders ANDREA MCDONOUGH [facility] Plan of Treatment: Future Appointments (+ 6 months) and Future Tests (+/- 45 days) The Plan of Treatment section includes future care activities for the patient from all [place] [facility] This section includes future appointments and future orders which are active, pending or scheduled. Future Appointments This section includes appointments that were scheduled to occur 6 months from the date of the Encounter, up to a maximum of 20 appointments. The data comes from all [place] treatment facilities. Appointment Date/Time Appointment Type Appointme nt Facility Name Dec 25, 2023 08:30 AM AMBULATORY - MEDICINE [place] [facility] [place] [facility] Jan 03, 2024 01:00 PM AMBULATORY - MEDICINE [place] [facility] [place] [facility] Jan 04, 2024 10:00 AM AMBULATORY - MEDICINE [facility] Jan 24, 2024 12:15 PM AMBULATORY - PS[place]CHIATRY [place] [facility] [place] [facility] Feb 01, 2024 12:00 PM AMBULATORY - PS[place]IATRY [place] [facility] [place] [facility] Feb 14, 2024 09:00 AM AMBULATORY - MEDICINE [facility] Feb 16, 2024 11:30 AM AMBULATORY - PS[place]CHIATRY [place] [facility] [place] [facility] Feb 21, 2024 02:00 PM AMBULATORY - MEDICINE [place] [facility] [place] [facility] Mar 20, 2024 11:30 AM AMBULATORY - PSYCHIATRY [place] [facility] [place] [facility] Mar 21, 2024 12:45 PM AM[facility]ULATORY - [facility] Mar 21, 2024 01:00 PM AMBULATORY - MEDICINE [facility] Lab Results: +/- 30 days of the encounter This section includes the Chemistry and Hematology Lab Results on record with [place] for the patient. Radiology Reports and Pathology Reports are provided separately, in subsequent sections. Lab Results This section contains the Chemistry/Hematology Results that were resulted 30 days before or 30 daysafter the date of the Encounter. Date/Time Source Result Type Result - Unit Interpretation Reference Range Comment Sep 27, 2023 08:50 AM [facility] LIPID PANEL FASTING Specimen Type: SERUM No comment entered. Ordering Provider: LENIN BENSON Report Released Date/Time: September 06, 2023 02:23 PM Reporting Lab: [facility] [address] [address] Performing Lab: [facility] [address] [facility] [facility] [address] CHOLESTEROL 224 mg/dL H TRIGLYCERIDE 150 mg/dL 0-150 LDL calculated 151 mg/dL H 0-129 CHOL/HDL 5.2 HDL CHOLESTEROL 43 mg/dL 40-60 Encounter Notes: All associated encounter notes This section contains the clinical notes associated to the Encounter. Date/Time Encounter Note(s) Provider Source Oct 06, 2023 08:41 AM CARDIOLOGY PROCEDU RE NOTE: LOCAL TITLE: EKG OUTPATIENT RESULT STANDARD TITLE: CARDIOLOGY PROCEDURE NOTE DATE OF NOTE: OCT 06, 2023@08:41 ENTRY DATE: OCT 06, 2023@08:41:37 AUTHOR: MATTEO MCDONOUGH EXP COSIGNER: URGENCY: STATUS: COMPLETED An EKG was done on: Sep Please see [facility] for the EKG result. /toshia/ MATTEO MCDONOUGH Cardiac EKG Director Of Cardiac Cath Lab Signed: 10/06/2023 08:44 MATTEO MCDONOUGH [facility]
--- OUTSIDE RECORDS SUMMARY | 2024-03-29 01:43 | XMS_ITS | Encounter Summary ---
Author Name [facility] [place] Organization [facility] [place] [facility] [place] Address [address] [place] [address] Care Team Providers Care Search Advertising Strategist Name Role Phone LENIN BENSON Primary Care [...] PHARMACY PRESCRIPT ION [facility] Apr 18, 2010 [id number] [phone] MITCHELL RAE PATIENT IAIN-ASA HANKINS PREFERRED PROVIDER ORGANIZAT ION (PPO) ADVAN LILLIAN DRAIN AGE Sep 17, 2002 [id number] MITCHELL RAE PATIENT Selected Encounter This section includes the information on record at [place] for the Encounter. Date/Time Encounter Type Encounter Description Reason Provider Source Oct 04, 2023 11:00 AM Outpatient Encounter TELEPHONE TRIAGE ICD-10-CM M54.50 Low back pain, unspecified OMID LIN Encounter Template Text not used by [facility] Assessments - Encounter Diagnoses This section includes the primary and secondary diagnoses documented for the Encounter. Date/Time Primary/Secondary Diagnosis Diagnosis Name Provider Source Oct 04, 2023 11:00 AM PRIMARY Low back pain, unspecified [facility]IE [facility] Plan of Treatment: Future Appointments (+ 6 months) and Future Tests (+/- 45 days) The Plan of Treatment section includes future care activities for the patient from all [place] treatmentfacilities. This section includes future appointments and future orders which are active, pending or scheduled. Future Appointments This section includes appointments that were scheduled to occur 6 months from the date of the Encounter, up to a maximum of 20 appointments. The data comes from all [place] treatment facilities. Appointment Date/Time Appointment Type Appointme nt Facility Name Dec 25, 2023 08:30 AM AMBULATORY - MEDICINE [place] [facility] [place] [facility] Jan 03, 2024 01:00 PM AMBULATORY - MEDICINE [facility] [place] [facility] Jan 04, 2024 10:00 AM AM[place]UL[place]ORY - [place]IC[place] [facility] Jan 24, 2024 12:15 PM AMBULATORY - PSYCHIATRY [place] [facility] [place] [facility] Feb 01, 2024 12:00 PM AMBULATORY - PSYCHIATRY [place] [facility] [place] [facility] Feb 14, 2024 09:00 AM AMBULATORY - [place]IC[place] [facility] Feb 16, 2024 11:30 AM [facility] [place] [facility] Feb 21, 2024 02:00 PM AMBULATORY - MEDICINE [facility] [facility] Mar 20, 2024 11:30 AM AMBULATORY - PSYCHIATRY [place] [facility] [place] [facility] Mar 21, 2024 12:45 PM AMBULATORY - [facility] Mar 21, 2024 01:00 PM AMBULATORY - MEDICINE [facility] Lab Results: +/- 30 days of the encounter This section includes the Chemistry and Hematology Lab Results on record with [place] for the patient. Radiology Reports and Pathology Reports are provided separately, in subsequent sections. Lab Results This section contains the Chemistry/Hematology Results that were resulted 30 days before or 30 daysafter the date of the Encounter. Date/Time Source Result Type Result - Unit Interpretation Reference Range Comment Sep 27, 2023 08:[address] [facility] LIPID PANEL FASTING Specimen Type: SERUM No comment entered. Ordering Provider: LENIN BENSON Report Released Date/Time: September 06, 2023 02:23 PM Reporting Lab: [place] [facility] [place] [facility] [address] [facility] [address] Performing Lab: [place] [facility] [place] [facility] [address] [facility] [address] CHOLESTEROL 224 mg/dL H TRIGLYCERIDE 150 mg/dL 0-150 LDL calculated 151 mg/dL H 0-129 CHOL/HDL 5.2 HDL CHOLESTEROL 43 mg/dL 40-60 Social History: Smoking Status (Most current) and Tobacco Use (All prior to encounter date) This section includes the most current, and the historical, smoking and tobacco- related health factors from the [place] facility where the Encounter took place. Current Smoking Status This section includes the most current smoking, or tobacco-related health factor, from the [place] facility where the Encounter took place. Date/Time Current Smoking Status Comment [facility] Dec 01, 2022 03:30 PM VA-TOBACCO FORMER USER [place] [facility] [place] [facility] Tobacco Use History This section includes a history of the smoking, or tobacco-related health factors, that were collected on or before the date of the Encounter. The data comes from the [place] facility where the Encounter took place. Date/Time Smoking Status/Tobac co Use Comment Facility Dec 01, 2022 03:30 PM VA-TOBACCO QUIT 15 YRS OR MORE [place] [facility] [place] [facility] Nov 21, 2020 09:30 AM VA-TOBACCO FORMER USER [place] [facility] [place] [facility] Nov 21, 2020 09:30 AM VA-TOBACCO QUIT 15 YRS OR MORE [facility] [place] [facility] Sep 21, 2019 10:24 AM VA-TOBACCO FORMER USER [facility] [place] [facility] Sep 21, 2019 10:24 AM VA-TOBACCO QUIT 15 YRS OR MORE [facility] [place] [facility] August 31, 2018 09:07 AM VA-TOBACCO NEVER USED [place] [facility] [place] [facility] Jul 21, 2017 09:00 AM QUIT TOBACCO USE > 7 YEARS AGO He quit 20 years ago [facility] [place] [facility] Jun 17, 2016 02:37 PM LIFETIME NON-TOBACCO USER [facility] [place] [facility] May 19, 2015 04:56 PM LIFETIME NON-TOBACCO USER [place] [facility] [place] [facility] August 24, 2012 03:06 PM LIFETIME NON-TOBACCO USER [facility] Encounter Notes: All associated encounter notes This section contains the clinical notes associated to the Encounter. Date/Time Encounter Note(s) Provider Source Oct 04, 2023 11:12 AM TELEHEALTH NOTE: LOCAL TITLE: TELE EMERGENCY CARE NOTE STANDARD TITLE: TELEHEALTH NOTE DATE OF NOTE: OCT 04, 2023@11:12 ENTRY DATE: OCT 04, 2023@11:12:49 AUTHOR: ROSIE LIN COSIGNER: URGENCY: STATUS: COMPLETED This is a tele-emergency care visit to address acute/urgent issues. Definitive care on chronic medical issues will be deferred to routine Primary Care appointment/provider. Consult Origin: Referral from the Clinical Contact Center/Call Center Type of Visit: Phone Visit: Visit conducted by telephone. Location/emergency number confirmed. Emergency contact information was obtained as follows: Patient's current address [address] [place] [id number] Patient's Phone Number:PATIENT PHONE - PHONE NUMBER [CELLULAR] - Primary NOK: DENIS RAE Relation: EXTENDED FAMILY M [address] [place] [address]. [place], [place] [address] Subjective: 53 y/o MALE presents to [facility] with Low Back Pain x 2days Hx of Low Back Pain Occurred this weekend after heavy lifting +Dull throbbing pain 6/10 +Pain worst standing/sitting long periods +Difficulty walking +Radiation to RLE Reports laying down is when pain gets better Taking Tylenol sporadically with miminal relief Denies injury/trauma, saddle anesthesia, paresthesia, ACTIVE PROBLEMS: Code Description R06.83 Snoring ([facility] [id number]) M54.12 Cervical radiculopathy ([facility] [id number]) G56.00 Carpal tunnel syndrome ([facility] [id number]) M54.5 Low back pain ([facility] [id number]) F41.9 Anxiety ([facility] [id number]) R45.4 Irritability and anger ([facility] [id number]) H93.A3 Tinnitus ([facility] [id number]) F43.12 Posttraumatic stress disorder ([facility] [id number]) 369.9 Vision, Subnormal (ICD-9-CM 369.9) ALLERGIES/ADR: Patient has answered NKA Active Outpatient Medications (including Supplies): FLUOXETINE HCL 20MG CAP TAKE ONE CAPSULE BY MOUTH ONCE ACTIVE DAILY FOR DEPRESSION AND ANXIETY ROSUVASTATIN CA 10MG TAB TAKE ONE TABLET BY MOUTH ONCE ACTIVE DAILY FOR CHOLESTEROL Current medications reviewed with patient/caregiver and reconciliation of medications related to today's visit completed, including non-VA medications and discrepancies, if identified, were addressed. Medication changes and the importance of medication management were reviewed with the patient/caregiver today based on individual needs. Patient/caregiver acknowledged understanding of instructions as stated. Objective: NAD-pleasant and brnedan Reason for Referral: Musculoskeletal Assessment/Impression: Low Back Pain likely d/t MSK Strain Plan: Will Rx with Motrin 800mg TID w/ food x 7days then PRN and Flexeril 10mg BID (reviewed SE's with pt) Advised ROM exercises as tolerated and warm compresses to lower back RTC/Follow up if sxms persist/worsen Issue resolved with Tele Urgent Care appointment Patient verbalizes understanding of the care plan Time spent in telephone/video visit: Minutes: 24 /es/ ROSIE SEBASTIAN [address] [facility] Medical [employer] Operator Signed: 10/04/2023 11:39 Receipt Acknowledged By: 10/04/2023 12:36 /es/ LENIN BENSON D.O. PHYSICIAN 10/06/2023 08:08 /es/ ZULEMA DARNELL REGISTERED NURSE for ROSIE SALINAS [facility]
--- OUTSIDE RECORDS SUMMARY | 2024-03-29 01:43 | XMS_ITS | Encounter Summary ---
Author Name [facility] [place] [facility] [place] Address [address] [place] [address] Care Team Providers Care Chief Scientist Name Role Phone LENIN MALDONADO Primary Care Provider Unavailabl e Insurance Providers: [...] PHARMACY PRESCRIPT ION [facility] Apr 18, 2010 [id number] MITCHELL BRADEN PATIENT CIGBENIGNO-ASA HANKINS PREFERRED PROVIDER ORGANIZAT ION (PPO) ADVAN LILLIAN DRAIN AGE Sep 17, 2003 [id number] MITCHELL BRADEN PATIENT Selected Encounter This section includes the information on record at [place] for the Encounter. Date/Time Encounter Type Encounter Description Reason Provider Source Jan 03, 2024 01:00 PM OFFICE O/P EST MOD 30 MIN PRIMARY CARE/MEDICINE ICD-10-CM M54.12 Radiculopathy, cervical region LENIN MALDONADO IHGarcía Encounter Template Text not used by [place] Assessments - Encounter Diagnoses This section includes the primary and secondary diagnoses documented for the Encounter. Date/Time Primary/Secondary Diagnosis Diagnosis Name Provider Source Jan 03, 2024 01:46 PM PRIMARY Radiculopathy, cervical region FURCOLO,LENIN [facility] [place] [facility] Jan 03, 2024 01:46 PM SECONDARY Anxiety disorder, unspecified FURCOLO,LENIN [facility] [place] [facility] Jan 03, 2024 01:46 PM SECONDARY Carpal tunnel syndrome, unspecified upper limb FURCOLO,LENIN [facility] [place] [facility] Jan 03, 2024 01:46 PM SECONDARY Post-traumatic stress disorder, chronic FURCOLO,LENIN [facility] [place] [facility] Plan of Treatment: Future Appointments (+ 6 months) and Future Tests (+/- 45 days) The Plan of Treatment section includes future care activities for the patient from all [place] treatmentfacilities. This section includes future appointments and future orders which are active, pending or scheduled. Future Appointments This section includes appointments that were scheduled to occur 6 months from the date of the Encounter, up to a maximum of 20 appointments. The data comes from all [place] treatment facilities. Appointment Date/Time Appointment Type Appointme nt Facility Name Jan 04, 2024 10:00 AM AMBULATORY - [place]ICINE [place] [place] [facility] Jan 24, 2024 12:15 PM AMBULATORY - PSYCHIATRY [facility] [place] [facility] Feb 01, 2024 12:00 PM AMBULATORY - PSYCHIATRY [facility] [place] [facility] Feb 14, 2024 09:00 AM [facility]ATORY - [facility]IC[facility] [place] [place] [facility] Feb 16, 2024 11:30 AM AMBULATORY - PSYCHIATRY [facility] [place] [facility] Feb 21, 2024 02:00 PM AMBULATORY - MEDICINE [facility] [place] [facility] Mar 20, 2024 11:30 AM AMBULATORY - PSYCHIATRY [facility] [place] [facility] Mar 21, 2024 12:45 PM [facility] Mar 21, 2024 01:00 PM AMBULATORY - MEDICINE [facility] Apr 05, 2024 09:00 AM AMBULATORY - [facility]IC[facility] [place] [place] [facility] Apr 09, 2024 08:00 AM AMBULATORY - MEDICINE [facility] [place] [facility] Active, Pending, and Scheduled Orders This section includes a listing of several types of active, pending, and scheduled orders, including clinic medications orders, diagnostic test orders, procedure orders and consult orders; where the start date of the order is 45 days before the date of the Encounter or 45 days after the date of theEncounter. The data comes from all [place] treatment facilities. Test Date/Time Test Type Test Details Facility Name Jan 03, 2024 01:45 PM Consult Order REHAB MEDI CINE/[facility] OUTPT Cons Medical Genetics Director's Choice [facility] [place] [facility] Vital Signs: All taken on the encounter date This section contains inpatient and outpatient Vital Signs collected on the date of the Encounter. Date/Time Temperature Pulse Blood Pressure Respiratory Rate SP02 Pain Height Weight Body Mass Index Source Jan 03, 2024 12:58 PM 97.1 64 127/82 20 96 2 73 220 29 [place] [facility] [place] [facility] Social History: Smoking Status (Most current) and Tobacco Use (All prior to encounter date) This section includes the most current, and the historical, smoking and tobacco- related health factors from the [place] facility where the Encounter took place. Current Smoking Status This section includes the most current smoking, or tobacco-related health factor, from the [place] facility where the Encounter took place. Date/Time Current Smoking Status Comment Maria D bha Jan 03, 2024 01:00 PM VA-TOBACCO QUIT 15 YRS OR MORE [facility] [place] [facility] Tobacco Use History This section includes a history of the smoking, or tobacco-related health factors, that were collected on or before the date of the Encounter. The data comes from the [place] facility where the Encounter took place. Date/Time Smoking Status/Tobac co Use Comment Facility Jan 03, 2024 01:00 PM VA-TOBACCO QUIT 15 YRS OR MORE [facility] [place] [facility] Dec 01, 2022 03:30 PM VA-TOBACCO FORMER USER [facility] [place] [facility] Dec 01, 2022 03:30 PM VA-TOBACCO QUIT 15 YRS OR MORE [facility] [place] [facility] Nov 21, 2020 09:30 AM VA-TOBACCO FORMER USER [facility] [place] [facility] Nov 21, 2020 09:30 AM VA-TOBACCO QUIT 15 YRS OR MORE [facility] [place] [facility] Sep 21, 2019 10:24 AM VA-TOBACCO FORMER USER [facility] [place] [facility] Sep 21, 2019 10:24 AM VA-TOBACCO QUIT 15 YRS OR MORE [facility] [place] [facility] August 31, 2018 09:07 AM VA-TOBACCO NEVER USED [facility] [place] [facility] Jul 21, 2017 09:00 AM QUIT TOBACCO USE > 7 YEARS AGO He quit 20 years ago [facility] [place] [facility] Jun 17, 2016 02:37 PM LIFETIME NON-TOBACCO USER [facility] [place] [facility] May 19, 2015 04:56 PM LIFETIME NON-TOBACCO USER [facility] [place] [facility] August 24, 2012 03:06 PM LIFETIME NON-TOBACCO USER [facility] [place] [facility] Encounter Notes: All associated encounter notes This section contains the clinical notes associated to the Encounter. Date/Time Encounter Note(s) Provider Source Feb 15, 2024 09:58 AM PREVENTIVE MEDICIN E OUTPATIENT NOTE: LOCAL TITLE: PREVENTIVE HEALTH REVIEW STANDARD TITLE: PREVENTIVE MEDICINE OUTPATIENT NOTE DATE OF NOTE: FEB 15, 2024@09:58 ENTRY DATE: FEB 15, 2024@09:59:36 AUTHOR: KACI CALLES COSIGNER: URGENCY: STATUS: COMPLETED Cardiovascular Primary Prevention Clinic Visit [facility] Visit Note Time of visit [id number] TELEPHONE VISIT Verbal consent was obtained. [place] reports currently being at the address on file. The and myself were the only participants of this visit. Mr. Braden is a 53 y/o male with a relevant cardiovascular history of HLP, HTN, PTSD, strong fmhx CAD who was referred to the cv primary prevention clinic for eval and treatment of cv risk factors. === Patient Centered Interview: Reports that he is doing well however has been experiencing SOB with activity, feeling fatigue and unable to keep enough energy through the day and feels dizzy sometimes when he bends over. Denies any chest pain/discomfort, nausea palpitations, orthopnea, pnd, syncope, diaphoresis, leg swelling and fatigue. Complete Sleep study back in August of this year which did not confirm sleep apnea. Today he presents to the CV Prevention clinic with hopes of becoming healthier, wanting to learn about his CVD risk and how to reduce it. When asked what area of his life he would like to make changes in, he identified the following increasing his activity and improving his diet. =Cardiac Risk Factors Information obtained from cardiac wellness survey note, JVL and pt report. HLP: LDL not at goal (<70). TG 150, Total 224 H, HDL 43 and LDL 151 H on 09/27/23. Not taking any statins. HTN: Average of last 3 blood pressure readings in [facility] is 130/80. Reports that he is not taking the Prazosin HCL 1 mg daily. BODY WEIGHT: 220 lbs., Height 73 in, obesity - BMI 29.8-. [place] body weight: 176 lbs. Adjusted body weight: 194 lbs. Actual body weight is 125 % (1.3 x) ideal body weight. BLOOD GLUCOSE: HA1C 5.5, eAG on 05/10/17. STRESS/ MH: Patient Health Questionnaire-4 item (depression/anxiety): 8/12 overall = Moderate sxs of anxiety and depression. Only item endorsed was feeling down, depression, or hopeless for several days over the past month. Perceived Stress Scale-4 item: 8/16 = Moderate stress. TOBACCO: Social smoker in the past for 2 years but quit over 5 years ago. Only smoked 5-6 cigarettes in a day. ALCOHOL: 21 drinks/week. No other substance use. ACTIVITY/EXERCISE: Pt's DASI score is 36.7/7.25 METs. On this scale he identified limitations with heavy housework, moderate and strenuous sports. Walks his dog 1x/day on average (duration was not specified) but no regular exercise. DIET: Pt follows no specific dietary pattern. Consumes fruits and vegetables 1-2x/day, fish 1x/week, whole grains 1-3x/week, sugar sweetened beverages 1-2x/week, and salty foods 1-2x/day. Does not add table salt to his meals and does not track sodium. SLEEP: Rates sleep in the past month as sometimes very bad (1/5) due to carpel tunnel, tinnitus (discomfort), and stress. Takes a prescribed sleep aid every day. Previously used melatonin with limited benefit. No sleep diagnosis but meets criteria for insomnia. Recent home sleep study (Aug, 2023) that was negative for DENIA. Reports 4 hours of sleep/night on average. Difficulty maintaining enough energy for daily tasks every day. === RF: male,> male 46y/o, tobacco remote, fmhx GA male < 55 , cholesterol, obesity. === PMH: 1. Snoring 2. Cervical radiculopathy 3. Carpal tunnel syndrome 4. Low back pain 5. Anxiety 6. Irritability and anger 7. Tinnitus 8. Posttraumatic stress disorder 9. Vision, Subnormal === SOCIAL HISTORY/SUPPORT SYSTEM: Familial history of heart disease: Father of heart failure at 86 and had high cholesterol Mother had high cholesterol (Pt noted She was pretty good about managing it though. ) Sister has high cholesterol Brother has high cholesterol and failed a stress test recently and had a CABG. 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 Lives with 24 years and grown children (aged 18 and 21) in own home in [place], [place]. Social support: None per Pt. I can lean on nobody, including my , who has Stage 4 cancer. Has a therapist through [place] (weekly) Associate degrees in Business Admin and Air Transportation. Hobbies: Fishing, [place] hunting with rifle/bow, Fixing up muscle car, Home improvement === MEDICATIONS: Active and Recently Outpatient Medications (excluding Supplies): Active Outpatient Medications Status 1) FLUOXETINE HCL 10MG CAP TAKE THREE CAPSULES BY MOUTH ACTIVE ONCE DAILY FOR DEPRESSION AND ANXIETY DOSE INCREASE 2) HYDROXYZINE HCL 10MG TAB TAKE ONE TABLET BY MOUTH ACTIVE THREE TIMES DAILY NEEDED FOR ADDITIONAL MEDICATION FOR CALMING 3) not takingPrazosin 1 mg daily for BP and Rosuvastatin 10 mg daily for cholesterol. === ALLERGIES: NKA -- Exam: Telephone visit unable to complete PE. =====Cardiac Studies ========= None LABS == Information obtained from [facility] LIPID PANEL TREND Collection DT Spec CHOL HDL CHO/HDL LDL-c TRIG 09/27/2023 08:50 SERUM 224 H 43 5.2 151 H 150 06/16/2023 08:15 SERUM 231 H 41 5.6 157 H 164 H 03/28/2023 09:25 SERUM 258 H 51 5.1 175 H 158 H HEMOGLOBIN A1C TREND Collection DT Spec HGBA1c 05/10/2017 16:16 BLOOD 5.5 Mr. Braden is a 53 y/o male with a relevant cardiovascular history of HLP, HTN PTSD, strong fmhx CAD- who was referred to the cv primary prevention clinic for eval and treatment. ASCVD 10-year risk compared to age: 5.8% Life ASCVD risk: 46% Risk with ideal treatment recommendations: 2.6% Statin: 4.4 % Start B/P medication: 4.3 % ==== Recommendations to lower risk: * BP: For stage 1 HTN, manage with nonpharmacological therapy and have a repeat BP evaluation within 3 to 6 months. * LDL-C: May consider moderate intensity statin in presence of risk- enhancing factors. * Diabetes: N/A * Smoking: Assess for relapse at every visit. If using medications, encourage use for at least 3-6 months. Avoid secondhand smoke. * Aspirin: Low dose aspirin (75-100 mg oral daily) might be considered for select patients at higher risk and age 40-70. * Lifestyle: The most important way to prevent ASCVD is to promote a healthy lifestyle throughout life. Medications to reduce ASCVD risk should only be considered part of a shared decision-making process for optimal treatment when a patient's risk is sufficiently high. Decisions around the therapies listed above are assumed to be made in the context of ACC/AHA guideline-recommended lifestyle interventions. ==== Patient's Identified SMART Goal- I want to understand my risk for CVD and need for cholesterol medication. ==== Provider Identified SMART Goal for patient Specialized testing to further risk stratify CAD and guide treatment. Reduce LDL <70 and BP < 120/80. ==== Action Plan: HLP * In depth discussion of current ASCVD risk and risk enhancing factors as well as guideline recommendations for statins and lifestyle modifications. Discussed that his ASCVD risk is most likely an underestimation given that this calculator considers the more traditional risk factors and not unique risk factor such as being overweight, family hx of CAD, PTSD, and anxiety. * Discussed reasons for elevated cholesterol levels and how to improve them. Recommend following lifestyle modifications such as weight loss, avoiding ETOH, limit starchy foods instead choose whole grains, limit foods high in sugar. Recommended to include healthy fats, more vegetables and more fish in her diet. * To stratify risk of CAD will obtain a dedicated heart CT scan to assess calcium in the blood vessels and guide treatment. *Given that he has been experiencing SOB with activity and feeling fatigue will order ETT to r/o ischemia. * Will update labs (Vit D, TSH, HA1C, chem7, liver func, and lipid panel) before our next visit in March and an Lp (a) level. Will alert VIVIAN Calles via teams to help with scheduling test and labs. HTN * Discussed correlation of HTN with increased risk of heart disease and importance of achieving a goal BP<120/80 to given his cv RF. * Instructed to check and keep a daily log of his blood pressures to inform medical management. Discussed proper way to check blood pressure at home . Will review at our next visit. * Recommended following lifestyle modification diet and exercise. * Discussed how sodium intake affects blood pressure. Discussed that our body needs about 500 mg of salt every day for our body to function. However, most people take in about 10 times that amount daily. The recommended amount of salt for people with high blood pressure is about 1500 milligrams a day (which equals about 3/4 teaspoons a day). Because the average person eats so much excess sodium, even cutting back by 1,000 milligrams significantly improve blood pressure and heart health. Dizziness Discussed common causes of dizziness and instructed to stand or bend slowly, stay hydrated, and avoid excess caffeine and alcohol. If dizziness persist of becomes worst instructed to let PCP know. Overweight * Discussed that weight loss is recommended to improve the ASCVD risk- factor profile. Diet/Nutrition- * Offered referral to nutrition to help understand ways to decrease risk of CVD and improve his cholesterol. Mr. Braden is amenable. Will alert VIVIAN Calles via teams to help with scheduling. * Discussed importance of reading food labels and paying attention to calories, sugar, and fat content per serving size. Reviewed that the easiest way to cut back on calories is to watch your portion sizes. * Instructed to include more nutrient dense foods such as protein, mostly from plant sources (legumes and nuts), fish and seafood, fat-free or low-fat dairy, lean cuts of unprocessed meat and skinless poultry. * Recommended increasing intake of vegetables, fruits, legumes, nuts, whole grains, and to minimizing the intake of trans fats, processed meats, refined carbohydrates, and sweetened beverages. *Discussed healthy and unhealthy fats. Recommended avoiding trans fats, limiting saturated fat to less than 10 percent of calories a day and replace saturated fat with healthier monounsaturated and polyunsaturated fats such as fats that are liquid at room temperature such as olive oil, safflower oil. Eat fish high in omega-3 fatty acids include salmon, tuna, trout, mackerel, sardines and gilliland. Exercise * Discussed ACC recommendations to engage in at least 150 minutes per week of accumulated moderate intensity or 75 minutes per week of vigorous intensity aerobic physical activity. * Will continue to walk dog everyday. Instructed to start monitoring his daily steps and to determine what is his average daily steps. Once he figures out his average instructed to increase steps by 500 to 1000 steps a day. Discussed that the goal is to achieve 41631 steps a day. Instructed to incorporate periods of brisk walking. PTSD/Anxiety/Sleep disturbance * Continue F/u w/ MH * Discussed association of habitual short sleep duration or poor sleep quality with high blood pressure, elevated cholesterol and atherosclerosis. * Discussed that anxiety/ stress can raise B/P and HR over time and it's association with a higher risk of heart disease. Discussed using exercise, deep breathing techniques ad mindful meditation to help decrease his anxiety. ETOH use * Discussed to eliminate or decrease alcohol intake to no more than 2 alcoholic beverages per day. Discussed that heavy drinking is linked to a number of poor health outcomes, including heart conditions. * Offered consult to health psych but not interested has been working on decreasing ETOH consumption on his own. RTC 8 weeks once all testing completed. *Resources provided: Educational material on HLP, CAD, familial HLP, nutrition, exercise, ETOH and stress management. /toshia/ MARLINE MONTEIRO, MSN, STEEL PLATE CAULKER-BC NURSE PRACTITIONER Signed: 02/15/2024 09:18 /es/ KACI CALLES, information technology manager Coordination Initiative Nurse Signed: 02/15/2024 10:01 KACI CALLES [place] [facility] [place] [facility] Jan 03, 2024 01:05 PM PHYSICIAN NOTE: LOCAL TITLE: MD NOTE STANDARD TITLE: PHYSICIAN NOTE DATE OF NOTE: JAN 03, 2024@13:05 ENTRY DATE: JAN 03, 2024@13:05:51 AUTHOR: LENIN MALDONADO COSIGNER: URGENCY: STATUS: COMPLETED MITCHELL BRADEN JR is a 53 year old WHITE MALE who is being seen today in primary care for routine follow up. = CARE TEAM = Community Primary Care Provider: Dr. Ashley Montesinos [place] Specialists: optometry [facility] Specialists: neurosurgery- Dr. Short Pa = HISTORY = PERIOD OF SERVICE - [facility]CTED % - 40 SC Percent: 40% Rated Disabilities: TINNITUS (10%-SC) POST-TRAUMATIC STRESS DISORDER (30%-SC) = HISTORY OF PRESENT ILLNESS = recent requests: Call from Linda at [facility]. They would like to refer to [facility] in [place] for trigger point injections of the trapezius muscle. Linda will fax notes for Dr. aMldonado to review. If agreeable, a Physiatry consult will be needed. Alert to Lauren [place]: The Physiatry authorization can be faxed directly to Linda at [phone]. She will bundle it with the medical records and fax to [facility]. 12/25/23: tele-emergency visit: Mr. Braden is a 53 year old [...] months out for getting him an appt. prescribed higher dose of fluoxetine 20 mg to 30 mg and also added hydroxyzine 10 mg TID prn anxiety = RELEVANT PAST MEDICAL HISTORY = Active problems - Computerized Problem List is the source for the followin. Snoring 2. Cervical radiculopathy 3. Carpal tunnel syndrome 4. Low back pain 5. Anxiety 6. Irritability and anger 7. Tinnitus 8. Posttraumatic stress disorder 9. Vision, Subnormal = PAST SURGICAL HISTORY = cervical surgery = FAMILY HISTORY = Mother: Father: CAD Siblings: brother - CABG at 62 = ALLERGIES = Patient has answered NKA = MEDICATIONS = Active and Recently Outpatient Medications (excluding Supplies): Active Outpatient Medications Status 1) FLUOXETINE HCL 10MG CAP TAKE THREE CAPSULES BY MOUTH ACTIVE ONCE DAILY FOR DEPRESSION AND ANXIETY DOSE INCREASE 2) HYDROXYZINE HCL 10MG TAB TAKE ONE TABLET BY MOUTH ACTIVE THREE TIMES DAILY NEEDED FOR ADDITIONAL MEDICATION FOR CALMING 3) not takingROSUVASTATIN CA 10MG TAB TAKE ONE TABLET BY MOUTH ACTIVE ONCE DAILY FOR CHOLESTEROL = REVIEW OF SYMPTOMS = POSITIVE FOR: fatigue/anxiety/neck pain NEGATIVE FOR: CONSTITUTION: no weight loss/gain, fevers, [...] thoughts SKIN: no rash, new skin lesions = PHYSICAL EXAM = Vitals: - - - - - - - B/P: 127/82 (01/03/2024 12:58) pulse: 64 (01/03/2024 12:58) resp: 20 (01/03/2024 12:58) temp: 97.1 F [36.2 C] (01/03/2024 12:58) Ht: 73 in [185.4 cm] (01/03/2024 12:58) Wgt: 220 lb [99.79 kg] (01/03/2024 12:58) BMI: BMI: 29.1 Exam: - - - - - - - RRR S1 S2 right trapezius hypertonicity = RECENT LABS = Labs: HEMOGLOBIN A1C TREND Collection DT Spec HGBA1c 05/10/2017 16:16 BLOOD 5.5 CBC TREND Collection DT Spec WBC RBC HGB HCT MCV MCH PLT 03/28/2023 09:25 BLOOD 4.75 4.87 14.9 44.6 91.6 30.6 202 05/10/2017 16:16 BLOOD 6.26 5.09 15.1 44.1 86.6 29.7 220 CHEM 7 TREND LIPID PANEL TREND Collection DT Spec CHOL HDL CHO/HDL LDL-c TRIG 09/27/2023 08:50 SERUM 224 H 43 5.2 151 H 150 06/16/2023 08:15 SERUM 231 H 41 5.6 157 H 164 H 03/28/2023 09:25 SERUM 258 H 51 5.1 175 H 158 H = ASSESSMENT AND PLAN = 1. anxiety- flouxetine increased from 20 mg to 30 mg. given hydorxyzine 10 mg TID prn for as needed - he prefers to let the fluoxetine increased dose work first. 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 hyperlipidemia- not taking rosuvastatin. trying to improve his diet. 4. CTS- has seen physiatry previously- will refer back- may benefit from CTS injections or referral to surgery 5. family h/o CAD. has upcoming apt with cardiology = HEALTH MAINTENANCE = Colonoscopy (due at age 46) - Abdominal Aortic Aneurysm Screening (due at age 65 if smoker/prev smoker) - Prostate screening - Tetanus: due every 10 years Pneumonia Vacccine: Flu Vaccine: due yearly Covid Vaccine: due yearly = FOLLOW UP = f/u in Dec- already has scheduled apt VISIT TYPE: a MODERATE complexity visit where 30 minutes was spent in direct patient care, review of records and documentation. /toshia/ LENIN MALDONADO D.O. PHYSICIAN Signed: 01/03/2024 13:47 LENIN MALDONADO [place] [facility] [place] [facility] Jan 03, 2024 01:02 PM PREVENTIVE MEDICIN E NURSING NOTE: LOCAL TITLE: CLINICAL REMINDERS/NURSING STANDARD TITLE: PREVENTIVE MEDICINE NURSING NOTE DATE OF NOTE: JAN 03, 2024@13:02 ENTRY DATE: JAN 03, 2024@13:02:26 AUTHOR: BRO CARTAGENA COSIGNER: URGENCY: STATUS: COMPLETED Advance Directive Screen MH AD: Patient does not have an Advance Directive completed and is requesting more information. A consult was sent to Social Work Services at this visit so that an appointment can be made with the patient to review the advance directive. The patient received education about Advance Directives and written notification of his/her rights. Suicide Screen: C-SSRS Screening [place]-Suicide Severity Rating Scale (C-SSRS Screener) 1. Over the past month, have you wished you were or wished you could go to sleep and not wake up? No 2. Over the past month, have you had any actual thoughts of killing yourself? No 3. Over the past month, have you been thinking about how you might do this? Response not required due to responses to other questions. 4. Over the past month, have you had these thoughts and had some intention of acting on them? Response not required due to responses to other questions. 5. Over the past month, have you started to work out or worked out the details of how to kill yourself? Response not required due to responses to other questions. 6. If yes, at any time in the past month did you intend to carry out this plan? Response not required due to responses to other questions. 7. In your lifetime, have you ever done anything, started to do anything, or prepared to do anything to end your life (for example, collected pills, obtained a gun, gave away valuables, went to the roof but didn't jump)? No 8. If YES, was this within the past 3 months? Response not required due to responses to other questions. Homelessness/Food Insecurity Screen: In the past 2 months, have you been living in stable housing that you own, rent, or stay in as part of a household? Yes - Living in stable housing. Are you worried or concerned that in the next 2 months you may NOT have stable housing that you own, rent, or stay in as part of a household? No - Not worried about housing near future [facility] reports the following: Within the past 12 months, you worried whether your food would run out before you got money to buy more. Never true Within the past 12 months, the food you bought just didn't last and you didn't have money to get more. Never true Depression Screening: Perform PHQ-2 A PHQ-2 screen was performed. The score was 0 which is a negative screen for depression. Over the past two weeks, how often have you been bothered by the following problems? 1. Little interest or pleasure in doing things Not at all 2. Feeling down, depressed, or hopeless Not at all Tobacco Use Screening: The patient is a former tobacco user. The patient quit fifteen or more years ago. Alcohol Use Screen (AUDIT-C): Alcohol Screen: SCREEN FOR ALCOHOL (AUDIT-C) An alcohol screening test (AUDIT-C) was negative (score=1). 1. How often did you have a drink containing alcohol in the past year? Consider a drink to be a 12 ounce can or bottle of regular beer, 8 ounces of malt liquor, a 5 ounce glass of table wine, or a 1.5 ounce shot of liquor (like scotch, gin, or vodka). Monthly or less 2. How many drinks containing alcohol did you have on a typical day when you were drinking in the past year? One or two drinks 3. How often did you have six or more drinks on one occasion in the past year? 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
--- OUTSIDE RECORDS SUMMARY | 2024-03-29 01:43 | XMS_ITS | Encounter Summary ---
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 Date/Time Encounter Type Encounter Description Reason Pro vider Source Oct 18, 2023 11:54 AM Outpatient Encounter TELEPHONE TRIAGE IHE Encounter [...] 25, 2023 08:30 AM AMBULATORY - MEDICINE [facility] [place] [facility] Jan 03, 2024 01:00 PM AMBULATORY - MEDICINE [facility] [place] [facility] Jan 04, 2024 10:00 AM AMBULATORY - [place]ICINE [place] [facility] Jan 24, 2024 12:15 PM AMBULATORY - PSYCHIATRY [facility] [place] [facility] Feb 01, 2024 12:00 PM AMBULATORY - PSYCHIATRY [facility] [place] [facility] Feb 14, 2024 09:00 AM AMBULATORY - MEDICINE [place] [facility] Feb 16, 2024 11:30 AM AMBULATORY - PSYCHIATRY [facility] [place] [facility] Feb 21, 2024 02:00 PM AMBULATORY - MEDICINE [place] [facility] [place] [facility] Mar 20, 2024 11:30 AM AMBULATORY - PSYCHIATRY [facility] [place] [facility] Mar 21, 2024 12:45 PM AMBULATORY - NONE [place] Mar 21, 2024 01:00 PM AMBULATORY - MEDICINE [facility] Apr 05, 2024 09:00 AM AMBULATORY - MEDICINE [place] [facility] Apr 09, 2024 08:00 AM AMBULATORY - MEDICINE [facility] Lab Results: +/- 30 days [...] Range Comment Sep 27, 2023 08:50 AM [facility] LIPID PANEL FASTING Specimen Type: SERUM No comment entered. Ordering Provider: LENIN BENSON Report Released Date/Time: September 06, 2023 02:23 PM Reporting [facility] [address] [address] Performing Lab: [facility] [place] [facility] [address] [facility] [address] CHOLESTEROL 224 mg/dL H TRIGLYCERIDE 150 mg/dL [...] took place. Date/Time Current Smoking Status Comment [facility] it Dec 01, 2022 03:30 PM VA-TOBACCO FORMER USER [place] [facility] [place] [facility] Tobacco Use History This section includes a history of the smoking, or tobacco-related health factors, that were collected on or before the date of the Encounter. The data comes from the [place] facility where the Encounter took place. Date/Time Smoking Status/Tobac co Use Comment Facility Dec 01, 2022 03:30 PM VA-TOBACCO QUIT 15 YRS OR MORE [facility] [place] [facility] Nov 21, 2020 09:30 AM VA-TOBACCO FORMER USER [facility] [place] [facility] Nov 21, 2020 09:30 AM VA-TOBACCO QUIT 15 YRS OR MORE [facility] [place] [facility] Sep 21, 2019 10:24 AM VA-TOBACCO FORMER USER [place] [facility] [place] [facility] Sep 21, 2019 10:24 AM VA-TOBACCO QUIT 15 YRS OR MORE [facility] [place] [facility] August 31, 2018 09:07 AM VA-TOBACCO NEVER USED [facility] [place] [facility] Jul 21, 2017 09:00 AM QUIT TOBACCO USE > 7 YEARS AGO He quit 20 years ago [facility] [place] [facility] Jun 17, 2016 02:37 PM LIFETIME NON-TOBACCO USER [facility] [place] [facility] May 19, 2015 04:56 PM LIFETIME NON-TOBACCO USER [facility] [place] [facility] August 24, 2012 03:06 PM LIFETIME NON-TOBACCO USER [facility] [place] [facility] Encounter Notes: All associated encounter notes This section contains the clinical notes associated to the Encounter. Date/Time Encounter Note(s) Provider Source Oct 18, 2023 11:54 AM RN PROGRESS NOTE: LOCAL TITLE: CCC: CLINICAL TRIAGE STANDARD TITLE: RN PROGRESS NOTE DATE OF NOTE: OCT 18, 2023@11:54:21 ENTRY DATE: OCT 18, 2023@11:54:22 AUTHOR: MAYRA CASTLE COSIGNER: URGENCY: STATUS: COMPLETED Patient Demographics Patient Name: MITCHELL RAE Patient Primary [address]: [address] [place] [id number] Patient Primary Phone: [phone] Patient : 1970 Patient Age: 53 Caller/Recipient Relation to Patient: Self Emergency Contact: DENIS RAE Triage Summary Utilized the Triage Tool: Yes Chief Complaint: Back Pain System WHEN: Within 8 Hours Nurse's Recommendation / WHEN: Within 8 Hours System WHERE: Urgent care center Nurse's Recommendation / WHERE: Urgent [place] Patient Disposition Patient/Caregiver agrees to plan of care: Yes Nursing Plan and Disposition Referred patient to higher level of care Instructed to go to Urgent Care (UC) Provided location of Urgent Care Center Advised of [place] [facility] Benefits Other course(s) of action Generated msg to PACT/Provider Provided guidance for worsening symptoms: *Caller/Patient* advised to call facilities [place] Clinical Contact Center or seek immediate medical attention for new or worsening symptoms Nurse Summary Nurse Summary: [place] calls reporting acute on chronic 10/25 low back pain 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 reports pain is radiating down into left leg. reports that he has called about this sx. prior and was prescribed Ibuprofen 800mg. [place] reports that he has not taken this x2 days since [place] and that the pain has not gotten any worse that when it started, but it is not getting any better. Triaged. This RN recommends UC: [address] [address] Main number: [phone] [place] [facility] benefit reviewed. Location and contact information provided. PACT post UC follow-up call back requested for further guided plan of care. Verified Ph. [phone] Clinical Contact Center Codes Clinic/Location: V1 [facility] PHONE CCC RN TXCC Triage Complete Triage Date: 10/18/2023, 11:44 AM Triage Note: Phone Triage 18 Oct 2023 15:40:37 +0000 [facility] Demographics 53 y/o Male Results CC: Back Pain Software suggested: Within 8 Hours Software suggested follow-up location: Urgent care center Values and Measures Duration of CC: 2 Weeks Positive Responses HPI: back injury, recent HPI: back pain, developed after lifting something HPI: back pain, radiation down leg HPI: back pain, severe, duration longer than 2 hours HPI: leg weakness, unilateral, since the injury Negative Responses Denies: HPI: leg numbness, since the injury Denies: HPI: urinary incontinence, since the injury /toshia/ MAYRA CASTLE [id number] Signed: 10/18/2023 11:54 Receipt Acknowledged By: 10/19/2023 14:18 /es/ HARPREET JAMES LPN License Practical Nurse 10/18/2023 12:02 /es/ VIKY AGUIRRE, VIVIAN REGISTERED NURSE MAYRA CASTLE [facility]
--- OUTSIDE RECORDS SUMMARY | 2024-03-29 01:43 | XMS_ITS | Encounter Summary ---
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 Date/Time Encounter Type Encounter Description Reason Pro vider Source Dec 23, 2023 12:55 PM Outpatient Encounter TELEPHONE TRIAGE IHE Encounter Template [...] 20 appointments. The data comes from all [facility]. Appointment Date/Time Appointment Type Appointme nt Facility Name Dec 25, 2023 08:30 AM AMBULATORY - MEDICINE [place] [facility] [place] [facility] Jan 03, 2024 01:00 PM AM[place]ORY [place]IC[place] [facility] [place] [facility] Jan 04, 2024 10:00 AM [place] [facility] Jan 24, 2024 12:15 PM AMBULATORY - [place]IATRY [place] [facility] [place] [facility] Feb 01, 2024 12:00 PM AMBULATORY - [place]IATRY [place] [facility] [place] [facility] Feb 14, 2024 09:00 AM [place]ATORY - [place]IC[place] [facility] Feb 16, 2024 11:30 AM AMBULATORY - [place]IATRY [place] [facility] [place] [facility] Feb 21, 2024 02:00 PM AM[place]ULATORY - [place]ICINE [place] [facility] [place] [facility] Mar 20, 2024 11:30 AM AMBULATORY [place]ATRY [place] [facility] [place] [facility] Mar 21, 2024 12:45 PM AMBULATORY - NONE [place] Mar 21, 2024 01:00 PM AMBULATORY - MEDICINE [facility] Apr 05, 2024 09:00 AM AMBULATORY - [place]ICINE [place] [facility] Apr 09, 2024 08:00 AM AM[facility]UL[facility]ORY - [facility] Active, Pending, and Scheduled Orders This section includes a listing of several types of active, pending, and scheduled orders, including clinic medications orders, diagnostic test orders, procedure orders and consult orders; where the start date of the order is 45 days before the date of the Encounter or 45 days after the date of theEncounter. The data comes from all [place] treatment [facility]. 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 Date/Time Current Smoking Status Comment Facil [facility] Dec 01, 2022 03:30 PM VA-TOBACCO QUIT 15 YRS OR MORE [place] [facility] [place] [facility] Tobacco Use History This section includes a history of the smoking, or tobacco-related health factors, that were collected on or before the date of the Encounter. The data comes from the [place] facility where the Encounter took place. Date/Time Smoking Status/Tobac co Use Comment Facility Dec 01, 2022 03:30 PM VA-TOBACCO QUIT 15 YRS OR MORE [place] [facility] [place] [facility] Nov 21, 2020 09:30 AM VA-TOBACCO FORMER USER [place] [facility] [place] [facility] Nov 21, 2020 09:30 AM VA-TOBACCO QUIT 15 YRS OR MORE [place] [facility] [place] [facility] Sep 21, 2019 10:24 AM VA-TOBACCO FORMER USER [place] [facility] [place] [facility] Sep 21, 2019 10:24 AM VA-TOBACCO QUIT 15 YRS OR MORE [place] [facility] [place] [facility] August 31, 2018 09:07 AM VA-TOBACCO NEVER USED [place] [facility] [place] [facility] Jul 21, 2017 09:00 AM QUIT TOBACCO USE > 7 YEARS AGO He quit 20 years ago [place] [facility] [place] [facility] Jun 17, 2016 02:37 PM LIFETIME NON-TOBACCO USER [place] [facility] [place] [facility] May 19, 2015 04:56 PM LIFETIME NON-TOBACCO USER [place] [facility] [place] [facility] August 24, 2012 03:06 PM LIFETIME NON-TOBACCO USER [place] [facility] [place] [facility] Encounter Notes: All associated encounter notes This section contains the clinical notes associated to the Encounter. Date/Time Encounter Note(s) Provider Source Dec 23, 2023 03:58 PM ADDENDUM: LOCAL TITLE: Addendum STANDARD TITLE: ADDENDUM DATE OF NOTE: DEC 23, 2023@15:58:56 ENTRY DATE: DEC 23, 2023@15:58:56 AUTHOR: LENIN BENSON EXP COSIGNER: URGENCY: STATUS: COMPLETED recommend increasing his fluoxetine from 20 mg daily to 30 mg daily. have him start taking 1.5 tabs daily of his current supply and i will send new 30 mg dose from pharmacy. also- will do RX for hydroxyzine 10 mg TID prn anxiety. have him f/u with me in 4 weeks to assess effects. can be vvc or in person. send to [facility] after confirm ok plan with hime. from message- it looks like he does have outside therapist /toshia/ LENIN BENSON D.O. PHYSICIAN Signed: 12/23/2023 16:00 Receipt Acknowledged By: 12/26/2023 10:44 /es/ VIKY AGUIRRE RN REGISTERED NURSE === --- Original Document --- 12/23/23 CCC: CLINICAL TRIAGE: Patient Demographics Patient Name: MITCHELL RAE Patient Primary Address: [address] [place] [id number] Patient Primary Phone: [phone] Patient : 1970 Patient Age: 53 Caller/Recipient Relation to Patient: Self Emergency Contact: DENIS RAE Triage Summary Conducted triage/discussed symptoms Utilized the Triage Tool: Yes Chief Complaint: Anxiety System WHEN: Within 3 Days Nurse's Recommendation / WHEN: Within 3 Days System WHERE: Clinic Nurse's Recommendation / WHERE: Clinic/[facility] Patient Disposition Patient/Caregiver agrees to plan of care: Yes Nursing Plan and Disposition Referred for [facility] Virtual Clinic Visit Transferred patient to Sched & Admin-VCV Generated msg to PACT/Provider Provided guidance for worsening symptoms: *Caller/Patient* advised to call facilities [place] Clinical Contact Center or seek immediate medical attention for new or worsening symptoms Nurse Summary Nurse Summary: pt reports he had an appt with o/s therapist today who rec he call pcp to request prn med for anxiety pt currently taking fluoxetine a/o for about 5 weeks having worsening anxiety and difficulty sleeping wakes up in the middle of the night with a lot of anxiety cant get back to sleep chest tightness overnight with the anxiety- pt states this is not new or worse (has had previous cardiac workup for this) sports book writer attempted to triage for chest tightness- pt declined and was adamant he did not want to discuss chest pain and would like triage for anxiety pt has a preventative cardiology consult sched for 01/2024 pt also notes worsening tinnitus when he wakes up overnight wears ear plugs denies recent head injury, h/as, ear sxs reports occasional dizziness/spinning sensation approx 1x/mo since march which has imporved pt denies SI/HI im sad denies severe depression, reports good family support NAD during call- see triage [facility] rec 3 day f/u sports book writer attempted to reach MH SDA, no answer, left message for call back on behalf of pt pt agrees to f2f/virtual w pcp or [facility] nps w/in rec timeframe, if no appts available pt would like a call back from PC, pt declined to review uc options pt is aware of VCL @ 988 and er/911 for immed medical attention for any new/worsening sxs/MH crisis WARM TX TO [facility] FOR BOOKING NOTE TO PACT FOR F/U Clinical Contact Center Codes Clinic/Location: V1 CWM PHONE [facility] RN Decision Support System Output: Triage Complete Triage Date: 12/23/2023, 12:41 PM Triage Note: Decision Support Tool Used: [facility] Phone Triage 23 Dec 2023 16:28:28 +0000 [facility] Demographics 53 y/o Male Results CC: Anxiety Software suggested: Within 3 Days Software suggested follow-up location: Clinic, consider virtual care Values and Measures Duration of CC: 5 Weeks Positive Responses HPI: depressed mood, constant HPI: depressed mood, duration longer than 2 weeks HPI: wished you were or could go to sleep and not wake up MEDS: antidepressant SOC: ETOH use Negative Responses Denies: HPI: depressed mood, severe Denies: HPI: depressed mood, worsening Denies: HPI: feels life is no longer meaningful Denies: HPI: has plans to injure another person Denies: HPI: homicidal thoughts Denies: HPI: suicidal thoughts Denies: HPI: suicide planning and preparatory behavior, at some point during lifetime Denies: HPI: suicide planning and preparatory behavior, within past 3 months Denies: HPI: wished you were or could go to sleep and not wake up, within the past month Denies: MEDS: patient has stopped taking antidepressant medication Denies: PMH: prior suicide attempt Denies: SOC: alcohol abuse Denies: SOC: drug abuse IMPORTANT: This note was created by [facility] Clinical Contact Center staff. Please do not alert the staff member by adding them as a signer for future communications. Alerts are not monitored by this user. /toshia/ STEPHANIE SEBASTIAN 1 [facility] RN Signed: 12/23/2023 12:55 Receipt Acknowledged By: 12/23/2023 14:15 /es/ HARPREET JAMES LPN License Practical Nurse 12/23/2023 13:19 /toshia/ VIKY AGUIRRE RN REGISTERED NURSE 12/23/2023 ADDENDUM STATUS: COMPLETED ALERT TO PCP, seen by MD on 09/27/23. Does not appear to have MH provider in place. Do you want appt scheduled with prior to any prescriptions for anxiety? /rhianna AGUIRRE RN REGISTERED NURSE Signed: 12/23/2023 13:20 Receipt Acknowledged By: 12/23/2023 15:58 /toshia/ LENIN BENSON D.O. PHYSICIAN 12/26/2023 ADDENDUM STATUS: COMPLETED Spoke directly with and advised of Dr. Benson's recommendations. He cannot cut tablets as he has capsule. Advised to start 30 mg Fluoxetine upon receipt. He has many questions regarding Hydroxizine and states I really don't think that's strong enought to work . he is amenable to a trial of this and will discuss in detail at upcoming PCP appt. /rhianna AGUIRRE RN REGISTERED NURSE Signed: 12/26/2023 10:43 LENIN BENSON [place] [facility] [place] [facility] Dec 23, 2023 01:19 PM ADDENDUM: LOCAL TITLE: Addendum STANDARD TITLE: ADDENDUM DATE OF NOTE: DEC 23, 2023@13:19:41 ENTRY DATE: DEC 23, 2023@13:19:42 AUTHOR: VIKY AGUIRRE EXP COSIGNER: URGENCY: STATUS: COMPLETED ALERT TO PCP, seen by MD on 09/27/23. Does not appear to have MH provider in place. Do you want appt scheduled with prior to any prescriptions for anxiety? /es/ VIKY AGUIRRE RN REGISTERED NURSE Signed: 12/23/2023 13:20 Receipt Acknowledged By: 12/23/2023 15:58 /toshia/ LENIN BENSON D.O. PHYSICIAN === --- Original Document --- 12/23/23 CCC: CLINICAL TRIAGE: Patient Demographics Patient Name: MITCHELL RAE Patient Primary Address: [address] [place] [id number] Patient Primary Phone: [phone] Patient : 1970 Patient Age: 53 Caller/Recipient Relation to Patient: Self Emergency Contact: DENIS RAE Triage Summary Conducted triage/discussed symptoms Utilized the Triage Tool: Yes Chief Complaint: Anxiety System WHEN: Within 3 Days Nurse's Recommendation / WHEN: Within 3 Days System WHERE: Clinic Nurse's Recommendation / WHERE: Clinic[facility] Patient Disposition Patient/Caregiver agrees to plan of care: Yes Nursing Plan and Disposition Referred for [facility] Virtual Clinic Visit Transferred patient to Sched & Admin-VCV Generated msg to PACT/Provider Provided guidance for worsening symptoms: *Caller/Patient* advised to call facilities [place] Clinical Contact Center or seek immediate medical attention for new or worsening symptoms Nurse Summary Nurse Summary: pt reports he had an appt with o/s therapist today who rec he call pcp to request prn med for anxiety pt currently taking fluoxetine a/o for about 5 weeks having worsening anxiety and difficulty sleeping wakes up in the middle of the night with a lot of anxiety cant get back to sleep chest tightness overnight with the anxiety- pt states this is not new or worse (has had previous cardiac workup for this) sports book writer attempted to triage for chest tightness- pt declined and was adamant he did not want to discuss chest pain and would like triage for anxiety pt has a preventative cardiology consult sched for 01/2024 pt also notes worsening tinnitus when he wakes up overnight wears ear plugs denies recent head injury, h/as, ear sxs reports occasional dizziness/spinning sensation approx 1x/mo since march which has imporved pt denies SI/HI im sad denies severe depression, reports good family support NAD during call- see triage [facility] rec 3 day f/u sports book writer attempted to reach MH SDA, no answer, left message for call back on behalf of pt pt agrees to f2f/virtual w pcp or [facility] nps w/in rec timeframe, if no appts available pt would like a call back from PC, pt declined to review uc options pt is aware of VCL @ 988 and er/911 for immed medical attention for any new/worsening sxs/MH crisis WARM TX TO [facility] FOR BOOKING NOTE TO PACT FOR F/U Clinical Contact Center Codes Clinic/Location: CWM PHONE [facility] RN Decision Support System Output: Triage Complete Triage Date: 12/23/2023, 12:41 PM Triage Note: Decision Support Tool Used: [facility] Phone Triage 23 Dec 2023 16:28:28 +0000 [facility] Demographics 53 y/o Male Results CC: Anxiety Software suggested: Within 3 Days Software suggested follow-up location: Clinic, consider virtual care Values and Measures Duration of CC: 5 Weeks Positive Responses HPI: depressed mood, constant HPI: depressed mood, duration longer than 2 weeks HPI: wished you were or could go to sleep and not wake up MEDS: antidepressant SOC: ETOH use Negative Responses Denies: HPI: depressed mood, severe Denies: HPI: depressed mood, worsening Denies: HPI: feels life is no longer meaningful Denies: HPI: has plans to injure another person Denies: HPI: homicidal thoughts Denies: HPI: suicidal thoughts Denies: HPI: suicide planning and preparatory behavior, at some point during lifetime Denies: HPI: suicide planning and preparatory behavior, within past 3 months Denies: HPI: wished you were or could go to sleep and not wake up, within the past month Denies: MEDS: patient has stopped taking antidepressant medication Denies: PMH: prior suicide attempt Denies: SOC: alcohol abuse Denies: SOC: drug abuse IMPORTANT: This note was created by [facility] Clinical Contact Center staff. Please do not alert the staff member by adding them as a signer for future communications. Alerts are not monitored by this user. /toshia/ STEPHANIE SEBASTIAN 1 CCC RN Signed: 12/23/2023 12:55 Receipt Acknowledged By: 12/23/2023 14:15 /es/ HARPREET JAMES LPN License Practical Nurse 12/23/2023 13:19 /es/ VIKY AGUIRRE, RN REGISTERED NURSE 12/23/2023 ADDENDUM STATUS: UNSIGNED You may not VIEW this UNSIGNED Addendum. VIKY AGUIRRE [place] [facility] [facility] [place] [facility] Dec 23, 2023 12:55 PM RN PROGRESS NOTE: LOCAL TITLE: CCC: CLINICAL TRIAGE STANDARD TITLE: RN PROGRESS NOTE DATE OF NOTE: DEC 23, 2023@12:55:11 ENTRY DATE: DEC 23, 2023@12:55:11 AUTHOR: STEPHANIE ALEMAN EXP COSIGNER: URGENCY: STATUS: COMPLETED CCC: CLINICAL TRIAGE Has ADDENDA Patient Demographics Patient Name: MITCHELL RAE Patient Primary Address: [address] [place] [address] Patient Primary Phone: [phone] Patient : 1970 Patient Age: 53 Caller/Recipient Relation to Patient: Self Emergency Contact: DENIS RAE Triage Summary Conducted triage/discussed symptoms Utilized the Triage Tool: Yes Chief Complaint: Anxiety System WHEN: Within 3 Days Nurse's Recommendation / WHEN: Within 3 Days System WHERE: Clinic Nurse's Recommendation / WHERE: Clinic[facility] Patient Disposition Patient/Caregiver agrees to plan of care: Yes Nursing Plan and Disposition Referred for [facility] Virtual Clinic Visit Transferred patient to Sched & Admin-VCV Generated msg to PACT/Provider Provided guidance for worsening symptoms: *Caller/Patient* advised to call facilities [place] Clinical Contact Center or seek immediate medical attention for new or worsening symptoms Nurse Summary Nurse Summary: pt reports he had an appt with o/s therapist today who rec he call pcp to request prn med for anxiety pt currently taking fluoxetine a/o for about 5 weeks having worsening anxiety and difficulty sleeping wakes up in the middle of the night with a lot of anxiety cant get back to sleep chest tightness overnight with the anxiety- pt states this is not new or worse (has had previous cardiac workup for this) sports book writer attempted to triage for chest tightness- pt declined and was adamant he did not want to discuss chest pain and would like triage for anxiety pt has a preventative cardiology consult sched for 01/2024 pt also notes worsening tinnitus when he wakes up overnight wears ear plugs denies recent head injury, h/as, ear sxs reports occasional dizziness/spinning sensation approx 1x/mo since march which has imporved pt denies SI/HI im sad denies severe depression, reports good family support NAD during call- see triage [facility] rec 3 day f/u sports book writer attempted to reach MH SDA, no answer, left message for call back on behalf of pt pt agrees to f2f/virtual w pcp or [facility] nps w/in rec timeframe, if no appts available pt would like a call back from PC, pt declined to review uc options pt is aware of VCL @ 988 and er/911 for immed medical attention for any new/worsening sxs/MH crisis WARM TX TO [facility] FOR BOOKING NOTE TO PACT FOR F/U Clinical Contact Center Codes Clinic/Location: V1 CWM PHONE [facility] RN Decision Support System Output: Triage Complete Triage Date: 12/23/2023, 12:41 PM Triage Note: Decision Support Tool Used: [facility] Phone Triage 23 Dec 2023 16:28:28 +0000 [facility] Demographics 53 y/o Male Results CC: Anxiety Software suggested: Within 3 Days Software suggested follow-up location: Clinic, consider virtual care Values and Measures Duration of CC: 5 Weeks Positive Responses HPI: depressed mood, constant HPI: depressed mood, duration longer than 2 weeks HPI: wished you were or could go to sleep and not wake up MEDS: antidepressant SOC: ETOH use Negative Responses Denies: HPI: depressed mood, severe Denies: HPI: depressed mood, worsening Denies: HPI: feels life is no longer meaningful Denies: HPI: has plans to injure another person Denies: HPI: homicidal thoughts Denies: HPI: suicidal thoughts Denies: HPI: suicide planning and preparatory behavior, at some point during lifetime Denies: HPI: suicide planning and preparatory behavior, within past 3 months Denies: HPI: wished you were or could go to sleep and not wake up, within the past month Denies: MEDS: patient has stopped taking antidepressant medication Denies: PMH: prior suicide attempt Denies: SOC: alcohol abuse Denies: SOC: drug abuse IMPORTANT: This note was created by [facility] Clinical Contact Center staff. Please do not alert the staff member by adding them as a signer for future communications. Alerts are not monitored by this user. /es/ STEPHANIE SEBASTIAN 1 [facility] RN Signed: 12/23/2023 12:55 Receipt Acknowledged By: 12/23/2023 14:15 /es/ HARPREET JAMES LPN License Practical Nurse 12/23/2023 13:19 /toshia/ VIKY AGUIRRE RN REGISTERED NURSE 12/23/2023 ADDENDUM STATUS: COMPLETED ALERT TO PCP, seen by MD on 09/27/23. Does not appear to have MH provider in place. Do you want appt scheduled with prior to any prescriptions for anxiety? /toshia/ VIKY AGUIRRE RN REGISTERED NURSE Signed: 12/23/2023 13:20 Receipt Acknowledged By: 12/23/2023 15:58 /toshia/ LENIN BENSON D.O. PHYSICIAN 12/23/2023 ADDENDUM STATUS: COMPLETED recommend increasing his fluoxetine from 20 mg daily to 30 mg daily. have him start taking 1.5 tabs daily of his current supply and i will send new 30 mg dose from pharmacy. also- will do RX for hydroxyzine 10 mg TID prn anxiety. have him f/u with me in 4 weeks to assess effects. can be vvc or in person. send to [facility] after confirm ok plan with hime. from message- it looks like he does have outside therapist /toshia/ LENIN BENSON D.O. PHYSICIAN Signed: 12/23/2023 16:00 Receipt Acknowledged By: 12/26/2023 10:44 /toshia/ VIKY AGUIRRE RN REGISTERED NURSE 12/26/2023 ADDENDUM STATUS: COMPLETED Spoke directly with and advised of Dr. Benson's recommendations. He cannot cut tablets as he has capsule. Advised to start 30 mg Fluoxetine upon receipt. He has many questions regarding Hydroxizine and states I really don't think that's strong enought to work . he is amenable to a trial of this and will discuss in detail at upcoming PCP appt. /es/ VIKY AGUIRRE RN REGISTERED NURSE Signed: 12/26/2023 10:[address] [facility]
--- OUTSIDE RECORDS SUMMARY | 2024-03-29 01:43 | XMS_ITS ---
Author Name [facility] [place] Address [address] [place] [address] Care Team Providers Care Draw Off Worker Name Role Phone LENIN BENSON Primary Care [...] PHARMACY PRESCRIPT ION [facility] Apr 18, 2010 [id number] [phone] MITCHELL RAE PATIENT IAIN-ASA HANKINS PREFERRED PROVIDER ORGANIZAT ION (PPO) ADVAN LILLIAN DRAIN AGE Sep 17, 2002 [id number] MITCHELL RAE PATIENT Selected Encounter This section includes the information on record at [place] for the Encounter. Date/Time Encounter Type Encounter Description Reason Pro vider Source Jan 24, 2024 10:28 AM [facility] Template Text not used by [place] Plan of Treatment: Future Appointments (+ 6 [...] Date/Time Appointment Type Appointme nt Facility Name Feb 01, 2024 12:00 PM AMBULATORY - PSYCHIATRY [facility] Feb 14, 2024 09:00 AM AMBULATORY - MEDICINE [facility] Feb 16, 2024 11:30 AM [facility] Feb 21, 2024 02:00 PM [facility] Mar 20, 2024 11:30 AM AMBULATORY - PSYCHIATRY [facility] Mar 21, 2024 12:45 PM AMBULATORY - NONE LISA Jo Mar 21, 2024 01:00 [facility] Apr 05, 2024 09:00 AM AMBULATORY - MEDICINE [facility] Apr 09, 2024 08:00 AM AMBULATORY - MEDICINE [facility] Active, Pending, and Scheduled Orders This section includes a listing of several types of active, pending, and scheduled orders, including clinic medications orders, diagnostic test orders, procedure orders and consult orders; where the start date of the order is 45 days before the date of the Encounter or 45 days after the date of theEncounter. The data comes from all [facility]. Test Date/Time Test Type Test Details Facility Name Jan 03, 2024 01:45 PM Consult Order REHAB MEDI [facility] OUTPT Cons Buckle Stringer's Choice [facility] Social History: Smoking Status (Most current) [...] Encounter took place. Date/Time Current Smoking Status Lydia trujillo Jan 03, 2024 01:00 PM VA-TOBACCO FORMER USER [facility] Tobacco Use History This section includes a history of the smoking, or tobacco-related health factors, that were collected on or before the date of the Encounter. The data comes from the [place] facility where the Encounter took place. Date/Time Smoking Status/Tobac co Use Comment Facility Jan 03, 2024 01:00 PM VA-TOBACCO QUIT 15 YRS OR MORE [facility] [place] [facility] Dec 01, 2022 03:30 PM VA-TOBACCO FORMER USER [facility] [place] [facility] Dec 01, 2022 03:30 PM VA-TOBACCO QUIT 15 YRS OR MORE [facility] [place] [facility] Nov 21, 2020 09:30 AM VA-TOBACCO FORMER USER [facility] [place] [facility] Nov 21, 2020 09:30 AM VA-TOBACCO QUIT 15 YRS OR MORE [place] [facility] [place] [facility] Sep 21, 2019 10:24 AM VA-TOBACCO FORMER USER [facility] [place] [facility] Sep 21, 2019 10:24 AM VA-TOBACCO QUIT 15 YRS OR MORE [place] [facility] [place] [facility] August 31, 2018 09:07 AM VA-TOBACCO NEVER USED [place] [facility] [place] [facility] Jul 21, 2017 09:00 AM QUIT TOBACCO USE > 7 YEARS AGO He quit 20 years ago [facility] [place] [facility] Jun 17, 2016 02:37 PM LIFETIME NON-TOBACCO USER [facility] [place] [facility] May 19, 2015 04:56 PM LIFETIME NON-TOBACCO USER [facility] [place] [facility] August 24, 2012 03:06 PM LIFETIME NON-TOBACCO USER [facility] [place] [facility] Encounter Notes: All associated encounter notes This section contains the clinical notes associated to the Encounter. Date/Time Encounter Note(s) Provider Source Jan 24, 2024 10:29 AM LETTERS: LOCAL TITLE: PATIENT LETTER (B) STANDARD TITLE: LETTERS DATE OF NOTE: JAN 24, 2024@10:29 ENTRY DATE: JAN 24, 2024@10:29:05 AUTHOR: ENRIQUE ISBELL COSIGNER: URGENCY: STATUS: COMPLETED [address] [address] JAN 24, 2024 MITCHELL RAE [address] [place], [place] [address] Dear MITCHELL RAE JR [facility] RN Yasmine Banda has attempted to reach you by phone but have been unable to reach you. We are waiting to speak with you at your earliest convenience. If you are not interested at this time, please let us know. Please call us within 14 days of this letter or we will assume you are no longer interested in this service. We look forward to hearing from you soon. Sincerely, [facility] [address] [phone] ENRIQUE ISBELL [facility] ([id number])
--- OUTSIDE RECORDS SUMMARY | 2024-03-29 01:43 | XMS_ITS | Encounter Summary ---
Author Name [facility] [place] [facility] [place] [facility] [place] Address [address] [place] [address] Care Team Providers Care Real Estate Economist Name Role Phone LENIN BENSON Primary Care [...] PHARMACY PRESCRIPT ION [facility] Apr 18, 2010 [id number] MITCHELL RAE PATIENT IAIN-ASA HANKINS PREFERRED PROVIDER ORGANIZAT ION (PPO) ADVAN LILLIAN DRAIN AGE Sep 17, 2002 [id number] MITCHELL RAE PATIENT Selected Encounter This section includes the information on record at [place] for the Encounter. Date/Time Encounter Type Encounter Description Reason Pro vider Source Dec 25, 2023 08:30 AM Outpatient Encounter TELEPHONE TRIAGE IHE Encounter [...] 20 appointments. The data comes from all [facility]. Appointment Date/Time Appointment Type Appointme nt Facility Name Jan 03, 2024 01:00 PM AMBULATORY - [place]ICINE [place] [facility] [place] [facility] Jan 04, 2024 10:00 AM AM[place]ORY [place]IC[place] [facility] Jan 24, 2024 12:15 PM AMBULATORY - PS[place]CHIATRY [place] [facility] [place] [facility] Feb 01, 2024 12:00 PM AMBULATORY - PS[place]CHIATRY [place] [facility] [place] [facility] Feb 14, 2024 09:00 AM AMBUL[place]ORY - [place]IC[place] [facility] Feb 16, 2024 11:30 AM AMBULATORY - PS[place]CHIATRY [place] [facility] [place] [facility] Feb 21, 2024 02:00 PM AMBULATORY - MEDICINE [place] [facility] [place] [facility] Mar 20, 2024 11:30 AM [facility] [place] [facility] Mar 21, 2024 12:45 PM AMBULATORY - NONE [place] [facility] Mar 21, 2024 01:00 PM AMBUL[facility] Apr 05, 2024 09:00 AM [facility] Apr 09, 2024 08:00 AM [facility]ULAT[facility] Active, Pending, and Scheduled Orders This section includes a listing of several types of active, pending, and scheduled orders, including clinic medications orders, diagnostic test orders, procedure orders and consult orders; where the start date of the order is 45 days before the date of the Encounter or 45 days after the date of theEncounter. The data comes from all [facility]. Test Date/Time Test Type Test Details Facility Name Jan 03, 2024 01:45 PM Consult Order REHAB MEDI [facility] OUTPT Cons Loom Operator's Choice [facility] Social History: Smoking Status (Most current) and [...] took place. Date/Time Current Smoking Status Comment [facility] Dec 01, 2022 03:30 PM VA-TOBACCO FORMER USER [facility] Tobacco Use History This section includes a history of the smoking, or tobacco-related health factors, that were collected on or before the date of the Encounter. The data comes from the [place] facility where the Encounter took place. Date/Time Smoking Status/Tobac co Use Comment Facility Dec 01, 2022 03:30 PM VA-TOBACCO QUIT 15 YRS OR MORE [place] [facility] [place] [facility] Nov 21, 2020 09:30 AM VA-TOBACCO FORMER USER [place] [facility] [place] [facility] Nov 21, 2020 09:30 AM VA-TOBACCO QUIT 15 YRS OR MORE [place] [facility] [place] [facility] Sep 21, 2019 10:24 AM VA-TOBACCO FORMER USER [place] [facility] [place] [facility] Sep 21, 2019 10:24 AM VA-TOBACCO QUIT 15 YRS OR MORE [place] [facility] [place] [facility] August 31, 2018 09:07 AM VA-TOBACCO NEVER USED [place] [facility] [place] [facility] Jul 21, 2017 09:00 AM QUIT TOBACCO USE > 7 YEARS AGO He quit 20 years ago [place] [facility] [place] [facility] Jun 17, 2016 02:37 PM LIFETIME NON-TOBACCO USER [place] [facility] [place] [facility] May 19, 2015 04:56 PM LIFETIME NON-TOBACCO USER [place] [facility] [place] [facility] August 24, 2012 03:06 PM LIFETIME NON-TOBACCO USER [place] [facility] [place] [facility] Encounter Notes: All associated encounter notes This section contains the clinical notes associated to the Encounter. Date/Time Encounter Note(s) Provider Source Dec 25, 2023 08:44 AM TELEHEALTH NOTE: LOCAL TITLE: TELE EMERGENCY CARE NOTE STANDARD TITLE: TELEHEALTH NOTE DATE OF NOTE: DEC 25, 2023@08:44 ENTRY DATE: DEC 25, 2023@08:44:48 AUTHOR: JANESSA FERRERA COSIGNER: URGENCY: STATUS: COMPLETED This is a tele-emergency care visit to address acute/urgent issues. Definitive care on chronic medical issues will be deferred to routine Primary Care appointment/provider. Consult Origin: Referral from the Clinical Contact Center/Call Center Type of Visit: Phone Visit: Visit conducted by telephone. Location/emergency number confirmed. Emergency contact information was obtained as follows: Patient's current address [address] [place], [place] [address] Patient's Phone Number:PATIENT PHONE - PHONE NUMBER [CELLULAR] - Primary NOK: KYRADENIS Relation: EXTENDED FAMILY M [address] [facility] [place], [place] [address] Subjective: Patient did not show up for today's scheduled Clinical Care Clinic telephone appointment. Called via telephone number: , Messge left at 8:32 AM Messge left at 8:45 AM instructing Jay that they can call the [facility] at [phone] to reschedule visit if visit still needed. ACTIVE PROBLEMS: Code Description R06.83 Snoring ([facility] [id number]) M54.12 Cervical radiculopathy ([facility] [id number]) G56.00 Carpal tunnel syndrome ([facility] [id number]) M54.5 Low back pain ([facility] [id number]) F41.9 Anxiety ([facility] [id number]) R45.4 Irritability and anger ([facility] [id number]) H93.A3 Tinnitus ([facility] [id number]) F43.12 Posttraumatic stress disorder ([facility] [id number]) 369.9 Vision, Subnormal (ICD-9-CM 369.9) ALLERGIES/ADR: Patient [...] acknowledged understanding of instructions as stated. Objective: Reason for Referral: Neurologic Assessment/Impression: Plan: Issue resolved with Tele Urgent Care appointment Patient verbalizes understanding of the care plan Time spent in telephone/video visit: /toshia/ JANESSA FERRERA [id number] Signed: 12/25/2023 08:48 JANESSA FERRERA [place] [facility] [place] [facility]
--- OUTSIDE RECORDS SUMMARY | 2024-03-29 01:43 | XMS_ITS | Encounter Summary ---
Author Name [facility] [place] [facility] [place] Address [address] [place] [address] Care Team Providers Care Cashier Host/Hostess Name Role Phone LENIN BENSON Primary Care [...] PHARMACY PRESCRIPT ION [facility] Apr 18, 2010 [id number] [phone] MITCHELL RAE PATIENT IAIN-ASA HANKINS PREFERRED PROVIDER ORGANIZAT ION (PPO) ADVAN LILLIAN DRAIN AGE Sep 17, 2002 [id number] MITCHELL RAE PATIENT Selected Encounter This section includes the information on record at [place] for the Encounter. Date/Time Encounter Type Encounter Description Reason Pro vider Source Oct 04, 2023 11:19 AM Outpatient Encounter TELEPHONE TRIAGE IHE Encounter [...] 25, 2023 08:30 AM AMBULATORY - MEDICINE [place] [facility] [place] [facility] Jan 03, 2024 01:00 PM AMBULATORY - MEDICINE [place] [facility] [place] [facility] Jan 04, 2024 10:00 AM AMBULATORY - [place]ICINE [place] [facility] Jan 24, 2024 12:15 PM AMBULATORY - PSYCHIATRY [place] [facility] [place] [place] [facility] Feb 01, 2024 12:00 PM AMBULATORY - PSYCHIATRY [place] [facility] [place] [facility] Feb 14, 2024 09:00 AM AMBULATORY - [place]ICINE [place] [facility] Feb 16, 2024 11:30 AM AMBULATORY - PSYCHIATRY [place] [facility] [place] [place] [facility] Feb 21, 2024 02:00 PM AMBULATORY - MEDICINE [place] [facility] [place] [place] [facility] Mar 20, 2024 11:30 AM AMBULATORY - PSYCHIATRY [place] [facility] [place] [facility] Mar 21, 2024 12:45 PM AMBULATORY - NONE [place] [facility] Mar 21, 2024 01:00 PM [facility] Lab Results: +/- 30 days of the encounter This section includes the Chemistry and Hematology Lab Results on record with [place] for the patient. Radiology Reports and Pathology Reports are provided separately, in subsequent sections. Lab Results This section contains the Chemistry/Hematology Results that were resulted 30 days before or 30 daysafter the date of the Encounter. Date/Time Source Result Type Result - Unit Interpretation Reference Range Comment Sep 27, 2023 08:50 AM [facility] LIPID PANEL FASTING Specimen Type: SERUM No comment entered. Ordering Provider: LENIN BENSON Report Released Date/Time: September 06, 2023 02:23 PM Reporting Lab: [address] [address] Performing Lab: [address] [address] CHOLESTEROL 224 mg/dL H TRIGLYCERIDE 150 mg/dL [...] YRS OR MORE [place] [facility] [place] [facility] Tobacco Use [...] YRS OR MORE [place] [facility] [place] [facility] Nov 21, 2020 09:30 AM VA-TOBACCO FORMER USER [place] [facility] [place] [facility] Nov 21, 2020 09:30 AM VA-TOBACCO QUIT 15 YRS OR MORE [place] [facility] [place] [facility] Sep 21, 2019 10:24 AM VA-TOBACCO FORMER USER [place] [facility] [place] [facility] Sep 21, 2019 10:24 AM VA-TOBACCO QUIT 15 YRS OR MORE [place] [facility] [place] [facility] August 31, 2018 09:07 AM VA-TOBACCO NEVER USED [place] [facility] [place] [facility] Jul 21, 2017 09:00 AM QUIT TOBACCO USE > 7 YEARS AGO He quit 20 years ago [place] [facility] [place] [facility] Jun 17, 2016 02:37 PM LIFETIME NON-TOBACCO USER [place] [facility] [place] [facility] May 19, 2015 04:56 PM LIFETIME NON-TOBACCO USER [place] [facility] [place] [facility] August 24, 2012 03:06 PM LIFETIME NON-TOBACCO USER [place] [facility] [place] [facility] Encounter Notes: All associated encounter notes This section contains the clinical notes associated to the Encounter. Date/Time Encounter Note(s) Provider Source Oct 04, 2023 11:19 AM RN PROGRESS NOTE: LOCAL TITLE: CCC: CLINICAL TRIAGE STANDARD TITLE: RN PROGRESS NOTE DATE OF NOTE: OCT 04, 2023@11:19:08 ENTRY DATE: OCT 04, 2023@11:19:09 AUTHOR: RUCHI ELIZABETH EXP COSIGNER: URGENCY: STATUS: COMPLETED CCC: CLINICAL TRIAGE Has ADDENDA Patient Demographics Patient Name: MITCHELL RAE Patient Primary Address: [address] [place] [id number] Patient Primary Phone: [phone] Patient : 1970 Patient Age: 53 Current Location: [facility] Call Back Number: Caller/Recipient Relation to Patient: Self Emergency Contact: DENIS RAE Nursing Plan and Disposition Other course(s) of action Generated msg to PACT/Provider Nurse Summary Nurse Summary: STATES I TALKED TO TRIAGE NURSE TODAY/YESTERDAY, I WAS SUPPOSED TO RECEIVE A CALL AT 11 TODAY AND NOONE CALLED ME [facility]CC NOT USED DENIES NEW/WORSENING SYMPTOMS PACT ALERTED FOR FURTHER FOLLOW UP Clinical Contact Center Codes Clinic/Location: V1 CWM PHONE [facility] RN /toshia/ RUCHI ELIZABETH, RN, BSN REGISTERED NURSE Signed: 10/04/2023 11:19 Receipt Acknowledged By: 10/04/2023 13:11 /toshia/ HARPREET JAMES LPN License Practical Nurse 10/04/2023 11:43 /toshia/ ZULEMA DARNELL REGISTERED NURSE for VIKY AGUIRRE 10/21/2023 13:36 /toshia/ ROSIE SEBSATIAN 1 [facility] Medical Marine Fisheries Technician 10/04/2023 ADDENDUM STATUS: COMPLETED already had appointment /toshia/ ZULEMA DARNELL REGISTERED NURSE Signed: 10/04/2023 11:42 RUCHI ELIZABETH [facility]
--- OUTSIDE RECORDS SUMMARY | 2024-03-29 01:43 | XMS_ITS | Encounter Summary ---
Author Name [facility] [place] [facility] [place] [facility] [place] [facility] [place] Address [address] [place] [address] Care Team Providers Care Peritoneal Dialysis Registered Nurse Name Role Phone LENIN BENSON Primary Care [...] PHARMACY PRESCRIPT ION [facility] Apr 18, 2010 [id number] MITCHELL RAE PATIENT IAIN-ASA HANKINS PREFERRED PROVIDER ORGANIZAT ION (PPO) ADVAN LILLIAN DRAIN AGE Sep 17, 2002 [id number] MITCHELL RAE PATIENT Selected Encounter This section includes the information on record at [place] for the Encounter. Date/Time Encounter Type Encounter Description Reason Pro vider Source Jan 02, 2024 03:34 PM Outpatient Encounter COMMUNITY CARE CONSULT IHE [...] 20 appointments. The data comes from all [place] treatment [facility]. Appointment Date/Time Appointment Type Appointme nt Facility Name Jan 03, 2024 01:00 PM AMBULATORY [place]ICINE [place] [facility] [facility] [place] [facility] Jan 04, 2024 10:00 AM AMBULATORY - [place]ICINE [place] [facility] Jan 24, 2024 12:15 PM AMBULATORY - [place]YCHIATRY [place] [facility] [place] [facility] Feb 01, 2024 12:00 PM AMBULATORY - [place]CHIATRY [place] [facility] [facility] [place] [facility] Feb 14, 2024 09:00 AM AMBULATORY - [place]ICINE [place] [facility] Feb 16, 2024 11:30 AM AMBULATORY - [place]CHIATRY [place] [facility] [place] [facility] Feb 21, 2024 02:00 PM AMBULATORY - MEDICINE [place] [facility] [place] [facility] Mar 20, 2024 11:30 AM [facility] [place] [facility] Mar 21, 2024 12:45 PM AMBULATORY - NONE [place] Mar 21, 2024 01:00 PM AMBULATORY - MEDICINE [facility] Apr 05, 2024 09:00 AM AMBULATORY - [place]ICINE [place] [facility] Apr 09, 2024 08:00 AM AM[facility]ULATORY - [facility]IC[facility] Active, Pending, and Scheduled Orders This section includes a listing of several types of active, pending, and scheduled orders, including clinic medications orders, diagnostic test orders, procedure orders and consult orders; where the start date of the order is 45 days before the date of the Encounter or 45 days after the date of theEncounter. The data comes from all [facility]. Test Date/Time Test Type Test Details Facility Name Jan 03, 2024 01:45 PM Consult Order REHAB MEDI CINE/NHM OUTPT Cons Maid Supervisor's Choice [facility] [place] [facility] Social History: Smoking Status (Most current) and Tobacco Use (All prior to encounter date) This section includes the most current, and the historical, smoking and tobacco- related health factors from the [place] facility where the Encounter took place. Current Smoking Status This section includes the most current smoking, or tobacco-related health factor, from the [place] facility where the Encounter took place. Date/Time Current Smoking Status Comment [facility] Dec 01, 2022 03:30 PM VA-TOBACCO FORMER USER [facility] [place] [facility] Tobacco Use History This section includes a history of the smoking, or tobacco-related health factors, that were collected on or before the date of the Encounter. The data comes from the [place] facility where the Encounter took place. Date/Time Smoking Status/Tobac co Use Comment Facility Dec 01, 2022 03:30 PM VA-TOBACCO QUIT 15 YRS OR MORE [place] [facility] [facility] [place] [facility] Nov 21, 2020 09:30 AM VA-TOBACCO FORMER USER [place] [facility] [facility] Nov 21, 2020 09:30 AM VA-TOBACCO QUIT 15 YRS OR MORE [place] [facility] [facility] Sep 21, 2019 10:24 AM VA-TOBACCO FORMER USER [place] [facility] [place] [facility] Sep 21, 2019 10:24 AM VA-TOBACCO QUIT 15 YRS OR MORE [place] [facility] [facility] August 31, 2018 09:07 AM VA-TOBACCO NEVER USED [place] [facility] [place] [facility] Jul 21, 2017 09:00 AM QUIT TOBACCO USE > 7 YEARS AGO He quit 20 years ago [place] [facility] [place] [facility] Jun 17, 2016 02:37 PM LIFETIME NON-TOBACCO USER [place] [facility] [facility] [place] [facility] May 19, 2015 04:56 PM LIFETIME NON-TOBACCO USER [place] [facility] [place] [facility] August 24, 2012 03:06 PM LIFETIME NON-TOBACCO USER [place] [facility] [place] [facility] Encounter Notes: All associated encounter notes This section contains the clinical notes associated to the Encounter. Date/Time Encounter Note(s) Provider Source Jan 02, 2024 03:42 PM ADDENDUM: LOCAL TITLE: Addendum STANDARD TITLE: ADDENDUM DATE OF NOTE: JAN 02, 2024@15:42:23 ENTRY DATE: JAN 02, 2024@15:42:24 AUTHOR: LENIN BENSON EXP COSIGNER: URGENCY: STATUS: COMPLETED can we do those injections within our physiatry department? /es/ LENIN BENSON D.O. PHYSICIAN Signed: 01/02/2024 15:42 Receipt Acknowledged By: 01/04/2024 14:14 /es/ MARY JO GIL [facility] === --- Original Document --- 01/02/24 COMMUNITY CARE-CARE COORDINATION PLAN NOTE: Call from Linda at [facility]. They would like to refer to [facility] in [place] for trigger point injections of the trapezius muscle. Linda will fax notes for Dr. Benson to review. If agreeable, a Physiatry consult will be needed. Alert to Lauren Hill: The Physiatry authorization can be faxed directly to Linda at [phone]. She will bundle it with the medical records and fax to [facility]. /toshia/ FALLON SEYMOUR RN Community Reconciling Clerk Signed: 01/02/2024 15:38 Receipt Acknowledged By: 01/02/2024 15:42 /toshia/ LENIN BENSON D.O. PHYSICIAN 01/03/2024 11:28 /es/ VIKY AGUIRRE RN REGISTERED NURSE 01/03/2024 08:02 /toshia/ ZULEMA HILL [employer]NATIONAL RELATIONS PROFESSOR LENIN BENSON [facility] [place] [facility] Jan 02, 2024 03:34 PM NONVA NOTE: LOCAL TITLE: COMMUNITY CARE-CARE COORDINATION PLAN NOTE STANDARD TITLE: NONVA NOTE DATE OF NOTE: JAN 02, 2024@15:34 ENTRY DATE: JAN 02, 2024@15:34:11 AUTHOR: FALLON SEYMOUR COSIGNER: URGENCY: STATUS: COMPLETED COMMUNITY CARE-CARE COORDINATION PLAN NOTE Has ADDENDA Call from Linda at [facility]. They would like to refer Charlton to [facility] in [place] for trigger point injections of the trapezius muscle. Linda will fax notes for Dr. Benson to review. If agreeable, a Physiatry consult will be needed. Alert to Lauren Hill: The Physiatry authorization can be faxed directly to Linda at [phone]. She will bundle it with the medical records and fax to [facility]. /toshia/ FALLON SEYMOUR RN Community Reconciling Clerk Signed: 01/02/2024 15:38 Receipt Acknowledged By: 01/02/2024 15:42 /toshia/ LENIN BENSON D.O. PHYSICIAN 01/03/2024 11:28 /toshia/ VIKY AGUIRRE RN REGISTERED NURSE 01/03/2024 08:02 /toshia/ ZULEMA HILL [employer] INTERNATIONAL RELATIONS PROFESSOR 01/02/2024 ADDENDUM STATUS: COMPLETED can we do those injections within our physiatry department? /toshia/ LENIN BENSON D.O. PHYSICIAN Signed: 01/02/2024 15:42 Receipt Acknowledged By: 01/04/2024 14:14 /toshia/ MARY JO GIL [facility] 01/04/2024 ADDENDUM STATUS: COMPLETED Yes. We can do trigger point injections, these can be done in office without issue. Patient had previous involvement with [facility] prior to his surgery, so this may be patient preference. Otherwise please submit schedule. PT and myofascial release through PT may be adjuvant therapy given how recently he had ACDF. Realistic expectations for paracervical relief may be upward of 7-12 months. /rhianna GIL [facility] Signed: 01/04/2024 14:21 FALLON SEYMOUR CNTRL [facility]
--- OUTSIDE RECORDS SUMMARY | 2024-03-29 01:44 | XMS_ITS ---
Author Name [facility] [place] [facility] [place] Address [address] [place] [address] Care Team Providers Care Transit Mixer Driver Name Role Phone LENIN BENSON Primary Care [...] Batista's Name Patient's Relationship to Policy [facility]ista [facility] PRESCRIPT ION [facility] Apr 18, 2010 [id number] MITCHELL RAE PATIENT IAIN-ASA HANKINS PREFERRED PROVIDER ORGANIZAT ION (PPO) ADVAN LILLIAN DRAIN AGE Sep 17, 2002 [id number] MITCHELL RAE PATIENT Selected Encounter This section includes the information on record at [place] for the Encounter. Date/Time Encounter Type Encounter Description Reason Pro vider Source Mar 20, 2024 11:30 AM [facility] En[facility] Template Text not used by [place] [...] 20 appointments. The data comes from all [facility] facilities. Appointment Date/Time Appointment Type Appointme nt Facility Name Mar 21, 2024 12:45 PM AMBULATORY - NONE [place] Mar 21, 2024 01:00 PM AMBULATORY - MEDICINE [facility] Apr 05, 2024 09:00 AM AMBULATORY - MEDICINE [facility] Apr 09, 2024 08:00 AM AM[place]ORY [place] [facility] September 12, 2024 08:00 AM AM[place]ORY [place] [facility] Active, Pending, and Scheduled Orders This section includes a listing of several types of active, pending, and scheduled orders, including clinic medications orders, diagnostic test orders, procedure orders and consult orders; where the start date of the order is 45 days before the date of the Encounter or 45 days after the date of theEncounter. The data comes from all [facility]. Test Date/Time Test Type Test Details Facility Name Mar 28, 2024 12:00 AM Laboratory - Chemistry Order LIPID PANEL FASTING BLOOD (SST-SERUM) [facility] Mar 28, 2024 12:00 AM Laboratory - Chemistry Order LIVER FUNCTION BLOOD (SST-SERUM) [facility] Mar 28, 2024 12:00 AM Laboratory - Chemistry Order BASIC METABOLIC PANEL (fasting) BLOOD (SST-SERUM) [facility] Mar 28, 2024 12:00 AM Laboratory - Chemistry Order VITAMIN D (25-OH) BLOOD (SST-SERUM) [facility] Mar 28, 2024 12:00 AM Laboratory - Chemistry Order TSH BLOOD (SST-SERUM) [facility] Mar 28, 2024 12:00 AM Laboratory - Chemistry Order HEMOGLOBIN A1C PANEL BLOOD (LAV-BLOOD) [facility] Mar 28, 2024 12:00 AM Laboratory - Chemistry Order CBC BLOOD (LAV-BLOOD) [facility] Mar 28, 2024 12:00 AM Laboratory - Chemistry Order LIPOPROTEIN (a) BLOOD (SST-SERUM) [facility] [place] [facility] [facility] Social History: Smoking Status (Most [...] Date/Time Current Smoking Status Comment Facil it Jan 03, 2024 01:00 PM VA-TOBACCO FORMER USER [place] [facility] [place] [facility] Tobacco Use History This section includes a history of the smoking, or tobacco-related health factors, that were collected on or before the date of the Encounter. The data comes from the [place] facility where the Encounter took place. Date/Time Smoking Status/Tobac co Use Comment Facility Jan 03, 2024 01:00 PM VA-TOBACCO QUIT 15 YRS OR MORE [place] [facility] [facility] [facility] Dec 01, 2022 03:30 PM VA-TOBACCO FORMER USER [place] [facility] [place] [facility] Dec 01, 2022 03:30 PM VA-TOBACCO QUIT 15 YRS OR MORE [place] [facility] [facility] [place] [facility] Nov 21, 2020 09:30 AM VA-TOBACCO FORMER USER [place] [facility] [facility] [place] [facility] Nov 21, 2020 09:30 AM VA-TOBACCO QUIT 15 YRS OR MORE [place] [facility] [facility] [facility] Sep 21, 2019 10:24 AM VA-TOBACCO FORMER USER [place] [facility] [facility] [place] [facility] Sep 21, 2019 10:24 AM VA-TOBACCO QUIT 15 YRS OR MORE [place] [facility] [facility] [facility] August 31, 2018 09:07 AM VA-TOBACCO NEVER USED [place] [facility] [facility] [place] [facility] Jul 21, 2017 09:00 AM QUIT TOBACCO USE > 7 YEARS AGO He quit 20 years ago [facility] [place] [facility] Jun 17, 2016 02:37 PM LIFETIME NON-TOBACCO USER [place] [facility] [place] [facility] May 19, 2015 04:56 PM LIFETIME NON-TOBACCO USER [place] [facility] [place] [facility] August 24, 2012 03:06 PM LIFETIME NON-TOBACCO USER [place] [facility] Radiology Reports: +/- 30 days of the encounter Radiology Reports For cases when an order for radiology services may have been completed prior to the date of the Encounter, the report list includes the Radiology Reports that were completed up to 30 days before dateof the Encounter. For cases when an order for radiology services may have been completed after the date of the Encounter, the report list also includes the Radiology Reports that were completed up to30 days after date of the Encounter. The data comes from all [place] treatment facilities. Date/Time Radiology Report Provider Source Mar 21, 2024 12:33 PM CALCIUM SCORE 1: MITCHELL RAE [facility] [id number] -[id number] M Exm Date: MAR 21, 2024@12:33 Req Phys: MARLINE MONTEIRO Loc: MISSY PHONE CARD PREVENTION (Req Img Loc: NEW CT SCAN Service: [place] [address] (Case [id number] COMPLETE) CALCIUM SCORE 1 (CT Detailed) CPT:77497 Reason for Study: CORONARY CALCIUM SCORE Clinical History: NEEDS CORONARY CALCIUM SCORE Report Status: Verified Date Reported: MAR 23, 2024 Date Verified: MAR 23, 2024 [employer] E-Sig:/ES/DAKOTA MATOS MD Report: CT HEART WITHOUT IV CONTRAST CORONARY ARTERY CALCIUM SCORING CLINICAL HISTORY: Coronary calcium scoring COMPARISON STUDIES: None TECHNIQUE: Prospective ECG gated noncontrast CT images of the chest and heart with attention to the coronary arteries were obtained to evaluate coronary artery calcium score. Coronary calcification was analyzed using the PACS software. FINDINGS: These are the results of the coronary artery calcium evaluation (threshold = 130 HU): LM: Agatston = 0 Volume = 0 mm3 LAD: Agatston = 0 Volume = 0 mm3 LCX: Agatston = 0 Volume = 0 mm3 RCA: Agatston = 0 Volume = 0 mm3 Total: Agatston = 0 Volume = 0 mm3 Reference ranges for calcium scores are provided as follows ([place] Clin Proc 1999; 74: 243-252): 0-10: minimal calcium 11-100: mild calcium 101-400 moderate calcium > 400 significant calcium The visualized extracardiac and lungs demonstrate a granuloma in the lingula and some calcification in the right hilum suggestive of prior granulomatous disease.. Impression: 1. Quantitative coronary artery calcium Agatston score of 0 and volume score of 0 mm3. Primary Diagnostic Code: Significant Abnormality Attention Needed Primary Interpreting Staff: DAKOTA MATOS MD, Radiology Attending ([employer]) /DAKOTA STEVENS Encounter Notes: All associated encounter notes This section contains the clinical notes associated to the Encounter. Date/Time Encounter Note(s) Provider Source 2024 12:01 PM MENTAL HEALTH COMMUNICATION NOTE: LOCAL TITLE: PRIMARY MENTAL HEALTH CONTACT NOTE STANDARD TITLE: MENTAL HEALTH COMMUNICATION NOTE DATE OF NOTE: 2024@12:01 ENTRY DATE: 2024@12:01:19 AUTHOR: YASMINE PARRA EXP COSIGNER: URGENCY: STATUS: COMPLETED Composition Mixer called as planned follow-up. HIPAA compliant voice message left with instructions to call engineering technical writer back. /toshia/ Yasmine CARLSON RN [facility] Signed: 2024 12:01 YASMINE PARRA [place] [facility] [place] [facility] Mar 21, 2024 09:30 AM CLERICAL NOTE: LOCAL TITLE: APPOINTMENT NO SHOW STANDARD TITLE: CLERICAL NOTE DATE OF NOTE: MAR 21, 2024@09:30 ENTRY DATE: MAR 21, 2024@09:30:29 AUTHOR: YASMINE PARRA EXP COSIGNER: URGENCY: STATUS: COMPLETED Patient Name: MITCHELL RAE JR Patient SSN: [id number] Date and time of Appointment No show : 03/20/24 11:30 PATIENT PHONE - PHONE NUMBER [CELLULAR] - Patient's medical record was reviewed. Follow-up actions were determined and initiated: Please check/complete as applies: [X]Telephoned Directly [ ]Re-scheduled for next available appt [X]Sent a N0-show letter ( must call for appointment) [ ]Other (Emergent/Overbook, etc.): Additional Comments: Composition Mixer spoke with Ruffin briefly and he reported he had not yet started the prazosin. Ruffin reported he would call engineering technical writer when he was ready to talk. Composition Mixer will attempt again at later date and time. Future Clinic Visits 04/09/2024 08:00 CWM/NO/MED REHAB 1 [place] 09/12/2024 08:00 NHM/OPTOMETRY/LE/ /toshia/ Yasmine CARLSON RN [facility] [employer] [employer] Signed: 03/21/2024 09:32 [facility]
--- OUTSIDE RECORDS SUMMARY | 2024-03-29 01:44 | XMS_ITS | Encounter Summary ---
Author Name [facility] [place] Address [address] [place] [address] Care Team Providers Care Personnel Recruiter Name Role Phone KELLEYLENIN Primary Care Provider [...] PHARMACY PRESCRIPT ION SYSCO Apr 18, [id number] MITCHELL RAE PATIENT CIGBENIGNO-ASA T CR PREFERRED PROVIDER ORGANIZAT ION (PPO) ADVAN LILLIAN DRAIN AGE Sep 17, 2002 [id number] 20 MITCHELL RAE PATIENT Selected Encounter This section includes the information on record at [place] for the Encounter. Date/Time Encounter Type Encounter Description Reason Provider Source Feb 01, 2024 12:00 PM HC PRO PHONE CALL 5-10 MIN TELEPHONE ICD-10-CM R45.4 Irritability and anger YASMINE PARRA Encounter Template Text not used by [place] Assessments - Encounter Diagnoses This section includes the primary and secondary diagnoses documented for the Encounter. Date/Time Primary/Secondary Diagnosis Diagnosis Name Provider Source Feb 01, 2024 12:00 PM PRIMARY Irritability and anger [facility]ASMINE PAR[facility] Feb 01, 2024 12:00 PM SECONDARY Anxiety disorder, unspecified [facility]ASMINE PARRA [facility] Feb 01, 2024 12:00 PM SECONDARY Post-traumatic stress disorder, chronic YASMINE PARRA [facility] Plan of Treatment: Future Appointments (+ 6 months) and Future Tests (+/- 45 days) The Plan of Treatment section includes future care activities for the patient from all [place] [facility]. This section includes future appointments and future orders which are active, pending or scheduled. Future Appointments This section includes appointments that were scheduled to occur 6 months from the date of the Encounter, up to a maximum of 20 appointments. The data comes from all [place] treatment facilities. Appointment Date/Time Appointment Type Appointme nt Facility Name Feb 14, 2024 09:00 AM [facility] Feb 16, 2024 11:30 AM [facility] Feb 21, 2024 02:00 PM AMBULAT[facility] - [facility] Mar 20, 2024 11:30 AM [facility] Mar 21, 2024 12:45 PM AMBULATORY - NONE [facility] Mar 21, 2024 01:00 PM AMBULATORY - MEDICINE [facility] Apr 05, 2024 09:00 AM [facility] Apr 09, 2024 08:00 AM AM[facility]UL[facility] Active, Pending, and Scheduled Orders This section includes a listing of several types of active, pending, and scheduled orders, including clinic medications orders, diagnostic test orders, procedure orders and consult orders; where the start date of the order is 45 days before the date of the Encounter or 45 days after the date of theEncounter. The data comes from all [place] treatment [facility]. Test Date/Time Test Type Test Details Facility Name Jan 03, 2024 01:45 PM Consult Order REHAB MEDI [facility] OUTPT [employer] Captain's Choice [facility] [facility] Social History: Smoking Status (Most current) and Tobacco Use (All prior to encounter date) This section includes the most current, and the historical, smoking and tobacco- related health factors from the [place] facility where the Encounter took place. Current Smoking Status This section includes the most current smoking, or tobacco-related health factor, from the [place] facility where the Encounter took place. Date/Time Current Smoking Status Comment Facil it Jan 03, 2024 01:00 PM VA-TOBACCO QUIT 15 YRS OR MORE [facility] [facility] Tobacco Use History This section includes a history of the smoking, or tobacco-related health factors, that were collected on or before the date of the Encounter. The data comes from the [place] facility where the Encounter took place. Date/Time Smoking Status/Tobac co Use Comment Facility Jan 03, 2024 01:00 PM VA-TOBACCO QUIT 15 YRS OR MORE [facility] [place] [facility] Dec 01, 2022 03:30 PM VA-TOBACCO FORMER USER [facility] [place] [facility] Dec 01, 2022 03:30 PM VA-TOBACCO QUIT 15 YRS OR MORE [facility] [place] [facility] Nov 21, 2020 09:30 AM VA-TOBACCO FORMER USER [facility] [facility] Nov 21, 2020 09:30 AM VA-TOBACCO QUIT 15 YRS OR MORE [facility] [place] [facility] Sep 21, 2019 10:24 AM VA-TOBACCO FORMER USER [facility] [place] [facility] Sep 21, 2019 10:24 AM VA-TOBACCO QUIT 15 YRS OR MORE [facility] [place] [facility] August 31, 2018 09:07 AM VA-TOBACCO NEVER USED [place] [facility] [place] [facility] Jul 21, 2017 09:00 AM QUIT TOBACCO USE > 7 YEARS AGO He quit 20 years ago [facility] [place] [facility] Jun 17, 2016 02:37 PM LIFETIME NON-TOBACCO USER [facility] [place] [facility] May 19, 2015 04:56 PM LIFETIME NON-TOBACCO USER [facility] [place] [facility] August 24, 2012 03:06 PM LIFETIME NON-TOBACCO USER [facility] [place] [facility] Encounter Notes: All associated encounter notes This section contains the clinical notes associated to the Encounter. Date/Time Encounter Note(s) Provider Source Feb 01, 2024 02:22 PM ADDENDUM: LOCAL TITLE: Addendum STANDARD TITLE: ADDENDUM DATE OF NOTE: FEB 01, 2024@14:22:25 ENTRY DATE: FEB 01, 2024@14:22:26 AUTHOR: LENIN BENSON COSIGNER: URGENCY: STATUS: COMPLETED i will do rx for prazosin 1 mg at bedtime /toshia/ LENIN BENSON D.O. PHYSICIAN Signed: 02/01/2024 14:22 Receipt Acknowledged By: 02/01/2024 14:29 /es/ Yasmine CARLSON RN PCMHI MINE BOSS --- Original Document --- 02/01/24 PRIMARY MENTAL HEALTH CONTACT NOTE: Toys Inspector called to obtain preference as to recommendations from Martinez Powell clinical pharmacist for nightmares/waking up with autonomic response associated with PTSD. is diagnosed with anxiety, PTSD and irritability and anger and prescribed hydroxyzine and fluoxetine. PTSD is a service connected condition 's identity verified through name and . [place] was informed that prazosin 1 mg was the recommendation [place] was willing to try medication. was informed that decision making power rests with PCP including the decision to not prescribe this medication and/or to place a mental health referral for psychiatry. Toys Inspector will forward to PCP for review and consideration. Toys Inspector educated [place] about prazosin as it prescribed to control/eliminate nightmares: risk for orthostatic hypotension risk for dizziness and to not drive if dizzy risk for constipation rare risk of priapism it may take a few days to take its effect that it reduces the availability of adrenaline/epinephrine in the body so that if a nightmare occurs that the stress response is reduced. and if prescribed sildenafil or equivalent to not take at same time as this may cause an unsafe drop in blood pressure [place] was offered an appointment within program protocols and has the right to choose a different appointment interval. [place]'s preference honored in an effort to be [place] centric and to engage in shared decision making. Toys Inspector will follow up with [place] on 02/15 at 1130 via telephone Time Spent: 7 minutes on the phone and 4 minutes on post visit documentation /toshia/ Yasmine CARLSON RN PCMHI MINE BOSS Signed: 02/01/2024 13:12 Receipt Acknowledged By: 02/01/2024 14:22 /toshia/ LENIN BENSON D.O. PHYSICIAN LENIN BENSON [facility] Feb 01, 2024 12:17 PM MENTAL HEALTH COMMUNICATION NOTE: LOCAL TITLE: PRIMARY MENTAL HEALTH CONTACT NOTE STANDARD TITLE: MENTAL HEALTH COMMUNICATION NOTE DATE OF NOTE: FEB 01, 2024@12:17:16 ENTRY DATE: FEB 01, 2024@12:17:54 AUTHOR: YASMINE PARRA EXP COSIGNER: URGENCY: STATUS: COMPLETED PRIMARY MENTAL HEALTH CONTACT NOTE Has ADDENDA Toys Inspector called to obtain preference as to recommendations from Martinez Powell clinical pharmacist for nightmares/waking up with autonomic response associated with PTSD. [place] is diagnosed with anxiety, PTSD and irritability and anger and prescribed hydroxyzine and fluoxetine. PTSD is a service connected condition [place]'s identity verified through name and . [place] was informed that prazosin 1 mg was the recommendation [place] was willing to try medication. was informed that decision making power rests with PCP including the decision to not prescribe this medication and/or to place a mental health referral for psychiatry. Toys Inspector will forward to PCP for review and consideration. Toys Inspector educated about prazosin as it prescribed to control/eliminate nightmares: risk for orthostatic hypotension risk for dizziness and to not drive if dizzy risk for constipation rare risk of priapism it may take a few days to take its effect that it reduces the availability of adrenaline/epinephrine in the body so that if a nightmare occurs that the stress response is reduced. and if prescribed sildenafil or equivalent to not take at same time as this may cause an unsafe drop in blood pressure [place] was offered an appointment within program protocols and [place] has the right to choose a different appointment interval. 's preference honored in an effort to be centric and to engage in shared decision making. Toys Inspector will follow up with [place] on 02/15 at 1130 via telephone Time Spent: 7 minutes on the phone and 4 minutes on post visit documentation /toshia/ Yasmine CARLSON RN PCMHI MINE BOSS Signed: 02/01/2024 13:12 Receipt Acknowledged By: 02/01/2024 14:22 /toshia/ LENIN BENSON D.O. PHYSICIAN 02/01/2024 ADDENDUM STATUS: COMPLETED i will do rx for prazosin 1 mg at bedtime /toshia/ LENIN BENSON D.O. PHYSICIAN Signed: 02/01/2024 14:22 Receipt Acknowledged By: * AWAITING SIGNATURE * YASMINE PARRA KERI ANNE [facility]
--- OUTSIDE RECORDS SUMMARY | 2024-03-29 01:44 | XMS_ITS | Encounter Summary ---
Author Name [facility] [place] Organization [place] Address [address] [place] [address] Care Team Providers Care Jointer Machine Name Role Phone LENIN BENSON Primary Care [...] PHARMACY PRESCRIPT ION SYSCO Apr 18, 2010 [id number] MITCHELL RAE PATIENT IAIN-ASA HANKINS PREFERRED PROVIDER ORGANIZAT ION (PPO) ADVAN LILLIAN DRAIN AGE Sep 17, 2002 [id number] 20 MITCHELL RAE PATIENT Selected Encounter This section includes the information on record at [place] for the Encounter. Date/Time Encounter Type Encounter Description Reason Pro vider Source Dec 08, 2023 12:00 AM Outpatient Encounter COMMUNITY CARE CONSULT IHE Encounter [...] 20 appointments. The data comes from all [facility]. Appointment Date/Time Appointment Type Appointme nt Facility Name Dec 25, 2023 08:30 AM AMBULATORY - MEDICINE [place] [facility] [place] [facility] Jan 03, 2024 01:00 PM AMBULATORY - MEDICINE [place] [facility] [place] [facility] Jan 04, 2024 10:00 AM AMBUL[place]ORY - [place]ICINE [place] [facility] Jan 24, 2024 12:15 PM AMBULATORY - PSYCHIATRY [place] [facility] [place] [facility] Feb 01, 2024 12:00 PM AMBULATORY - PSYCHIATRY [place] [facility] [place] [facility] Feb 14, 2024 09:00 AM AMBULATORY - MEDICINE [place] [facility] Feb 16, 2024 11:30 AM AMBULATORY - PSYCHIATRY [place] [facility] [place] [facility] Feb 21, 2024 02:00 PM AMBULATORY - MEDICINE [place] C [facility] [place] [facility] Mar 20, 2024 11:30 AM AMBULATORY - PSYCHIATRY [place] [facility] [place] [facility] Mar 21, 2024 12:45 PM [facility]ONE [facility] Mar 21, 2024 01:00 PM AMBULATORY - MEDICINE [facility] Apr 05, 2024 09:00 AM AMBULATORY - MEDICINE [place] [facility] Apr 09, 2024 08:00 AM AMBULATORY - MEDICINE [facility] N[facility]L [place] [facility] Active, [...] of theEncounter. The data comes from all [place] treatment [facility]. Test Date/Time Test Type Test Details Facility Name Jan 03, 2024 01:45 PM Consult Order REHAB MEDI [facility] OUTPT [facility] [employer] Sewer's Choice [facility] [place] [facility] Social History: Smoking Status (Most current) and Tobacco Use (All prior to encounter date) This section includes the most current, and the historical, smoking and tobacco- related health factors from the [place] facility where the Encounter took place. Current Smoking Status This section includes the most current smoking, or tobacco-related health factor, from the [place] facility where the Encounter took place. Date/Time Current Smoking Status Comment Maria D trujillo Dec 01, 2022 03:30 PM VA-TOBACCO QUIT 15 YRS OR MORE [facility] [place] [facility] Tobacco Use History This section includes a history of the smoking, or tobacco-related health factors, that were collected on or before the date of the Encounter. The data comes from the [place] facility where the Encounter took place. Date/Time Smoking Status/Tobac co Use Comment Facility Dec 01, 2022 03:30 PM VA-TOBACCO QUIT 15 YRS OR MORE [place] [facility] [place] [facility] Nov 21, 2020 09:30 AM VA-TOBACCO FORMER USER [place] [facility] [place] [facility] Nov 21, 2020 09:30 AM VA-TOBACCO QUIT 15 YRS OR MORE [place] [facility] [place] [facility] Sep 21, 2019 10:24 AM VA-TOBACCO FORMER USER [place] [facility] [place] [facility] Sep 21, 2019 10:24 AM VA-TOBACCO QUIT 15 YRS OR MORE [place] [facility] [place] [facility] August 31, 2018 09:07 AM VA-TOBACCO NEVER USED [place] [facility] [place] [facility] Jul 21, 2017 09:00 AM QUIT TOBACCO USE > 7 YEARS AGO He quit 20 years ago [place] [facility] [place] [facility] Jun 17, 2016 02:37 PM LIFETIME NON-TOBACCO USER [place] [facility] [place] [facility] May 19, 2015 04:56 PM LIFETIME NON-TOBACCO USER [place] [facility] [place] [facility] August 24, 2012 03:06 PM LIFETIME NON-TOBACCO USER [place] [facility] [place] [facility] Encounter Notes: All associated encounter notes This section contains the clinical notes associated to the Encounter. Date/Time Encounter Note(s) Provider Source Dec 08, 2023 12:00 AM NONVA CONSULT: LOCAL TITLE: COMMUNITY CARE-CONSULT RESULT NOTE STANDARD TITLE: NONVA CONSULT DATE OF NOTE: DEC 08, 2023 ENTRY DATE: FEB 01, 2024@10:15:08 AUTHOR: HUARD,SP R EXP COSIGNER: URGENCY: STATUS: COMPLETED VistA Imaging - Scanned Document SCANNED DOCUMENT SIGNATURE NOT REQUIRED Electronically Filed: 02/01/2024 by: SP QUIROZ CNTRL W[facility]
--- OUTSIDE RECORDS SUMMARY | 2024-03-29 01:44 | XMS_ITS | Encounter Summary ---
Author Name [facility] [place] Address [address] [place] [id number] Care Team Providers Care Deck Lid Fitter Name Role Phone LENIN BENSON Primary Care [...] PHARMACY PRESCRIPT ION SYSCO Apr 18, 2010 [id number] MITCHELL RAE PATIENT IAIN-ASA HANKINS PREFERRED PROVIDER ORGANIZAT ION (PPO) ADVAN LILLIAN DRAIN AGE Sep 17, 2002 [id number] 20 MITCHELL RAE PATIENT Selected Encounter This section includes the information on record at [place] for the Encounter. Date/Time Encounter Type Encounter Description Reason Provider Source Mar 21, 2024 01:00 PM OFF/OP CONSLTJ NEW/EST SF 20 CARDIAC STRESS TEST ICD-10-CM R07.9 Chest pain, unspecified WILIAM BERGER Encounter Template Text not used by [place] Assessments - Encounter Diagnoses This section includes the primary and secondary diagnoses documented for the Encounter. Date/Time Primary/Secondary Diagnosis Diagnosis Name Provider Source Mar 21, 2024 02:45 PM PRIMARY Chest pain, unspecified MAE MORALES Plan of Treatment: Future Appointments (+ 6 months) and Future Tests (+/- 45 days) The Plan of Treatment section includes future care activities for the patient from all [place] [facility] This section includes future appointments and future orders which are active, pending or scheduled. Future Appointments This section includes appointments that were scheduled to occur 6 months from the date of the Encounter, up to a maximum of 20 appointments. The data comes from all [facility]. Appointment Date/Time Appointment Type Appointme nt Facility Name Apr 05, 2024 09:00 AM AMBULATORY - MEDICINE [facility] Apr 09, 2024 08:00 AM AMBULATORY MEDICINE [facility] September 12, 2024 08:00 AM AMBULATORY MEDICINE [facility] Active, Pending, and Scheduled Orders This section includes a listing of several types of active, pending, and scheduled orders, including clinic medications orders, diagnostic test orders, procedure orders and consult orders; where the start date of the order is 45 days before the date of the Encounter or 45 days after the date of theEncounter. The data comes from all [facility]. Test Date/Time Test Type Test Details Facility Name Mar 28, 2024 12:00 AM Laboratory - Chemistry Order LIPID PANEL FASTING BLOOD (SST-SERUM) [facility] Mar 28, 2024 12:00 AM Laboratory - Chemistry Order LIVER FUNCTION BLOOD (SST-SERUM) [facility] Mar 28, 2024 12:00 AM Laboratory - Chemistry Order BASIC METABOLIC PANEL (fasting) BLOOD (SST-SERUM) [facility] Mar 28, 2024 12:00 AM Laboratory - Chemistry Order VITAMIN D (25-OH) BLOOD (SST-SERUM) [facility] Mar 28, 2024 12:00 AM Laboratory - Chemistry Order TSH BLOOD (SST-SERUM) [facility] Mar 28, 2024 12:00 AM Laboratory - Chemistry Order HEMOGLOBIN A1C PANEL BLOOD (LAV-BLOOD) [facility] Mar 28, 2024 12:00 AM Laboratory - Chemistry Order CBC BLOOD (LAV-BLOOD) [facility] Mar 28, 2024 12:00 AM Laboratory - Chemistry Order LIPOPROTEIN (a) BLOOD (SST-SERUM) [facility] Radiology Reports: +/- 30 days of the [...] the Encounter. The data comes from all [facility] facilities. Date/Time Radiology Report Provider Source Mar 21, 2024 12:33 PM CALCIUM SCORE 1: MITCHELL RAE [facility] [id number] -[id number] M Exm Date: MAR 21, 2024@12:33 Req Phys: MARLINE MONTEIRO Loc: MISSY PHONE CARD PREVENTION (Req Img Loc: NEW CT SCAN Service: [place] [address] (Case [id number] COMPLETE) CALCIUM SCORE 1 (CT Detailed) CPT:18949 Reason for Study: CORONARY CALCIUM SCORE Clinical History: NEEDS CORONARY CALCIUM SCORE Report Status: Verified Date Reported: MAR 23, 2024 Date Verified: MAR 23, 2024 Metal Solderer E-Sig:/ES/DAKOTA MATOS MD Report: CT HEART WITHOUT [...] Interpreting Staff: DAKOTA MATOS MD, Radiology Attending (Metal Solderer) /DAKOTA STEVENS Encounter Notes: All associated encounter notes This section contains the clinical notes associated to the Encounter. Date/Time Encounter Note(s) Provider Source Mar 21, 2024 03:16 PM CARDIOLOGY DIAGNOS TIC STUDY NOTE: LOCAL TITLE: CARDIAC STRESS LAB PROGRESS NOTE STANDARD TITLE: CARDIOLOGY DIAGNOSTIC STUDY NOTE DATE OF NOTE: MAR 21, 2024@15:16 ENTRY DATE: MAR 21, 2024@15:16:12 AUTHOR: ERIKA MORALES COSIGNER: URGENCY: STATUS: COMPLETED I. Indication: Atypical Chest pain II. Resting ECG: Sinus Rhythm III. Exercise Test a) Technique Exercise time: 8:42 Protocol: Nelson Stage: 3 Workload (METS): 10.10 Rest HR: 77 Rest BP: 118/68 Peak HR: 146 % Age-predicted max. HR: 89% End BP: 146/80 RPP (adequate >25):21K b) Symptoms: legs tired c) Termination: Target heart rat achieved d) ECG Changes:(onset,degree,duratio n): No ischemic changes e) Arrhythmia: None noted IV. Interpretation: 1. Negative for ischemic findings 2. Denied angina 3. Normal hemodynamic changes 4. no arrhythmias 5. Good workload Low risk by Pinto score /toshia/ ERIKA MORALES APRN NURSE PRACTITIONER Signed: 03/21/2024 15:32 ERIKA MORALES Mar 21, 2024 02:25 PM CARDIOLOGY DIAGNOS TIC STUDY NOTE: LOCAL TITLE: CARDIAC STRESS LAB PROGRESS NOTE STANDARD TITLE: CARDIOLOGY DIAGNOSTIC STUDY NOTE DATE OF NOTE: MAR 21, 2024@14:25 ENTRY DATE: MAR 21, 2024@14:26:02 AUTHOR: ERIKA MORALES COSIGNER: URGENCY: STATUS: COMPLETED I. Indication: atypical chest discomfort II. Resting ECG: Sinus Rhythm III. Exercise Test a) Technique Exercise time: 10:27 Protocol: Nelson Stage: 4 Workload (METS): 13.4 Rest HR: 67 Rest BP: 136/72 Peak HR: 151 % Age-predicted max. HR: 89% End BP: 164/82 RPP (adequate >25): 24.7K b) Symptoms: shortness of breath c) Termination: target heart rate acheieved d) ECG Changes:(onset,degree,duratio n): No ischemic changes e) Arrhythmia: None observed IV. Interpretation: 1. Negative for ischemic changes 2. Denied angia 3. No arrhythmias 4. Good exercise tolerance 5. Appropriate hemodynamics Low risk by Pinto criteria. /toshia/ ERIKA MORALES APRN NURSE PRACTITIONER Signed: 03/21/2024 14:45 ERIKA MORALES
--- OUTSIDE RECORDS SUMMARY | 2024-03-29 01:44 | XMS_ITS | Encounter Summary ---
Author Name [facility] [place] [facility] [place] Address [address] [place] [address] Care Team Providers Care Moth Proofer Name Role Phone LENIN BENSON Primary Care [...] PHARMACY PRESCRIPT ION SYSCO Apr 18, 2010 [id number] [phone] MITCHELL BRADEN PATIENT IAIN-ASA HANKINS PREFERRED PROVIDER ORGANIZAT ION (PPO) ADVAN LILLIAN DRAIN AGE Sep 17, 2002 [id number] MITCHELL BRADEN PATIENT Selected Encounter This section includes the information on [place] at [place] for the Encounter. Date/Time Encounter Type Encounter Description Reason Provider Source Feb 14, 2024 09:00 AM Outpatient Encounter TELEPHONE/MEDICIN E ICD-10-CM E78.5 Hyperlipidemia, unspecified DYALN MONTEIRO V IHE Encounter Template Text not used by [facility] Assessments - Encounter Diagnoses This section includes the primary and secondary diagnoses documented for the Encounter. Date/Time Primary/Secondary Diagnosis Diagnosis Name Provider Source Feb 14, 2024 09:00 AM PRIMARY Hyperlipidemia, unspecified DYLAN MONTEIRO [facility] Feb 14, 2024 09:00 AM SECONDARY Encounter for screening for cardiovascular disorders DYLAN MONTEIRO [facility] Feb 14, 2024 09:00 AM SECONDARY Essential (primary) hypertension DYLAN MONTEIRO [facility] Plan of Treatment: Future Appointments (+ 6 months) and Future Tests (+/- 45 days) The Plan of Treatment section includes future care activities for the patient from all [place] [facility]. This section includes future appointments and future orders which are active, pending or scheduled. Future Appointments This section includes appointments that were scheduled to occur 6 months from the date of the Encounter, up to a maximum of 20 appointments. The data comes from all [facility]. Appointment Date/Time Appointment Type Appointme nt Facility Name Feb 16, 2024 11:30 AM AMBULATORY - PSYCHIATRY [facility] Feb 21, 2024 02:00 PM AMBULATORY - MEDICINE [facility] Mar 20, 2024 11:30 AM AMBULATORY - PSYCHIATRY [facility] Mar 21, 2024 12:45 PM [facility] Mar 21, 2024 01:00 PM AMBULATORY - MEDICINE [facility] Apr 05, 2024 09:00 AM AMBULATORY - MEDICINE [facility] Apr 09, 2024 08:00 AM AMBULATORY - MEDICINE [facility] Active, Pending, and Scheduled Orders This section includes a listing of several types of active, pending, and scheduled orders, including clinic medications orders, diagnostic test orders, procedure orders and consult orders; where the start date of the order is 45 days before the date of the Encounter or 45 days after the date of theEncounter. The data comes from all [facility]. Test Date/Time Test Type Test Details Facility Name Jan 03, 2024 01:45 PM Consult Order REHAB MEDICINE/[facility] OUTPT Cons Inspector Glass Or Mirror's Choice [facility] Mar 28, 2024 12:00 AM Laboratory - Chemistry Order LIPID PANEL FASTING BLOOD (SST-SERUM) SP [facility] Mar 28, 2024 12:00 AM Laboratory - Chemistry Order BASIC METABOLIC PANEL (fasting) BLOOD (SST-SERUM) [facility] Mar 28, 2024 12:00 AM Laboratory - Chemistry Order LIVER FUNCTION BLOOD (SST-SERUM) [facility] Mar 28, 2024 12:00 AM Laboratory - Chemistry Order VITAMIN D (25-OH) BLOOD (SST-SERUM) [facility] Mar 28, 2024 12:00 AM Laboratory - Chemistry Order TSH BLOOD (SST-SERUM) [facility] Mar 28, 2024 12:00 AM Laboratory - Chemistry Order HEMOGLOBIN A1C PANEL BLOOD (LAV-BLOOD) [facility] Mar 28, 2024 12:00 AM Laboratory - Chemistry Order CBC BLOOD (LAV-BLOOD) [facility] Mar 28, 2024 12:00 AM Laboratory - Chemistry Order LIPOPROTEIN (a) BLOOD (SST-SERUM) [facility] Encounter Notes: All associated encounter notes This section contains the clinical notes associated to the Encounter. Date/Time Encounter Note(s) Provider Source Feb 14, 2024 09:45 AM CARDIOLOGY OUTPATI ENT CONSULT: LOCAL TITLE: CARDIOLOGY PA/WHIRLEY OPERATOR OUTPATIENT INITIAL CONSULT STANDARD TITLE: CARDIOLOGY OUTPATIENT CONSULT DATE OF NOTE: FEB 14, 2024@09:45 ENTRY DATE: FEB 14, 2024@09:46 AUTHOR: MARLINE MONTEIRO COSIGNER: URGENCY: STATUS: COMPLETED CARDIOLOGY PA/WHIRLEY OPERATOR OUTPATIENT INITIAL CONSULT Has ADDENDA IT IS MANDATORY THAT YOU COMPLETE THE MEDICATION RECONCILIATION AND THEN CLICK OK TO COMPLETE THE NOTE. MEDICATION RECONCILIATION Review/Reconciliation completed. The following discrepancies have been found Not taking Prazosin Cardiovascular Primary Prevention Clinic Visit Visit Note Time of visit [id number] TELEPHONE VISIT Verbal consent was obtained. [place] reports currently being at the address on [...] increasing his activity and improving his diet. Cardiac Risk Factors Information obtained from cardiac well ness survey note, JVL and pt report. HLP: [...] Height 73 in, obesity - BMI 29.8-. [place] body weight: 176 lbs. Adjusted body weight: 194 lbs. Actual body weight is 125 % (1.3 x) ideal body weight. BLOOD GLUCOSE: HA1C 5.5, eAG on 05/10/17. STRESS/ MH: Patient Health Questionnaire-4 item (depression/anxiety): 8 overall = Moderate sxs of anxiety and depression. Only item endorsed was feeling down, depression, or hopeless for several days over the past month. Perceived Stress Scale-4 item: 816 = Moderate stress. TOBACCO: Social smoker in [...] RF: male,> male 46y/o, tobacco remote, fmhx CT male < 55 , cholesterol, obesity. 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 Lives with 24 years and grown children (aged 18 and 21) in own home in [place], [place]. Social support: None per Pt. I can lean on nobody, including my , who has Stage 4 cancer. [place] a therapist through [place] (weekly) Associate degrees in Business Admin and Air Transportation. Hobbies: Fishing, [place] hunting with rifle/bow, Fixing up muscle car, [...] mg daily for cholesterol. === ALLERGIES: NKA Exam: Telephone visit unable to complete PE. ====Cardiac Studies ======== None LABS Information obtained from [facility] LIPID PANEL TREND Collection DT Spec CHOL [...] Discussed that the goal is to achieve 61936 steps a day. Instructed to incorporate periods [...] and stress management. /toshia/ MARLINE MONTEIRO, MSN, WHIRLEY OPERATOR- NURSE PRACTITIONER Signed: 02/15/2024 09:18 2024 ADDENDUM STATUS: COMPLETED CAC Score Testin03/21/2024 Impression: 1. Quantitative coronary artery calcium Agatston score of 0 and volume score of 0 mm3. Other abnormalities seen: The visualized extracardiac and lungs demonstrate a granuloma in the lingula and some calcification in the right hilum suggestive of prior granulomatous disease. /toshia/ MELCHOR RICHARDSON PA-C PHYSICIAN ASSOCIATE, CARDIOLOGY Signed: 2024 10:39 Receipt Acknowledged By: * AWAITING SIGNATURE * MARLINE MONTEIRO [facility]NE [facility]
--- OUTSIDE RECORDS SUMMARY | 2024-03-29 01:44 | XMS_ITS | Encounter Summary ---
Author Name [facility] [place] Address [address] [place] [address] Care Team Providers Care Environmental Services Director Name Role Phone LNEIN BENSON Primary Care Provider Unavailabl e Insurance [...] PHARMACY PRESCRIPT ION [facility]SCO Apr 18, 2010 [id number] MITCHELL RAE PATIENT IAIN-ASA HANKINS PREFERRED PROVIDER ORGANIZAT ION (PPO) ADVAN LILLIAN DRAIN AGE Sep 17, 2002 [id number] 20 MITCHELL RAE PATIENT Selected Encounter This section includes the information on record at [place] for the Encounter. Date/Time Encounter Type Encounter Description Reason Pro vider Source IHE Encounter Template Text not used by [place]
--- OUTSIDE RECORDS SUMMARY | 2024-03-29 01:44 | XMS_ITS | Encounter Summary ---
Author Name [facility] [place] Address [address] [place] [address] Care Team Providers Care Chief Lending Officer Name Role Phone LENIN BENSON Primary Care [...] PHARMACY PRESCRIPT ION SYSCO Apr 18, [id number] MITCHELL RAE PATIENT IAIN-ASA HANKINS PREFERRED PROVIDER ORGANIZAT ION (PPO) ADVAN LILLIAN DRAIN AGE Sep 17, 2002 [id number] 20 MITCHELL RAE PATIENT Selected Encounter This section includes the information on record at [place] for the Encounter. Date/Time Encounter Type Encounter Description Reason Provider Source Feb 21, 2024 09:48 AM Outpatient Encounter TELEPHONE/MEDICINE MARLINE MONTEIRO Encounter Template Text not used by VA [...] Appointment Type Appointme nt Facility Name Mar 20, 2024 11:30 AM AMBULATORY - PSYCHIATRY [facility] Mar 21, 2024 12:45 PM AMBULATORY - NONE [facility] Mar 21, 2024 01:00 PM AMBULATORY - MEDICINE [facility] Apr 05, 2024 09:00 AM AMBULATORY - MEDICINE [facility] Apr 09, 2024 08:00 AM AMBULATORY - MEDICINE [facility] Active, Pending, and Scheduled Orders This section includes a listing of several types of active, pending, and scheduled orders, including clinic medications orders, diagnostic test orders, procedure orders and consult orders; where the start date of the order is 45 days before the date of the Encounter or 45 days after the date of theEncounter. The data comes from all [facility]. Test Date/Time Test Type Test Details Facility Name Mar 28, 2024 12:00 AM Laboratory - Chemistry Order LIPID PANEL [facility] Mar 28, 2024 12:00 AM Laboratory - Chemistry Order LIVER FUNCTION BLOOD (SST[facility]SERUM) [facility] Mar 28, 2024 12:00 AM Laboratory - Chemistry Order BASIC METABOLIC PANEL (fasting) BLOOD (SST-SERUM[facility] Mar 28, 2024 12:00 AM Laboratory - Chemistry Order VITAMIN D (25-OH) BLOOD (SST-SERUM) [facility] Mar 28, 2024 12:00 AM Laboratory - Chemistry Order TSH BLOOD (SST-SERUM) [facility] Mar 28, 2024 12:00 AM Laboratory - Chemistry Order HEMOGLOBIN A1C PANEL BLOOD (LA[facility]OOD[facility] Mar 28, 2024 12:00 AM Laboratory - Chemistry Order CBC BLOOD (LAV[facility]BLOOD) [facility] Mar 28, 2024 12:00 AM Laboratory - Chemistry Order LIPOPROTEIN (a) BLOOD (SST-SERUM) [facility] [place] [facility] Radiology Reports: +/- 30 days of the [...] the Encounter. The data comes from all [place] treatment facilities. Date/Time Radiology Report Provider Source Mar 21, 2024 12:33 PM CALCIUM SCORE 1: MITCHELL RAE [facility] [id number] M Exm Date: MAR 21, 2024@12:33 Req Phys: MARLINE MONTEIRO Loc: MISSY PHONE CARD PREVENTION (Req Img Loc: NEW CT SCAN Service: [place] [address] (Case [id number] COMPLETE) CALCIUM SCORE 1 (CT Detailed) CPT:66223 Reason for Study: CORONARY CALCIUM SCORE Clinical History: NEEDS CORONARY CALCIUM SCORE Report Status: Verified Date Reported: MAR 23, 2024 Date Verified: MAR 23, 2024 [place] Supervisor E-Sig:/ES/DAKOTA MATOS MD Report: CT HEART WITHOUT [...] Interpreting Staff: DAKOTA MATOS MD, Radiology Attending (Marble Supervisor) /DAKOTA STEVENS Encounter Notes: All associated encounter notes This section contains the clinical notes associated to the Encounter. Date/Time Encounter Note(s) Provider Source Feb 21, 2024 09:48 AM LETTERS: LOCAL TITLE: SCHEDULING ATTEMPT [facility] TITLE: LETTERS DATE OF NOTE: FEB 21, 2024@09:48 ENTRY DATE: FEB 21, 2024@09:48:25 AUTHOR: ERIKA MEZA EXP COSIGNER: URGENCY: STATUS: COMPLETED MITCHELL RAE [address] [place] [id number] Feb Dear Mitchell Rae Jr, We are trying to reach you to schedule an appointment located at the [facility]. Scheduling Attempt for: Cardiology General Please call us back at [phone] Ext. [phone] between the hours of 8am and 4:30pm to schedule your appointment. Reason for letter: Return to clinic order request (RTC) Please contact us no later than 14 calendar days from date this letter is sent and we will be happy to make this appointment. If this appointment has already been scheduled, please disregard this letter. ERIKA MEZAUT HCS
--- OUTSIDE RECORDS SUMMARY | 2024-03-29 01:44 | XMS_ITS | Encounter Summary ---
Author Name [facility] [place] Address [address] [place] [address] Care Team Providers Care Economic Development Specialist Name Role Phone KELLEYLENIN Primary Care Provider [...] PHARMACY PRESCRIPT ION [facility]SC[facility] Apr 18, 2010 [id number] MITCHELL RAE PATIENT CIGBENIGNO-ASA T CR PREFERRED PROVIDER ORGANIZAT ION (PPO) ADVAN LILLIAN DRAIN AGE Sep 17, 2002 [id number] MITCHELL RAE PATIENT Selected Encounter This section includes the information on record at [place] for the Encounter. Date/Time Encounter Type Encounter Description Reason Provider Source Feb 16, 2024 11:30 AM HC PRO PHONE CALL 5-10 MIN TELEPHONE ICD-10-CM F43.12 Post-traumatic stress disorder, chronic LABELLA,YASMINE MANUELA IHE Encounter Template Text not used by [place] Assessments - Encounter Diagnoses This section includes the primary and secondary diagnoses documented for the Encounter. Date/Time Primary/Secondary Diagnosis Diagnosis Name Provider Source Feb 16, 2024 11:30 AM PRIMARY Post-traumatic stress disorder, chronic YASMINE PARRA [facility] Plan of Treatment: Future Appointments (+ 6 months) and Future Tests (+/- 45 days) The Plan of Treatment section includes future care activities for the patient from all [place] treatmentfacilities. This section includes future appointments and future orders which are active, pending or scheduled. Future Appointments This section includes appointments that were scheduled to occur 6 months from the date of the Encounter, up to a maximum of 20 appointments. The data comes from all [facility] facilities. Appointment Date/Time Appointment Type Appointme nt Facility Name Feb 21, 2024 02:00 PM [facility] Mar 20, 2024 11:30 AM AMBULATORY - PSYCHIATRY [facility] Mar 21, 2024 12:45 PM AMBULATORY - NONE L[facility] Jo Mar 21, 2024 01:00 PM AMBULATORY - MEDICINE [facility] Apr 05, 2024 09:00 AM AMBULATORY - MEDICINE [facility] Apr 09, 2024 08:00 AM AMBULATORY - MEDICINE [facility] Active, Pending, and Scheduled Orders This [...] PM Consult Order REHAB MEDICINE/[facility] OUTPT Cons Virtual Reality Special[facility] Mar 28, 2024 12:00 AM Laboratory - Chemistry Order LIPID PANEL FASTING BLOOD (SST-SERUM) [facility] Mar 28, 2024 12:00 AM Laboratory - Chemistry Order BASIC METABOLIC PANEL (fasting) BLOOD (SST-SERUM) [facility] Mar 28, 2024 12:00 AM Laboratory - Chemistry Order LIVER FUNCTION BLOOD (SST-SERUM) [facility] [place] [facility] Mar 28, 2024 12:00 AM Laboratory - Chemistry Order VITAMIN D (25-OH) BLOOD (SST-SERUM) [facility] [place] [facility] Mar 28, 2024 12:00 AM Laboratory - Chemistry Order TSH BLOOD (SST-SERUM) [facility] [place] [facility] Mar 28, 2024 12:00 AM Laboratory - Chemistry Order HEMOGLOBIN A1C PANEL BLOOD (LAV-BLOOD) [facility] [place] [facility] Mar 28, 2024 12:00 AM Laboratory - Chemistry Order CBC BLOOD (LAV-BLOOD) [facility] Mar 28, 2024 12:00 AM Laboratory - Chemistry Order LIPOPROTEIN (a) BLOOD (SST-SERUM) [facility] Social History: Smoking Status (Most current) and Tobacco Use (All prior to encounter date) This section includes the most current, and the historical, smoking and tobacco- related health factors from the [place] facility where the Encounter took place. Current Smoking Status This section includes the most current smoking, or tobacco-related health factor, from the [place] facility where the Encounter took place. Date/Time Current Smoking Status Comment [facility] Jan 03, 2024 01:00 PM [facility]CO [facility] Tobacco Use History This section includes a history of the smoking, or tobacco-related health factors, that were collected on or before the date of the Encounter. The data comes from the [place] facility where the Encounter took place. Date/Time Smoking Status/Tobac co Use Comment Facility Jan 03, 2024 01:00 PM VA-TOBACCO QUIT 15 YRS OR MORE [facility] [place] [facility] Dec 01, 2022 03:30 PM VA-TOBACCO FORMER USER [place] [facility] [place] [facility] Dec 01, 2022 03:30 PM VA-TOBACCO QUIT 15 YRS OR MORE [facility] [place] [facility] Nov 21, 2020 09:30 AM VA-TOBACCO FORMER USER [facility] [place] [facility] Nov 21, 2020 09:30 AM VA-TOBACCO QUIT 15 YRS OR MORE [facility] [place] [facility] Sep 21, 2019 10:24 AM VA-TOBACCO FORMER USER [facility] [place] [facility] Sep 21, 2019 10:24 AM VA-TOBACCO QUIT 15 YRS OR MORE [facility] [place] [facility] August 31, 2018 09:07 AM VA-TOBACCO NEVER USED [facility] [place] [facility] Jul 21, 2017 09:00 AM QUIT TOBACCO USE > 7 YEARS AGO He quit 20 years ago [facility] [place] [facility] Jun 17, 2016 02:37 PM LIFETIME NON-TOBACCO USER [facility] [place] [facility] May 19, 2015 04:56 PM LIFETIME NON-TOBACCO USER [facility] [place] [facility] August 24, 2012 03:06 PM LIFETIME NON-TOBACCO USER [place] [facility] [place] [facility] Encounter Notes: All associated encounter notes This section contains the clinical notes associated to the Encounter. Date/Time Encounter Note(s) Provider Source Feb 16, 2024 11:43 AM [facility]: LOCAL TITLE: PRIMARY MENTAL HEALTH OUTPATIENT FOLLOW UP NOTE STANDARD TITLE: MENTAL HEALTH OUTPATIENT NOTE DATE OF NOTE: FEB 16, 2024@11:43:40 ENTRY DATE: FEB 16, 2024@11:44:43 AUTHOR: YASMINE PARRA EXP COSIGNER: URGENCY: STATUS: COMPLETED PSYCHOPHARMACOLOGY The patient reports being prescribed a psychotropic medication. Side Effects and Adherence: In the last week, the patient reports the following when asked have you taken the medication(s) as prescribed: not taking medication at all. The patient reports the following reason for not taking the medication as prescribed: reported other: hadn't received yet and had questions. [place]odeo Rider called [place] to assess for side effects and adherence one week after addition of prazosin 1 mg for nightmares associated with a diagnosis of PTSD, a service connected condition. 's identity verified through name and . reported he has not started medication yet and reported he had questions. [place] was informed that medication was for nightmares and was to be taken on a routine bases as opposed to an as needed basis like he does for hydroxyzine and to take it at bedtime. reported he would start the medication soon. [place] was offered an appointment within program protocols and has the right to choose a different appointment interval. [place]'s preference honored in an effort to be [place] centric and to engage in shared decision making. Plan: Follow-up on 03/20 at 1130 via telephone Time Spent: 5 minutes on telephone and 3 minutes on post visit documentation /toshia/ Yasmine CARLSON RN PCMHI PRESS CUTTER Signed: 02/16/2024 13:31 [facility]INE PAR[facility]
--- OUTSIDE RECORDS SUMMARY | 2024-03-29 01:44 | XMS_ITS ---
Author Name [facility] [place] Address [address] [place] [address] Care Team Providers Care Critical Care Technician Name Role Phone KELLEYLENIN Primary Care Provider [...] PHARMACY PRESCRIPT ION SYSCO Apr 18, 2010 [id number] MITCHELL RAE PATIENT CIGBENIGNO-ASA T CR PREFERRED PROVIDER ORGANIZAT ION (PPO) ADVAN LILLIAN DRAIN AGE Sep 17, 2002 [id number] 20 MITCHELL RAE PATIENT Selected Encounter This section includes the information on record at [place] for the Encounter. Date/Time Encounter Type Encounter Description Reason Provider Source Jan 24, 2024 12:15 PM HC PRO PHONE CALL 21-30 MIN TELEPHONE ICD-10-CM F41.9 Anxiety disorder, unspecified YASMINE PARRA Encounter Template Text not used by [place] Assessments - Encounter Diagnoses This section includes the primary and secondary diagnoses documented for the Encounter. Date/Time Primary/Secondary Diagnosis Diagnosis Name Provider Source Jan 24, 2024 12:15 PM PRIMARY Anxiety disorder, unspecified YASMINE PARRA [facility] Jan 24, 2024 12:15 PM SECONDARY Post-traumatic stress disorder, chronic YASMINE PARRA [facility] Plan of Treatment: Future Appointments (+ 6 months) and Future Tests (+/- 45 days) The Plan of Treatment section includes future care activities for the patient from all [place] [facility] This section includes future appointments and future orders which are active, pending or scheduled. Future Appointments This section includes appointments that were scheduled to occur 6 months from the date of the Encounter, up to a maximum of 20 appointments. The data comes from all [place] treatment [facility]. Appointment Date/Time Appointment Type Appointme nt Facility Name Feb 01, 2024 12:00 PM AMBULATORY - PS[facility]CHIATRY [facility] Feb 14, 2024 09:00 AM AMBULATORY - MEDICINE [facility] Feb 16, 2024 11:30 AM AMBULATORY - [facility]AT[facility] Feb 21, 2024 02:00 PM [facility] Mar 20, 2024 11:30 AM AMBULATORY - PSYCHIATRY [facility] Mar 21, 2024 12:45 PM AMBULATORY - NONE [facility] Mar 21, 2024 01:00 PM AMBULATORY - MEDICINE [facility] Apr 05, 2024 09:00 AM [facility] Apr 09, 2024 08:00 AM AM[facility]ULATORY - MEDICINE [facility] Active, Pending, and Scheduled Orders This section [...] 2024 01:45 PM Consult Order REHAB MEDI [facility] OUT[facility] Cons Music Education Director's Choice [facility] Social History: Smoking Status (Most current) [...] 03, 2024 01:00 PM VA-TOBACCO FORMER USER [place] [facility] [place] [facility] Tobacco Use History This section includes a history of the smoking, or tobacco-related health factors, that were collected on or before the date of the Encounter. The data comes from the [place] facility where the Encounter took place. Date/Time Smoking Status/Tobac co Use Comment Facility Jan 03, 2024 01:00 PM VA-TOBACCO QUIT 15 YRS OR MORE [place] [facility] [place] [facility] Dec 01, 2022 03:30 PM VA-TOBACCO FORMER USER [place] [facility] [place] [facility] Dec 01, 2022 03:30 PM VA-TOBACCO QUIT 15 YRS OR MORE [facility] [place] [facility] Nov 21, 2020 09:30 AM VA-TOBACCO FORMER USER [place] [facility] [place] [facility] Nov 21, 2020 09:30 AM VA-TOBACCO QUIT 15 YRS OR MORE [place] [facility] [place] [facility] Sep 21, 2019 10:24 AM VA-TOBACCO FORMER USER [place] [facility] [place] [facility] Sep 21, 2019 10:24 AM VA-TOBACCO QUIT 15 YRS OR MORE [facility] [place] [facility] August 31, 2018 09:07 AM VA-TOBACCO NEVER USED [place] [facility] [place] [facility] Jul 21, 2017 09:00 AM QUIT TOBACCO USE > 7 YEARS AGO He quit 20 years ago [facility] [place] [facility] Jun 17, 2016 02:37 PM LIFETIME NON-TOBACCO USER [place] [facility] [place] [facility] May 19, 2015 04:56 PM LIFETIME NON-TOBACCO USER [place] [facility] [place] [facility] August 24, 2012 03:06 PM LIFETIME NON-TOBACCO USER [place] [facility] [place] [facility] Encounter Notes: All associated encounter notes This section contains the clinical notes associated to the Encounter. Date/Time Encounter Note(s) Provider Source Jan 24, 2024 12:50 PM MENTAL HEALTH CONSULT: LOCAL TITLE: - INTEGRATION/CONSULT REPORT STANDARD TITLE: MENTAL HEALTH CONSULT DATE OF NOTE: JAN 24, 2024@12:50:07 ENTRY DATE: JAN 24, 2024@13:40:37 AUTHOR: YASMINE PARRA EXP COSIGNER: URGENCY: STATUS: COMPLETED DEPRESSIVE SYMPTOMS (PHQ-9) The patient reported some symptoms of depression; symptoms are not consistent with a major depressive episode. Patient Health Questionnaire-9 (PHQ-9) Patient reported being bothered by the following over the last 2 weeks: 1. Little interest or pleasure: Several Days 2. Feeling down, depressed or hopeless: Several Days 3. Trouble sleeping: Nearly every day 4. Tired, low energy: Nearly every day 5. Poor appetite, over-eating: Not at all 6. Feelings of failure, guilt: Several Days 7. Trouble concentrating: Several Days 8. Motor retardation, agitation: Several Days 9. Thoughts better off /hurting self: Not at all PHQ-9 total score = 11 1-4 = minimal symptoms 5-9= mild symptoms 10-14= moderate symptoms 15-19= moderately severe symptoms 20-27= severe depressive symptoms The patient stated that the depressive symptoms made it somewhat difficult to do work, take care of things at home, or get along with others. PSYCHOPHARMACOLOGY The patient reports being prescribed a psychotropic medication. Side Effects and Adherence: In the last week, the patient reports the following when asked have you taken the medication(s) as prescribed: taking the medication as prescribed. The patient does not report symptoms suggestive of adverse effects of medication. Statistical Technician reached out to PCP via TEAMS who confirmed desire for health technical writer to be involved in this case. Consult placed held for PCP signature. was started on hydroxyzine as an addition to fluoxetine for diagnoses of chronic PTSD and anxiety. PTSD is a service connected condition. Irvine agreed for health technical writer to assess Irvine which constitutes shared decision making. Irvine's identity verified through name and . Statistical Technician explained the limits of confidentiality and that health technical writer is a mandated county agricultural agent of child abuse/neglect and elder abuse/neglect. Measurement based care collected and reviewed with Irvine and Irvine somewhat agreed with summation. Irvine reported that he is more sad than depressed. PSYCHIATRIC REVIEW OF SYPTOMS: SLEEP: reported no trouble falling asleep, reported wakes up nearly every night with severe anxiety and then takes at least a few hours to fall asleep and wakes up feeling exhausted, reported hydroxyzine has helped when taken in the middle of the night, wakes up heart pounding, trouble breathing and sweating NIGHTMARES: reported frequent bad dreams and nightmares at least 2-3 times per week, reported has woken up screaming 2 times in past month according to APPETITE: denied concerns HYGIENE: denied concerns ENERGY/MOTIVATION: reported his low energy started after back surgery where he felt his life went from 100 mph to 5 mph and he feels somedays he just does not have the energy to do things MOOD: anxious and exhausted PTSD: did not do PCL-5 due to time limits in interaction, clearly present, endorses nightmares and increased startle and avoidance, reported sees community care psychologist to discuss concerns ANXIETY: reported that the intensity of the breakthrough anxiety has reduced and the duration of the episodes has reduced, reported baseline anxiety is improving as well and both are becoming tolerable and livable, also reported that it takes less time to recover from the breakthrough anxiety, for baseline anxiety uses CBT techniques learned in therapy to help mitigate with good effect reported that fear is coming from that he lost a child when the child was 23 and his next oldest just turned 22 PANIC ATTACKS: denied concerns DEPRESSION: reported he thinks it is more sadness than depression, reported sadness gets severe on occasion, the feelings of being down do not linger except on the occasional day where he sits and rests and spends time with the dog, uses distraction and has hobbies and interests that help him manage, uses CBT skills to help mitigate ANGER/IRRITABILITY/AGGRESS ION: reported can get angry and irritable usually with himself and his family members denied aggression and rage. RICHARD/HYPOMANIA: none observed or reported PSYCHOTIC FEATURES: none observed or reported PAIN: reported that back surgery helped the pain Alcohol Use: minimal Drug Use: denied Caffeine Use: within normal limits Effect of psychiatric symptoms on functioning: Work- reported was working 3 jobs before back surgery and was very busy and is having trouble getting back to doing things Close relationships- 2 kids and a Recreation- doing hobbies and reported has plenty of them Physical- doing better with the pain after back surgery Side Effects to current medications/ Adherence reported he did a dose increase of the fluoxetine as well which has been helpful. reported he takes the hydroxyzine as needed 2-3 times per week and has only needed it Medications previously taken: paroxetine- was not effective Mental health treatment in past: did engage in [facility] the past currently seeing [facility] for psychotherapy, asked health technical writer about obtaining records. health technical writer sent email to [facility] Psychoeducation Provided: Statistical Technician educated Irvine about the difference between sadness and depression, worry and anxiety, anger and rage, fear and phobia and guilt and shame. Irvine was educated that sadness, worry, anger, fear and guilt are normal human emotions that everyone experiences and to try not to experience them creates stress. The duncan is to have a way to recover from these emotions so they do not linger. Activities that bring about kristina, peace, happiness and in general a state of well-being are duncan to cultivate and practice. Irvine and health technical writer discussed possible activities to return to that sense of wellbeing. This is part of relapse prevention education. and health technical writer talked about behavioral activation and how it can help depression. Statistical Technician and Irvine explored having health technical writer discuss case with MH consultant technology and Irvine agreed to this. Statistical Technician and Irvine explored what was the main concern and it is the poor quality and quantity of sleep caused by nightmares. has been using hydroxyzine to help when he wakes up in severe panic Irvine was offered an appointment within program protocols and has the right to choose a different appointment interval. Irvine's preference honored. wished to be seen on 01/31 at 1200 and the spacing of the next appointment was honored in an effort to be centric and to engage in shared decision making. Irvine's stated action plan/ initial goal: will continue to use coping skills used in therapy and will consider options to help better control nightmares knows how to access emergency services should the need arise and is aware of the crisis numbers 911 and [phone] and to press 1 for Veterans Plan: 1) Irvine and health technical writer have planned follow-up on 01/31 at 1200 via telephone 2) Irvine's plan/ Stated goal: will continue to engage in therapy to learn skills and take medication as prescribed 3) Consult with MH consultant technology Summary of next steps/plan was provided to the Irvine. Outcome and recommendations will be discussed with the PCP and other relevant PACT team members, as needed. Time Spent: 40 minutes on telephone, 25 minutes on initial chart review in preparation of 1st phone call and 20 minutes spent post visit documentation /toshia/ Yasmine CARLSON RN PCMHI MANAGER COMPLIANCE Signed: 01/25/2024 09:59 YASMINE PARRA [facility]
--- OUTSIDE RECORDS SUMMARY | 2024-03-29 01:44 | XMS_ITS | Encounter Summary ---
Author Name [facility] [place] Address [address] [place] [address] Care Team Providers Care Manager Reporting Name Role Phone LENIN BENSON Primary Care [...] PHARMACY PRESCRIPT ION [facility]SCO [birth year], 2010 [id number] MITCHELL RAE PATIENT CIGBENIGNO-ASA HANKINS PREFERRED PROVIDER ORGANIZAT ION (PPO) ADVAN LILLIAN DRAIN AGE Sep 17, 2002 [id number] 20 MITCHELL RAE PATIENT Selected Encounter This section includes the information on record at [place] for the Encounter. Date/Time Encounter Type Encounter Description Reason Provider Source Jan 04, 2024 10:00 AM HC PRO PHONE CALL 21-30 MIN TELEPHONE ICD-10-CM E78.5 Hyperlipidemia, unspecified TOMAS LOCKE Encounter Template Text not used by [place] Assessments - Encounter Diagnoses This section includes the primary and secondary diagnoses documented for the Encounter. Date/Time Primary/Secondary Diagnosis Diagnosis Name Provider Source Jan 04, 2024 10:00 AM PRIMARY Hyperlipidemia, unspecified [facility] Jan 04, 2024 10:00 AM SECONDARY Insomnia, unspecified [facility] Plan of Treatment: Future Appointments (+ 6 months) and Future Tests (+/- 45 days) The Plan of Treatment section includes future care activities for the patient [facility] [place] [facility]. This section includes future appointments and future orders which are active, pending or scheduled. Future Appointments This section includes appointments that were scheduled to occur 6 months from the date of the Encounter, up to a maximum of 20 appointments. The data comes from all [facility]. Appointment Date/Time Appointment Type Appointme nt Facility Name Jan 24, 2024 12:15 PM AMBULATORY - PSYCHIATRY [place] [facility] Feb 01, 2024 12:00 PM AMBULATORY - PSYCHIATRY [place] [facility] [place] [facility] Feb 14, 2024 09:00 AM AMBULATORY - MEDICINE [facility] Feb 16, 2024 11:30 AM AMBULATORY - PSYCHIATRY [place] [facility] Feb 21, 2024 02:00 PM AMBULATORY - MEDICINE [place] [facility] [place] [facility] Mar 20, 2024 11:30 AM AMBULATORY - PSYCHIATRY [place] [facility] Mar 21, 2024 12:45 PM AMBULATORY - NONE [facility] Mar 21, 2024 01:00 PM AMBULATORY - MEDICINE [facility] Apr 05, 2024 09:00 AM AMBULATORY - MEDICINE [facility] Apr 09, 2024 08:00 AM [facility]ULATORY - [facility] Active, Pending, and Scheduled Orders This section includes a listing of several types of active, pending, and scheduled orders, including clinic medications orders, diagnostic test orders, procedure orders and consult orders; where the start date of the order is 45 days before the date of the Encounter or 45 days after the date of theEncounter. The data comes from all [facility]. Test Date/Time Test Type Test Details Facility Name Jan 03, 2024 01:45 PM Consult Order REHAB MEDI [facility] Cons Department Chair's Choice [place] [facility] Encounter Notes: All associated encounter notes This section contains the clinical notes associated to the Encounter. Date/Time Encounter Note(s) Provider Source Jan 04, 2024 11:11 AM CARDIOLOGY NOTE: LOCAL TITLE: CARDIAC WELLNESS PRESCREEN NOTE STANDARD TITLE: CARDIOLOGY NOTE DATE OF NOTE: JAN 04, 2024@11:11 ENTRY DATE: JAN 04, 2024@11:11:35 AUTHOR: TOMAS LOCKE COSIGNER: URGENCY: STATUS: COMPLETED IDENTIFYING INFORMATION AGE: 53 SEX/GENDER: Male RACE/ETHNICITY: White, Not or REFERRAL SOURCE: LENIN BENSON REFERRAL REASON: Family History of Ischemic Heart Disease and other Diseases of the Circulatory System(ICD-10-CM Z82.49) BATSCAP ID: [id number] Pt seen for 58 min by phone. Patient gave consent to a phone visit today. Patient confirmed phone number: PRESENTING CONDITIONS Pt is presenting for a CV Behavioral Medicine Initial Evaluation a part of his initial intake for the CV Primary Prevention Program with Marline Monteiro APRN. Pt's primary medical hx prominent for PTSD, insomnia, tinnitus, and hyperlipidemia. Justification for referral to Preventive Cardiology is has extensive family history of CAD. Father and mother both had CAD, Father from CAD. Brother recently had CABG. All immediate family members have hyperlipidemia. OBJECTIVE/SELF-REPORT ASSESSMENTS/SYMPTOM MEASUREMENTS [facility] Questionnaire Pt reported his health is fair and believes he is somewhat informed about heart disease. Among possible CVD risk factors, Pt reported high cholesterol, life/emotional stressors, anxiety, PTSD and poor sleep are major problems. Lack of exercise was rate as a moderate problem and eating a heart healthy diet was rated as a small problem . Endorsed a 10-year risk of a heart attack or cardiac-related as 60% and feels his risk will decrease to 50% with appropriate lifestyle changes. The top activities that Pt believes can reduce his personal CV risk are exercise, lower cholesterol in his diet, and treat PTSD. Pt rated his motivation to adapt new lifestyle changes as 7/10 (fairly motivated) and his confidence in adopt lifestyle changes as 7/10 (fairly confident), although he seemed tentative when choosing these ratings suggesting they may not be accurate. Pts barriers to living a heart healthy lifestyle included thinking that changing his behavior won't reduce his risk d/t his family history despite whatever I do I'll still be at risk , feeling he's too stressed, and too tired. Familial history of heart disease: Father of heart failure at 86 and had high cholesterol Mother had high cholesterol (Pt noted She was pretty good about managing it though. ) Sister has high cholesterol Brother has high cholesterol and failed a stress test recently and had a CABG. In terms of CVD risk factors: Social smoker in the past for 2 years but quit over 5 years ago. Only smoked 5-6 cigarettes in a day. Pt follows no specific dietary pattern. Consumes fruits and vegetables 1-2x/day, fish 1x/week, whole grains 1-3x/week, sugar sweetened beverages 1-2x/week, and salty foods 1-2x/day. Does not add table salt to his meals and does not track sodium. Pt's DASI score is 36.7/7.25 METs. On this scale he identified limitations with heavy housework, moderate and strenuous sports. Walks his dog 1x/day on average (duration was not specified) but no regular exercise. Rates sleep in the past month as sometimes very bad (1/5) due to carpel tunnel, tinnitis (discomfort), and stress. Takes a prescribed sleep aid every day. Previously used melatonin with limited benefit. No sleep diagnosis but meets criteria for insomnia. Recent home sleep study (Aug, 2023) that was negative for DENIA. Reports 4 hours of sleep/night on average. Difficulty maintaining enough energy for daily tasks every day. 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 Lives with 24 years and grown children (aged 18 and 21) in own home in [place], [place]. Social support: None per Pt. I can lean on nobody, including my , who has Stage 4 cancer. Has a therapist through [place] (weekly) Associate degrees in Business Admin and Air Transportation. Hobbies: Fishing, [place] hunting with rifle/bow, Fixing up muscle car, Home improvement Alcohol: 21 drinks/week. No other substance use. RISK EVALUATION/PSYCH HISTORY Based on past risk assessment (last C-SSRS unknown), relevant historical information reviewed in the 's medical records and/or in conference with other providers, and the assessment of risk and protective factors, the [place]'s risk for suicide can be characterized as LOW acute and LOW chronic risk. Furthermore, the is deemed to be at LOW risk of harm to others. Patient Health Questionnaire-4 item (depression/anxiety): 8/12 overall = Moderate sxs of anxiety and depression. Only item endorsed was feeling down, depression, or hopeless for several days over the past month. Perceived Stress Scale-4 item: 8/16 = Moderate stress. Currently in weekly therapy for PTSD. Prescribed fluroxetine (30 mg/day) and hydroxyzine (10 mg, 3x/day). MENTAL STATUS EXAM TIMELINESS: On-time for scheduled appointment GENERAL APPEARANCE: unable to access d/t nature of appt via phone PSYCHOMOTOR BEHAVIOR: unable to access d/t nature of appt via phone SPEECH: Normal in rate, tone, volume, & prosody RAPPORT: good; cooperative ORIENTATION: Fully oriented x4 COGNITION/MEMORY: grossly intact, although not formally assessed INSIGHT/JUDGMENT: Intact, no significant deficits or issues noted THOUGHT PROCESS: Linear and goal-directed MOOD/AFFECT: Euthymic; Affect unable to assess d/t nature of appt via phone SUMMARY AND TREATMENT PLAN Micky is a 53 yo, White non- male, who is being assessed for the CV Prevention Program and presented for his initial behavioral health evaluation. Based on this evaluation, Pt is a good candidate for the program, with goals to address physical activity, cholesterol (via diet or medication), and sleep/stress. When considering Pt's age, sex, and multiple current CVD risk factors he has a fairly accurate view of his risk for CVD onset or events in the next 10 years (rated as a probability of 60%). However he is not very informed about heart disease. Pt is fairly motivated to engage in meaningful efforts to change his CV behaviors and is fairly confident in his ability to make changes. His current stress and ongoing sleep problems are notable barriers. Pt may benefit from engaging in [facility] to [facility] his symptoms of insomnia. Pt noted he would consider this and then discuss in his next appt. Based on the sum of this information it appears that Pt is in the contemplation stage of change (marked by ambivalence and conflicted emotions), suggesting he may benefit from weighing pros and cons of behavior change, confirming readiness and ability to change, and identifying barriers to change. While Pt. did not report current health related stress, he noted that he may be interested in meeting with behavioral medicine in Cardiology in the future to aid in behavioral management of sleep related to life stress. GOALS 1. Pt will proceed with CV Prevention with Marline Monteiro. 2. Pt may benefit from behavioral assistance in the future to address insomnia and stress. This can be discussed further during his visit with Marline. /toshia/ TOMAS LOCKE PHD Signed: 01/04/2024 11:45 Receipt Acknowledged By: 01/06/2024 07:36 /toshia/ MARLINE MONTEIRO, MSN, COLD HEADER OPERATOR- NURSE PRACTITIONER TOMAS LOCKE [facility]
--- OUTSIDE RECORDS SUMMARY | 2024-03-29 01:44 | XMS_ITS ---
Author Name [facility] [place] [facility] [place] Organization [facility] [place] [facility] [place] Address [address] [place] [address] Care Team Providers Care Implementation Engineer Name Role Phone LENIN BENSON Primary [...] PHARMACY PRESCRIPT ION SYSCO Apr 18, 2010 [id number] MITCHELL RAE PATIENT IAIN-ASA HANKINS PREFERRED PROVIDER ORGANIZAT ION (PPO) ADVAN LILLIAN DRAIN AGE Sep 17, 2003 [id number] MITCHELL RAE PATIENT Selected Encounter This section includes the information on record at [place] for the Encounter. Date/Time Encounter Type Encounter Description Reason Pro vider Source Mar 20, 2024 11:30 AM Outpatient Encounter PRIMARY CARE/MEDICINE IHE Encounter Template [...] 20 appointments. The data comes from all [facility]. Appointment Date/Time Appointment Type Appointme nt Facility Name Mar 21, 2024 12:45 PM AMBULATORY - NONE LISA Jo Mar 21, 2024 01:00 PM AMBULATORY - MEDICINE PARISA CARRANZA Apr 05, 2024 09:00 AM AMBULATORY - MEDICINE [facility] Apr 09, 2024 08:00 AM AMBULATORY - MEDICINE [facility] September 12, 2024 08:00 AM AMBULATORY - MEDICINE [facility] Active, Pending, and Scheduled Orders This section includes a listing of several types of active, pending, and scheduled orders, including clinic medications orders, diagnostic test orders, procedure orders and consult orders; where the start date of the order is 45 days before the date of the Encounter or 45 days after the date of theEncounter. The data comes from all [facility]. Test Date/Time Test Type Test Details Facility Name Mar 28, 2024 12:00 AM Laboratory - Chemistry Order LIPID PANEL FASTING BLOOD (SST-SERUM) [facility] Mar 28, 2024 12:00 AM Laboratory - Chemistry Order LIVER FUNCTION [facility] Mar 28, 2024 12:00 AM Laboratory - Chemistry Order BASIC METABOLIC PANEL (fasting) BLOOD (SST-SERUM) [facility] Mar 28, 2024 12:00 AM Laboratory - Chemistry Order VITAMIN D (25-OH) BLOOD (SST-SERUM) [facility] Mar 28, 2024 12:00 AM Laboratory - Chemistry Order TSH BLOOD (SST-SERUM) [facility] Mar 28, 2024 12:00 AM Laboratory - Chemistry Order HEMOGLOBIN A1C PANEL BLOOD (LAV-BLOOD) [facility] Mar 28, 2024 12:00 AM Laboratory - Chemistry Order CBC BLOOD (LAV[facility]BLOOD) [facility] Mar 28, 2024 12:00 AM Laboratory - Chemistry Order LIPOPROTEIN (a) BLOOD (SST-SERUM) [place] [facility] [place] [facility] Social [...] 03, 2024 01:00 PM VA-TOBACCO FORMER USER [place] [facility] Tobacco Use History [...] YRS OR MORE [place] [facility] [place] [facility] Dec 01, 2022 03:30 PM VA-TOBACCO FORMER USER [place] [facility] [place] [facility] Dec 01, 2022 03:30 PM VA-TOBACCO QUIT 15 YRS OR MORE [place] [facility] [place] [facility] Nov 21, 2020 09:30 AM VA-TOBACCO FORMER USER [place] [facility] [place] [facility] Nov 21, 2020 09:30 AM VA-TOBACCO QUIT 15 YRS OR MORE [place] [facility] [place] [facility] Sep 21, 2019 10:24 AM VA-TOBACCO FORMER USER [place] [facility] [place] [facility] Sep 21, 2019 10:24 AM VA-TOBACCO QUIT 15 YRS OR MORE [place] [facility] [place] [facility] August 31, 2018 09:07 AM VA-TOBACCO NEVER USED [place] [facility] [place] [facility] Jul 21, 2017 09:00 AM QUIT TOBACCO USE > 7 YEARS AGO He quit 20 years ago [facility] [place] [facility] Jun 17, 2016 02:37 PM LIFETIME NON-TOBACCO USER [place] [facility] [place] [facility] May 19, 2015 04:56 PM LIFETIME NON-TOBACCO USER [place] [facility] [place] [facility] August 24, 2012 03:06 PM LIFETIME NON-TOBACCO USER [facility] Radiology Reports: +/- 30 days of [...] the Encounter. The data comes from all [facility] facilities. Date/Time Radiology Report Provider Source Mar 21, 2024 12:33 PM CALCIUM SCORE 1: MITCHELL RAE [facility] [id number] M Exm Date: MAR 21, 2024@12:33 Req Phys: MARLINE MONTEIRO Loc: MISSY PHONE CARD PREVENTION (Req Img Loc: NEW CT SCAN Service: [place] [address] (Case [id number] COMPLETE) CALCIUM SCORE 1 (CT Detailed) CPT:01611 Reason for Study: CORONARY CALCIUM SCORE Clinical History: NEEDS CORONARY CALCIUM SCORE Report Status: Verified Date Reported: MAR 23, 2024 Date Verified: MAR 23, 2024 Tag Press Operator E-Sig:/ES/DAKOTA MATOS MD Report: CT HEART WITHOUT [...] Interpreting Staff: DAKOTA MATOS MD, Radiology Attending (Tag Press Operator) /DKAOTA STEVENS Encounter Notes: All associated encounter notes This section contains the clinical notes associated to the Encounter. Date/Time Encounter Note(s) Provider Source Mar 22, 2024 02:38 PM LETTERS: LOCAL TITLE: PATIENT LETTER (T) STANDARD TITLE: LETTERS DATE OF NOTE: MAR 22, 2024@14:38 ENTRY DATE: MAR 22, 2024@14:39:02 AUTHOR: LENIN BENSON EXP COSIGNER: URGENCY: STATUS: COMPLETED [facility] Toll Free Number Primary Care Telephone Assistance can be reached at extension [phone] [facility] scheduling can be reached at extension [phone] [facility] scheduling can be reached at ext [phone] MITCHELL RAE JR [address] [place] [address], [phone] Dear , Normal exercise stress test- no sign of any ischemia. Dr. Lenin Benson LOCAL TITLE: CARDIAC STRESS LAB PROGRESS NOTE STANDARD TITLE: CARDIOLOGY DIAGNOSTIC STUDY NOTE DATE OF NOTE: MAR 21, 2024@14:25 Exercise Test a) Technique Exercise time: 10:27 Protocol: Nelson Stage: 4 Workload (METS): 13.4 Rest HR: 67 Rest BP: 136/72 Peak HR: 151 % Age-predicted max. HR: 89% End BP: 164/82 RPP (adequate >25): 24.7K b) Symptoms: shortness of breath c) Termination: target heart rate acheieved d) ECG Changes:(onset,degree,dura tion): No ischemic changes e) Arrhythmia: None observed IV. Interpretation: 1. Negative for ischemic changes 2. Denied angia 3. No arrhythmias 4. Good exercise tolerance 5. Appropriate hemodynamics Low risk by Pinto criteria. Sincerely, Your Primary Care Team [facility] [address] [place] [address] [place] [address] [phone] [facility] [address] [place] [address] [place], [place] [id number] [facility] [address] [facility] [address] [facility] [place] [address] [place] [address] [phone] LENIN BENSON [place] [facility] [place] [facility] Mar 22, 2024 02:37 PM CARDIOLOGY NONVA N OTE: LOCAL TITLE: NON-VA CARDIOLOGY TESTS STANDARD TITLE: CARDIOLOGY NONVA NOTE DATE OF NOTE: MAR 22, 2024@14:37 ENTRY DATE: MAR 22, 2024@14:37:52 AUTHOR: LENIN BENSON EXP COSIGNER: URGENCY: STATUS: COMPLETED SUBJECT: ETT This note is entered for the sole purpose of scanning Non-VA documentation into [employer]. LOCAL TITLE: CARDIAC STRESS LAB PROGRESS NOTE STANDARD TITLE: CARDIOLOGY DIAGNOSTIC STUDY NOTE DATE OF NOTE: MAR 21, 2024@14:25 ENTRY DATE: MAR 21, 2024@14:26:02 AUTHOR: ERIKA MORALES EXP COSIGNER: URGENCY: STATUS: COMPLETED I. Indication: atypical chest discomfort II. Resting ECG: Sinus Rhythm III. Exercise Test a) Technique Exercise time: 10:27 Protocol: Nelson Stage: 4 Workload (METS): 13.4 Rest HR: 67 Rest BP: 136/72 Peak HR: 151 % Age-predicted max. HR: 89% End BP: 164/82 RPP (adequate >25): 24.7K b) Symptoms: shortness of breath c) Termination: target heart rate acheieved d) ECG Changes:(onset,degree,dura tion): No ischemic changes e) Arrhythmia: None observed IV. Interpretation: 1. Negative for ischemic changes 2. Denied angia 3. No arrhythmias 4. Good exercise tolerance 5. Appropriate hemodynamics Low risk by Pinto criteria. /toshia/ ERIKA MORALES APRN NURSE PRACTITIONER Signed: 03/21/2024 14:45 /es/ LENIN BENSON D.O. PHYSICIAN Signed: 03/22/2024 14:38 LENIN BENSON [facility]
--- OUTSIDE RECORDS SUMMARY | 2024-03-29 01:45 | XMS_ITS | Data Portability ---
Author Organization [facility] [address] Address [address] [place] [address] Care Team Providers Care Warehouse Shipping Clerk Name Role Phone [facility]) Primary Care Pro vider Assessment No assessment recorded. Plan of Treatment Reminders Order Date Submit Date Provider Last Modified By Organization Details Last Modified Time Details Appointments None recorded. Lab rapid flu (A+B) 2022 023 [id number] [facility], [address] [place] [address], [id number], 3 17:45:08 SARS CoV 2 (COVID-19) Ag, QL, IA, upper respiratory specimen 2022 023 [place] [facility], [address] [place] [address], [id number], 3 18:15:36 Referral None recorded. Procedures None recorded. Surgeries None recorded. Imaging None recorded. Medication Orders ipratropium bromide 42 mcg (0.06 %) nasal spray 2022 023 [id number], [address], [place], [id number], 3 18:12:18 Patient TargetsNo targets recorded. Patient Instructions Encounter Date Encounter Id Patient Instructions Last Modified By Organization Details Last Modified Time 04/07/2023 [id number] You have been diagnosed with an Upper Respiratory Infection. It is important to drink plenty of fluids and rest while you are ill. Hot Tea with Honey is good to help with a sore throat. Some OTC medications that are helpful with your current symptoms would include. 1. Tylenol 2. Jazmyn Selzer Cold/Flu Effervescent Pills 3. Saline Nasal [place] Try an avoid other people and wash your hands regularly. Most symptoms will improve on its own in 7-10 days. If symptoms last longer than 10 days then I would suggest getting a re-evaluate by us or your Primary Care Doctor. I would be seen more urgently if you develop any of the following symptoms: 1. Fever > 101.0 2. Increased facial pain or pressure 3. Purulent Discharge from the nose that occurs all day -(not just first thing in the AM) 4. Worsening Sore throat 5. Cough or Shortness of Breath I would go to the ER if you develop: 1. Severe Headache 2. Fever > 102.5 3. Still Neck 4. Shortness of Breath or Chest Pain. Not available 04/07/2023 18:12:07 Reason for Referral None Reported. Results Created Date Observation Date Name Description Value Unit Range Abnormal Flag Note LastModifiedBy Organization Detail LastModifiedTime 04/07/20 23 04/07/2023 SARS CoV 2 (COVI D-19) Ag, QL, IA, upper respi rator y speci men Unknown Analyte negati ve Not Available [facility] [address] [place], [address], 04/07/2023 18:03:26 04/07/20 23 04/07/2023 SARS CoV 2 (COVI D-19) Ag, QL, IA, upper respi rator y speci men Unknown Analyte yes Not Available [facility] [address] [place], [address], 04/07/2023 18:03:26 04/07/20 23 04/07/2023 rapid flu (A+B) Unknown Analyte negati ve Not Available [facility] [address] [place], [address], 04/07/2023 17:20:30 04/07/20 23 04/07/2023 rapid flu (A+B) Unknown Analyte negati ve Not Available 2099renetta soto [facility] [address] [place], [address], 04/07/2023 17:20:30 04/07/2004/07/2023 rapid flu (A+B) Unknown Analyte yes Not Available 2099Odilia rosario [facility] [address] [place], [address], 04/07/2023 17:20:30 Result Notes None recorded. Problems Name Problem SNOMED Code Status Onset Date Resolution Date Notes Provider Name and Address Organization Details Recorded Time Anxiety 74442878 Active 2022 JASEN LUPICA null, [place] - [facility] 3 17:15:18 Insomnia 168534886 Active 2022 JASEN LUPICA null, PA - [facility] 3 17:18:33 Chronic back pain 286121360 Active 2022 JASEN LUPICA null, PA - [facility] 3 17:19:16 Neck pain 02079564 Active 2022 recently had a cortisone shot in neck JASEN LUPICA null, PA - [facility] 3 17:19:44 Fatigue 35483923 Active 2022 JASEN LUPICA null, PA - [facility] 3 17:20:36 Hyperchole sterolemia 67548610 Active 2022 JASEN LUPICA null, PA - [facility] 3 17:23:38 Problem Notes None recorded. Medical Equipment None Reported. Allergies No known drug allergies Medications Name Sig Start Date Stop Date Status Note LastModified by Organization Details LastModified Time fluoxetine 20 mg tablet Take 1 tablet every day by oral route. active Not Available Not Available No t Available Tylenol 325 mg tablet Take 2 tablets every 6 hours by oral route. active Not Available Not Available Not Available ipratropium bromide 42 mcg (0.06 %) nasal spray [place] 2 sprays 3 times a day by intranasal route for 10 days. 2022 active Not Available Not Available Not Avai lable Vitals Date Recorded Body height Body mass index (BMI) Body weight Respiratory rate Body temperature Oxygen saturation Oxygen saturation in Arterial blood by Pulse oximetry Heart rate Systolic blood pressure Diastolic blood pressure Provider Name and Address Organization Details Last Updated DateTime 3 185.42 cm 29 kg/m2 65683.3 2 g 18 /min 97.7 [degF] 95 % 95 % 69 /min 116 mm[Hg] 80 mm[Hg] JASEN LOMAX PA - [facility] 17:22:23 Social History Question Answer Notes LastModified by Organizat ion Details LastModified Time Tobacco Smoking Status Never Smoker JASEN roa PA - [facility] 04/07/2023 17:19:10 What Is Your Level Of Alcohol Consumption? Occasional [email or web address] Information not available 04/07/2023 Do You Use Any Illicit Or Recreational Drugs? No Information not available 04/07/2023 Have You Recently Traveled Abroad? No Information not available 04/07/2023 Do You Or Have You Ever Used Any Other Forms Of Tobacco Or Nicotine? No [email or web address] Information not available 04/07/2023 Sex: Unknown Functional Status None recorded. Mental Status None recorded. Family History Relationship Description Onset Age of this Age Resolved Age Notes LastModified by Organization Details LastModified Time Unspecified Relation Heart disease [email or web address] Not available 2022 17:18:23 Father Myocardial infarction [email or web address] Not available 04/07 17:23:15 Brother Hypercholest erolemia [email or web address] Not available 2022 17:23:25 Medical History No medical history recorded. Past Encounters Encounter ID Performer Location Encounter Start Date Encounter Closed Date Diagnosis/Indication Diagnosis SNOMED-CT Code Diagnosis ICD10 Code [id number] [address] [place] [address] 03/23/2021 08:03:27 03/23/2021 09:09:32 [id number] LEFTY ABDULLAHI [address] [place] [address] 04/07/2023 16:48:35 04/07/2023 18:15:43 Fatigue 08930952 R53.83 Upper resp iratory infection 35701210 J06.9 Health Concerns Section Related Observation LastModified by Organization Detai ls LastModified Time None Recorded Concern Status LastModified by Organization Details LastModified Time None Recorded Advance Directives Directive None Recorded Payers Encounter Date Sequence Insurance Name Policy Number Policy Batista Covered Member ID Batista Member ID Guarantor Name 03/23/2021 1 [facility] - DOS PRIOR TO 2024 - [employer] () Rafa Braden [id number] Rafa Braden 04/07/2023 [facility] - [facility] Rafa Braden [id number] Rafa Braden Notes Date Note Type Note Provider Name and Address Organization Details Recorded Time 04/07/2023 text/html Generic HPI TemplateReported bypatient.Notes:53 y.o male nontoxic looking patient presents with nasal congestion and pressure with previous fever x 4 days. Pt states he is feeling better. He denies chest pain, sob or other sx's. LEFTY ABDULLAHI [address] [place], [address], [place] - [facility] 04/07/2023 18:14:29
--- OUTSIDE RECORDS SUMMARY | 2024-03-29 01:45 | XMS_ITS | Patient Health Record ---
Author Organization [facility] Address [address] [place] [address] Care Team Providers Care Mail Carrier And Clerk Name Role Phone Po Rex KONG Primary Care Provider Deojn De Leon [phone] REASON FOR REFERRAL No Information MEDICATIONS Medication SIG (Take, Route, Frequency, Duration) Notes Start Date End Date Status Albuterol Sulfate 108 (90 Base) MCG/ACT 1 puff as needed Inhalation every 4 hrs Active FLUoxetine HCl 20 MG 1 capsule Orally On ce a day for 30 day(s) Active IMMUNIZATIONS Vaccine Route Administration Date Status Comme nts Influenza Unknown 01/16/2021 Administered SOCIAL HISTORY Tobacco Use: Social History Observation Description Date Details (start date - stop date) Former Smoker NA - NA Sex Assigned At : Social History Observation Description Sex Assigned At Unknown Tobacco Use/Smoking Question Answer Notes Patient is a former smoker How long has it been since you last smoked? > 10 years Alcohol Screen Question Answer Notes Did you have a drink contain ing alcohol in the past year? Yes How often did you have a dri nk containing alcohol in the past year? 2 to 3 times a week (3 points) How many drinks did you have on a typical day when you were drinking in the past year? 1 or 2 drinks (0 point) How often did you have 6 or more drinks on one occasion in the past year? Never (0 point) Points 3 Interpretation Negative PROBLEMS Problem Type ICD Code Onset Dates Problem Status W/U Status Risk SNOMED Code Notes Problem Encounter for screening for malignant neoplasm of colon (Z12.11) Active confirmed 011162528 Problem Preprocedural examination (Z01.818) Active confirmed 091350498411256 Problem Diverticulosis of colon (K57.30) Active confirmed Diverticulosi s of colon (885853200) PLAN OF TREATMENT Pending Test Test Name Order Date Pathology 08/24/2021 Future Test Test Name Order Date COLONOSCOPY 07/14/2021 Insurance Providers Payer Name Payer Address Payer Phone Subscriber Number Group Number Insured Name Patient Relationship to Insured Coverage Start Date Coverage End Date [facility] Attn Claims [address] [place] [address] [phone] [id number] MITCHELL RAE Self - patient is the insured MEDICAL (GENERAL) HISTORY Medical History History ICD Code PTSD Hypercholesterolemia Anxiety disorder Degenerative disc disease--back COVID 03/2020 Allergies Denies HI,DM,CVA,Lung disease,renal dise ase Surgical History Surgery Date(Month/Year) Tonsillectomy
== END 2024-03-28 12:00 | disposition home or self-care (01) ==
PROVIDERS: PCP Internal Medicine
DX: M54.9 Dorsalgia, unspecified (principal); M54.2 Cervicalgia; Z04.3 Encounter for examination and observation following other accident

== ENCOUNTER 2024-05-16 09:14 | Outpatient (AMB) | payer OTHER, SELFPAY ==
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
[2024-05-16 09:37] VITALS: BP 128/82; PULSE 55; O2SAT 94; BMI 29.7
--- OUTSIDE RECORDS SUMMARY | 2024-05-16 10:43 | XMS_ITS ---
Author Name [facility] [place] Organization [place] Address [address] [place] [address] Care Team Providers Care Taker Out Name Role Phone LENIN BENSON Primary Care [...] PHARMACY PRESCRIPT ION [facility] Apr 18, 2010 [id number] MITCHELL BRADEN PATIENT CIGBENIGNO-ASA HANKINS PREFERRED PROVIDER ORGANIZAT ION (PPO) ADVAN LILLIAN DRAIN AGE Sep 17, 2002 [id number] MITCHELL BRADEN PATIENT Selected Encounter This section includes the information on record at CT for the Encounter. Date/Time Encounter Type Encounter Description Reason Provider Source Sep 27, 2023 09:30 AM OFFICE O/P EST HI 40 MIN PRIMARY CARE/MEDICINE ICD-10-CM M54.12 Radiculopathy, cervical region LENIN BENSON IHGarcía Encounter Template Text not used by CT Assessments - Encounter Diagnoses This section includes the primary and secondary diagnoses documented for the Encounter. Date/Time Primary/Secondary Diagnosis Diagnosis Name Provider Source Sep 27, 2023 12:47 PM PRIMARY Radiculopathy, cervical region LENIN BENSON [facility] Sep 27, 2023 12:47 PM SECONDARY Family hx of ischem heart dis and oth dis of the circ sys LENIN BENSON [facility] Sep 27, 2023 12:47 PM SECONDARY Mixed hyperlipidemia LENIN BENSON [facility] Plan of Treatment: Future Appointments (+ 6 months) and Future Tests (+/- 45 days) The Plan of Treatment section includes future care activities for the patient from all [place] treatmentfacilities. This section includes future appointments and [...] - MEDICINE [facility] [place] Oct 04, 2023 11:00 AM AMBULATORY - MEDICINE [facility] [place] Oct 04, 2023 01:00 PM AMBULATORY - MEDICINE [facility] [place] [facility] Dec 25, 2023 08:30 AM AMBULATORY - MEDICINE [facility] [place] [facility] Jan 03, 2024 01:00 PM AMBULATORY - MEDICINE [facility] [place] [facility] Jan 04, 2024 10:00 AM [facility] - [facility] [place] [place] [facility] Jan 24, 2024 12:15 PM AMBULATORY - PSYCHIATRY [facility] [place] Feb 01, 2024 12:00 PM AMBULATORY - PSYCHIATRY [facility] [place] Feb 14, 2024 09:00 AM [facility]BULATORY - [facility]ICINE [place] [place] [facility] Feb 16, 2024 11:30 AM AMBULATORY - PSYCHIATRY [facility] [place] [facility] Feb 21, 2024 02:00 PM AMBULATORY - MEDICINE [facility] [place] [facility] Mar 20, 2024 11:30 AM AMBULATORY - [...] Range Comment Sep 27, 2023 08:50 AM [facility] LIPID PANEL FASTING Specimen Type: SERUM No comment entered. Ordering Provider: LENIN BENSON Report Released Date/Time: September 06, 2023 02:23 PM Reporting Lab: [address] [address] Performing Lab: [address] [address] CHOLESTEROL 224 mg/dL H TRIGLYCERIDE 150 mg/dL [...] 59 136/80 16 96 6 219 29 [facility] Social History: Smoking Status (Most [...] Date/Time Current Smoking Status Comment Maria D bahy Dec 01, 2022 03:30 PM VA-TOBACCO QUIT 15 YRS OR MORE [facility] Tobacco Use History This section includes a history of the smoking, or tobacco-related health factors, that were collected on or before the date of the Encounter. The data comes from the [facility] facility where the Encounter took place. Date/Time Smoking Status/Tobac co Use Comment Facility Dec 01, 2022 03:30 PM VA-TOBACCO QUIT [address] [facility] [place] [facility] Nov 21, 2020 09:30 AM VA-TOBACCO FORMER USER [facility] [place] [facility] Nov 21, 2020 09:30 AM VA-TOBACCO QUIT [address] [facility] [place] [facility] Sep 21, 2019 10:24 AM VA-TOBACCO FORMER USER [facility] [place] [facility] Sep 21, 2019 10:24 AM VA-TOBACCO QUIT [address] [facility] [place] [facility] August 31, 2018 09:07 AM VA-TOBACCO NEVER USED [facility] [place] [facility] Jul 21, 2017 09:00 AM QUIT TOBACCO USE > 7 YEARS AGO He quit [address] [facility] [place] [facility] Jun 17, 2016 02:37 PM LIFETIME NON-TOBACCO USER CT [facility] [place] [facility] May 19, 2015 04:56 PM LIFETIME NON-TOBACCO USER CT [facility] [place] [facility] August 24, 2012 03:06 PM LIFETIME NON-TOBACCO USER [facility] [place] [facility] Encounter Notes: All associated encounter notes This [...] One Consult and I will d/w the [place] where he would like to have the [...] Community Primary Care Provider: Dr. Ashley Montesinos CT Specialists: optometry Community Specialists: neurosurgery- Dr. 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 wants to see cardiology- prefers [facility]. discussed doing in [facility] system at [place] or [place]- he would rather local. only symtpom is [...] disease. He was seen today by the [facility]. Pharmacy Technology Instructor rec'd a teams message from the provider stating: I just finished a visit with Mr. Braden [phone] and just want to give you a [...] f/u and review of recommendations. Thank you. /es/ KACI SUSAN, msw Coordination Initiative Nurse Signed: 02/14/2024 12:00 Receipt Acknowledged By: 02/15/2024 09:21 /rhianna BENSON D.O. PHYSICIAN 02/14/2024 13:08 /toshia/ VKIY AGUIRRE, RN REGISTERED NURSE 02/15/2024 ADDENDUM STATUS: COMPLETED i ordered labs to be done prior to mar. ordered ETT- under cardiology one consult-can do within [facility] where most convenient. not sure how to order CAC- will leave that up to cardiology /toshia/ LENIN BENSON D.O. PHYSICIAN Signed: 02/15/2024 09:[address] [facility] [place] [facility] Feb 14, 2024 11:54 AM ADDENDUM: LOCAL TITLE: Addendum STANDARD TITLE: ADDENDUM DATE OF NOTE: FEB 14, 2024@11:54:13 ENTRY DATE: FEB 14, 2024@11:54:14 AUTHOR: KACI DAVIS EXP COSIGNER: URGENCY: STATUS: COMPLETED Cardiology Consult was placed 09/26 - Holly agreed with cardiology prevention program to discuss cardiac risks further due to family history of cardiac disease. He was seen today by the [facility]. Pharmacy Technology Instructor rec'd a teams message from the provider stating: I just finished a visit with Mr. Braden [phone] and just want to give you a [...] 09:21 /rhianna BENSON D.O. PHYSICIAN 02/14/2024 13:08 /es/ VIKY AGUIRRE RN REGISTERED NURSE --- Original Document --- 09/27/23 NOTE: KYRAMITCHELL ZIMMERMAN JR is a 53 year old WHITE MALE who is being seen today in primary care for routine follow up. ==== CARE TEAM ==== Community Primary Care Provider: Dr. Ashley Montesinos CT Specialists: optometry Community Specialists: neurosurgery- Dr. Short Oh ==== HISTORY ==== PERIOD OF SERVICE - CROATIAN [employer] WAR SERVICE CONNECTED % - 40 SC Percent: 40% Rated Disabilities: TINNITUS (10%-SC) POST-TRAUMATIC STRESS DISORDER (30%-SC) ==== HISTORY OF PRESENT ILLNESS ==== Patient presents today for follow-up - brought back gabapentin- didn't want to use - concerned about heart disease- dad had HI later in life- but brother who si [...] his exercise. wants to see cardiology- prefers [facility]. discussed doing in VA system at [place] or [place]- he would rather local. only symtpom is [...] D.O. PHYSICIAN Signed: 09/27/2023 12:[address] [facility] [place] [facility] Sep 27, 2023 09:54 AM PHYSICIAN NOTE: LOCAL TITLE: NOTE STANDARD TITLE: PHYSICIAN NOTE DATE OF NOTE: SEP 27, 2023@09:54 ENTRY DATE: SEP 27, 2023@09:54:13 AUTHOR: LENIN BENSON EXP COSIGNER: URGENCY: STATUS: COMPLETED NOTE Has ADDENDA MITCHELL BRADEN JR is a 53 year old WHITE MALE who is being seen today in primary care for routine follow up. ==== CARE TEAM ==== Community Primary Care Provider: Dr. Ashley Montesinos CT Specialists: optometry Community Specialists: neurosurgery- Dr. Han Martinez ==== HISTORY ==== PERIOD OF SERVICE - CROATIAN [employer] WAR SERVICE CONNECTED % - 40 SC Percent: 40% Rated Disabilities: TINNITUS (10%-SC) POST-TRAUMATIC STRESS DISORDER (30%-SC) ==== HISTORY OF PRESENT ILLNESS ==== Patient presents today for follow-up - brought back gabapentin- didn't want to use - concerned about heart disease- dad had HI later in life- but brother who si [...] his exercise. wants to see cardiology- prefers [facility]. discussed doing in VA system at [place] or [place]- he would rather local. only symtpom is [...] disease. He was seen today by the [facility]. Pharmacy Technology Instructor rec'd a teams message from the provider stating: I just finished a visit with Mr. Braden [phone] and just want to give you a [...] BENSON D.O. PHYSICIAN 02/14/2024 13:08 /toshia/ VIKY AGUIRRE, VIVIAN REGISTERED NURSE 02/15/2024 ADDENDUM STATUS: COMPLETED i ordered labs to be done prior to mar apt. ordered ETT- under cardiology one consult-can do within [place] where most convenient. not sure how to order CAC- will leave that up to cardiology /toshia/ LENIN BENSON D.O. PHYSICIAN Signed: 02/15/2024 09:26 02/15/2024 [...] * LENIN BENSON [facility]
--- OUTSIDE RECORDS SUMMARY | 2024-05-16 10:43 | XMS_ITS | Encounter Summary ---
Author Name [place] Address [address] [place] [address] Care Team Providers Care Rand Butter Name Role Phone LENIN BENSON Primary Care [...] PHARMACY PRESCRIPT ION [facility]SC[facility] Apr 18, 2010 [id number] MITCHELL RAE PATIENT IAIN-ASA HANKINS PREFERRED PROVIDER ORGANIZAT ION (PPO) ADVAN LILLIAN DRAIN AGE Sep 17, 2002 [id number] 20 MITCHELL RAE PATIENT Selected Encounter This [...] PRIMARY Age-related nuclear cataract, bilateral ANA LE [place] [facility] [place] [facility] September 01, 2023 08:16 AM SECONDARY Presbyopia ANA LE [place] [facility] [place] [facility] Plan of Treatment: Future Appointments (+ 6 months) and Future Tests (+/- 45 days) The Plan of Treatment section includes future care activities for the patient from all [place] treatmentfacritical access hospitalities. This section includes future appointments and future [...] - MEDICINE [place] [facility] [place] [facility] Oct 03, 2023 10:00 AM AMBULATORY - MEDICINE [place] [facility] [place] [facility] Oct 04, 2023 11:00 AM AMBULATORY - MEDICINE [place] [facility] [place] [facility] Oct 04, 2023 01:00 PM AMBULATORY - MEDICINE [place] [facility] [place] [facility] Dec 25, 2023 08:30 AM AMBULATORY - MEDICINE [place] [facility] [place] [facility] Jan 03, 2024 01:00 PM AMBULATORY - MEDICINE [place] [facility] [place] [facility] Jan 04, 2024 10:00 AM AM[facility]ATORY - [place]ICINE [place] [facility] Jan 24, 2024 12:15 PM AMBULATORY - PSYCHIATRY [facility] [place] [facility] Feb 01, 2024 12:00 PM AMBULATORY - PSYCHIATRY [facility] [place] [facility] Feb 14, 2024 09:00 AM AMBULATORY - [place]ICINE [place] [facility] Feb 16, 2024 11:30 AM AMBULATORY - PSYCHIATRY [place] [facility] [place] [facility] Feb 21, 2024 02:00 PM AMBULATORY - MEDICINE [place] [facility] [place] [facility] Lab Results: +/- 30 days of [...] Range Comment Sep 27, 2023 08:50 AM [facility] LIPID PANEL FASTING Specimen Type: SERUM No comment entered. Ordering Provider: LENIN BENSON Report Released Date/Time: September 06, 2023 02:23 PM Reporting Lab: [facility] [address] [facility] [address] Performing Lab: [address] [address] CHOLESTEROL 224 mg/dL H TRIGLYCERIDE 150 mg/dL [...] took place. Date/Time Current Smoking Status Comment [facility] Dec 01, 2022 03:30 PM VA-TOBACCO QUIT 15 YRS OR MORE [facility] Tobacco Use History This section includes a history of the smoking, or tobacco-related health factors, that were collected on or before the date of the Encounter. The data comes from the [place] facility where the Encounter took place. Date/Time Smoking Status/Tobac co Use Comment Facility Dec 01, 2022 03:30 PM VA-TOBACCO QUIT 15 YRS OR MORE [place] [facility] [place] [facility] Nov 21, 2020 09:30 AM VA-TOBACCO FORMER USER [place] [facility] [place] [facility] Nov 21, 2020 09:30 AM VA-TOBACCO QUIT 15 YRS OR MORE [place] [facility] [place] [facility] Sep 21, 2019 10:24 AM VA-[facility]ACCO [facility] Sep 21, 2019 10:24 AM VA-TOBACCO QUIT [facility] YRS OR [facility] [place] [facility] August 31, 2018 09:07 AM VA-TOBACCO NEVER USED [facility] [place] [facility] Jul 21, 2017 09:00 AM QUIT TOBACCO USE > 7 YEARS AGO He quit 20 years ago [place] [facility] [place] [facility] Jun 17, 2016 02:37 PM LIFETIME NON-TOBACCO USER [place] [facility] [place] [facility] May 19, 2015 04:56 PM LIFETIME [facility]ACCO [facility] August 24, 2012 03:06 PM LIFETIME [facility]ACCO [facility] Encounter Notes: All associated encounter notes [...] Remote Allergy/ADR Data available for this patient [place] [facility] [facility] No Known Allergies [...] the patient into personal health records (i.e. [employer]) are NOT included in this list. Non-VA medications documented outside this [place], remote inpatient orders (regardless of status) and remote clinic medications are NOT included in this list. The patient and provider must always discuss medications the patient is taking, regardless of where the medication was dispensed or obtained. OUTPT FLUOXETINE HCL 20MG CAP (Status = Active) TAKE ONE CAPSULE BY MOUTH ONCE DAILY FOR DEPRESSION AND ANXIETY Rx# [id number] Last Released: 08/01/23 Qty/Days Supply: Rx Expiration Date: 05/19/24 Refills Remainin Indication: FOR MAJOR DEPRESSIVE DISORDER OUTPT ROSUVASTATIN CA 10MG TAB (Status = Active) TAKE ONE TABLET BY MOUTH ONCE DAILY FOR CHOLESTEROL Rx# [id number] Last Released: 04/01/23 Qty/Days Supply: Rx Expiration Date: 03/28/24 Refills Remainin Indication: FOR HIGH CHOLESTEROL SUPPLIES PHARMACY TERMS AND POSSIBLE PATIENT ACTIONS INPT = [place] inpatient order IV = [place] intravenous medication OUTPT = [place] outpatient prescription PHARMACY POSSIBLE PATIENT TERMS EXPLANATION [...] more of this picked up at the [place] pharmacy medication. window. A prescription which is [...] the [facility]. Or, it may be an gsnu-zsa-wycqddx (OTC), herbal, dietary supplements or sample medication. [...] An active prescription that is Contact your [place] not scheduled to be filled yet. pharmacy if you need You should receive it before this medication now. you run out. (x) Printed Medication Reconciliation List Offered and Declined by [place] () Medication Reconciliation List Printed for [place] at Exam () Optometry HT Please Print and Mail Copy of Medication Reconciliation List () AMSA Please Print and Mail Copy of Medication Reconciliation List /toshia/ SHANTAL STACY OPTOMETRY STUDENT Signed: 09/01/2023 08:27 /es/ ANA LE OD ANIMAL TRAINER SUPERVISOR Cosigned: 09/01/2023 12:53 09/01/2023 ADDENDUM STATUS: COMPLETED The optometry tax intern participated in this exam, I saw this in conjunction with the optometry student. The [...] assessment and plan. Ed re today's findings. [place] repeated back the plan and education. All reminders completed by attending and documented in student note. /toshia/ ANA LE OD ANIMAL TRAINER SUPERVISOR Signed: 09/01/2023 12:53 SHANTAL STACY [facility]
--- OUTSIDE RECORDS SUMMARY | 2024-05-16 10:43 | XMS_ITS ---
Author Name [facility] [place] Address [address] [place] [address] Care Team Providers Care Air Brake Mechanic Name Role Phone KELLEYLENIN Primary Care Provider [...] PHARMACY PRESCRIPT ION [facility] Apr 18, 2010 [id number] MITCHELL RAE PATIENT CIGBENIGNO-ASA HANKINS PREFERRED PROVIDER ORGANIZAT ION (PPO) ADVAN LILLIAN DRAIN AGE Sep 17, 2002 [id number] MITCHELL RAE PATIENT Selected Encounter This section includes the information on record at [place] for the Encounter. Date/Time Encounter Type Encounter Description Reason Provider Source Jun 16, 2023 03:30 PM OFFICE O/P EST MOD 30 MIN PRIMARY CARE/MEDICINE ICD-10-CM F43.12 Post-traumatic stress disorder, chronic AHMED,MOHAMMED JAWED IHE Encounter Template Text not used by [place] Assessments - Encounter Diagnoses This section includes the primary and secondary diagnoses documented for the Encounter. Date/Time Primary/Secondary Diagnosis Diagnosis Name Provider Source Jun 16, 2023 04:36 PM PRIMARY Post-traumatic stress disorder, chronic AHMED,MOHAMME D JAWED [facility] [place] [facility] Jun 16, 2023 04:36 PM SECONDARY Anxiety disorder, unspecified AHMED,MOHAMME D JAWED [facility] [place] [facility] Jun 16, 2023 04:36 PM SECONDARY Encounter for immunization VAISHNAVI PEREIRA [place] [facility] [place] [facility] Jun 16, 2023 04:36 PM SECONDARY Pulsatile tinnitus, bilateral AHMED,MOHAMME D JAWED [facility] [place] [facility] Jun 16, 2023 04:36 PM SECONDARY Radiculopathy, cervical region AHMED,MOHAMME D JAWED [facility] [place] [facility] Jun 16, 2023 04:36 PM SECONDARY Snoring REGINALDMED,MOHAMME D JAWED [facility] [place] [facility] Plan of Treatment: Future Appointments (+ 6 months) and Future Tests (+/- 45 days) The Plan of Treatment section includes future care activities for the patient [facility] [place] [facility] This section includes future appointments and future orders which are active, pending or scheduled. Future Appointments This section includes appointments that were scheduled to occur 6 months from the date of the Encounter, up to a maximum of 20 appointments. The data comes from all [place] treatment facilities. Appointment Date/Time Appointment Type Appointme nt Facility Name Jun 23, 2023 09:00 AM AMBULATORY - MEDICINE [place] [facility] [place] [facility] August 22, 2023 11:30 AM AMBULATORY - MEDICINE [place] [facility] [place] [facility] August 31, 2023 11:00 AM AMBULATORY - MEDICINE [place] [facility] [place] [facility] Sep 27, 2023 09:30 AM AMBULATORY - MEDICINE [place] [facility] [place] [facility] Oct 03, 2023 10:00 AM AMBULATORY - MEDICINE [place] [facility] [place] [facility] Oct 04, 2023 11:00 AM AMBULATORY - MEDICINE [place] [facility] [place] [facility] Oct 04, 2023 01:00 PM AMBULATORY - MEDICINE [facility] Lab Results: +/- 30 days of the encounter This section includes the Chemistry and Hematology Lab Results on record with [place] for the patient. Radiology Reports and Pathology Reports are provided separately, in subsequent sections. Lab Results This section contains the Chemistry/Hematology Results that were resulted 30 days before or 30 daysafter the date of the Encounter. Date/Time Source Result Type Result - Unit Interpretation Reference Range Comment Jun 16, 2023 08:15 AM [facility] LIPID PANEL FASTING Specimen Type: SERUM No comment entered. Ordering Provider: SONA RUDOLPH Report Released Date/Time: Jun 16, 2023 08:14 AM Reporting Lab: [address] [address] Performing Lab: [address] [address] CHOLESTEROL 231 mg/dL H TRIGLYCERIDE 164 mg/dL H 0-150 LDL calculated 157 mg/dL H 0-129 CHOL/HDL 5.6 HDL CHOLESTEROL 41 mg/dL 40-60 Jun 16, 2023 08:15 AM [facility] BASIC METABOLIC PANEL (fasting) Specimen Type: SERUM No comment entered. Ordering Provider: SONA RUDOLPH Report Released Date/Time: Jun 16, 2023 08:14 AM Reporting Lab: [address] [address] Performing Lab: [address] [address] UREA NITROGEN 22 mg/dL 7-25 GLUCOSE 96 [...] Source Jun 16, 2023 03:37 PM 126/77 [place] [facility] [place] [facility] Jun 16, 2023 03:34 PM 97.3 70 16 96 4 73 220 29 [place] [facility] [place] [facility] Immunizations: All administered on the encounter date This section contains immunizations associated to the Encounter. Immunization Series Date Issued Reaction Comments ZOSTER RECOMBINANT 1 Jun 16, 2023 Social History: Smoking Status (Most current) and Tobacco Use (All prior to encounter date) This section includes the most current, and the historical, smoking and tobacco- related health factors from the [place] facility where the Encounter took place. Current Smoking Status This section includes the most current smoking, or tobacco-related health factor, from the [place] facility where the Encounter took place. Date/Time Current Smoking Status Comment [facility] Dec 01, 2022 03:30 PM VA-TOBACCO FORMER USER [place] [facility] [place] [facility] Tobacco Use History This section includes a history of the smoking, or tobacco-related health factors, that were collected on or before the date of the Encounter. The data comes from the [place] facility where the Encounter took place. Date/Time Smoking Status/Tobac co Use Comment Facility Dec 01, 2022 03:30 PM VA-TOBACCO QUIT 15 YRS OR MORE [facility] [place] [facility] Nov 21, 2020 09:30 AM VA-TOBACCO FORMER USER [place] [facility] [place] [facility] Nov 21, 2020 09:30 AM VA-TOBACCO QUIT 15 YRS OR MORE [facility] [place] [facility] Sep 21, 2019 10:24 AM VA-TOBACCO FORMER USER [place] [facility] [place] [facility] Sep 21, 2019 10:24 AM VA-TOBACCO QUIT 15 YRS OR MORE [facility] [place] [facility] August 31, 2018 09:07 AM VA-TOBACCO NEVER USED [place] [facility] [place] [facility] Jul 21, 2017 09:00 AM QUIT TOBACCO USE > 7 YEARS AGO He quit 20 years ago [place] [facility] [place] [facility] Jun 17, 2016 02:37 PM LIFETIME NON-TOBACCO USER [place] [facility] [place] [facility] May 19, 2015 04:56 PM LIFETIME NON-TOBACCO USER [place] [facility] [place] [facility] August 24, 2012 03:06 PM LIFETIME NON-TOBACCO USER [place] [facility] Encounter Notes: All associated encounter [...] this VA (local) and dispensed from another [place] or [place] facility (remote) as well as [...] next appointment, whether with a VA or non-[place] provider. /toshia/ JESS RUDOLPH MD STAFF PHYSICIAN Signed: 06/16/2023 16:36 JESS RUDOLPH [facility] Jun 16, 2023 04:19 PM PREVENTIVE MEDICINE NURSING NOTE: LOCAL TITLE: CLINICAL REMINDERS/NURSING STANDARD TITLE: PREVENTIVE MEDICINE NURSING NOTE DATE OF NOTE: JUN 16, 2023@16:19 ENTRY DATE: JUN 16, 2023@16:19:18 AUTHOR: JOSE LUIS PEREIRA EXP COSIGNER: URGENCY: STATUS: COMPLETED Herpes Zoster (Shingles) Vaccine: Administered: ZOSTER RECOMBINANT Date Administered: Jun 16, 2023 15:30 Series: Series 1 Principal Developer: [employer] Lot: [id number] Exp Date: Jan 24, 2024 [facility]: [phone] Admin Route/Site: INTRAMUSCULAR/LEFT DELTOID Dosage: 0.5mL Vaccine Information Statement(s): RECOMBINANT ZOSTER VACCINE VIS May 22, 2021 (AMERICAN) Order By: Jess Rudolph Administered By: Jose Luis Pereira Vaccine Information Sheet (VIS) was given to the patient/caregiver, education regarding adverse reactions was discussed, as well as barriers to learning, if any, were acknowledged. /toshia/ JOSE LUIS PERERIA RN REGISTERED NURSE Signed: 06/16/2023 16:20 JOSE LUIS PEREIRA [facility] Jun 16, 2023 03:42 PM PREVENTIVE MEDICINE [...] Nurse Signed: 06/16/2023 15:43 HARPREET JAMES [facility]
--- OUTSIDE RECORDS SUMMARY | 2024-05-16 10:43 | XMS_ITS | Patient Health Record ---
Author Organization [facility] Address [address] [place] [id number] Care Team Providers Care Sweeper Operator Highways Name Role Phone Po Rex KONG Primary Care Provider Dejon De Leon [phone] REASON FOR REFERRAL No Information MEDICATIONS Medication [...] malignant neoplasm of colon (Z12.11) Active confirmed 248215102 Problem Preprocedural examination (Z01.818) Active confirmed [id number] Problem Diverticulosis of colon (K57.30) Active confirmed Diverticulosi s of colon (096995629) PLAN OF TREATMENT Pending Test Test Name Order Date Pathology 08/24/2021 Future Test Test Name Order Date COLONOSCOPY 07/14/2021 Insurance Providers Payer Name Payer Address Payer Phone Subscriber Number Group Number Insured Name Patient Relationship to Insured Coverage Start Date Coverage End Date [facility] Attn Claims [address] [place] [address] [id number] MITCHELL RAE Self - patient is the insured MEDICAL (GENERAL) HISTORY Medical History History ICD Code PTSD Hypercholesterolemia Anxiety disorder Degenerative disc disease--back COVID 03/2020 Allergies Denies MS,DM,CVA,Lung disease,renal dise ase Surgical History Surgery Date(Month/Year) Tonsillectomy
--- OUTSIDE RECORDS SUMMARY | 2024-05-16 10:43 | XMS_ITS ---
Author Name [facility] [facility] [place] [facility] [place] Address [address] [place] [address] Care Team Providers Care Job Tracer Name Role Phone LENIN BENSON Primary Care [...] PHARMACY PRESCRIPT ION [facility]SC[facility] Apr 18, 2010 [id number] [phone] MITCHELL RAE PATIENT CIGBENIGNO-ASA HANKINS PREFERRED PROVIDER ORGANIZAT ION (PPO) ADVAN LILLIAN DRAIN AGE Sep 17, 2002 [id number] MITCHELL RAE PATIENT Selected Encounter This section includes the information on record at [place] for the Encounter. Date/Time Encounter Type Encounter Description Reason Pro vider Source Apr 17, 2024 11:10 AM Outpatient Encounter ADMIN PAT ACTIVTIES (MASNONCT) IHE Encounter Template Text not used by VA Plan of Treatment: Future Appointments (+ 6 months) and Future Tests (+/- 45 days) The Plan of Treatment section includes future care activities for the patient [facility] [place] [facility] This section includes future appointments and future orders which are active, pending or scheduled. Future Appointments This section includes appointments that were scheduled to occur 6 months from the date of the Encounter, up to a maximum of 20 appointments. The data comes from all [facility] facilities. Appointment Date/Time Appointment Type Appointme nt Facility Name Apr 19, 2024 02:00 PM AMBULATORY - PSYCHIATRY [facility] May 17, 2024 08:30 AM AMBULATORY - REHAB MEDICIN E [facility] Jun 18, 2024 01:00 PM AMBULATORY - MEDICINE [facility] Jun 19, 2024 10:00 AM AMBULATORY - MEDIC[facility] September 12, 2024 08:00 AM AMBULATORY - MEDICINE [facility] Active, Pending, and Scheduled Orders This section includes a listing of several types of active, pending, and scheduled orders, including clinic medications orders, diagnostic test orders, procedure orders and consult orders; where the start date of the order is 45 days before the date of the Encounter or 45 days after the date of theEncounter. The data comes from all [facility]. Test Date/Time Test Type Test Details Facility Name Mar 28, 2024 12:00 AM Laboratory - Chemistry Order LIPID PANEL FASTING BLOOD (SST-SERUM) [facility] Mar 28, 2024 12:00 AM Laboratory - Chemistry Order BASIC METABOLIC PANEL (fasting) BLOOD (SST-SERUM) [facility] Mar 28, 2024 12:00 AM Laboratory - Chemistry Order LIVER FUNCTION BLOOD (SST-SERUM) [facility] Mar 28, 2024 12:00 AM Laboratory - Chemistry Order TSH BLOOD (SST-SERUM) [facility] Mar 28, 2024 12:00 AM Laboratory - Chemistry Order VITAMIN D (25-OH) BLOOD (SST-SERUM) [facility] Mar 28, 2024 12:00 AM Laboratory - Chemistry Order HEMOGLOBIN A1C PANEL BLOOD (LAV-BLOOD) [facility] Mar 28, 2024 12:00 AM Laboratory - Chemistry Order CBC BLOOD (LAV-BLOOD) [place] [facility] [facility] Mar 28, 2024 12:00 AM Laboratory - Chemistry Order LIPOPROTEIN (a) BLOOD (SST-SERUM) SP [place] [facility] [place] [facility] Apr 09, 2024 09:05 AM Consult Order COMMUNITY CARE-ORTHO SURGICAL Cons Tuber Machine Operator's Choice [place] [facility] [place] [facility] Apr 09, 2024 09:08 AM Consult Order PHYSICAL THERAPY/[facility] OUTPT Cons Tuber Machine Operator's Choice [place] [facility] [place] [facility] Apr 17, 2024 01:55 PM Consult Order COMMUNITY CARE-BH PSYCHOTHERAPY Cons Tuber Machine Operator's Choice [place] [facility] [place] [facility] Social History: Smoking Status (Most [...] took place. Date/Time Current Smoking Status Comment [facility] Jan 03, 2024 01:00 PM [facility] Tobacco Use History This section includes a history of the smoking, or tobacco-related health factors, that were collected on or before the date of the Encounter. The data comes from the [place] facility where the Encounter took place. Date/Time Smoking Status/Tobac co Use Comment Facility Jan 03, 2024 01:00 PM VA-TOBACCO QUIT 15 YRS OR MORE [place] [facility] [place] [facility] Dec 01, 2022 03:30 PM VA-TOBACCO FORMER USER [place] [facility] [place] [facility] Dec 01, 2022 03:30 PM VA-TOBACCO QUIT 15 YRS OR MORE [place] [facility] [place] [facility] Nov 21, 2020 09:30 AM VA-TOBACCO FORMER USER [place] [facility] [place] [facility] Nov 21, 2020 09:30 AM VA-TOBACCO QUIT 15 YRS OR MORE [place] [facility] [place] [facility] Sep 21, 2019 10:24 AM VA-TOBACCO FORMER USER [place] [facility] [place] [facility] Sep 21, 2019 10:24 AM VA-TOBACCO QUIT [facility] August 31, 2018 09:07 AM VA-TOBACCO NEVER USED [place] [facility] Jul 21, 2017 09:00 AM QUIT TOBACCO USE > 7 YEARS AGO He quit 20 years [facility] Jun 17, 2016 02:37 PM LIFETIME NON-TOBACCO [facility] May 19, 2015 04:56 PM LIFETIME [facility]-TOBACCO [facility] [place] [facility] August 24, 2012 03:06 PM LIFETIME [facility]BACCO [facility] Radiology Reports: +/- 30 days of [...] the Encounter. The data comes from all [place] treatment facilities. Date/Time Radiology Report Provider Source Mar 21, 2024 12:33 PM CALCIUM SCORE 1: MITCHELL RAE BANNER [id number] -1970 M Exm Date: MAR 21, 2024@12:33 Req Phys: MARLINE MONTEIRO Loc: MISSY PHONE CARD PREVENTION (Req Img Loc: NEW CT SCAN Service: [place] [address] (Case [id number] COMPLETE) CALCIUM SCORE 1 (CT Detailed) CPT:77159 Reason for Study: CORONARY CALCIUM SCORE Clinical History: NEEDS CORONARY CALCIUM SCORE Report Status: Verified Date Reported: MAR 23, 2024 Date Verified: MAR 23, 2024 Plastics Plater E-Sig:/ES/DAKOTA MATOS MD Report: CT HEART WITHOUT [...] Interpreting Staff: DAKOTA MATOS MD, Radiology Attending (Plastics Plater) /DAKOTA STEVENS Encounter Notes: All associated encounter notes This section contains the clinical notes associated to the Encounter. Date/Time Encounter Note(s) Provider Source Apr 17, 2024 11:10 AM ADMINISTRATIVE NOT E: LOCAL TITLE: CCC: SCHEDULING ADMINISTRATION STANDARD TITLE: ADMINISTRATIVE NOTE DATE OF NOTE: APR 17, 2024@11:10:51 ENTRY DATE: APR 17, 2024@11:10:52 AUTHOR: LAURA CODY COSIGNER: URGENCY: STATUS: COMPLETED Patient Demographics Patient Name: MITCHELL RAE JR Patient Primary Phone: [phone] Patient Primary Address: [address] [place] [id number] Patient : 1970 Patient Age: 54 Caller/Recipient Relation to Patient: Self Caller Name: MITCHELL RAE JR Administrative Administrative Note Reason: Medication Renewal [facility] Medications Refill/Renewal Request: Please renew, refill and send to patient in the mail. Thank you. Medication Details Rx #[id number] - HYDROXYZINE HCL 10MG TAB IMPORTANT: This note was created by [facility] Clinical Contact Center staff. Please do not alert the staff member by adding them as a signer for future communications. Alerts are not monitored by this user. /toshia/ LAURA SEBASTIAN 1 [facility] AMS[facility] Signed: 04/17/2024 11:10 Receipt Acknowledged By: 04/17/2024 12:21 /es/ LENIN BENSON D.O. PHYSICIAN 04/17/2024 14:30 /toshia/ Damari Joaquin RN, BSN Primary Care Nurse Secondary School Teacher for LAURA VASQUEZ [facility]
--- OUTSIDE RECORDS SUMMARY | 2024-05-16 10:43 | XMS_ITS | Encounter Summary ---
Author Name [facility] [place] [facility] [place] [facility] [place] Address [address] [place] [address] Care Team Providers Care Cleaner And Trimmer Name Role Phone LENIN BENSON Primary Care [...] PHARMACY PRESCRIPT ION [facility] Apr 18, 2010 [id number] MITCHELL RAE PATIENT IAIN-ASA HANKINS PREFERRED PROVIDER ORGANIZAT ION (PPO) ADVAN LILLIAN DRAIN AGE Sep 17, 2002 [id number] MITCHELL RAE PATIENT Selected Encounter This section includes the information on record at [place] for the Encounter. Date/Time Encounter Type Encounter [...] care activities for the patient from all [place] [facility]. This section includes future appointments and future orders which are active, pending or scheduled. Future Appointments This section includes appointments that were scheduled to occur 6 months from the date of the Encounter, up to a maximum of 20 appointments. The data comes from all [facility]. Appointment Date/Time Appointment Type Appointme nt Facility Name Apr 05, 2024 09:00 AM AM[facility]UL[facility] Apr 09, 2024 08:00 AM AMBULATORY - MEDICINE [facility] Apr 19, 2024 02:00 PM [facility] May 17, 2024 08:30 AM AMBULATORY - [facility] Jun 18, 2024 01:00 PM AMBULATORY - MEDICINE [place] C [facility] Jun 19, 2024 10:00 AM [facility] September 12, 2024 08:00 AM AMBULATORY - [facility] Active, Pending, and Scheduled Orders This section includes a listing of several types of active, pending, and scheduled orders, including clinic medications orders, diagnostic test orders, procedure orders and consult orders; where the start date of the order is 45 days before the date of the Encounter or 45 days after the date of theEncounter. The data comes from all [facility]. Test Date/Time Test Type Test Details Facility Name Mar 28, 2024 12:00 AM Laboratory - Chemistry Order LIPID PANEL FASTING BLOOD (SST-SERUM) [facility] Mar 28, 2024 12:00 AM Laboratory - Chemistry Order BASIC METABOLIC PANEL (fasting) BLOOD (SST-SERUM) [facility] Mar 28, 2024 12:00 AM Laboratory - Chemistry Order LIVER FUNCTION BLOOD (SST-SERUM) [facility] Mar 28, 2024 12:00 AM Laboratory - Chemistry Order TSH BLOOD (SST-SERUM) [facility] Mar 28, 2024 12:00 AM Laboratory - Chemistry Order VITAMIN D (25-OH) BLOOD (SST-SERUM) [facility] Mar 28, 2024 12:00 AM Laboratory - Chemistry Order HEMOGLOBIN A1C PANEL BLOOD (LAV-BLOOD) [facility] Mar 28, 2024 12:00 AM Laboratory - Chemistry Order CBC BLOOD (LAV-BLOOD) [facility] Mar 28, 2024 12:00 AM Laboratory - Chemistry Order LIPOPROTEIN (a) BLOOD (SST-SERUM) [facility] Apr 09, 2024 09:05 AM Consult Order COMMUNITY CARE-ORTHO SURGICAL Cons Hvac Technician Residential's Choice [facility] Apr 09, 2024 09:08 AM Consult Order PHYSICAL THERAPY/[facility] OUTPT Cons Hvac Technician Residential[facility] Choice [facility] Apr 17, 2024 01:55 PM Consult Order COMMUNITY CARE-BH PSYCHOTHERAPY Cons Hvac Technician Residential[facility] Choice [facility] Radiology Reports: +/- 30 days of [...] the Encounter. The data comes from all [place] treatment facilities. Date/Time Radiology Report Provider Source Mar 21, 2024 12:33 PM CALCIUM SCORE 1: MITCHELL RAE [facility] [id number] -1970 M Ex Date: MAR 21, 2024@12:33 Req Phys: MARLINE MONTEIRO Loc: MISSY PHONE CARD PREVENTION (Req Img Loc: NEW CT SCAN Service: [place] [address] (Case [id number] COMPLETE) CALCIUM SCORE 1 (CT Detailed) CPT:96015 Reason for Study: CORONARY CALCIUM SCORE Clinical History: NEEDS CORONARY CALCIUM SCORE Report Status: Verified Date Reported: MAR 23, 2024 Date Verified: MAR 23, 2024 Patient Care Provider E-Sig:/ES/DAKOTA MATOS MD Report: CT HEART WITHOUT [...] Interpreting Staff: DAKOTA MATOS MD, Radiology Attending (Patient Care Provider) /DAKOTA STEVENS Encounter Notes: All associated encounter notes This section contains the clinical notes associated to the Encounter. Date/Time Encounter Note(s) Provider Source Mar 21, 2024 02:25 PM CARDIOLOGY DIAGNOS [...]
--- OUTSIDE RECORDS SUMMARY | 2024-05-16 10:43 | XMS_ITS | Encounter Summary ---
Author Name [facility] [place] [facility] [place] [facility] [place] Address [address] [place] [address] Care Team Providers Care Mds Rn Name Role Phone LENIN BENSON Primary Care [...] PHARMACY PRESCRIPT ION [facility] Apr 18, 2010 [id number] MITCHELL RAE PATIENT IAIN-ASA HANKINS PREFERRED PROVIDER ORGANIZAT ION (PPO) ADVAN LILLIAN DRAIN AGE Sep 17, 2002 [id number] MITCHELL RAE PATIENT Selected Encounter This section includes the information on record at [place] for the Encounter. Date/Time Encounter Type Encounter Description Reason Pro vider Source Apr 17, 2024 01:16 PM Outpatient Encounter COMMUNITY CARE CONSULT IHE [...] 20 appointments. The data comes from all [facility]. Appointment Date/Time Appointment Type Appointme nt Facility Name Apr 19, 2024 02:00 PM AMBULATORY - PSYCHIATRY [facility] May 17, 2024 08:30 AM AMBULATORY - [facility] Jun 18, 2024 01:00 PM AM[facility]ULATORY - [facility] [place] [facility] Jun 19, 2024 10:00 AM AMBULATORY - MEDICINE [facility] September 12, 2024 08:00 AM AMBULATORY - MEDICINE [facility] Active, Pending, and Scheduled Orders This section includes a listing of several types of active, pending, and scheduled orders, including clinic medications orders, diagnostic test orders, procedure orders and consult orders; where the start date of the order is 45 days before the date of the Encounter or 45 days after the date of theEncounter. The data comes from all [facility]. Test Date/Time Test Type Test Details Facility Name Mar 28, 2024 12:00 AM Laboratory - Chemistry Order LIPID PANEL FASTING BLOOD (SST-SERUM) [facility] Mar 28, 2024 12:00 AM Laboratory - Chemistry Order LIVER FUNCTION BLOOD (SST-SERUM) [facility] Mar 28, 2024 12:00 AM Laboratory - Chemistry Order BASIC METABOLIC PANEL (fasting) BLOOD (SST-SERUM) [facility] Mar 28, 2024 12:00 AM Laboratory - Chemistry Order VITAMIN D (25-OH) BLOOD (SST-SERUM) [facility] Mar 28, 2024 12:00 AM Laboratory - Chemistry Order TSH BLOOD (SST-SERUM) [facility] Mar 28, 2024 12:00 AM Laboratory - Chemistry Order HEMOGLOBIN A1C PANEL BLOOD (LAV-BLOOD) [facility] Mar 28, 2024 12:00 AM Laboratory - Chemistry Order CBC BLOOD (LAV-BLOOD) SP [place] [facility] Mar 28, 2024 12:00 AM Laboratory - Chemistry Order LIPOPROTEIN (a) BLOOD (SST-SERUM) SP [place] [facility] [place] [facility] Apr 09, 2024 09:05 AM Consult Order COMMUNITY CARE-ORTHO SURGICAL Cons Pet Groomer's Choice [place] [facility] Apr 09, 2024 09:08 AM Consult Order PHYSICAL THERAPY/[facility] OUTPT Cons Pet Groomer's Choice [place] [facility] [facility] Apr 17, 2024 01:55 PM Consult Order COMMUNITY CARE-BH PSYCHOTHERAPY Cons [facility] Social History: Smoking Status (Most current) and Tobacco Use (All prior to encounter date) This section includes the most current, and the historical, smoking and tobacco- related health factors from the [place] facility where the Encounter took place. Current Smoking Status This section includes the most current smoking, or tobacco-related health factor, from the [place] facility where the Encounter took place. Date/Time Current Smoking Status Comment [facility] Jan 03, 2024 01:00 PM VA-TOBACCO [facility] Tobacco Use History This section includes a history of the smoking, or tobacco-related health factors, that were collected on or before the date of the Encounter. The data comes from the [place] facility where the Encounter took place. Date/Time Smoking Status/Tobac co Use Comment Facility Jan 03, 2024 01:00 PM VA-TOBACCO QUIT 15 YRS OR MORE [place] [facility] Dec 01, 2022 03:30 PM VA-TOBACCO FORMER USER [place] [facility] Dec 01, 2022 03:30 PM VA-TOBACCO QUIT 15 YRS OR MORE [place] [facility] Nov 21, 2020 09:30 AM VA-TOBACCO FORMER USER [place] [facility] Nov 21, 2020 09:30 AM VA-TOBACCO QUIT 15 YRS OR MORE [place] [facility] Sep 21, 2019 10:24 AM VA-TOBACCO FORMER USER [place]TRL [place] [facility] Sep 21, 2019 10:24 AM VA-TOBACCO QUIT 15 YRS OR MORE [facility] August 31, 2018 09:07 AM VA-TOBACCO NEVER USED [facility] WSN [facility] Jul 21, 2017 09:00 AM QUIT TOBACCO USE > 7 YEARS AGO He quit 20 years ago [facility] Jun 17, 2016 02:37 PM LIFETIME NON-TOBACCO USER [facility] May 19, 2015 04:56 PM LIFETIME [facility]-TOBACCO [facility] August 24, 2012 03:06 PM LIFETIME NON-TOBACCO USER [facility] Radiology Reports: +/- 30 days [...] the Encounter. The data comes from all [facility] facilities. Date/Time Radiology Report Provider Source Mar 21, 2024 12:33 PM CALCIUM SCORE 1: KYRAMITCHELL [facility] [id number] -1970 M Ex Date: MAR 21, 2024@12:33 Req Phys: MARLINE MONTEIRO Loc: MISSY PHONE CARD PREVENTION (Req Img Loc: NEW CT SCAN Service: [place] [address] (Case [id number] COMPLETE) CALCIUM SCORE 1 (CT Detailed) CPT:54640 Reason for Study: CORONARY CALCIUM SCORE Clinical History: NEEDS CORONARY CALCIUM SCORE Report Status: Verified Date Reported: MAR 23, 2024 Date Verified: MAR 23, 2024 Dough Molder Hand E-Sig:/ES/DAKOTA MATOS MD Report: CT HEART WITHOUT [...] Interpreting Staff: DAKOTA MATOS MD, Radiology Attending (Dough Molder Hand) /DAKOTA STEVENS Encounter Notes: All associated encounter notes This section contains the clinical notes associated to the Encounter. Date/Time Encounter Note(s) Provider Source Apr 17, 2024 01:16 PM ADMINISTRATIVE NOTE: LOCAL TITLE: ADMINISTRATIVE NOTE STANDARD TITLE: ADMINISTRATIVE NOTE DATE OF NOTE: APR 17, 2024@13:16 ENTRY DATE: APR 17, 2024@13:16:14 AUTHOR: ALIX VELEZ EXP COSIGNER: URGENCY: STATUS: COMPLETED CC Provider, contacted CC requesting a new referral/auth for continuation of care. A new CC- Psychotherapy is needed for the following CC Provider: Brandie Cole [address] [place] [address]# [phone] NPI # [id number] /toshia/ ALIX VELEZ Signed: 04/17/2024 13:18 Receipt Acknowledged By: 04/20/2024 14:24 /es/ Indio Rodriguez Psy.D. AUTOMOTIVE SERVICE ASSISTANT, CLINICAL PSYCHOLOGIST ALIX VELEZ CNTRL [facility]
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
--- OUTSIDE RECORDS SUMMARY | 2024-05-16 10:43 | XMS_ITS ---
Author Name [facility] [place] Address [address] [place] [address] Care Team Providers Care Property Appraiser Name Role Phone LENIN BENSON Primary Care [...] PHARMACY PRESCRIPT ION [facility] Apr 18, 2010 [id number] MITCHELL BRADEN PATIENT CIGBENIGNO-ASA HANKINS PREFERRED PROVIDER ORGANIZAT ION (PPO) ADVAN LILLIAN DRAIN AGE Sep 17, 2002 [id number] MITCHELL BRADEN PATIENT Selected Encounter This [...] activities for the patient from all [place] treatmentfaatrium healthities. This section includes future appointments [...] AMBULATORY - MEDICINE [place] [facility] [facility] August 31, 2023 11:00 AM AMBUL[place]ORY MEDICINE [place] [place] [facility] Sep 27, 2023 09:30 AM AM[place]UL[place]ORY MEDICINE [place] [facility] Oct 03, 2023 10:00 AM AM[place]UL[place] MEDICINE [place] [facility] Oct 04, 2023 11:00 AM AM[place]UL[place] MEDICINE [place] [facility] Oct 04, 2023 01:00 PM AMBULATORY MEDICINE [facility] Lab Results: +/- 30 days [...] Range Comment Jun 16, 2023 08:15 AM [facility] LIPID PANEL FASTING Specimen Type: SERUM No comment entered. Ordering Provider: SONA RUDOLPH Report Released Date/Time: Jun 16, 2023 08:14 AM Reporting [facility] [address] [facility] [address] Performing Lab: [facility] [address] [facility] [address] CHOLESTEROL 231 mg/dL H TRIGLYCERIDE 164 mg/dL H 0-150 LDL calculated 157 mg/dL H 0-129 CHOL/HDL 5.6 HDL CHOLESTEROL 41 mg/dL 40-60 Jun 16, 2023 08:15 AM [facility] BASIC METABOLIC PANEL (fasting) Specimen Type: SERUM No comment entered. Ordering Provider: SONA RUDOLPH Report Released Date/Time: Jun 16, 2023 08:14 AM Reporting Lab: [place] [facility] [place] [facility] [address] [facility] [address] Performing Lab: [place] [facility] [place] [facility] [address] [facility] [address] UREA NITROGEN 22 mg/dL 7-25 GLUCOSE 96 [...] took place. Date/Time Current Smoking Status Comment [facility] it Dec 01, 2022 03:30 PM VA-TOBACCO FOR[facility]ER [place] [facility] Tobacco Use History This section includes a history of the smoking, or tobacco-related health factors, that were collected on or before the date of the Encounter. The data comes from the [place] facility where the Encounter took place. Date/Time Smoking Status/Tobac co Use Comment Facility Dec 01, 2022 03:30 PM VA-TOBACCO QUIT 15 YRS OR MORE [place] [facility] [place] [facility] Nov 21, 2020 09:30 AM VA-TOBACCO FORMER USER [facility] [place] [facility] Nov 21, 2020 09:30 AM VA-TOBACCO QUIT 15 YRS OR MORE [facility] [place] [facility] Sep 21, 2019 10:24 AM VA-TOBACCO FORMER USER [facility] [place] [facility] Sep 21, 2019 10:24 AM VA-TOBACCO QUIT 15 YRS OR MORE [place] [facility] [place] [facility] August 31, 2018 09:07 AM VA-TOBACCO NEVER USED [place] [facility] [place] [facility] Jul 21, 2017 09:00 AM QUIT TOBACCO USE > 7 YEARS AGO He quit 20 years ago [facility] [place] [facility] Jun 17, 2016 02:37 PM LIFETIME NON-TOBACCO USER [facility] [place] [facility] May 19, 2015 04:56 PM LIFETIME NON-TOBACCO USER [facility] [place] [facility] August 24, 2012 03:06 PM LIFETIME NON-TOBACCO USER [facility] [place] [facility] Encounter Notes: All associated encounter [...] By: 06/28/2023 13:25 /toshia/ RYAN SEE 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 ZULEMA DARNELL [place] [facility] [place] [facility] Jun 23, 2023 11:03 AM ADMINISTRATIVE NOTE: [...] Annual [employer] -Requirement -Letter of Stability [place] requesting letter mailed stating that he is [...] Receipt Acknowledged By: * AWAITING SIGNATURE * SEE,RYAN M MEME,ELAINA Art BURNETTE
--- OUTSIDE RECORDS SUMMARY | 2024-05-16 10:43 | XMS_ITS | Continuity of Care Document ---
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 It does not include entries that were removed or entered in error. Problem Status Onset Date Problem Type Date of Resolution Comments Source visit for: administrative purpose Inactive 013 Condition visit for: administrative purpose: All concerns addressed in pt''s 8849. No immediate referrals necessary. - Pt to f/u with PCM [place] redeployment to home station [place]. He verbalized understanding. [facility] Vision, Subnormal Active 013 Condition [facility] exposure to chemical fumes Inactive Condition exposed to chemical fumes: No adverse effects, pt returned to duty. [facility] Patient Education - Medication Inactive Condition Patient Education - Medication (MEDICATION EDUCATION) [facility] Anxiety Active Condition [facility] Diagnosis: ICD-10-CM M47.892 Other spondylosis, cervical region Active Diagnosis [facility] Diagnosis: ICD-10-CM I10 Essential (primary) hypertension Active Diagnosis [facility] Diagnosis: ICD-10-CM R07.9 Chest pain, unspecified Active Diagnosis [facility] Diagnosis: ICD-10-CM F43.12 Post-traumatic stress disorder, chronic Active Diagnosis [facility] Diagnosis: ICD-10-CM E78.5 Hyperlipidemia, unspecified Active Diagnosis [facility] Diagnosis: ICD-10-CM R45.4 Irritability and anger Active Diagnosis [facility] Diagnosis: ICD-10-CM F41.9 Anxiety disorder, unspecified Active Diagnosis [facility] Diagnosis: ICD-10-CM M54.12 Radiculopathy, cervical region Active Diagnosis [facility] Diagnosis: ICD-10-CM Z13.6 Encounter for screening for cardiovascular disorders Active Diagnosis [facility] Diagnosis: ICD-10-CM Z04.9 Encounter for examination and observation for unsp reason Active Diagnosis [facility] Diagnosis: ICD-10-CM M54.50 Low back pain, unspecified Active Diagnosis [facility] Diagnosis: ICD-10-CM R06.83 Snoring Active Diagnosis [facility] Diagnosis: ICD-10-CM G47.33 Obstructive sleep apnea (adult) (pediatric) Active Diagnosis [facility] Diagnosis: ICD-10-CM Z46.0 Encounter for fit/adjst of spectacles and contact lenses Active Diagnosis [facility] Diagnosis: ICD-10-CM H25.13 Age-related nuclear cataract, bilateral Active Diagnosis [facility] Diagnosis: ICD-10-CM G47.30 Sleep apnea, unspecified Active Diagnosis [facility] Diagnosis: ICD-10-CM G56.00 Carpal tunnel syndrome, unspecified upper limb [facility] Medications Combined list of outpatient [...] WHILE TAKING THIS MEDICATI ON ORAL 11/03/2023 [id number] BENIGNO LIN 2023 20 [facility] FLUOXETINE HCL 10MG CAP TAKE THREE CAPSULES BY MOUTH ONCE DAILY FOR DEPRESSI ON AND ANXIETY DOSE INCREASE ORAL ACTIVE 12/23/2024 [id number] FURCOLO,T KWESI 2023 270 [facility] FLUOXETINE HCL 20MG CAP TAKE ONE CAPSULE BY MOUTH ONCE DAILY FOR DEPRESSI ON AND ANXIETY ORAL DISCONT INUED (EDIT) 05/19/2024 [id number] [facility] 2023 90 [facility] FLUOXETINE HCL 20MG CAP TAKE ONE CAPSULE BY MOUTH ONCE DAILY FOR DEPRESSI ON AND ANXIETY ORAL DISCONT INUED 08/12/2023 [id number] [facility] J[facility]ED 2022 90 [facility] HYDROXYZINE HCL 10MG TAB TAKE ONE TABLET BY MOUTH THREE TIMES DAILY NEEDED FOR ADDITION AL MEDICATI ON FOR CALMING ORAL ACTIVE 04/18/2025 [id number] FURCOLO,T KWESI 2023 90 [facility] HYDROXYZINE HCL 10MG TAB TAKE ONE TABLET BY MOUTH THREE TIMES DAILY NEEDED FOR ADDITION AL MEDICATI ON FOR CALMING ORAL DISCONT INUED 12/23/2024 [id number] FURCOLO,T KWESI 2023 90 [facility] IBUPROFEN 800MG TAB TAKE ONE TABLET BY MOUTH THREE TIMES DAILY WITH MEALS FOR PAIN - TAKE WITH FOOD ORAL 11/03/2023 [id number] BENIGNO LIN M 2023 90 [facility] IPRATROPIUM BROMIDE (IPRATROPIU M BROMIDE), 42MCG, SPRAY, NASAL, CECY LABS., 15 ml CANISTER Active [id number] 04/07/20 2 3 2022 30 Pharmac y Data Transac tion Service Facilit y PARoxetine 10 mg oral tablet PARoxeti ne 10 mg oral tablet Start Date: 07/09/20 Status: Ordered Ordered No Facilit y Access PRAZOSIN HCL 1MG CAP TAKE ONE CAPSULE BY MOUTH AT BEDTIME FOR HIGH BLOOD PRESSURE ORAL 05/01/2024 [id number] KELLEY,T KWESI 2023 90 [facility] [place] [facility] ROSUVASTATI N CA 10MG TAB TAKE ONE TABLET BY MOUTH ONCE DAILY FOR CHOLESTE ROL ORAL DISCONT INUED BY PROVIDE R 03/28/2024 [id number] TRACEY RUDOLPH AMKASI JAWED 2022 90 [facility] Immunizations Combined list of available immunizations from the Department of Defense and Veterans Affairs facilities. Immunization Series Date Given Administered By Site Reaction Lot Number CVX Code Drug Lang Path Therapist Status Comments Source influenza virus vaccine, inactivated 2023 JOSÉ LUIS sparrow, left (delt oid) [id number] [employer] complet ed influenza virus vaccine, inactivat ed 02/14/24 Given [id number] MDG ZOSTER RECOMBINANT 1 2023 VAISHNAVI VELÁSQUEZ LEFT DELTO ID [id number] complet ed [facility] INFLUENZA, UNSPECIFIED FORMULATION 2022 88 complet ed [facility] INFLUENZA, UNSPECIFIED FORMULATION 2021 88 complet ed [facility] tetanus toxoid, reduced diphtheria toxoid, and acellular pertu is vaccine, adsorbed 2 2021 [id number] Sanofi Pasteur (PMC) complet ed tetanus toxoid, reduced diphtheri a toxoid, and acellular pertussis vaccine, adsorbed DoD COVID Vaccine Pfizer 2020 [id number] 208 P[employer] complet ed COVID Vaccine Pfizer 02/01/21 Given Ambulat ory Pharmac y SARS-COV-2 (COVID-19) vaccine, mRNA, spike protein, LNP, preservative free, 30 mcg/0.3mL dose 2 2020 [id number] Pfizer, Inc (PFR) complet ed SARS-COV- 2 (COVID-19 ) vaccine, mRNA, spike protein, LNP, preservat monica free, 30 mcg/0.3mL dose DoD influenza, injectable, quadrivalent 2020 [id number] [facility] influenza , injectabl e, quadrival ent 01/31/21 Given Ambulat ory Pharmac y influenza, injectable, quadrivalent, contains preservative 10 2020 [id number] 158 [facility] (SKB) complet ed influenza , injectabl e, quadrival ent, contains preservat monica DoD COVID Vaccine Pfizer 2020 [id number] 208 PFIZER complet ed COVID Vaccine Pfizer 12/31/20 Given Ambulat ory Pharmac y SARS-COV-2 (COVID-19) vaccine, mRNA, spike protein, LNP, preservative free, 30 mcg/0.3mL dose 1 2020 [id number] 208 Pfizer, Inc (PFR) complet ed SARS-COV- 2 (COVID-19 ) vaccine, mRNA, spike protein, LNP, preservat monica free, 30 mcg/0.3mL dose DoD influenza virus vaccine, unspecified 2019 [id number] 88 sanofi pasteur complet ed influenza virus vaccine, unspecifi ed 02/21/20 Given Ambulat ory Pharmac y influenza virus vaccine, unspecified formulation 1 2019 [id number] 88 Sanofi Pasteur (PMC) complet ed influenza virus vaccine, unspecifi ed formulati on DoD INFLUENZA, UNSPECIFIED FORMULATION 2019 88 complet ed [facility] influenza, injectable, quadrivalent- pf 2018 [id number] 150 [employer] complet ed influenza , injectabl e, quadrival ent-pf 01/20/19 Given Ambulat ory Pharmac y Influenza, injectable, quadrivalent, preservative free 15 2018 [id number] 150 [employer] (SEQ) complet ed Influenza , injectabl e, quadrival ent, preservat monica free DoD influenza, injectable, quadrivalent 2017 [id number] 158 [employer] complet ed influenza , injectabl e, quadrival ent 02/16/18 Given Ambulat ory Pharmac y influenza, injectable, quadrivalent, contains preservative 14 2017 [id number] 158 [employer] (SEQ) comple t ed influenza , injectabl e, quadrival ent, contains preservat monica DoD INFLUENZA, SEASONAL, INJECTABLE 2017 141 complet ed [facility] Influenza, inj, MDCK, quadrivalent- pf 2016 [id number] 171 [employer] complet ed Influenza , inj, MDCK, quadrival ent-pf 02/19/17 Given Ambulat ory Pharmac y Influenza, injectable, Madin Jackie Canine Kidney, preservative free, quadrivalent 13 2016 [id number] 171 [employer] (SEQ) comple t ed Influenza , injectabl e, Madin Jackie Canine Kidney, preservat monica free, quadrival ent DoD INFLUENZA, SEASONAL, INJECTABLE 2016 141 complet ed [facility] TDAP 2016 115 complet ed Site: Right Deltoid [facility] FLU,3 YRS (HISTORICAL) 2015 88 complet ed [facility] influenza, seasonal, injectable-pf 2015 [id number] 140 [employer] complet ed influenza , seasonal, injectabl e-pf 01/31/16 Given Ambulat ory Pharmac y Influenza, seasonal, injectable, preservative free 12 2015 [id number] 140 [employer] (SEQ) comple t ed Influenza , seasonal, injectabl e, preservat monica free DoD influenza, seasonal, injectable 2014 [id number] 1A 141 CSL [employer]ring complet ed influenza , seasonal, injectabl e 01/19/15 Given Ambulat ory Pharmac y Influenza, seasonal, injectable [id number] [facility] [employer] ([facility]) complet ed Influenza , seasonal, injectabl e DoD FLU,3 YRS (HISTORICAL) 2014 88 complet ed [facility] Influenza, injectable, MDCK-pf 2013 [id number] 153 Novartis Pharmaceutica ls complet ed Influenza , injectabl e, MDCK-pf 01/19/14 Given Ambulat ory Pharmac y Influenza, injectable, Madin Jackie Canine Kidney, preservative free 10 2013 [id number] 153 Novartis Pharmaceutica l Roe. (NOV) complet ed Influenza , injectabl e, Madin Bethel Canine Kidney, preservat monica free DoD tuberculin purified protein derivative 2012 [id number] 96 [facility] complet ed tuberculi n purified protein derivativ e 03/24/13 Given Ambulat ory Pharmac y influenza, seasonal, injectable 2012 [id number] 1A 141 CS Behring complet ed influenza , seasonal, injectabl e 02/17/13 Given Ambulat ory Pharmac y Influenza, seasonal, injectable [id number] [facility] [employer] ([facility]) complet ed Influenza , seasonal, injectabl e DoD hepatitis B adult vaccine 2012 [id number] 4AA 43 GlaxoSmithKli ne complet ed hepatitis B adult vaccine 11/18/12 Given Ambulat ory Pharmac y hepatitis B vaccine, adult dosage 3 2012 [id number] 4AA 43 [employer]GAGine (SKB) complet ed hepatitis B vaccine, adult dosage DoD anthrax vaccine 2012 [id number] [employer] complet ed anthrax vaccine 05/18/12 Given Ambulat ory Pharmac y anthrax vaccine 3 2012 [id number] 24 [employer] [place] ([facility]) complet ed anthrax vaccine DoD hepatitis B adult vaccine 2011 [id number] 6AA 43 GlaxoSmithKli ne complet ed hepatitis B adult vaccine 01/31/12 Given Ambulat ory Pharmac y hepatitis B vaccine, adult dosage 2 2011 [id number] 6AA 43 SmithSeeonicine (SKB) complet ed hepatitis B vaccine, adult dosage DoD influenza, seasonal, injectable 2011 [id number] 1A 141 [employer] complet ed influenza , seasonal, injectabl e 01/27/12 Given Ambulat ory Pharmac y Influenza, seasonal, injectable 8 2011 [id number] 1A 141 CS [employer] (CSL) complet ed Influenza , seasonal, injectabl e DoD FLU,3 YRS (HISTORICAL) 2011 88 complet ed [facility] vaccinia (smallpox) vaccine 2011 [id number] 75 [employer] complet ed vaccinia (smallpox ) vaccine 12/01/11 Given Ambulat ory Pharmac y vaccinia (smallpox) vaccine 1 2011 [id number] [id number] 75 [facility] ([facility]) complet ed vaccinia (smallpox ) vaccine DoD hepatitis B adult vaccine 2011 [id number] 43 [employer] complet ed hepatitis B adult vaccine 11/30/11 Given Ambulat ory Pharmac y anthrax vaccine 2011 [id number] 24 [employer] complet ed anthrax vaccine 11/30/11 Given Ambulat ory Pharmac y tetanus, diphtheria, acellular pertu is 2011 [id number] 115 sanofi pasteur complet ed tetanus, diphtheri a, acellular pertussis 11/30/11 Given Ambulat ory Pharmac y typhoid Vi capsular polysaccharid e vac 2011 [id number] 1 101 sanofi pasteur complet ed typhoid Vi capsular polysacch aride vac 11/30/11 Given Ambulat ory Pharmac y anthrax vaccine 2 2011 [id number] 24 [employer] [place] ([facility]) complet ed anthrax vaccine DoD hepatitis B vaccine, adult dosage 1 2011 [id number] 43 Merck (MSD) complet ed hepatitis B vaccine, adult dosage DoD typhoid Vi capsular polysaccharid e vaccine 2 2011 [id number] 1 101 Sanofi Pasteur (PMC) complet ed typhoid Vi capsular polysacch aride vaccine DoD tetanus toxoid, reduced diphtheria toxoid, and acellular pertu is vaccine, adsorbed 1 2011 [id number] 115 Sanofi Pasteur (PMC) complet ed tetanus toxoid, reduced diphtheri a toxoid, and acellular pertussis vaccine, adsorbed DoD anthrax vaccine 2011 [id number] 24 [employer] complet ed anthrax vaccine 09/18/11 Given Ambulat ory Pharmac y anthrax vaccine 1 2011 [id number] 24 Emergent [employer] [facility] ([facility]) complet ed anthrax vaccine DoD influenza, seasonal, injectable-pf 2011 [id number] 1A 140 [employer] complet ed influenza , seasonal, injectabl e-pf 05/09/11 Given Ambulat ory Pharmac y Influenza, seasonal, injectable, preservative free 7 2011 [id number] 1A 140 CS [employer] (CSL) complet ed Influenza , seasonal, injectabl e, preservat monica free DoD influenza virus vaccine,split 2009 [id number] 1A 15 C[employer] complet ed influenza virus vaccine,s plit 03/08/10 Given Ambulat ory Pharmac y influenza virus vaccine, split virus (incl. purified surface antigen)-reti red CODE 1 2009 [id number] 1A 15 CS [employer] (CSL) complet ed influenza virus vaccine, split virus (incl. purified surface antigen)- retired CODE DoD Novel influenza-H1N 1-09, injectable 2009 [id number] 1 127 Novartis Pharmaceutica ls complet ed Novel influenza -R8N9-50, injectabl e 05/10/09 Given Ambulat ory Pharmac y Novel influenza-H1N 1-09, injectable 1 2009 [id number] 1 127 Novartis Pharmaceutica l Roe. (NOV) complet ed Novel influenza -R9L2-08, injectabl e DoD influenza virus vaccine, live 2008 [id number] 111 [employer] comple t ed influenza virus vaccine, live 03/09/09 Given Ambulat ory Pharmac y influenza virus vaccine, live, attenuated, for intranasal use 1 2008 [id number] 111 [employer] Inc. (MED) complet ed influenza virus vaccine, live, attenuate d, for intranasa l use DoD tuberculin purified protein derivative 2007 [id number] 96 sanofi pasteur complet ed tuberculi n purified protein derivativ e 03/23/08 Given Ambulat ory Pharmac y influenza virus vaccine,split 2007 [id number] 2AA 15 GlaxoSmithKli ne complet ed influenza virus vaccine,s plit 03/02/08 Given Ambulat ory Pharmac y influenza virus vaccine, split virus (incl. purified surface antigen)-reti red CODE 1 2007 [id number] 2AA 15 [employer]pex [employer] (SKB) complet ed influenza virus vaccine, split virus (incl. purified surface antigen)- retired CODE DoD influenza virus vaccine,split 2006 [id number] 3AA 15 GlaxoSmithKli ne complet ed influenza virus vaccine,s plit 03/04/07 Given Ambulat ory Pharmac y influenza virus vaccine, split virus (incl. purified surface antigen)-reti red CODE 1 2006 [id number] 3AA 15 9GAGine (SKB) complet ed influenza virus vaccine, split virus (incl. purified surface antigen)- retired CODE DoD hepatitis A adult vaccine 2006 [id number] 52 Merck & Company Inc complet ed hepatitis A adult vaccine 12/25/06 Given Ambulat ory Pharmac y tetanus-dipht h toxoids (Td) adult/adol 2006 [id number] 09 sanofi pasteur complet ed tetanus-d iphth [...] 2 Lf of diphtheria toxoid) 1 2006 [id number] 09 Sanofi Pasteur (PMC) complet ed tetanus and diphtheri a toxoids, [...] dosage DoD influenza virus vaccine, whole virus [id number] 16 sanofi pasteur complet ed influenza virus vaccine, whole virus 01/18/98 Given Ambulat ory Pharmac y influenza virus vaccine, whole virus 0 [id number] 16 Sanofi Pasteur ([facility]) complet ed influenza virus vaccine, whole virus [...] ed trivalent polioviru s vaccine, live, oral DoD tetanus and diphtheria toxoids, adsorbed, preservative [...] September 06, 2023 02:23 PM Reporting Lab: [address] [address] Performing Lab: [facility] [address] [facility] LIPID PANEL FASTING TRIGLYCERI DE [MASS/VOLU ME] IN SERUM OR PLASMA 150 mg/dL 0 - 150 09/26 Specimen Type: SERUM No comment entered. Ordering Provider: INA BENSON Report Released Date/Time: September 06, 2023 02:23 PM Reporting Lab: [facility] [address] Performing Lab: [facility] [address] [facility] LIPID PANEL FASTING CHOLESTERO L IN LDL [MASS/VOLU ME] IN SERUM OR PLASMA BY CALCFRANCESCA N 151 mg/dL 0 - 129 09/26 H Specimen Type: SERUM No comment entered. Ordering Provider: NIA BENSON Report Released Date/Time: September 06, 2023 02:23 PM Reporting Lab: [facility] [address] Performing Lab: [facility] [address] [facility] [address] [facility] LIPID PANEL FASTING CHOLESTERO L.TOTAL/CH OLESTEROL IN HDL [MASS RATIO] IN SERUM OR PLASMA 5.2 09/26 Specimen Type: SERUM No comment entered. Ordering Provider: NIA BENSON Report Released Date/Time: September 06, 2023 02:23 PM Reporting Lab: [facility] [facility] [address] [facility] [address] Performing Lab: [facility] [facility] [address] [facility] [address] [facility] LIPID PANEL FASTING CHOLESTERO L IN HDL [MASS/VOLU ME] IN SERUM OR PLASMA 43 mg/dL 40 - 60 09/26 Specimen Type: SERUM No comment entered. Ordering Provider: NIA BENSON Report Released Date/Time: September 06, 2023 02:23 PM Reporting Lab: [facility] [facility] [address] [facility] [address] Performing Lab: [facility] [address] [address] [facility] BASIC METABOLI C PANEL (fasting ) UREA NITROGEN [MASS/VOLU ME] IN SERUM OR PLASMA 22 mg/dL 7 - 25 Specimen Type: SERUM No comment entered. Ordering Provider: SCOTT RUDOLPH Report Released Date/Time: Jun 16, 2023 08:14 AM Reporting Lab: [facility] [facility] [address] [facility] [address] Performing Lab: [facility] [place] [facility] [address] [facility] [address] [facility] BASIC METABOLI C PANEL (fasting ) GLUCOSE [MASS/VOLU ME] IN SERUM OR PLASMA 96 mg/dL 65 - 100 Specimen Type: SERUM No comment entered. Ordering Provider: SCOTT RUDOLPH Report Released Date/Time: Jun 16, 2023 08:14 AM Reporting Lab: [facility] [facility] [address] [facility] [address] Performing Lab: [facility] [facility] [address] [facility] [address] [facility] BASIC METABOLI C PANEL (fasting ) SODIUM [MOLES/VOL UME] IN SERUM OR PLASMA 137 mmol/L 135 - 145 Specimen Type: SERUM No comment entered. Ordering Provider: SCOTT RUDOLPH Report Released Date/Time: Jun 16, 2023 08:14 AM Reporting Lab: [facility] [facility] [address] [facility] [address] Performing Lab: [facility] [place] [facility] [address] [facility] [address] [facility] BASIC METABOLI C PANEL (fasting ) POTASSIUM [MOLES/VOL UME] IN SERUM OR PLASMA 4.3 mmol/L 3.5 - 5.0 Specimen Type: SERUM No comment entered. Ordering Provider: SCOTT RUDOLPH Report Released Date/Time: Jun 16, 2023 08:14 AM Reporting Lab: [facility] [address] [address] Performing Lab: [facility] [address] [address] [facility] BASIC METABOLI C PANEL (fasting ) CHLORIDE [MOLES/VOL UME] IN SERUM OR PLASMA 104 mmol/L 100 - 110 Specimen Type: SERUM No comment entered. Ordering Provider: SCOTT RUDOLPH Report Released Date/Time: Jun 16, 2023 08:14 AM Reporting Lab: [facility] [place] [facility] [address] [facility] [address] Performing Lab: [facility] [place] [facility] [address] [facility] [facility] [address] [facility] BASIC METABOLI C PANEL (fasting ) CARBON DIOXIDE, TOTAL [MOLES/VOL UME] IN SERUM OR PLASMA 24 meq/L 20 - 30 Specimen Type: SERUM No comment entered. Ordering Provider: SCOTT RUDOLPH Report Released Date/Time: Jun 16, 2023 08:14 AM Reporting Lab: [facility] [place] [facility] [address] [facility] [address] Performing Lab: [facility] [place] [address] [address] [facility] BASIC METABOLI C PANEL (fasting ) CREATININE [MASS/VOLU ME] IN SERUM OR PLASMA 0.88 mg/dL 0.50 - 1.40 Specimen Type: SERUM No comment entered. Ordering Provider: SCOTT RUDOLPH Report Released Date/Time: Jun 16, 2023 08:14 AM Reporting Lab: [facility] [address] [address] Performing Lab: [facility] [address] [address] [facility] BASIC METABOLI C PANEL (fasting ) GLOMERULAR FILTRATION RATE/1.73 SQ M.PREDICTE D [VOLUME RATE/AREA] IN SERUM, PLASMA OR BLOOD BY CREATININE -BASED FORMULA (CKD-EPI 2020) >90mL/mi n 60 Specimen Type: SERUM No comment entered. Ordering Provider: SCOTT RUDOLPH Report Released Date/Time: Jun 16, 2023 08:14 AM Reporting Lab: [facility] [address] [address] Performing Lab: [facility] [address] [address] [facility] LIPID PANEL FASTING CHOLESTERO L [MASS/VOLU ME] IN SERUM OR PLASMA 231 mg/dL H Specimen Type: SERUM No comment entered. Ordering Provider: SCOTT RUDOLPH Report Released Date/Time: Jun 16, 2023 08:14 AM Reporting Lab: [facility] [address] [address] Performing Lab: [facility] [place] [facility] [address] [facility] [address] [facility] LIPID PANEL FASTING TRIGLYCERI DE [MASS/VOLU ME] IN SERUM OR PLASMA 164 mg/dL 0 - 150 H Specimen Type: SERUM No comment entered. Ordering Provider: SCOTT RUDOLPH Report Released Date/Time: Jun 16, 2023 08:14 AM Reporting Lab: [facility] [place] [facility] [address] [facility] [address] Performing Lab: [facility] [facility] [address] [facility] [address] [facility] LIPID PANEL FASTING CHOLESTERO L IN LDL [MASS/VOLU ME] IN SERUM OR PLASMA BY CALCULATIO N 157 mg/dL 0 - 129 H Specimen Type: SERUM No comment entered. Ordering Provider: SCOTT RUDOLPH Report Released Date/Time: Jun 16, 2023 08:14 AM Reporting Lab: [facility] [place] [facility] [address] [facility] [facility] [address] Performing Lab: [facility] [place] [facility] [address] [facility] [address] [facility] [facility] LIPID PANEL FASTING CHOLESTERO L.TOTAL/CH OLESTEROL IN HDL [MASS RATIO] IN SERUM OR PLASMA 5.6 Specimen Type: SERUM No comment entered. Ordering Provider: SCOTT RUDOLPH Report Released Date/Time: Jun 16, 2023 08:14 AM Reporting Lab: [facility] [place] [facility] [address] [facility] [address] Performing Lab: [facility] [place] [facility] [address] [facility] [address] [facility] LIPID PANEL FASTING CHOLESTERO L IN HDL [MASS/VOLU ME] IN SERUM OR PLASMA 41 mg/dL 40 - 60 Specimen Type: SERUM No comment entered. Ordering Provider: SCOTT RUDOLPH Report Released Date/Time: Jun 16, 2023 08:14 AM Reporting Lab: [facility] [place] [facility] [address] [facility] [address] Performing Lab: [facility] [place] [facility] [address] [facility] [address] [facility] [facility] BASIC METABOLI C PANEL (fasting ) UREA NITROGEN [MASS/VOLU ME] IN SERUM OR PLASMA 18 mg/dL 7 - 25 03/28 Specimen Type: SERUM No comment entered. Ordering Provider: SCOTT RUDOLPH Report Released Date/Time: Mar 22, 2023 11:09 AM Reporting Lab: [facility] [place] [facility] [address] [facility] [address] Performing Lab: [facility] [place] [facility] [address] [facility] [address] [facility] [place] [facility] BASIC METABOLI C PANEL (fasting ) GLUCOSE [MASS/VOLU ME] IN SERUM OR PLASMA 95 mg/dL 65 - 100 03/28 Specimen Type: SERUM No comment entered. Ordering Provider: SCOTT RUDOLPH Report Released Date/Time: Mar 22, 2023 11:09 AM Reporting Lab: [facility] [place] [facility] [address] [facility] [address] Performing Lab: [facility] [place] [facility] [address] [facility] [address] [facility] [place] [facility] BASIC METABOLI C PANEL (fasting ) SODIUM [MOLES/VOL UME] IN SERUM OR PLASMA 139 mmol/L 135 - 145 03/28 Specimen Type: SERUM No comment entered. Ordering Provider: SCOTT RUDOLPH Report Released Date/Time: Mar 22, 2023 11:09 AM Reporting Lab: [facility] [place] [facility] [address] [facility] [address] Performing Lab: [facility] [place] [facility] [address] [facility] [address] [facility] [place] [facility] BASIC METABOLI C PANEL (fasting ) POTASSIUM [MOLES/VOL UME] IN SERUM OR PLASMA 4.7 mmol/L 3.5 - 5.0 03/28 Specimen Type: SERUM No comment entered. Ordering Provider: SCOTT RUDOLPH Report Released Date/Time: Mar 22, 2023 11:09 AM Reporting Lab: [facility] [place] [facility] [address] [facility] [address] Performing Lab: [facility] [address] [facility] [address] [facility] [place] [facility] BASIC METABOLI C PANEL (fasting ) CHLORIDE [MOLES/VOL UME] IN SERUM OR PLASMA 103 mmol/L 100 - 110 03/28 Specimen Type: SERUM No comment entered. Ordering Provider: SCOTT RUDOLPH Report Released Date/Time: Mar 22, 2023 11:09 AM Reporting Lab: [facility] [place] [address] [address] Performing Lab: [facility] [address] [address] [facility] [facility] BASIC METABOLI C PANEL (fasting ) CARBON DIOXIDE, TOTAL [MOLES/VOL UME] IN SERUM OR PLASMA 27 meq/L 20 - 30 03/28 Specimen Type: SERUM No comment entered. Ordering Provider: SCOTT RUDOLPH Report Released Date/Time: Mar 22, 2023 11:09 AM Reporting Lab: [facility] [place] [address] [address] Performing Lab: [facility] [place] [address] [address] [facility] [place] [facility] BASIC METABOLI C PANEL (fasting ) CREATININE [MASS/VOLU ME] IN SERUM OR PLASMA 0.92 mg/dL 0.50 - 1.40 03/28 Specimen Type: SERUM No comment entered. Ordering Provider: SCOTT RUDOLPH Report Released Date/Time: Mar 22, 2023 11:09 AM Reporting Lab: [facility] [place] [address] [address] Performing Lab: [facility] [place] [address] [place] [address] [facility] BASIC METABOLI C PANEL (fasting ) GLOMERULAR FILTRATION RATE/1.73 SQ M.PREDICTE D [VOLUME RATE/AREA] IN SERUM, PLASMA OR BLOOD BY CREATININE -BASED FORMULA (CKD-EPI 2020) >90mL/mi n 60 03/28 Specimen Type: SERUM No comment entered. Ordering Provider: SCOTT RUDOLPH Report Released Date/Time: Mar 22, 2023 11:09 AM Reporting Lab: [facility] [address] [facility] [address] Performing Lab: [facility] [address] [address] [facility] HEPATITI S B SURFACE ANTIBODY (HBsAb)- WH HEPATITIS B VIRUS SURFACE AB [PRESENCE] IN SERUM BY IMMUNOASSA Y REACTIVE 03/28 Specimen Type: SERUM Comment: A 'Reactive' result indicates HBsAb results >/= 12.0 mIU/mL and immunity to HBV infection. Ordering Provider: SCOTT RUDOLPH Report Released Date/Time: Mar 22, 2023 11:09 AM Reporting Lab: [facility] [address] [address] Performing Lab: [facility] [address] [address] [facility] HEPATITI S C ANTIBODY (HCV)-AR C HEPATITIS C VIRUS AB [PRESENCE] IN SERUM NON-REAC TIVE 03/28 Specimen Type: SERUM Comment: Hep C Ab: No HCV antibody detected. If recent infection is suspected or other evidence suggests HCV infection, consider HCV nucleic acid testing Ordering Provider: SCOTT RUDOLPH Report Released Date/Time: Mar 22, 2023 11:09 AM Reporting Lab: [facility] [address] [address] Performing Lab: [facility] [address] [address] [facility] HIV 1&2 Ag/Ab SCREEN HIV 1+2 AB+HIV1 P24 AG [PRESENCE] IN SERUM OR PLASMA BY IMMUNOASSA Y NON-REAC TIVE 03/28 Specimen Type: SERUM No comment entered. Ordering Provider: SCOTT RUDOLPH Report Released Date/Time: Mar 22, 2023 11:09 AM Reporting Lab: [facility] [place] [address] [address] Performing Lab: [facility] [place] [facility] [address] [facility] [address] [facility] [place] [facility] LIPID PANEL FASTING CHOLESTERO L [MASS/VOLU ME] IN SERUM OR PLASMA 258 mg/dL 03/28 H Specimen Type: SERUM No comment entered. Ordering Provider: SCOTT RUDOLPH Report Released Date/Time: Mar 22, 2023 11:09 AM Reporting Lab: [facility] [place] [address] [address] Performing Lab: [facility] [place] [address] [address] [facility] [facility] LIPID PANEL FASTING TRIGLYCERI DE [MASS/VOLU ME] IN SERUM OR PLASMA 158 mg/dL 0 - 150 03/28 H Specimen Type: SERUM No comment entered. Ordering Provider: SCOTT RUDOLPH Report Released Date/Time: Mar 22, 2023 11:09 AM Reporting Lab: [facility] [place] [address] [address] Performing Lab: [facility] [place] [address] [address] [facility] [place] [facility] LIPID PANEL FASTING CHOLESTERO L IN LDL [MASS/VOLU ME] IN SERUM OR PLASMA BY CALCULASHAHIDO N 175 mg/dL 0 - 129 03/28 H Specimen Type: SERUM No comment entered. Ordering Provider: SCOTT RUDOLPH Report Released Date/Time: Mar 22, 2023 11:09 AM Reporting Lab: [facility] [place] [address] [address] Performing Lab: [facility] [place] [facility] [address] [facility] [address] [facility] [place] [facility] LIPID PANEL FASTING CHOLESTERO L.TOTAL/CH OLESTEROL IN HDL [MASS RATIO] IN SERUM OR PLASMA 5.1 03/28 Specimen Type: SERUM No comment entered. Ordering Provider: SCOTT RUDOLPH Report Released Date/Time: Mar 22, 2023 11:09 AM Reporting Lab: [facility] [place] [facility] [address] [facility] [facility] [address] Performing Lab: [facility] [place] [facility] [address] [facility] [address] [facility] [place] [facility] LIPID PANEL FASTING CHOLESTERO L IN HDL [MASS/VOLU ME] IN SERUM OR PLASMA 51 mg/dL 40 - 60 03/28 Specimen Type: SERUM No comment entered. Ordering Provider: SCOTT RUDOLPH Report Released Date/Time: Mar 22, 2023 11:09 AM Reporting Lab: [facility] [place] [facility] [address] [facility] [address] Performing Lab: [facility] [place] [facility] [address] [facility] [address] [facility] [place] [facility] LIVER FUNCTION PROTEIN [MASS/VOLU ME] IN SERUM OR PLASMA 6.8 g/dL 6.0 - 8.3 03/28 Specimen Type: SERUM No comment entered. Ordering Provider: SCOTT RUDOLPH Report Released Date/Time: Mar 22, 2023 11:09 AM Reporting Lab: [facility] [place] [facility] [address] [facility] [facility] [address] Performing Lab: [facility] [place] [facility] [address] [facility] [address] [facility] [place] [facility] LIVER FUNCTION ALBUMIN [MASS/VOLU ME] IN SERUM OR PLASMA 4.1 g/dL 3.5 - 5.0 03/28 Specimen Type: SERUM No comment entered. Ordering Provider: SCOTT RUDOLPH Report Released Date/Time: Mar 22, 2023 11:09 AM Reporting Lab: [facility] [place] [facility] [address] [facility] [address] Performing Lab: [facility] [place] [facility] [address] [facility] [address] [facility] [place] [facility] LIVER FUNCTION ALKALINE PHOSPHATAS E [ENZYMATIC ACTIVITY/V OLUME] IN SERUM OR PLASMA 35 U/L 40 - 150 03/28 L Specimen Type: SERUM No comment entered. Ordering Provider: SCOTT RUDOLPH Report Released Date/Time: Mar 22, 2023 11:09 AM Reporting Lab: [facility] [place] [facility] [address] [facility] [address] Performing Lab: [facility] [place] [facility] [address] [facility] [address] [facility] [place] [facility] LIVER FUNCTION ASPARTATE AMINOTRANS FERASE [ENZYMATIC ACTIVITY/V OLUME] IN SERUM OR PLASMA 13 U/L 5 - 34 03/28 Specimen Type: SERUM No comment entered. Ordering Provider: SCOTT RUDOLPH Report Released Date/Time: Mar 22, 2023 11:09 AM Reporting Lab: [facility] [place] [facility] [address] [facility] [address] Performing Lab: [facility] [place] [facility] [address] [facility] [address] [facility] [place] [facility] LIVER FUNCTION ALANINE AMINOTRANS FERASE [ENZYMATIC ACTIVITY/V OLUME] IN SERUM OR PLASMA 18 U/L 03/28 Specimen Type: SERUM No comment entered. Ordering Provider: SCOTT RUDOLPH Report Released Date/Time: Mar 22, 2023 11:09 AM Reporting Lab: [facility] [place] [facility] [address] [facility] [address] Performing Lab: [facility] [place] [facility] [address] [facility] [address] [facility] [place] [facility] LIVER FUNCTION BILIRUBIN. TOTAL [MASS/VOLU ME] IN SERUM OR PLASMA 0.6 mg/dL 0.2 - 1.2 03/28 Specimen Type: SERUM No comment entered. Ordering Provider: KLAUDIATRACEYANNETTE LAMBMERYL Report Released Date/Time: Mar 22, 2023 11:09 AM Reporting Lab: [facility] [address] [address] Performing Lab: [facility] [address] [address] [facility] PSA PROSTATE SPECIFIC AG [MASS/VOLU ME] IN SERUM OR PLASMA 1.30 ng/mL 0.00 - 4.00 03/28 Specimen Type: SERUM No comment entered. Ordering Provider: REGINALDKASITRACEYANNETTE LAMBMERYL Report Released Date/Time: Mar 22, 2023 11:09 AM Reporting Lab: [facility] CLAUDIATRN [facility] [address] Performing Lab: [facility] TRN [facility] [address] [facility] Infectio us Disease HIV-1/O/2 Non-Reac tive 1 [...] Prevention' s HIV diagnostic algorithm. Refer to [facility] Lab Guide for additional information : [email or web address] [email or web address]/ [email or web address] ab/[email or web address]/la [email or web address] x Testing performed by Viky [facility] Susana saunders Sendouts Repository Sample Received (11/03/22 2:32 PM) 11/03 N [facility] Vital Signs Combined list of inpatient and outpatient Vital Signs from Department of Defense and Veterans Affairs, ranging from 12 months to all on record, depending upon the facility. Vital Sign Value Date Comments Source SYSTOLIC BLOOD PRESSURE 104 04/09/20 24 08:18:59 [facility] DIASTOLIC BLOOD PRESSURE 70 024 08:18:59 [facility] PULSE OXIMETRY 96 04/09/2024 08:18:59 [facility] PAIN 5 04/09/2024 08:18:59 [facility] PULSE 68 04/09/2024 08:18:59 [facility] RESPIRATION 20 04/09/2024 08:18:59 [facility] SYSTOLIC BLOOD PRESSURE 127 01/03/20 24 12:58:51 [...] Date Status Disposition Source Theater Facility OUTPATIENT [id number] Theater Provider 02/18 Released w/o Limitations [facility] OUTPATIENT [id number] Theater Provider 03/09 Released w/o Limitations [facility] OUTPATIENT [id number] Theater Provider 05/25 Released w/o Limitations [facility] [place] [address](AFN G 104 Med Sq-FM) OUTPATIENT [id number] Notes Entered by: MELANIE METZGER 21 Dec 2017 1427 ------- ------- ------- ------- -- MELANIE FLORES 12/21 [facility]ased [facility] Limitations [facility] [place] [place] [address](A FNG 104 Med Sq-FM) [place] [address](AFN G 104 Med Sq-FM) OUTPATIENT [id number] 1 Notes Entered by: VIKTORIA GODINEZ 28 May 2018 1506 ------- ------- ------- ------- -- VIKTORIA WALTON 05/28 Released w/o Limitations [facility] [place] [address](A FNG 104 Med Sq-FM) [place] [address](AFN G 104 Med Sq-FM) OUTPATIENT [id number] 0 Notes Entered by: MELANIE METZGER 23 May 2019 1410 ------- ------- ------- ------- -- MELANIE FLORES 05/23 Released w/o Limitations [facility] [place] [address](A FNG 104 Med Sq-FM) [place] [address](AFN G 104 Med Sq-FM) OUTPATIENT [id number] 5 Notes Entered by: HAYDEN LEWIS 25 Oct 2019 1137 ------- ------- ------- ------- -- 469 SADE LEWIS 10/24 Released w/o Limitations [facility] [place] [address](A FNG 104 Med Sq-FM) [place] [address](AFN G 104 Med Sq-FM) OUTPATIENT [id number] 8 Notes Entered by: MORALES PALUMBO 01 Feb 2021 0930 ------- ------- ------- ------- -- [facility] PALUMBO 02/01 Released w/o Limitations [facility] [place] [address](A FNG 104 Med Sq-FM) [place] [address](AFN G 104 Med Sq-FM) OUTPATIENT [id number] 6 Notes Entered by: MELANIE METZGER 01 Feb 2021 1635 ------- ------- ------- ------- -- MELANIE FLORES 02/01 Released w/o Limitations [facility] [place] [address](A FNG 104 Med Sq-FM) [place] [address](AFN G 104 Med Sq-FM) OUTPATIENT [id number] 5 Notes Entered by: MELANIE METZGER 25 Jun 2021 0701 ------- ------- ------- ------- -- NADIAQ MELANIE METZGER 06/25 [facility] Limitations [facility] [place] [place] [address](A FNG 104 Med Sq-FM) [place] [address](AFN G 104 Med Sq-FM) OUTPATIENT [id number] Notes Entered by: CHARLOTTE SIMONS 27 Jun 2021 0832 ------- ------- ------- ------- -- HA1 MELANIE METZGER MAURICIO 06/27 Released w/o Limitations [facility] [place] [address](A FNG 104 Med Sq-FM) [place] [address](AFN G 104 Med Sq-FM) OUTPATIENT [id number] Notes Entered by: MELANIE METZGER 07 Jan 2022 0936 ------- ------- ------- ------- -- SHPE/R shoulde r pain YASSINEMELANIE MAURICIO 01/07 Released w/o Limitations [facility] [place] [address](A FNG 104 Med Sq-FM) [facility] En[facility] [id number] 11/17 [facility] En[facility] [id number] 11/29 [facility] OFFICE O/P NEW [place] 60-74 MIN [id number] Diagnos is: ICD-10- CM G56.00 Carpal tunnel syndrom e, unspeci fied upper limb
PEG COLMENARES 11/29 [facility] En[facility] [id number] 11/30 [facility] En[facility] [id number] 12/01 [facility] OFF[facility] O/P EST MOD 30-39 MIN [id number] Diagnos is: ICD-10- CM F43.12 Post-tr aumatic stress disorde r, chronic
RASHIDA RUDOLPH MMED JAWED 12/01 [facility] En[facility] [id number] 12/24 [facility] En[facility] [id number] 12/24 [facility] En[facility] [id number] 12/27 [facility] En[facility] [id number] 12/30 [facility] En[facility] [id number] 01/04 [facility] En[facility] [id number] KAVIN RIVAS SA, RN 01/10 [facility] En[facility] [id number] 01/11 [facility] En[facility] [id number] 01/14 [facility] En[facility] [id number] 01/14 [facility] En[facility] [id number] 01/19 [facility] En[facility] [id number] 01/20 [facility] En[facility] [id number] 01/25 [facility] En[facility] [id number] 01/26 [facility] En[facility] [id number] 01/31 [facility] En[facility] [id number] 03/17 [facility] En[facility] [id number] 03/22 [facility] En[facility] [id number] 03/28 [facility] En[facility] [id number] 03/31 [facility] En[facility] [id number] LATHA SERVIN 04/05 [facility] En[facility] [id number] 04/14 [facility] En[facility] [id number] 05/19 [facility] En[facility] [id number] 05/25 [facility] En[facility] [id number] 06/07 [facility] OFFICE O/P EST MOD 30 MIN [id number] Diagnos is: ICD-10- CM F43.12 Post-tr aumatic stress disorde r, chronic
REGINALDKASIRASHIDA MMED JAWED [facility] Outpatient Encounter [id number] 06/21 [facility] Outpatient Encounter [id number] 06/22 [facility] [id number] MDG Care Not Rendered [id number] 07/02 Discharge Disposition: Home or Self Care [id number] 04 MDG [facility] SELF-MGMT EDUC & TRAIN 1 [place] [id number] Diagnos is: ICD-10- CM G47.33 Obstruc tive sleep apnea (adult) (pediat john)
ANNA,FREDE JOHN 08/21 [facility] HC PRO PHONE CALL 5-10 MIN [id number] Diagnos is: ICD-10- CM G47.30 Sleep apnea, unspeci fied
ANNA,FREDE JOHN 08/24 [facility] FIT SPECTACLES MONOFOCAL [id number] Diagnos is: ICD-10- CM Z46.0 Encount er for fit/adj st of spectac les and contact lenses< br/> SHAYY LE Y J 08/30 [facility] [place] 1 [id number] Diagnos is: ICD-10- CM H25.13 Age-rel ated nuclear catarac t, bilater al
SHAYY LE Y J 08/30 [facility] [place] [facility] SLEEP STUDY UNATT&RESP EFFT [id number] Diagnos is: ICD-10- CM G47.33 Obstruc tive sleep apnea (adult) (pediat john)
ANNA,FREDE JOHN 09/06 [facility] [place] [facility] UNATT&RESP EFFT 34180-6.68 [id number] Diagnos is: ICD-10- CM R06.83 Snoring
KING,TYRELL 09/07 [place] [facility] [place] Outpatient Encounter [id number] 09/18 [facility] [place] [facility] [place] OFFICE O/P EST HI 40 MIN [id number] Diagnos is: ICD-10- CM M54.12 Radicul opathy, cervica l region< br/> FURCOLO,TI NA 09/26 [facility] [place] [facility] [place] Outpatient Encounter [id number] 10/02 [facility] [place] [facility] [place] Outpatient Encounter [id number] 10/03 [facility] [id number] Diagnos is: ICD-10- CM M54.50 Low back pain, unspeci fied
JUAN CARLOS LIN 10/03 [facility] En[facility] [id number] 10/03 [facility] OFF/OP EST AUGUST X REQ PHY/QHP [id number] Diagnos is: ICD-10- CM Z04.9 Encount er for examina tion and observa tion for unsp reason< br/> Art DARNELLSA H 10/03 [facility] [place] ELECTROCAR DIOGRAM REPORT [id number] Diagnos is: ICD-10- CM Z13.6 Encount er for screeni ng for cardiov ascular disorde rs
ALMA VILLALPANDO 10/03 [place] [facility] [facility] En[facility] [id number] 10/17 [facility] Outpatient Encounter [id number] ALEJANDRA MONTEIRO V 11/17 [facility] Encounter [id number] 12/07 [facility] En[facility] [id number] 12/22 [facility] En[facility] [id number] 12/24 [facility] Outpatient Encounter [id number] Diagnos is: ICD-10- CM F41.9 Anxiety disorde r, unspeci fied
FOLES,RHODeysi DA R 12/24 [facility] Outpatient Encounter [id number] 01/01 [facility] OFFICE O/P EST MOD 30 MIN [id number] Diagnos is: ICD-10- CM M54.12 Radicul opathy, cervica l region< br/> FURCOLO,TI NA 01/02 [facility] PRO PHONE CALL 21-30 MIN [id number] Diagnos is: ICD-10- CM E78.5 Hyperli pidemia , unspeci fied
GAFFEY,ALL BHUPENDRA FLORECITA 01/03 [place] [facility] Outpatient Encounter [id number] 01/23 [facility] [place] HC PRO PHONE CALL 21-30 MIN [id number] Diagnos is: ICD-10- CM F41.9 Anxiety disorde r, unspeci fied
LABELLA,KE RI MANUELA 01/23 [facility] [place] HC PRO PHONE CALL 5-10 MIN [id number] Diagnos is: ICD-10- CM R45.4 Irritab ility and anger<b r/> LABELLA,KE RI MANUELA 01/31 [facility] [id number]-[id number] MDG Care Not Rendered [id number] 01/31 Discharge Disposition: Home or Self Care 8203R-1 04 MDG [facility] Outpatient Encounter [id number] Diagnos is: ICD-10- CM E78.5 Hyperli pidemia , unspeci fied
ALEJANDRA MONTEIRO MANUELA V 02/13 [place] [facility] [id number]-104 MDG Mass Vaccine [id number] 02/13 8203R-1 04 MDG 8203R-104 MDG Care Not Rendered [id number] 02/13 Discharge Disposition: Home or Self Care 8203R-1 04 MDG [facility] PRO PHONE CALL 5-10 MIN [id number] Diagnos is: ICD-10- CM F43.12 Post-tr aumatic stress disorde r, chronic
MECHE PARRA 02/15 [facility] Outpatient Encounter [id number] ALEJANDRA MONTEIRO MANUELA V 02/20 [facility] Outpatient Encounter [id number] 03/20 [facility] [place] Outpatient Encounter [id number] 03/20 [facility] [place] OFF/OP CONSLTJ NEW/EST SF 20 [id number] Diagnos is: ICD-10- CM R07.9 Chest pain, unspeci fied
Talia BERGER 03/21 [facility] Outpatient Encounter [id number] Diagnos is: ICD-10- CM I10 Essenti al (primar y) hyperte nsion<b r/> ALEJANDRA MONTEIRO MANUELA V 04/05 [facility] OFFICE O/P NEW HI 60 MIN [id number] Diagnos is: ICD-10- CM M47.892 Other spondyl osis, cervica l region< br/> Mateus GIL 04/09 [facility] [place] Outpatient Encounter [id number]/17 [facility] [place] Outpatient Encounter [id number] 04/17 [facility] [place] [id number]-104 MDG Care Not Rendered [id number] 04/19 Discharge Disposition: Home or Self Care 8203R-1 04 MDG [place] [facility] Outpatient Encounter [id number] 05/10 [place] [facility] [place] Procedures Combined list of: 1) Procedures from Department of Veterans Affairs facilities going back up to thelast 18 months, not all VA non-surgical procedures are included; 2) All procedures from the Department of Defense facilities. Procedure Procedure Type Code Date Perfomer Comments Sourc e No data available for this section Ambulatory P harmacy Social History Combined list of available smoking, tobacco, and other social history from Department of Defense and Veterans Affairs facilities. Social History Type Response Date Comment Source Tobacco smoking status NHIS VA-TOBACCO FORMER USER 01/03/2024 [facility] [place] [facility] History of tobacco use VA-TOBACCO QUIT 15 YRS OR MORE 01/03/2024 [facility] History of tobacco use VA-TOBACCO FORMER USER 12/01/2022 [facility] History of tobacco use VA-TOBACCO QUIT 15 YRS OR MORE 11/21/2020 [facility] History of tobacco use VA-TOBACCO QUIT 15 YRS OR MORE 09/21/2019 [facility] [place] [facility] History of tobacco use VA-TOBACCO NEVER USED 08/31/2018 [facility] History of tobacco use QUIT TOBACCO USE > 7 YEARS AGO 07/21/2017 He quit 20 years ago [facility] History of tobacco use LIFETIME NON-TOBACCO USER 06/17/2016 [facility] History of tobacco use LIFETIME NON-TOBACCO USER 05/19/2015 [facility] History of tobacco use LIFETIME NON-TOBACCO USER 08/24/2012 [facility] This section is an empty social history section. [facility] Assessment and Plan Combined list of future care activities from Department of Defense and Veterans Affairs facilities (e.g., assessment and plan notes, appointments, orders, and referrals). Additional future care activities may be listed in the Plan of Care section. Result Assessment and Plan Date Source Assessment and Plan No data available for this section 05/16/2024 Ambulatory Pharmacy Plan of Care List of future care activities from Department of Veterans [facility] facilities. Additional future care activities may be listed in the Assessment and Plan section. Date/Time Care Activity Care Activity Detail Facili ty 05/17/2024 AMBULATORY - REHAB MEDICINE [facility]/18[facility]24 [facility] - MEDICINE [facility]/19/2024 AMBULATORY - MEDICINE AMBULATORY - MEDICI NE [facility] 09/12/2024 AMBULATORY - MEDICINE [facility] 04/09/2024 Consult Order COMMUNITY CARE-O RTHO SURGICAL Cons Psychiatry [facility]structor[facility]/09[facility]2024 Consult Order PHYSICAL THERAPY /[facility] OUTPT Cons Psychiatry [facility]structor's [facility] 04/17/2024 Consult Order COMMUNITY CARE-B H PSYCHOTHERAPY Cons Psychiatry [facility]structor's [facility] Functional Status Combined list of recent functional and cognitive assessments recorded at Department of Defense and Veterans Affairs ([place] Functional [place] Measurement (FIM) Scale: 1 = Total Assistance (Subject = 0% +), 2 = Maximal Assistance (Subject = 25% +), 3 = Moderate Assistance (Subject = 50% +), 4 = Minimal Assistance (Subject = 75% +), 5 = Supervision, 6 = Modified [place] (Device), 7 = Complete [place] (Timely, Safely). Assessment Date/Time Source Assessment Type Assessment Skill Assessment Score Assessment Details No data available for this section
--- OUTSIDE RECORDS SUMMARY | 2024-05-16 10:44 | XMS_ITS ---
Author Name [facility] [place] [facility] [place] Address [address] [place] [address] Care Team Providers Care Dipper And Drier Name Role Phone KELLEYLENIN Primary Care Provider [...] PHARMACY PRESCRIPT ION [facility] Apr 18, 2010 [phone] MITCHELL RAE PATIENT IAIN-ASA HANKINS PREFERRED PROVIDER ORGANIZAT ION (PPO) ADVAN LILLIAN DRAIN AGE Sep 17, 2003 [phone] MITCHELL RAE PATIENT Selected Encounter This section includes the information on record at [place] for the Encounter. Date/Time Encounter Type Encounter Description Reason Provider Source Apr 09, 2024 08:00 AM OFFICE O/P [place] 60 MIN PM&RS PHYSICIAN ICD-10-CM M47.892 Other spondylosis, cervical region FELICIA GIL IHE Encounter Template Text not used by [place] Assessments - Encounter Diagnoses This section includes the primary and secondary diagnoses documented for the Encounter. Date/Time Primary/Secondary Diagnosis Diagnosis Name Provider Source Apr 20, 2024 12:45 PM PRIMARY Other spondylosis, cervical region [facility] Apr 20, 2024 12:45 PM SECONDARY Alcohol abuse, uncomplicated [facility] Apr 20, 2024 12:45 PM SECONDARY Carpal tunnel syndrome, left upper limb KELI GIL [facility] Plan of Treatment: Future Appointments (+ 6 months) and Future Tests (+/- 45 days) The Plan of Treatment section includes future care activities for the patient from all [place] [facility]. This section includes future appointments [...] 19, 2024 02:00 PM [facility] May 17, 2024 08:30 AM AMBULATORY - REHAB MEDICIN [place] [facility] [place] [facility] Jun 18, 2024 01:00 PM AMBULATORY - MEDICINE [facility] Jun 19, 2024 10:00 AM AM[facility]ICINE [facility] September 12, 2024 08:00 AM AMBULAT[facility] - [facility]IC[facility] Active, Pending, and Scheduled Orders This section includes a listing of several types of active, pending, and scheduled orders, including clinic medications orders, diagnostic test orders, procedure orders and consult orders; where the start date of the order is 45 days before the date of the Encounter or 45 days after the date of theEncounter. The data comes from all [facility] facilities. Test Date/Time Test Type Test Details Facility Name Mar 28, 2024 12:00 AM Laboratory - Chemistry Order LIPID PANEL FASTING BLOOD (SST-SERUM) [facility] Mar 28, 2024 12:00 AM Laboratory - Chemistry Order LIVER FUNCTION BLOOD (SST-SERUM) [facility] Mar 28, 2024 12:00 AM Laboratory - Chemistry Order BASIC METABOLIC PANEL (fasting) BLOOD (SST-SERUM) [facility] Mar 28, 2024 12:00 AM Laboratory - Chemistry Order VITAMIN D (25-OH) BLOOD (SST-SERUM) [facility] Mar 28, 2024 12:00 AM Laboratory - Chemistry Order TSH BLOOD (SST-SERUM) [facility] Mar 28, 2024 12:00 AM Laboratory - Chemistry Order HEMOGLOBIN A1C PANEL BLOOD (LAV-BLOOD) [facility] Mar 28, 2024 12:00 AM Laboratory - Chemistry Order CBC BLOOD (LAV-BLOOD) [facility] Mar 28, 2024 12:00 AM Laboratory - Chemistry Order LIPOPROTEIN (a) BLOOD (SST-SERUM) [facility] Apr 09, 2024 09:05 AM Consult Order COMMUNITY CARE-ORTHO SURGICAL Cons Brazer Helper Induction's Choice [facility] Apr 09, 2024 09:08 AM Consult Order PHYSICAL THERAPY/[facility] OUTPT Cons Brazer Helper Induction's Choice [facility] Apr 17, 2024 01:55 PM Consult Order COMMUNITY CARE-BH PSYCHOTHERAPY Cons Brazer Helper Induction's Choice [facility] Vital Signs: All taken on the encounter date This section contains inpatient and outpatient Vital Signs collected on the date of the Encounter. Date/Time Temperature Pulse Blood Pressure Respiratory Rate SP02 Pain Height Weight Body Mass Index Source Apr 09, 2024 08:18 AM 68 104/70 20 96 5 [facility] Social History: Smoking Status (Most current) [...] Current Smoking Status Comment Maria D trujillo Jan 03, 2024 01:00 PM VA-TOBACCO FORMER USER [facility] Tobacco Use History This section includes a history of the smoking, or tobacco-related health factors, that were collected on or before the date of the Encounter. The data comes from the [place] facility where the Encounter took place. Date/Time Smoking Status/Tobac co Use Comment Facility Jan 03, 2024 01:00 PM VA-TOBACCO QUIT 15 YRS OR MORE [facility] [place] [facility] Dec 01, 2022 03:30 PM VA-TOBACCO FORMER USER [facility] [place] [facility] Dec 01, 2022 03:30 PM VA-TOBACCO QUIT 15 YRS OR MORE [facility] [place] [facility] Nov 21, 2020 09:30 AM VA-TOBACCO FORMER USER [facility] [place] [facility] Nov 21, 2020 09:30 AM VA-TOBACCO QUIT 15 YRS OR MORE [facility] [place] [facility] Sep 21, 2019 10:24 AM VA-TOBACCO FORMER USER [facility] [place] [facility] Sep 21, 2019 10:24 AM VA-TOBACCO QUIT 15 YRS OR MORE [facility] [place] [facility] August 31, 2018 09:07 AM VA-TOBACCO NEVER USED [facility] [place] [place] [facility] Jul 21, 2017 09:00 AM QUIT TOBACCO USE > 7 YEARS AGO He quit 20 years ago [facility] [place] [place] [facility] Jun 17, 2016 02:37 PM LIFETIME NON-TOBACCO USER [facility] [facility] May 19, 2015 04:56 PM LIFETIME NON-TOBACCO USER [facility] [place] [facility] August 24, 2012 03:06 PM LIFETIME NON-TOBACCO USER [facility] [place] [facility] Radiology Reports: +/- 30 days [...] the Encounter. The data comes from all [place] treatment facilities. Date/Time Radiology Report Provider Source Mar 21, 2024 12:33 PM CALCIUM SCORE 1: MITCHELL RAE [id number] -[id number] M Exm Date: MAR 21, 2024@12:33 Req Phys: MARLINE MONTEIRO V Pat Loc: MISSY PHONE CARD PREVENTION (Req Img Loc: NEW CT SCAN Service: [place] [address] (Case [id number] COMPLETE) CALCIUM SCORE 1 (CT Detailed) CPT:00885 Reason for Study: CORONARY CALCIUM SCORE Clinical History: NEEDS CORONARY CALCIUM SCORE Report Status: Verified Date Reported: MAR 23, 2024 Date Verified: MAR 23, 2024 Health Officer E-Sig:/ES/DAKOTA MATOS MD Report: CT HEART WITHOUT [...] Interpreting Staff: DAKOTA MATOS MD, Radiology Attending (Health Officer) /DAKOTA STEVENS Encounter Notes: All associated encounter notes This section contains the clinical notes associated to the Encounter. Date/Time Encounter Note(s) Provider Source Apr 09, 2024 08:28 AM PHYSICAL MEDICINE REHAB CONSULT: LOCAL TITLE: CONSULT REPORT/PM&R STANDARD TITLE: PHYSICAL MEDICINE REHAB CONSULT DATE OF NOTE: APR 09, 2024@08:28 ENTRY DATE: APR 09, 2024@08:28:42 AUTHOR: MARY JO GIL EXP COSIGNER: URGENCY: STATUS: COMPLETED APR 09, 2024 KYRAMITCHELL ZIMMERMAN JR is a 54 y/o RHD WHITE MALE, previously in AIR [employer]CE FROM Oct TO Jan from PERIOD OF SERVICE - [employer], who was seen today for consultation requested by Lenin Maldonado MD today for chief complaint of left hand numbness. EMG x2 showed mild carpal tunnel on the left. Previous hx of ACDF 07/09 Did well and has mild residual right levator scap triggers. Had been seen PA with Dr. Martinez. Referral was made to [facility] for trigger point. Symptoms vary in intensity. Just occasionally he will get twinges of discomfort in the right paracervical region. They dissipate fairly quickly. He is active oftentimes enjoys spending time with his dog hiking in the [place] and hunting. No strengthening exercises specifically for the paracervical region and periscapular region. No PT post ACDF. Left hand numbness and tingling is fairly constant. He uses his splints frequently. Symptoms are aggravated by sleep as well as driving. 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 EMG x 2 in 2020 and 2022 showing mild carpal tunnel symptoms. No injections. Alcohol consumption is daily for the most part. Oftentimes between 5 and 7 beers per night. Aware that there is an issue and feels that he is alcoholic. Has not attended AA. No recent sobriety. He does feel better on the nights that he does not drink. Certain degree of self abashment with alcohol consumption. Anxiety and depression increasing. Fluoxetine was increased to 30 mg from 20 mg. No discernible difference. Pertinent prior procedures and/or imaging: Dr Martinez C6-7 ACDF EMG available in [place] PMx as obtained from Chart: Active problems - Computerized Problem List is the source for the followin. Snoring 2. Cervical radiculopathy 3. Carpal tunnel syndrome 4. Low back pain 5. Anxiety 6. Irritability and anger 7. Tinnitus 8. Posttraumatic stress disorder 9. Vision, Subnormal 10. Familial hypercholestrolemia PSxHx: C6-7 ACDF 07/09 Fam Hx:Hypercolestrolemia. 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 MARITAL STATUS - AIR [employer] FROM Oct TO Jan Service Connected Disabilities with % Eligibility: SC LESS THAN 50% VERIFIED Total S/C %: 40 TINNITUS 10% S/C POST-TRAUMATIC STRESS DISORDER 30% S/C ALL: Patient has answered NKA MEDS: Active Outpatient Medications (including Supplies): FLUOXETINE HCL 10MG CAP TAKE THREE CAPSULES BY MOUTH ONCE ACTIVE DAILY FOR DEPRESSION AND ANXIETY DOSE INCREASE Indication: FOR MAJOR DEPRESSIVE DISORDER HYDROXYZINE HCL 10MG TAB TAKE ONE TABLET BY MOUTH THREE ACTIVE TIMES DAILY NEEDED Indication: FOR ADDITIONAL MEDICATION FOR CALMING PRAZOSIN HCL 1MG CAP TAKE ONE CAPSULE BY MOUTH AT BEDTIME ACTIVE Indication: FOR HIGH BLOOD PRESSURE No Active Remote Medications for this patient ROS: Constitutional - Denies fever or chills, night sweats, or unexplained weight loss. Head/Eyes/Ears/Neck- Denies headaches, dizziness, visual changes. Cardiovascular - Denies chest pain/palpitations, lower extremity swelling. Respiratory - Denies shortness of breath, or cough. GI - Denies nausea, vomiting, or loss of bowel fx/control. - Denies urinary difficulties or loss of bladder function. Musculoskeletal - See HPI. Neuro - See HPI. Psychiatric - See PMHx. Denies mood swings or change in behavior. Sleep - Denies nocturnal pain or excessive daytime fatigue. Skin/integuments - Denies rashes, lesions, or skin breakdown in the extremities. All other systems reviewed and are negative. PHYSICAL EXAMINATION: Vitals in chart. GEN: WD, WN. Awake, alert, cooperative with exam. In NAD. PSYCH: Good eye contact. Normal mood. Appropriately concerned. CVS: Extremities warm/well perfused. No lower extremity edema appreciated. PULM: Breathing unlabored, no accessory muscle use. ABD: Nondistended. EXTREMITIES: No cyanosis or edema of bilateral upper and lower extremities. SKIN: No rashes, lesions, or skin breakdown over exposed areas. MUSCULOSKELETAL/NEURO EXAM: Cervical range of motion is 30 degrees of flexion with 20 degrees of extension. Rotation is 45 degrees to the right and and 50 degrees to the left. Increased discomfort with extension. Tenderness over the right C7-T1 facet. Hypertonicity right levator scapula. Anterior positioning of the shoulder. Positive Pickett's, positive James Neer. Scapular dyskinesia noted on the right side versus left. Symmetrical reflexes. No sensory deficit on the right side. Left side with positive median nerve compression test and positive Phalen's maneuver. No atrophy identified. Gait: normal, symmetric, negative Trendelenburg. Able to perform tandem walk and heel/toe walk. Labs: Collection DT Spec WBC HGB HCT PLT K+/Pot Sodium HGBA1c 06/16/2023 08:15 SERUM 4.3 137 03/28/2023 09:25 BLOOD 4.75 14.9 44.6 202 03/28/2023 09:25 SERUM 4.7 139 05/10/2017 16:16 SERUM 4.1 139 05/10/2017 16:16 BLOOD 5.5 Collection DT Spec GLUCOSE CREATIN AST ALT T BILI ALK JOSEP CHOL 09/27/2023 08:50 SERUM 224 H 06/16/2023 08:15 SERUM 96 0.88 231 H 03/28/2023 09:25 SERUM 95 0.92 13 18 0.6 35 L 258 H 05/10/2017 16:16 SERUM 100 1.04 12 14 < 0.3 36 L Collection DT Spec LDL-c HDL TRIG TSH HIV Ag/ 09/27/2023 08:50 SERUM 151 H 43 150 06/16/2023 08:15 SERUM 157 H 41 164 H 03/28/2023 09:25 SERUM NON-REACTIVE 03/28/2023 09:25 SERUM 175 H 51 158 H 05/10/2017 16:16 SERUM 1.48 CHEM 7 TREND LAB CUMULATIVE SELECTED Collection DT Spec GLUCOSE BUN CREATIN Sodium K+/Pot CL CO2 06/16/2023 08:15 SERUM 96 22 0.88 137 4.3 104 24 03/28/2023 09:25 SERUM 95 18 0.92 139 4.7 103 27 05/10/2017 16:16 SERUM 100 24 1.04 139 4.1 102 31 H LAB CUMULATIVE SELECTED 2 No selection items chosen for this component. CHEM 7 Results Collection DT Spec Sodium K+/Pot CL CO2 GLUCOSE BUN 06/16/2023 08:15 SERUM 137 4.3 104 24 96 22 03/28/2023 09:25 SERUM 139 4.7 103 27 95 18 05/10/2017 16:16 SERUM 139 4.1 102 31 H 100 24 Liver Function Tests No data available for: AST ALT ALKALINE PHOSPHATASE ALBUMIN BILIRUBIN, TOTAL LDH PROTEIN,TOTAL HEMOGLOBIN A1C TREND Collection DT Spec HGBA1c 05/10/2017 16:16 BLOOD 5.5 Diagnostic Studies: Previous MRI in [place], 01/08 demonstrating spondylosis at C5-6 and C7-T1. At that time there was disc herniation which was addressed surgically after the MRI scan. ASSESSMENT/PLAN: Patient is a 54-year-old status post C6-7 ACDF with scapular dyskinesia, myofascial pain and cervical spondylosis. PT ordered. Will address scapular dyskinesia and muscular imbalance. Discussed carpal tunnel syndrome left side. No improvement with occupational therapy and splinting. EMG x 2 demonstrating mild carpal tunnel last being in 2022. Discussed potential confounder in levels of anxiety and alcohol usage. May consider cessation. At this point he is in a precontemplative stage. Discussed Your gut on Food Dr Thomas for better understanding of gut microbiome and impact of alcohol on depression and PTSD. As opposed to increasing antidepressants to accommodate the increased anxiety and depression, may consider conversion to Wellbutrin which may reduce cravings and is less obesagenic. Discussed importance of gut microbiome. Encouraged probiotic. Discussed ETOH consumption. Few beers (5-6 ) per night FOLLOW-UP: 2 months Potential risks and side effects of any medication(s) prescribed today was reviewed with . Patient had many excellent questions, which I answered to the best of my ability and to patient's apparent satisfaction. MDM: 60 minutes which includes reviewing records, evaluating patient, documenting in medical record, educating, counseling and coordinating care. /toshia/ MARY JO GIL [facility] Signed: 04/09/2024 09:20 MARY JO GIL [facility]
== END 2024-05-16 11:10 | disposition home or self-care (01) ==
PROVIDERS: PCP Internal Medicine; Visit Provider Internal Medicine
DX: Z00.00 Encounter for general adult medical examination without abnormal findings (principal); E78.00 Pure hypercholesterolemia, unspecified; F41.1 Generalized anxiety disorder; R20.0 Anesthesia of skin; R73.02 Impaired glucose tolerance (oral); E66.3 Overweight; R79.89 Other specified abnormal findings of blood chemistry; M67.911 Unspecified disorder of synovium and tendon, right shoulder; M67.912 Unspecified disorder of synovium and tendon, left shoulder; N52.9 Male erectile dysfunction, unspecified

== ENCOUNTER → 2024-05-16 09:14 | Outpatient (BNVA) | payer OTHER, SELFPAY | PROVIDERS: PCP Internal Medicine; Visit Provider Internal Medicine | DX: Z00.00 Encounter for general adult medical examination without abnormal findings (principal); E78.00 Pure hypercholesterolemia, unspecified; F41.1 Generalized anxiety disorder; R20.0 Anesthesia of skin; R73.02 Impaired glucose tolerance (oral); E66.3 Overweight; R79.89 Other specified abnormal findings of blood chemistry; N52.9 Male erectile dysfunction, unspecified; M67.911 Unspecified disorder of synovium and tendon, right shoulder; M67.912 Unspecified disorder of synovium and tendon, left shoulder | CPT/HCPCS: 96127 ==

== ENCOUNTER 2024-06-13 13:00 | Outpatient (RCR) | payer OTHER, SELFPAY ==
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
--- NOTE | 2024-07-11 10:23 | MHC.PT.DC ---
[facility] [place] Office [place] Office [place] Office [address] [phone] F: [phone] F: [phone] F: [phone] F: [phone] Physical Therapy Discharge Report Diagnosis: NECK PAIN, LB PAIN Date of Surgery: 06/2023 Date of Evaluation: 04/25/24 Date of Discharge: 06/13/24 Treatments to Date: Cancellations to Date: No Shows to Date: Discharge Status: Discharge Summary: 06/13/24: Pt has met all STG/LTG to date. Pt has been issued written home exercises. Pt cervical motion WFL all planes, reports intermittent radiating pain/tightness in R UT region; scap on/off at times (recovery from neck surgery). Electronically signed by: Macey Mathews,PT,DPT Please sign and return to therapist. Thank you for your referral.
== END 2024-07-11 10:25 | disposition home or self-care (01) ==
LOC: HO.PTWFD 13:00
PROVIDERS: PCP Internal Medicine
DX: M48.02 Spinal stenosis, cervical region (principal); M54.2 Cervicalgia; M54.9 Dorsalgia, unspecified
CPT/HCPCS: 97014; 97110; 97116; 97140; 97162; 97535

== ENCOUNTER 2024-10-02 14:27 | Outpatient (AMB) | payer OTHER, SELFPAY ==
--- NOTE | 2024-10-02 14:36 | MHC.PC.OV ---
Vital Signs 10/02/24 14:40 Height 6 ft 1 in Weight 220 lb 4 oz BMI 29.1 BP 126/86 Blood Pressure Location Lt brachial Position Sitting Pulse 66 Pulse Source Pulse Oximeter Temp 97.1 F Temp Source Temporal Artery Scan Pulse Oximetry (%) 95 Oxygen Delivery Method Room Air Intake Visit Reasons: Back pain Sailing Officer Required: No Accompanied by: Self / Same As Patient Allergies No Known Allergies Allergy (Verified 10/02/24 14:43) Tobacco use date assessed: 05/16/24 Dental Screening Dental Screen Date: 05/16/24 HPI Back pain HPI Details The patient is a 54-year-old male presenting with back pain following an injury. The injury occurred while pushing a cart with a heavy battery, which tipped over, causing him to strain his lower back. The pain initially localized to the lower back and radiated to the buttocks and wrist, worsening over time. The patient visited urgent care on the day of the injury, where an x-ray of the back was performed, showing no bone abnormalities, suggesting a muscular issue. He was advised to rest and was given a splint for a suspected wrist fracture. The patient has been using acetaminophen for pain relief, but reports limited efficacy and concerns about excessive use. . [facility] Medical History (Updated 10/02/24 @ 14:59 by Taran Mckeon PA-C) Anxiety and depression Dysphagia Upper back pain on right side Obesity (BMI 30.0-34.9) Overweight (BMI 25.0-29.9) COVID-19 vaccine series completed History of COVID-19 Colon cancer screening Overweight (BMI 25.0-29.9) Degenerative disc disease, cervical Cervical spinal stenosis Hypercholesterolemia Insomnia COVID-19 virus infection Surgical History History of neck surgery History of surgery History of tonsillectomy History of tooth extraction Family History Father CHF (congestive heart failure) Prostate cancer Alcohol abuse Mother No problems noted. Brother In good health Coronary artery disease Sister In good health Son In good health Daughter In good health Other Mental health disorder Substance use disorder Social History Housing: House Alcohol intake: current Alcohol intake frequency: a few times a week Comment: 2 drinks a day- 04/2024 1-2 x a week 2 drinks Patient Tobacco Use Status: Former Tobacco user Tobacco use type: Cigarette Years Smoked: stopped 22 years old e-Cigarette/Vaping Use: Never Used Second Hand Smoke Exposure: No service: No Current occupational status: employed Cognitive needs: No Hearing needs: No Vision needs: Yes Questionnaire Thrive Questionnaire Date Thrive assessed: 10/02/24 I am a: Patient What is your living situation today?: I have a steady place to live Within the past 12 months, did the food you bought not last and you didn't have the money to get more?: I choose not to answer this question Within the past 12 months, did you worry whether your food would run out before you got money to buy more?: I choose not to answer this question Do you have trouble paying for medicines?: No Do you have trouble getting transportation to medical appointments?: No Do you have trouble paying your heating and electricity bill?: No Do you have trouble taking care of your child, family member or friend?: No Do you have trouble with day-to-day activities such as bathing, preparing meals, shopping, managing finances, etc.?: Yes Are you currently unemployed and looking for a job?: No Are you interested in more education?: No Please select the resources that you would like help with: None Currently or been in a relationship where the following occur: No concerns reported THRIVE Score: 0 REJI-7 AMB Questionnaire REJI-7 Date REJI - 7 assessed: 10/02/24 Feeling nervous, anxious, or on edge: 0 = Not at all Not being able to stop or control worryin = Not at all Worrying too much about different things: 0 = Not at all Trouble relaxin = Not at all Being so restless that it is hard to sit still: 0 = Not at all Becoming easily annoyed or irritable: 0 = Not at all Feeling afraid as if something awful might happen: 0 = Not at all Total REJI-7 score (0-4 normal; 5-9 mild; 10-14 moderate; 15-21 severe): 0 Source: Developed by Drs. Dejon Lamas, Shaylee Haro, Shant Beard and colleagues, with an educational edwar from [employer]. REJI-7 Assessment Billing REJI-7 Assessment Tool: REJI-7 Assessment 50904 Review of Systems Const Denies headache(s) Eyes Denies loss of vision ENT Denies vertigo, Denies dizziness, Denies headache(s) and Denies sore throat Card Denies chest pain, Denies leg edema and Denies lightheadedness Resp Denies cough, Denies hemoptysis and Denies wheezing GI Denies abdominal pain, Denies melena, Denies constipation, Denies diarrhea and Denies vomiting Denies dysuria, Denies urinary frequency and Denies urinary urgency Musc Denies arthralgias, Denies joint swelling, Denies numbness and Denies tingling Neuro Denies Abnormal speech present, Denies behavioral changes, Denies vertigo, Denies dizziness, Denies headache(s), Denies loss of vision, Denies memory loss, Denies numbness and Denies tingling Psych Denies anxiety, Denies behavioral changes, Denies depression, Denies memory loss and Denies panic attacks Ej/Lymph Denies easy bleeding and Denies easy bruising Aller/Immun Denies wheezing Physical exam (Primary Care) Vital Signs: Last Vital Signs Temp 97.1 F 10/02/24 14:40 Pulse 66 10/02/24 14:40 BP 126/86 10/02/24 14:40 Pulse Ox 95 10/02/24 14:40 Oxygen Delivery Method Room Air 10/02/24 14:40 BMI result Body Mass Index 29.1 Tobacco/Smoking Status: Tobacco use Status Tobacco use date assessed 05/16/24 10/02/24 14:36 Patient Tobacco Use Status Former Tobacco user 10/02/24 14:36 Tobacco use type Cigarette 10/02/24 14:36 e-Cigarette/Vaping Use Never Used 10/02/24 14:36 Thrive Assessment: Date of Thrive Assessment Date Thrive assessed 10/02/24 10/02/24 14:44 Currently or been in a relationship where the following occur: No concerns reported Const General: healthy appearing, no acute distress, alert and awake Nutritional Appearance: well nourished Orientation/consciousness: oriented to person, oriented to place and oriented to time HENMT Ears: TM's normal bilaterally General nose exam: Normal nasal mucous membranes and turbinates present Eyes Conjunctivae: conjunctivae normal Sclerae: sclerae normal Pupils: Equal, round and reactive pupils present Neck Neck: Yes no lymphadenopathy and Yes no JVD Thyroid: Thyroid normal Carotids: no bruits Resp Effort & Inspection: normal respiratory effort and not tachypneic Auscultation: no crackles, no rales, no rhonchi and no wheezes Cardio Rate: regular rate Rhythm: regular rhythm Heart sounds: no murmurs and normal S1 and S2 GI Palpation (GI): Soft to palpation, nontender, no hepatomegaly and no splenomegaly Auscultation: normal bowel sounds Back/Spine/Pelvis Other: LIMITED RANGE OF MOTION OF THE LUMBAR SPINE DUE TO PAIN AND STIFFNESS Skin General skin exam: no rashes or lesions noted and dry skin Neuro General: oriented to person, oriented to place and oriented to time Cranial nerves: Yes Equal, round and reactive pupils present Speech: No Abnormal speech present Gait exam (Neuro): Normal gait present Motor exam (neuro): no tremor noted Extrem Right upper extremity: full ROM Left upper extremity: full ROM Right lower extremity: full ROM; no edema Left lower extremity: full ROM; no edema Psych Mental Status: mental status grossly normal Speech and movement: Normal speech and movement present Affect: normal affect Attitude: cooperative Thought process: Normal thought process present Coding Level of Care Code Est Pt Level 3 (24813) Diagnoses Lumbar back pain M54.50 Additional Codes REJI-7 Assessment Billing - REJI-7 Assessment Tool: REJI-7 Assessment 68124 ([id number]) Assessment & Plan Assessment & Plan (1) Lumbar back pain: Code(s): M54.50 - Low back pain, unspecified Category: Medical Plan: The patient will be referred to physical therapy to address the lumbar strain and improve mobility. A muscle relaxant will be prescribed to aid in pain management and improve sleep quality. An anti-inflammatory medication, meloxicam, will be prescribed to reduce inflammation and pain. Orders: Orders PT Evaluation and Treatment 10/02/24 M54.50 - Low back pain, unspecified Medications: New cyclobenzaprine 10 mg PO BID 28 tabs 0RF 14 days M54.50 - Low back pain, unspecified meloxicam 15 mg PO DAILY 14 tabs 0RF 14 days M54.50 - Low back pain, unspecified
[2024-10-02 14:40] VITALS: BP 126/86; PULSE 66; TEMP 36.2; O2SAT 95; BMI 29.1
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
== END 2024-10-02 15:12 | disposition home or self-care (01) ==
LOC: HO.HMCH 14:27
PROVIDERS: PCP Internal Medicine; Visit Provider Physician Assistant
DX: M54.50 Low back pain, unspecified (principal)

== ENCOUNTER → 2024-10-02 14:27 | Outpatient (BNVA) | payer OTHER, SELFPAY | PROVIDERS: PCP Internal Medicine; Visit Provider Physician Assistant | DX: M54.50 Low back pain, unspecified (principal); Z87.891 Personal history of nicotine dependence | CPT/HCPCS: 96127; 99212 ==

== ENCOUNTER 2025-01-10 08:04 | Outpatient (REF) | payer OTHER, SELFPAY ==
--- OUTSIDE RECORDS SUMMARY | 2025-01-10 08:16 | XMS_ITS | Encounter Summary ---
Author Organization [facility] Address [address] [place] [address] Phone Care Team Providers Care Insurance Claims Processor Name Role Phone Gaye Maldonado DO Primary Care Provider [phone] Encounter Details Date Type Department Care Team (Late st Contact Info) Description 11/07/2024 Procedure Pass OR Admitting Dept - Virtual Department [address] [place] [address] [phone] Social History Tobacco Use Types Packs/Day Years Used Date Smoking Tobacco: Former Cigarettes Smokeless Tobacco: Never Education Answer Date Recorded Are you interested in more education? Not on rhea e 05/18/2024 Are you concerned about learning? Not on file 05/18/2024 No 05/18/2024 No 05/18/2024 Digital Access Answer Date Recorded No 05/18/2024 No 05/18/2024 Reliable internet access at home? Not on file 05/18/2024 Device with a working camera? Not on file Sex and Gender Information Value Date Recorded Sex Assigned at Not on file Legal Sex Male 1:01 PM EDT Gender Identity Not on file Sexual Orientation Not on file documented as of this encounter Plan of Treatment Upcoming Encounters Date Type Department Care Team (Latest Contact Info) Description 05/30/2025 10:00 AM EST Office Visit [facility] Orthopedics & Sports Medicine [address] [place] [address] Lanie Contreras PA-C [address] [place] [address] Orth[facility] [place] [address] [email or web address] 06/21/2025 Procedure Pass OR Admitting Dept - Virtual Department [address] [place] [address] 06/21/2025 7:30 AM EST Hospital Encounter OR Admitting Dept - Virtual Department [address] [place] [address] 8[address] Vivi Ortiz MD [address] [place], [place] [address]s Sports [facility], [place] [address] 06/21/2025 7:30 AM EST - 06/21/2025 8:14 AM EST Surgery OR Admitting Dept - Virtual Department [address] [place] [address] Vivi Ortiz MD [address] [place] [address] Sports [facility], [place] [address] LEFT RELEASE CARPAL TUNNEL 06/24/2025 10:00 AM EDT Office Visit [facility] Orthopedics & Sports Medicine [address] [place] [address] Lanie Contreras PA-C [address] [place] [address] Sports [facility], [place] [address] [email or web address] 07/01/2025 10:00 AM EDT Office Visit [facility] Orthopedics & Sports [address] [address] Lanie Contreras PA-C [address] [place], [place] [address]s [facility], [place] [address] [email or web address] Scheduled Procedures Name Priority Associated Diagnoses Date/Ti me RELEASE CARPAL TUNNEL Left carpal tunnel syndrome 06/21/2025 7:30 AM EST documented as of this encounter Visit Diagnoses Not on filedocumented in this encounter Care Teams Insurance Claims Processor Relationship Specialty Start Date End Date FurGaye baer DO [address] [place] [address] PCP - General Internal Medicine 08/27/24 documented as of this encounter Additional Source Comments The information contained in this document represents components of the legal health record. It is not the complete legal health record.[facility]
--- OUTSIDE RECORDS SUMMARY | 2025-01-10 08:16 | XMS_ITS | Encounter Summary ---
Author Organization [facility] Address [address] [place] [address] Phone Care Team Providers Care Sample Sewer Name Role Phone Gaye Maldonado DO Primary Care Provider [phone] Encounter Details Date Type Department Care Team (Late st Contact Info) Description 08/29/2024 Prep for Surgery [facility] Orthopedics & Sports Medicine [address] [place] [address] [phone] Vivi Ortiz MD [address] [place] [address] Orthopedics & Sports Medicine, [facility]. [place], [place] [phone] [email or web address] Social History Tobacco Use Types Packs/Day Years [...] Description 05/30/2025 10:00 AM EST Office Visit [facility] Orthopedics & Sports Medicine [address] [place] [address] [phone] Lanie Contreras PA-C [address] [place] [address] Orthopedics & Sports [facility], [place] [address] [email or web address] 06/21/2025 Procedure Pass OR Admitting Dept - Virtual Department [address] [place] [address] 06/21/2025 7:30 AM EST Hospital Encounter OR Admitting Dept - Virtual Department [address] [place] [address] Vivi Ortiz MD [address] [place] [address] Orthopedics Sports [facility], [place] [address] 06/21/2025 7:30 AM EST - 06/21/2025 8:14 AM EST Surgery OR Admitting Dept - Virtual Department [address] [place] [address] Vivi Ortiz MD [address] [place] [address] Orthopedics Sports [facility], [place] [address] LEFT RELEASE CARPAL TUNNEL 06/24/2025 10:00 AM EDT Office Visit [facility] Orthopedics & Sports Medicine [address] [place] [address] Lanie Contreras PA-C [address] [place] [address] Orthopedics Sports [facility], [place] [address] [email or web address] 07/01/2025 10:00 AM EDT Office Visit [facility] Orthopedics & Sports [address] [address] Lanie Contreras PA-C [address] [place] [address] [facility], [place] [address] [email or web address] Scheduled Procedures Name Priority Associated Diagnoses Date/Ti me RELEASE CARPAL TUNNEL Left carpal tunnel syndrome 06/21/2025 7:30 AM EST documented as of this encounter Visit Diagnoses Not on filedocumented in this encounter Care Teams Sample Sewer Relationship Specialty Start Date End Date Gaye Maldonado DO [address] [place] [address] PCP - General Internal Medicine 08/27/24 documented as of this encounter Additional Source Comments The information contained in this document represents components of the legal health record. It is not the complete legal health record.[facility]
--- OUTSIDE RECORDS SUMMARY | 2025-01-10 08:16 | XMS_ITS | Clinical Summary ---
Author Organization [facility] Address [address] [place] [address] Phone Care Team Providers Care Consumer Marketing Analyst Name Role Phone Gaye Maldonado DO Primary Care Provider [phone] Allergies No known active allergies Medications FLUoxetine (PROZAC) 10 MG capsule Take 30 mg by mouth. 4 Active FLUoxetine (PROZAC) 20 MG capsule 1 capsule. Active hydrOXYzine HCL (ATARAX) 10 MG tablet Take 10 mg by mouth. 4 Active albuterol 90 mcg/actuation inhaler 1 puff as needed Inhalation every 4 hrs Active Encounters Date Type Department Care Team Description 12/27/2024 Prep for Surgery [facility] Orthopedics & Sports Medicine [address] [place] [address] Vivi Ortiz MD 11/07/2024 Procedure Pass OR Admitting Dept - Virtual Department [address] [place] [address] from Last 3 Months Social History Tobacco Use Types Packs/Day Years Used Date Smoking Tobacco: Former Cigarettes Smokeless Tobacco: Never Tobacco Cessation:Counseling Given: Not Answered Education Answer Date Recorded Are you interested [...] on file Sexual Orientation Not on file Last Filed Vital Signs Vital Sign Reading Time Taken Comments Blood Pressure 126/82 09/16/2024 1:19 PM EDT Pulse 76 09/16/2024 1:19 PM EDT Temperature 37 C (98.6 F) 09/16/2024 1:19 PM EDT Respiratory Rate 18 09/16/2024 1:19 PM EDT Oxygen Saturation 97% 09/16/2024 1:19 PM EDT Inhaled Oxygen Concentration - - Weight 99.8 kg (220 lb) 09/16/2024 1:19 PM EDT Height 185.4 cm (6' 1 ) 09/16/2024 1:19 PM EDT Body Mass Index 29.03 09/16/2024 1:19 PM EDT Plan of Treatment Upcoming Encounters Date Type Department Care Team (Latest Contact Info) Description 05/30/2025 10:00 AM EST Office Visit [facility] Orthopedics & Sports Medicine [address] [place] [address] Lanie Contreras PA-C [address] [place] [address] Orthopedics & Sports [facility], [place] [address] [email or web address] 06/21/2025 Procedure Pass OR Admitting Dept - Virtual Department [address] [place] [address] 06/21/2025 7:30 AM EST Hospital Encounter OR Admitting Dept - Virtual Department [address] [place] [address] Vivi Ortiz MD [address] [place] [address] Orthopedics & Sports [facility], [place] [address] 06/21/2025 7:30 AM EST - 06/21/2025 8:14 AM EST Surgery OR Admitting Dept - Virtual Department [address] [place] [address] Vivi Ortiz MD [address] [place] [address] Orthopedics & Sports [facility], [place] [address] LEFT RELEASE CARPAL TUNNEL 06/24/2025 10:00 AM EDT Office Visit [facility] Orthopedics & Sports Medicine [address] [place] [address] Lanie Contreras PA-C [address] [place] [address] Orthopedics & Sports [facility], [facility] [place] [address] [email or web address] 07/01/2025 10:00 AM EDT Office Visit [facility] Orthopedics & Sports Medicine [address] [place] [address] Lanie Contreras PA-C [address] [place] [address] Orthopedics & Sports [facility], [place] [address] [email or web address] Scheduled Procedures Name Priority Associated Diagnoses Date/Ti me RELEASE CARPAL TUNNEL Left carpal tunnel syndrome 06/21/2025 7:30 AM EST Health Maintenance Due Date Last Done Comments LIPID PANEL 1971 DEPRESSION SCREENING 1983 SMOKING Hx and SMOKELESS TOBACCO SCREENING 1984 HEPATITIS C SCREENING 1989 HIV ONE-TIME SCREENING (18-65 YEARS) 1989 SCREENING FOR DIABETES 2006 COLOGUARD 2016 COLONOSCOPY 2016 COLORECTAL CANCER SCREENING 2016 FIT TEST 2016 FOBT 2016 SIGMOIDOSCOPY 2016 VIRTUAL COLONOSCOPY 2016 PNEUMOCOCCAL VACCINES (50+ years) (1 of 1 - PCV) 2021 ZOSTER VACCINES (2 of 2) 08/11/2023 06/16/2023 INFLUENZA VACCINE (#1) 2024 , 01/25/2023, 01/21/2022, Additional history exists COVID-19 VACCINE ( - 2023- season) 2024 Adult Td,Tdap Booster 04/27/2029 04/27/2019, 017 HEPATITIS A VACCINES Aged Out No long er eligible based on patient's age to complete this topic HIB VACCINES Aged Out No longer eligi ble based on patient's age to complete this topic MENINGOCOCCAL VACCINES (ACWY) Aged Out No longer eligible based on patient's age to complete this topic MENINGOCOCCAL VACCINES (B) Aged Out N o longer eligible based on patient's age to complete this topic Medical Devices Not on file Insurance [facility] Member Subscriber Plan / Payer (Ef fective 2024-Present) Name:Rafa Braden Relation to Subscriber:Self Name:Rafa Braden Payer ID:[id number] (NAIC) Group ID:Not on file Type:Indemnity Address: [facility] [employer] [id number] [facility] Care Teams Consumer Marketing Analyst Relationship Specialty Start Date End Date Gaye Maldonado DO [address] [place] [address] [email or web address] PCP - General Internal Medicine 08/27/24 Additional Source Comments The information contained in this document represents components of the legal health record. It is not the complete legal health record.[facility]
--- OUTSIDE RECORDS SUMMARY | 2025-01-10 08:16 | XMS_ITS | Encounter Summary ---
Author Organization [facility] Address [address] [place] [address] Phone Care Team Providers Care Bankruptcy Manager Name Role Phone Gaye Maldonado DO Primary Care Provider [phone] Encounter Details Date Type Department Care Team (Late st Contact Info) Description 12/27/2024 Prep for Surgery [facility] Orthopedics & Sports Medicine [address] [place] [address] [phone] Vivi Ortiz MD [address] [place] [address] Orthopedics & Sports Medicine, [facility]. [place], [place] [phone] [email or web address] Social History Tobacco Use Types Packs/Day Years [...] Description 05/30/2025 10:00 AM EST Office Visit [facility] Orthopedics & Sports Medicine [address] [place] [address] [phone] Lanie Contreras PA-C [address] [place] [address] Orthopedics & Sports [facility], [place] [address] [email or web address] 06/21/2025 Procedure Pass OR Admitting Dept - Virtual Department [address] [place] [address] 06/21/2025 7:30 AM EST Hospital Encounter OR Admitting Dept - Virtual Department [address] [place] [address] Vivi Ortiz MD [address] [place] [address] Orthopedics Sports [facility], [place] [address] 06/21/2025 7:30 AM EST - 06/21/2025 8:14 AM EST Surgery OR Admitting Dept - Virtual Department [address] [place] [address] Vivi Ortiz MD [address] [place] [address] Orthopedics Sports [facility], [place] [address] LEFT RELEASE CARPAL TUNNEL 06/24/2025 10:00 AM EDT Office Visit [facility] Orthopedics & Sports Medicine [address] [place] [address] Lanie Contreras PA-C [address] [place] [address] Orthopedics Sports [facility], [place] [address] [email or web address] 07/01/2025 10:00 AM EDT Office Visit [facility] Orthopedics & Sports [address] [address] Lanie Contreras PA-C [address] [place] [address] [facility], [place] [address] [email or web address] Scheduled Procedures Name Priority Associated Diagnoses Date/Ti me RELEASE CARPAL TUNNEL Left carpal tunnel syndrome 06/21/2025 7:30 AM EST documented as of this encounter Visit Diagnoses Not on filedocumented in this encounter Care Teams Bankruptcy Manager Relationship Specialty Start Date End Date Gaye Maldonado DO [address] [place] [address] PCP - General Internal Medicine 08/27/24 documented as of this encounter Additional Source Comments The information contained in this document represents components of the legal health record. It is not the complete legal health record.[facility]
--- OUTSIDE RECORDS SUMMARY | 2025-01-10 08:16 | XMS_ITS | Encounter Summary ---
Author Organization [facility] Address [address] [place] [address] Phone Care Team Providers Care Room Cooler Installer Name Role Phone Ethan Freed MD Primary Care Provider + Ethan Freed MD Primary Care Provider + Gaye Maldonado DO Primary Care Provider [phone] Encounter Details Date Type Department Care Team (Late st Contact Info) Description 08/05/2017 Ancillary [facility] [address] [place] [address] Sylvester Antoine DO [address] [place] [address] Palpitations Social History Tobacco Use Types Packs/Day Years Used Date Smoking Tobacco: Never Assessed Sex and Gender Information Value Date Recorded Sex Assigned at Not on file Legal Sex Male 1:01 PM EDT Gender Identity Not on file Sexual Orientation Not on file documented as of this encounter Plan of Treatment Upcoming Encounters Date Type Department Care Team (Latest Contact Info) Description 05/30/2025 10:00 AM EST Office Visit [facility] Orthopedics & Sports Medicine [address] [place] [address] Lanie Contreras PA-C [address] [place] [address] [facility] [place] [place] [address] [email or web address] 06/21/2025 Procedure Pass OR Admitting Dept - Virtual Department [address] [place] [address] 06/21/2025 7:30 AM EST Hospital Encounter OR Admitting Dept - Virtual Department [address] [place] [address] Vivi Ortiz MD [address] [place] [address] Orthopedics Sports [facility] [place] [facility], [place] [address] 06/21/2025 7:30 AM EST - 06/21/2025 8:14 AM EST Surgery OR Admitting Dept - Virtual Department [address] [place] [address] Vivi Ortiz MD [address] [place] [address] Orthopedics Sports [facility] [place] [facility], [place] [address] LEFT RELEASE CARPAL TUNNEL 06/24/2025 10:00 AM EDT Office Visit [facility] Orthopedics & Sports [address] [address] Lanie Contreras PA-C [address] [place], [place] [address] Sports [facility] [place] [facility], [place] [address] [email or web address] 07/01/2025 10:00 AM EDT Office Visit [facility] Orthopedics & Sports [address] [address] Lanie Contreras PA-C [address] [place] [address] Orthopedics Sports [facility] [place] [facility], [place] [address] [email or web address] Scheduled Procedures Name Priority Associated Diagnoses Date/Ti me RELEASE CARPAL TUNNEL Left carpal tunnel syndrome 06/21/2025 7:30 AM EST documented as of this encounter Results * Holter Monitor 24 Hours (08/05/2017 8:53 AM EDT) Anatomical Region Laterality Modality Heart Other Narrative 08/05/2017 11:48 AM EDT 24-hour monitor: Patient reported slight palpitations. Baseline rhythm is sinus with a minimum heart rate of 49 maximum 125 average 72 bpm. Rare PACs and PVCs present. Patient experienced palpitations during sinus rhythm at rates ranging from 66-91. Impression: Normal 24-hour monitor. Symptoms of slight palpitations during sinus rhythm. us Sylvester Antoine DO [facility] ORDERABLE S Final Result documented in this encounter Visit Diagnoses Diagnosis Palpitations Palpitations Left carpal tunnel syndrome Carpal tunnel syndrome documented in this encounter Care Teams Room Cooler Installer Relationship Specialty Start Date End Date Ethan Freed MD PCP - General Internal Medicine 07/26/17 08/12/24 Ethan Freed MD [address] [place] [address] PCP - General Internal Medicine 08/13/24 08/26/24 Gaye Maldonado DO [address] [place] [address] PCP - General Internal Medicine 08/27/24 documented as of this encounter Additional Source Comments The information contained in this document represents components of the legal health record. It is not the complete legal health record.[facility]
--- OUTSIDE RECORDS SUMMARY | 2025-01-10 08:17 | XMS_ITS | Patient Health Record ---
Author Organization [facility] Address [address] [place] [phone] Care Team Providers Care Right Of Way Appraiser Name Role Phone Po Rex KONG Primary Care Provider Dejon De Leon [phone] Reason For Referral No Information Medications Medication SIG (Take, Route, Frequency, Duration) Notes Start Date End Date Status Albuterol Sulfate 108 (90 Base) MCG/ACT 1 puff as needed Inhalation every 4 hrs Active FLUoxetine HCl 20 MG 1 capsule Orally On ce a day for 30 day(s) Active Immunizations Vaccine Route Administration Date Status Comme nts Influenza Unknown 01/16/2021 Administered Social History Tobacco Use: Social History Observation Description Date Details (start date - stop date) Former Smoker NA - NA Tobacco Use/Smoking Question Answer Notes Patient is [...] Never (0 point) Points 3 Interpretation Negative Problems Problem Type SNOMED Code ICD Code Onset Dates Problem Status W/U Status Risk Notes Problem 675593368 Encounter for screening for malignant neoplasm of colon (Z12.11) Active confirmed Problem 644703755932255 Preprocedural examination (Z01.818) Active confirmed Problem Diverticulosis of colon (914557653) Diverticulosis of colon (K57.30) Active confirmed Plan Of Treatment Pending Test Test Name Order Date Pathology 08/24/2021 Future Test Test Name Order Date COLONOSCOPY 07/14/2021 Insurance Providers Payer Name Payer Address Payer Phone Subscriber Number Group Number Insured Name Patient Relationship to Insured Coverage Start Date Coverage End Date [facility] Att[facility] Claims [address] [place] [id number] MITCHELL RAE Self - patient is the insured Medical (General) History Medical History History ICD Code PTSD Hypercholesterolemia Anxiety disorder Degenerative disc disease--back COVID 03/2020 Allergies Denies WA,DM,CVA,Lung disease,renal dise ase Surgical History Surgery Date(Month/Year) Tonsillectomy
[2025-01-10 08:20] LABS: MANUAL DIFF FLAG NO
[2025-01-10 08:47] LABS: Hematocrit 43.5 % (42.0-52.0); Hemoglobin 14.8 g/dl (14.0-18.0); Imm Gran Abs Auto 0.01 X10*3/uL (0.00-0.03); Imm Gran Pct Auto 0.2 % (0.0-0.4); Lymphocytes Absolute Auto 2.2 X10*3/uL (1.2-4.9); Mean Corpuscular HGB Conc 34.0 g/dl (31.0-36.0); Mean Corpuscular Hemoglobin 30.1 pg (27.0-33.0); Mean Corpuscular Volume 88.6 fL (80.0-98.0); NRBC Abs Auto 0.000 X10*3/uL (0.0-0.012); NRBC Pct Auto 0.0 /100WBC (0.0-0.2); Platelet Count 198 X10*3/uL (160-400); Red Blood Count 4.91 X10*6/uL (4.60-5.80); White Blood Count 5.4 X10*3/uL (4.8-10.8)
[2025-01-10 10:00] LABS: Alanine Aminotransferase 23 U/L (0-40); Albumin Level 4.6 g/dL (3.5-5.0); Alkaline Phosphatase 39 U/L (39-117); Anion Gap 9 (12-20); Aspartate Amino Transferase 18 U/L (5-37); Blood Urea Nitrogen 22 mg/dL (9-16); Calcium 9.0 mg/dL (8.4-10.2); Carbon Dioxide 30 mmol/L (22-29); Chloride 104 mmol/L (96-108); Cholesterol 270 mg/dL (<200); Estimated Glomerular Filt Rate > 60; HDL Cholesterol 39 mg/dL (>40); Potassium 4.4 mmol/L (3.3-5.1); Sodium 139 mmol/L (135-145); Total Protein 6.9 g/dL (6.5-8.0); Triglycerides 334 mg/dL (<150)
[2025-01-10 10:09] LABS: Free T4 (Free Thyroxine) 0.82 ng/dL (0.71-1.85)
[2025-01-10 10:13] LABS: Folate 9.9 ng/mL (> or = 4.0); Vitamin B12 345 pg/mL (200-900)
[2025-01-10 10:29] LABS: Hemoglobin A1C 139.3485 umol/L; Total Hemoglobin (HGBA1C) 3812.0112 umol/L
[2025-01-13 16:35] LABS: PSA, Ultra Sensitive 1.46 ng/mL
== END 2025-01-10 08:05 | disposition home or self-care (01) ==
LOC: HO.LAB 08:04
PROVIDERS: PCP Internal Medicine
DX: Z00.00 Encounter for general adult medical examination without abnormal findings (principal); Z12.5 Encounter for screening for malignant neoplasm of prostate; E78.00 Pure hypercholesterolemia, unspecified; E11.65 Type 2 diabetes mellitus with hyperglycemia
CPT/HCPCS: 36415; 80053; 80061; 82306; 82607; 82746; 83036; 84153; 84439; 84443; 85025